=== PATIENT | male | born 1970 | race Caucasian/White ===

== ENCOUNTER 2020-04-12 06:58 | Outpatient (REF) | payer MEDICARE, MEDICAID, SELFPAY | END 2020-04-12 06:59 | disposition home or self-care (01) | LOC: HO.LAB 06:58 | PROVIDERS: Visit Provider Internal Medicine | DX: Z20.828 Contact with and (suspected) exposure to other viral communicable diseases (principal) | CPT/HCPCS: C9803; U0003 ==

== ENCOUNTER → 2020-04-21 11:10 | Outpatient (BNVA) | payer MEDICARE, MEDICAID, SELFPAY | PROVIDERS: PCP Internal Medicine; Referring Provider Internal Medicine; Visit Provider Internal Medicine Gastroenterology | DX: K58.1 Irritable bowel syndrome with constipation (principal); K59.04 Chronic idiopathic constipation; K21.00 Gastro-esophageal reflux disease with esophagitis, without bleeding; Z79.899 Other long term (current) drug therapy | CPT/HCPCS: 99212 ==

== ENCOUNTER 2020-05-08 07:12 | Outpatient (REF) | payer MEDICARE, MEDICAID, SELFPAY ==
[2020-05-08 07:55] LABS: MANUAL DIFF FLAG NO
[2020-05-08 07:57] LABS: Basophils Percent Auto 0.5 % (0-2); Eosinophils Absolute Auto 0.2 X10*3/uL (0.0-0.4); Eosinophils Percent Auto 4.2 % (0-4); Hematocrit 44.4 % (42-52); Hemoglobin 14.7 g/dl (14.0-18.0); Imm Gran Abs Auto 0.02 X10*3/uL (0.00-0.03); Imm Gran Pct Auto 0.3 % (0.0-0.4); Lymphocytes Absolute Auto 2.2 X10*3/uL (1.2-4.9); Lymphocytes Percent Auto 37.7 % (20-40); Mean Corpuscular HGB Conc 33.1 g/dl (31.0-36.0); Mean Corpuscular Hemoglobin 29.8 pg (27.0-33.0); Mean Corpuscular Volume 89.9 fL (80-98); Monocytes Absolute Auto 0.7 X10*3/uL (0.1-1.2); Monocytes Percent Auto 11.9 % (2-11); Neutrophils Absolute Auto 2.6 X10*3/uL (2.0-8.3); Neutrophils Percent Auto 45.4 % (45-73); Platelet Count 313 X10*3/uL (160-400); Red Blood Count 4.94 X10*6/uL (4.60-5.80); White Blood Count 5.7 X10*3/uL (4.8-10.8)
[2020-05-08 08:21] LABS: Alanine Aminotransferase 23 U/L (0-40); Albumin Level 4.4 g/dL (3.5-5.0); Alkaline Phosphatase 56 U/L (39-117); Anion Gap 14 (12-20); Aspartate Amino Transferase 19 U/L (5-37); Bilirubin Total 0.9 mg/dL (0.0-1.0); Blood Urea Nitrogen 15 mg/dL (9-16); Calcium 9.2 mg/dL (8.4-10.2); Carbon Dioxide 27 mmol/L (22-29); Chloride 105 mmol/L (96-108); Cholesterol 214 mg/dL; Estimated Glomerular Filt Rate > 60; Glucose Fasting 102 mg/dL (60-99); HDL Cholesterol 41 mg/dL; LDL Cholesterol Calculated 161 mg/dl; Potassium 4.8 mmol/l (3.3-5.1); Sodium 141 mmol/L (135-145); Total Protein 7.1 g/dL (6.5-8.0); Triglycerides 64 mg/dL
== END 2020-05-08 07:13 | disposition home or self-care (01) ==
LOC: HO.LAB 07:12
PROVIDERS: PCP Internal Medicine; Visit Provider Internal Medicine
DX: Z00.00 Encounter for general adult medical examination without abnormal findings (principal); E66.9 Obesity, unspecified; G43.909 Migraine, unspecified, not intractable, without status migrainosus; N40.0 Benign prostatic hyperplasia without lower urinary tract symptoms; K21.9 Gastro-esophageal reflux disease without esophagitis; I10 Essential (primary) hypertension; E78.00 Pure hypercholesterolemia, unspecified; M25.572 Pain in left ankle and joints of left foot; Z12.11 Encounter for screening for malignant neoplasm of colon
CPT/HCPCS: 36415; 80053; 80061; 85025

== ENCOUNTER 2020-05-21 10:13 | Outpatient (REF) | payer MEDICARE, SELFPAY ==
--- NOTE | 2020-05-21 10:24 | XR_ITS ---
EXAMINATION: XR NASAL BONES CLINICAL INFORMATION: Nasal congestion. COMPARISON: None TECHNIQUE: 3 views of the nasal bones were obtained. FINDINGS: There is no visible fracture or bony abnormality. The soft tissues are normal. XR/XR nasal bones min 3V IMPRESSION: Unremarkable nasal bone exam.
== END 2020-05-21 10:14 | disposition home or self-care (01) ==
LOC: HO.XRAY 10:13
PROVIDERS: PCP Internal Medicine; Visit Provider Internal Medicine
DX: R09.81 Nasal congestion (principal)
CPT/HCPCS: 70160

== ENCOUNTER 2020-06-05 07:19 | Outpatient (REF) | payer MEDICARE, SELFPAY ==
[2020-06-05 08:59] LABS: PSA,Total (Free>4and<10) 1.25 ng/mL (0.00-4.00)
== END 2020-06-05 07:20 | disposition home or self-care (01) ==
LOC: HO.LAB 07:19
PROVIDERS: PCP Internal Medicine; Visit Provider Urology
DX: N40.1 Benign prostatic hyperplasia with lower urinary tract symptoms (principal); Z12.5 Encounter for screening for malignant neoplasm of prostate
CPT/HCPCS: 84153

== ENCOUNTER 2020-06-09 12:08 | Outpatient (REF) | payer MEDICARE, OTHER, SELFPAY ==
--- NOTE | 2020-06-09 12:14 | XR_ITS ---
EXAMINATION: CHEST X-RAY AND THORACIC SPINE X-RAY CLINICAL INFORMATION: Cough. Back pain. COMPARISON: Previous chest x-ray most recent September 2016 TECHNIQUE: 2 views of the chest and 2 views of the thoracic spine FINDINGS: Chest: The cardiac and mediastinal contours are normal. The lungs are clear. There is no pleural effusion or pneumothorax. There is mild curvature of the thoracic spine to the right and degenerative changes. Thoracic spine: There is mild curvature of the mid thoracic spine to the right with apex at T6. Bone alignment is otherwise normal. No fracture or dislocation is seen. There is mild degenerative spondylosis of the lower thoracic spine. Paraspinal soft tissues are normal. XR/XR thoracic spine 2V IMPRESSION: Chest: No evidence for acute disease in the chest. Thoracic spine: Mild curvature of the midthoracic spine to the right and degenerative changes.
--- NOTE | 2020-06-09 12:14 | XR_ITS ---
EXAMINATION: CHEST X-RAY AND THORACIC SPINE X-RAY CLINICAL INFORMATION: Cough. Back pain. COMPARISON: Previous chest x-ray most recent September 2016 TECHNIQUE: 2 views of the chest and 2 views of the thoracic spine FINDINGS: Chest: The cardiac and mediastinal contours are normal. The lungs are clear. There is no pleural effusion or pneumothorax. There is mild curvature of the thoracic spine to the right and degenerative changes. Thoracic spine: There is mild curvature of the mid thoracic spine to the right with apex at T6. Bone alignment is otherwise normal. No fracture or dislocation is seen. There is mild degenerative spondylosis of the lower thoracic spine. Paraspinal soft tissues are normal. XR/XR chest 2V IMPRESSION: Chest: No evidence for acute disease in the chest. Thoracic spine: Mild curvature of the midthoracic spine to the right and degenerative changes.
== END 2020-06-09 12:09 | disposition home or self-care (01) ==
LOC: HO.XRAY 12:08
PROVIDERS: PCP Internal Medicine; Visit Provider Physician Assistant
DX: R05 Cough (principal); M54.6 Pain in thoracic spine
CPT/HCPCS: 71046; 72070

== ENCOUNTER → 2020-06-11 08:52 | Outpatient (BNVA) | payer MEDICARE, OTHER, SELFPAY | PROVIDERS: PCP Internal Medicine; Visit Provider Urology | DX: N40.0 Benign prostatic hyperplasia without lower urinary tract symptoms (principal) | CPT/HCPCS: 99212 ==

== ENCOUNTER 2020-08-17 06:08 | Day surgery (SDC) | payer MEDICARE, MEDICAID, SELFPAY ==
[2020-08-11 17:03] VITALS: BMI 35.5
--- NOTE | 2020-08-16 09:49 | HO.ANESPROP2 ---
Documented by User: Macy Muhammad 08/16/20 09:50 HPI - Anesthesia Eval Consult details Narrative: 50yo M for Upper Endoscopy and Colonoscopy Deaf requiring foreign language interpreter [facility] Active Problems Active Problems: All Active Problems (Updated 08/11/20 @ 17:00 by Nadege Yates) Impaired glucose tolerance (Acute) GERD (gastroesophageal reflux disease) (Acute) Nasal congestion (Acute) Back pain (Acute) Cough (Acute) Thoracic spine pain (Acute) BPH (benign prostatic hyperplasia) (Acute) Vitamin D deficiency (Acute) Hypertension (Acute) Obesity (BMI 30-39.9) (Acute) Hypercholesterolemia (Acute) Chronic idiopathic constipation (Acute) Past Medical History Medical History BPH (benign prostatic hyperplasia) Chronic idiopathic constipation COVID-19 vaccine series completed Deaf Hypercholesterolemia Hypertension Left epididymitis Migraine Obesity (BMI 30-39.9) Screening for colon cancer Vitamin D deficiency Family History Family History Father History of prostate cancer Mother HX: breast cancer Surgical History Surgical History History of esophagogastroduodenoscopy (EGD) Hx of colonoscopy Hx of hernia repair Varicocele Social History Social History Smoking Status: Never smoker Use of substances other than those prescribed or required for medical reasons: No Advance Directives: No Advance Directives Information Provided: No Advance Directives on File: No Current occupational status: employed Meds Allergies Allergy/AdvReac Type Severity Reaction Status Date / Time Sulfa (Sulfonamide Allergy Mild HIVES, Verified 07/21/20 15:07 Antibiotics) rash and [SULFA(SULFONAMIDE red bump, ANTIBIOTICS)] hives and itching Home Medications Medication Instructions Recorded Confirmed Last Taken Type baclofen 20 mg PO BEDTIME PRN 08/11/20 08/11/20 Unknown History lisinopril 5 mg PO DAILY 08/11/20 08/17/20 08/17/20 05:20 History Exam Exam Date and Time: August 16, 2020 0949 Height,Weight and Vital Signs: Height 5 ft 11 in Weight 115.666 kg Assessment and Plan Assessment Anesthesia Assessment: Chart Reviewed Documented by User: Denia Goldberg 08/17/20 07:24 PMFSH Past Medical History Medical History BPH (benign prostatic hyperplasia) Chronic idiopathic constipation COVID-19 vaccine series completed Deaf Hypercholesterolemia Hypertension Left epididymitis Migraine Obesity (BMI 30-39.9) Screening for colon cancer Vitamin D deficiency Family History Family History Father History of prostate cancer Mother HX: breast cancer Surgical History Surgical History History of esophagogastroduodenoscopy (EGD) Hx of colonoscopy Hx of hernia repair Varicocele Social History Social History Smoking Status: Never smoker Use of substances other than those prescribed or required for medical reasons: No Advance Directives: No Advance Directives Information Provided: No Advance Directives on File: No Current occupational status: employed Meds Allergies Allergy/AdvReac Type Severity Reaction Status Date / Time Sulfa (Sulfonamide Allergy Mild HIVES, Verified 07/21/20 15:07 Antibiotics) rash and [SULFA(SULFONAMIDE red bump, ANTIBIOTICS)] hives and itching Home Medications Medication Instructions Recorded Confirmed Last Taken Type baclofen 20 mg PO BEDTIME PRN 08/11/20 08/11/20 Unknown History lisinopril 5 mg PO DAILY 08/11/20 08/17/20 08/17/20 05:20 History Exam Airway Mallampati Class: II TM Dist: >3cm Neck ROM: Full Heart: RRR Lungs: CTA
[2020-08-17 06:58] VITALS: BP 128/83; PULSE 68; RESP 16; TEMP 36.3; O2SAT 99
[2020-08-17] MEDS: Lactated Ringers 1,000 ML 100 ML IVCONT (07:04)
--- NOTE | 2020-08-17 07:26 | MHC.SHP ---
Pre-Procedural Eval Section B Chief Complaint: CIC, GERD Details of Present Illness: Colon cancer screening Occasional increased heartburn with prolonged pain No new problems since preprocedure in April Relevant Family History (Specify if Yes): No Relevant Social History: None Present Medications: see Short Stay Collaborative assessment Medical History: Significant History (Hearing impaired,Hypertension, obesity,Migraine) History of Previous Operations: Relevant previous surgery/procedure and date(s) (Previous egd) Allergies: Allergies Allergy/AdvReac Type Severity Reaction Status Date / Time Sulfa (Sulfonamide Allergy Mild HIVES, Verified 07/21/20 15:07 Antibiotics) rash and [SULFA(SULFONAMIDE red bump, ANTIBIOTICS)] hives and itching Review of Systems Sugical H&P ROS: Negative: Constitution, Cardiovascular and Respiratory and Yes, Specify: Gastrointestinal (gerd) Exam Surgical H&P Exam: Normal: Heart (deaf), Normal: Lungs, Normal: Extremities and Normal: Abdomen Plan Diagnosis/Plan: Unchanged I have reviewed the history and physical and performed a pertinent physical examination on my patient. No changes have occurred unless specified.yes
[2020-08-17 08:30] VITALS: BP 104/62; PULSE 64; RESP 16; TEMP 36.2; O2SAT 95
--- NOTE | 2020-08-17 08:30 | PM.OP ---
Brief Operative Note Date of Service: 08/17/20 Pre-op diagnosis: Chronic GERD, Colon Cancer Screening Post-op diagnosis: other (Normal EGD--?NEL; colon polyp ) Procedure: EGD; COLONOSCOPY WITH EXCISIONAL BX WITH COLD BX FORCEPS Implants: NONE Surgeon: Yuni Gatica MD Anesthesia: MAC (MD SOHA) Estimated blood loss (mL): 5 Pathology: other (POLYP TRANSVERSE COLON) Condition: stable Disposition: PACU
[2020-08-17 08:45] VITALS: BP 111/64; PULSE 60; RESP 18; O2SAT 97
--- NOTE | 2020-08-17 09:11 | HO.POSTANES ---
Post Anesthesia Evaluation Post Anesthesia Evaluation Vital Signs: Vital Signs Temp Pulse Resp BP Pulse Ox 08/17/20 08:45 60 18 111/64 97 08/17/20 08:30 97.1 F 64 16 104/62 95 08/17/20 06:58 97.4 F 68 16 128/83 99 Anesthesia: Monitored Mental Status: Awake Pain Control: Satisfactory Nausea/Vomiting: None Hydration: Adequate Anesthesia-Related Issues: No Anes. Related Issues
--- NOTE | 2020-08-22 10:59 | W.PM.OPN ---
Operative Note Operative Note Date of Service: 08/17/20 Narrative: Pre-op diagnosis: Chronic GERD, Colon Cancer Screening Post-op diagnosis: other (Normal EGD--?NEL; colon polyp ) Procedure: EGD; COLONOSCOPY WITH EXCISIONAL BX WITH COLD BX FORCEPS Implants: NONE Surgeon: Yuni Gatica MD Anesthesia: MAC (MD SOHA) FINDINGS: EGD: Video gastroscope was introduced with out difficulty. Navigated through the posterior pharynx. View of Arytenoid cartilages showed them to be lipomatous and flattened-no erythema was seen. Scope easily passed into the esophagus. Mucosa was normal. There was a ? of esophageal spasm noted. No hiatal hernia was seen. Gastric mucosa was normal. Duodenal bulb and duodenum showed endoscopically normal villi. No bx was done. COLO: LEELA: Prostate was normal, Sphincter tone was adequate. Adult slim colonoscope was introduced with no difficulty. Scope easily advanced through sigmoid, descending, transverse and ascending colon into the cecum..Appendiceal orifice was seen. Ileocecal valve was seen. PREP: Good. Slow withdrawal of scope, good rotational views: A diminutive polyp was identified and removed in the distal transverse colon. (Cold bx forceps technique used,) ARV was clear. . Estimated blood loss (mL): 5 Pathology: other (POLYP TRANSVERSE COLON)--path was hyperplastic. Condition: stable Disposition: PACU PLAN: Repeat asymptomatic screening will be 10 years. FIT testing @ 5 years. UGI symptoms can be reviewed in followup visit.
== END 2020-08-17 09:31 | disposition home or self-care (01) ==
PROVIDERS: PCP Internal Medicine; Visit Provider Internal Medicine Gastroenterology
PROC: (CPT 45380; principal; 2020-08-17 07:30)
DX: Z12.11 Encounter for screening for malignant neoplasm of colon (principal); K63.5 Polyp of colon; K59.04 Chronic idiopathic constipation; K21.9 Gastro-esophageal reflux disease without esophagitis; I10 Essential (primary) hypertension; H90.5 Unspecified sensorineural hearing loss; Z79.899 Other long term (current) drug therapy; Z88.2 Allergy status to sulfonamides
CPT/HCPCS: 45380; 43235; 88305

== ENCOUNTER 2020-08-24 08:00 | Outpatient (RCR) | payer MEDICARE, MEDICAID, SELFPAY ==
--- NOTE | 2020-07-12 12:30 | MHC.PT.OD ---
[facility] [place] [facility] [place] [facility] [place] [facility] [address] Sheree Rivera [address] [phone] F: [phone] F: [phone] F: [phone] F: [phone] Physical Therapy Daily Note Diagnosis: Dorsalgia M54.9 referred to PT by Dr. Davidson. with date of referra 06/08/2020 Jul 15 Pt underwent xrays within [facility] (see below). Date of Surgery: Date of Evaluation: 07/12/20 Date of Treatment: 07/06/20 Treatments to Date: 1 Cancellations to Date: No Shows to Date: Authorized Visits: 7 Insurance End Date: Precautions/ Contraindications:Use of park interpreter this date Deaf, history of HTN Subjective: Pt verbalizing he is scheduled to see Dr. Davidson for follow up regarding refill of baclofen medication and to discuss recommendation of what to take for pain (? ibuprofen- pt has a history of HTN). Pt verbalizes overall improvement since start of care; however he expresses would like to have his pain go away altogether. Pain Score and Location: Radiating down R UE Objective Flowsheet: Tests & Measures park interpreter present Exercises Seated Krank cycle x 5 minutes backwards with moderate resistance for active warm-up SL for thoracic rotation with open books and cervical rotation x 5R each side Standing resisted shoulder extension, shoulder flexion, and resisted ER/IR with GTB compeleted bilaterally x 2 set 10R Review of horizontal abd, ER pullouts, open books, pec minor stretch over foam roller with HEP program. Prone for IASTM to bilateral thoracic paraspinals, using HG #8 strumming technique followed by YOKASTA mobs grade 2-3 T3-T6 region Self care: postural education with lumbar towel roll., impact of sternal elevation on posture, sitting posture. Education re: trial of alternating MHP/ice for mm spasms to upper back region. Modalities Manual c-tx set in 30 degrees flexion x 20 minutes @ 25# pull force in effort to centralize sx of R UE completed post traction session today, followed by three minutes of rest post traction. Assessment: Pt has attended 7 sessions of PT to date, demonstrating some improvement/reduction in severity of R upper back pain/cervical radiculopathy sx. Pt has been issued a written postural HEP program with (+) carryover and compliance; he has obtained a foam roller for home use. Pt continues to express intermittent R lateral shoulder sx which appears consistent with cervical radiculopathy C5/C6 pattern. He has been receiving mechanical cervical traction with (+) improvements, now rating sx as a 5-6/10 where at start of care it was a 8-9/10. He has been completing some construction activities at home which appear to have been a contributing factor to his symptoms. Pt inquired about medication relief as he has run out of baclofen, therapist reached out to PCP office to inquire what recommendation Dr. Davidson has for patient due to pt's history of HTN. Pt has been receiving STM/instrument assisted soft tissue mobilization, postural taping, mechanical traction, postural education, and therapeutic exercise. At this time therapist is recommending patient continue therapy at a frequency of 2x/week. Due to now improving, intermittent appearance of radiating R shoulder sx, therapist is no longer inquiring about trial of a steroid taper, as the exercises and the traction treatment appears to be improving pt's symptoms. Use of ASL in-person japanese interpreter has been required during each session. Pt did mention new medical issue today during this session which I encouraged him to bring up at time of his next PCP appointment (difficulty breathing when sleeping on his back at night- which is relieved with side-lying). He reports hx deviated septum due to baseball injury many years ago. Pt may benefit from screening for sleep apnea..? Pt is scheduled to see Dr. Davidson on 07/15/20. Thank you for your referral. PT Plan: Continue cervical traction and strengthening per plan Continue manual therapy, taping, and progression of postural therex Short Term Goals: 1. Centralize R UE sx to height of C/S. 2. Decreased frequency of headaches from daily to <2x/week. 3. Pt will demonstrate improved pec minor length. 4. Pt will demonstrate strength middle and lower trap strength 4+/5. 5. Pt will improve postural awareness to good during ADLS/IADLS. Nursing Home Goals: 1. Pt will demonstrate R shoulder abd to 5/5. 2. Pt will demonstrate R shoulder flexion to 5/5. 3. Pt will demonstrate upper and lower trap strength 10/06. 4. I HEP postural stabilization program. 5. Pt will verbalize resolution of upper back sx by >75% during ADLS/IADLS. Electronically signed by: Bety Ardon, PT, DPT
== END 2020-09-13 08:21 | disposition other institution (70) ==
LOC: HO.PTWFD 08:00
PROVIDERS: Visit Provider Internal Medicine
DX: M54.9 Dorsalgia, unspecified (principal)
CPT/HCPCS: 97012; 97035; 97110; 97140; 97161; 97530

== ENCOUNTER → 2020-09-08 12:57 | Outpatient (BNVA) | payer MEDICARE, OTHER, MEDICAID, SELFPAY | PROVIDERS: PCP Internal Medicine; Visit Provider Internal Medicine Gastroenterology | DX: K21.9 Gastro-esophageal reflux disease without esophagitis (principal); K59.04 Chronic idiopathic constipation | CPT/HCPCS: Q3014 ==

== ENCOUNTER → 2020-10-14 13:51 | Outpatient (BNVA) | payer MEDICARE, OTHER, SELFPAY | PROVIDERS: PCP Internal Medicine; Visit Provider Nurse Practitioner | DX: Z13.89 Encounter for screening for other disorder (principal) | CPT/HCPCS: Q3014 ==

== ENCOUNTER → 2020-11-22 12:41 | Outpatient (REF) | payer MEDICARE, MEDICAID, SELFPAY | LOC: HO.SL 12:41 | PROVIDERS: PCP Internal Medicine; Visit Provider Internal Medicine | DX: G47.10 Hypersomnia, unspecified (principal); E66.9 Obesity, unspecified; G47.33 Obstructive sleep apnea (adult) (pediatric); K21.9 Gastro-esophageal reflux disease without esophagitis; K59.04 Chronic idiopathic constipation | CPT/HCPCS: 95806; Q3014 ==

== ENCOUNTER → 2021-01-04 15:16 | Outpatient (BNVA) | payer MEDICARE, MEDICAID, SELFPAY | PROVIDERS: PCP Internal Medicine; Visit Provider Nurse Practitioner | DX: Z13.89 Encounter for screening for other disorder (principal) | CPT/HCPCS: Q3014 ==

== ENCOUNTER 2021-02-05 07:14 | Outpatient (REF) | payer MEDICARE, MEDICAID, SELFPAY ==
[2021-02-05 07:55] LABS: MANUAL DIFF FLAG NO
[2021-02-05 08:01] LABS: Basophils Percent Auto 0.3 % (0-2); Eosinophils Absolute Auto 0.1 X10*3/uL (0.0-0.4); Eosinophils Percent Auto 2.2 % (0-4); Hematocrit 41.2 % (42-52); Hemoglobin 13.2 g/dl (14.0-18.0); Imm Gran Abs Auto 0.01 X10*3/uL (0.00-0.03); Imm Gran Pct Auto 0.2 % (0.0-0.4); Lymphocytes Absolute Auto 2.1 X10*3/uL (1.2-4.9); Lymphocytes Percent Auto 34.6 % (20-40); Mean Corpuscular Hemoglobin 28.3 pg (27.0-33.0); Mean Corpuscular Volume 88.4 fL (80-98); Mean Platelet Volume 9.3 fL (9.4-12.4); Monocytes Absolute Auto 0.7 X10*3/uL (0.1-1.2); Monocytes Percent Auto 12.1 % (2-11); Neutrophils Percent Auto 50.6 % (45-73); Platelet Count 318 X10*3/uL (160-400); Red Blood Count 4.66 X10*6/uL (4.60-5.80); Red Cell Distribution Width 12.1 % (11.0-16.0); White Blood Count 5.9 X10*3/uL (4.8-10.8)
[2021-02-05 08:30] LABS: Alanine Aminotransferase 26 U/L (0-40); Albumin Level 4.3 g/dL (3.5-5.0); Alkaline Phosphatase 65 U/L (39-117); Anion Gap 10 (12-20); Aspartate Amino Transferase 20 U/L (5-37); Bilirubin Total 0.7 mg/dL (0.0-1.0); Blood Urea Nitrogen 12 mg/dL (9-16); Calcium 9.6 mg/dL (8.4-10.2); Carbon Dioxide 29 mmol/L (22-29); Chloride 108 mmol/L (96-108); Cholesterol 141 mg/dL; Estimated Glomerular Filt Rate > 60; Glucose Random 104 mg/dL (60-115); HDL Cholesterol 35 mg/dL; LDL Cholesterol Calculated 96 mg/dl; Potassium 4.9 mmol/L (3.3-5.1); Sodium 142 mmol/L (135-145); Total Protein 7.1 g/dL (6.5-8.0); Triglycerides 54 mg/dL
[2021-02-05 08:37] LABS: Prostate Specific Antigen Scr 1.49 ng/mL (<0.05-4.0); Thyroid Stimulating Hormone 0.83 uIU/mL (0.32-4.0)
[2021-02-07 08:14] LABS: Folate 12.3 ng/mL (> or = 4.0); Vitamin B12 475 pg/mL (200-900)
[2021-02-08 12:54] LABS: Estimated Average Glucose 108 mg/dL; Hemoglobin A1c % 5.4 %
== END 2021-02-05 07:15 | disposition home or self-care (01) ==
LOC: HO.LAB 07:14
PROVIDERS: PCP Internal Medicine; Visit Provider Internal Medicine
DX: Z12.5 Encounter for screening for malignant neoplasm of prostate (principal); E78.00 Pure hypercholesterolemia, unspecified; R73.02 Impaired glucose tolerance (oral)
CPT/HCPCS: 36415; 80053; 80061; 82607; 82746; 83036; 84153; 84439; 84443; 85025

== ENCOUNTER 2021-04-04 16:51 | Emergency (ER) | payer MEDICARE, MEDICAID, SELFPAY ==
[2021-04-04 17:02] VITALS: BP 118/73; PULSE 88; RESP 18; TEMP 36; O2SAT 98; BMI 33.5
[2021-04-04 17:36] LABS: MANUAL DIFF FLAG NO
[2021-04-04 17:37] LABS: Basophils Percent Auto 0.4 % (0-2); Eosinophils Absolute Auto 0.2 X10*3/uL (0.0-0.4); Eosinophils Percent Auto 2.6 % (0-4); Hematocrit 42.8 % (42.0-52.0); Hemoglobin 13.9 g/dl (14.0-18.0); Imm Gran Abs Auto 0.01 X10*3/uL (0.00-0.03); Imm Gran Pct Auto 0.1 % (0.0-0.4); Lymphocytes Absolute Auto 2.5 X10*3/uL (1.2-4.9); Lymphocytes Percent Auto 34.8 % (20-40); Mean Corpuscular HGB Conc 32.5 g/dl (31.0-36.0); Mean Corpuscular Hemoglobin 28.1 pg (27.0-33.0); Mean Corpuscular Volume 86.5 fL (80.0-98.0); Mean Platelet Volume 8.8 fL (9.4-12.4); Monocytes Absolute Auto 0.8 X10*3/uL (0.1-1.2); Monocytes Percent Auto 10.7 % (2-11); Neutrophils Absolute Auto 3.62 x10*3/uL (2.0-8.3); Neutrophils Percent Auto 51.4 % (45-73); Platelet Count 325 X10*3/uL (160-400); Red Blood Count 4.95 X10*6/uL (4.60-5.80); Red Cell Distribution Width 12.1 % (11.0-16.0)
--- NOTE | 2021-04-04 17:43 | ED.GENADULT ---
HPI - General Adult General Chief complaint: General Medical Stated complaint: Abd Pain Time Seen by Provider: 04/04/21 17:17 Source: patient Mode of arrival: ambulatory Limitations: no limitations History of Present Illness HPI narrative: Patient nonverbal sign language was used. Patient's history of high cholesterol and hypertension been having pain nonspecific on the right side of the body since 10/22 was not able to see his primary care doctor till date pain is localized the shoulder in the groin area in the leg area mostly patient feels stiff in the morning. No joint swelling no fever no diarrhea no vomiting also patient was saying after bicycling he has some pain in his pain is. With multiple complaints no acute change in the pain corrective no rash Related Data Previous Rx's Medication Instructions Recorded simvastatin 5 mg tablet 5 mg PO BEDTIME #90 tab 07/15/20 AUTO CPAP 6-16 cm H2O humidified #1 ea 12/01/20 air omeprazole 20 mg capsule,delayed 20 mg PO QAM #30 cap 01/04/21 release lisinopril 10 mg tablet 5 mg PO DAILY #90 tab 02/14/21 tramadol 50 mg tablet 50 mg PO Q6H PRN #20 tab 04/04/21 Allergies Allergy/AdvReac Type Severity Reaction Status Date / Time Sulfa (Sulfonamide Allergy Mild HIVES, Verified 02/17/21 09:47 Antibiotics) rash and [SULFA(SULFONAMIDE red bump, ANTIBIOTICS)] hives and itching Review of Systems Review of Systems: Yes all other systems are reviewed and are negative PMFSH Past Medical History Medical History Back pain BPH (benign prostatic hyperplasia) Chronic idiopathic constipation Cough COVID-19 vaccine series completed Deaf Hypercholesterolemia Hypertension Left epididymitis Migraine Nasal congestion Obesity (BMI 30-39.9) Rash Screening for colon cancer Thoracic spine pain Vitamin D deficiency Surgical History History of esophagogastroduodenoscopy (EGD) Hx of colonoscopy Hx of hernia repair Varicocele Family History Family History Father History of prostate cancer Mother HX: breast cancer Social History Social History Household Members: Spouse, Family and Children Housing: House Alcohol intake: never Patient Tobacco Use Status: Never used Tobacco Use of substances other than those prescribed or required for medical reasons: No Advance Directives: No Advance Directives Information Provided: No service: No Current occupational status: employed Physical Exam Vital Signs: Vital Signs: Last Vital Signs Temp 96.8 F 04/04/21 17:02 Pulse 88 04/04/21 17:02 Resp 18 04/04/21 17:02 BP 118/73 04/04/21 17:02 Pulse Ox 98 04/04/21 17:02 Body Mass Index 33.5 Appearance: Alert. Oriented X3. No acute distress. Nonverbal Eyes: No pallor or icterus ENT: Pharynx normal. Oral Mucosa moist Neck: Normal inspection. Neck supple. CVS: Normal heart rate and rhythm. Pulses normal. Respiratory: No respiratory distress. Equal air entry bilateral, no wheezing/rales/rhonchi Abdomen: Soft and nontender. Bowel sounds are present, no mass palpable, no CVA tenderness Genitalia: Normal penis normal scrotum no testicle pain or swelling Skin: Skin warm and dry. Normal skin color. Normal skin turgor. Extremities: No lower extremity edema. No calf tenderness No joint swelling noticed good range of shoulder movements no swelling in the groin area knee joint is normal Neuro: Oriented X 3. No motor deficit. No sensory deficit. Medical Decision Making MDM Narrative Medical decision making narrative: Patient nonspecific body pain likely musculoskeletal workup essentially negative patient advised to drink plenty of fluids tramadol for pain as needed Lab Data Lab results reviewed: Yes I reviewed the patient's lab results. Result diagrams: 04/04/21 17:31 04/04/21 17:31 Labs: Lab Results 04/04/21 04/04/21 04/04/21 Range/Units 17:31 17:31 17:31 WBC 7.0 (4.8-10.8) X10*3/uL RBC 4.95 (4.60-5.80) X10*6/uL Hgb 13.9 L (14.0-18.0) g/dl Hct 42.8 (42.0-52.0) % MCV 86.5 (80.0-98.0) fL MCH 28.1 (27.0-33.0) pg MCHC 32.5 (31.0-36.0) g/dl RDW 12.1 (11.0-16.0) % Plt Count 325 (160-400) X10*3/uL MPV 8.8 L (9.4-12.4) fL Immature Gran % (Auto) 0.1 (0.0-0.4) % Neut % (Auto) 51.4 (45-73) % Lymph % (Auto) 34.8 (20-40) % [place] % (Auto) 10.7 (2-11) % Eos % (Auto) 2.6 (0-4) % Baso % (Auto) 0.4 (0-2) % Lymph # (Auto) 2.5 (1.2-4.9) X10*3/uL [place] # (Auto) 0.8 (0.1-1.2) X10*3/uL Eos # (Auto) 0.2 (0.0-0.4) X10*3/uL Baso # (Auto) 0.0 (0.0-0.2) X10*3/uL Abs Immat Gran (auto) 0.01 (0.00-0.03) X10*3/uL Absolute Neuts (auto) 3.62 (2.0-8.3) x10*3/uL Absolute Nucleated RBC 0.000 (0.0-0.012) X10*3/uL Nucleated RBC % (auto) 0.0 (0.0-0.2) /100WBC ESR 5 (0-15) MM/HR Sodium 141 (135-145) mmol/L Potassium 4.9 (3.3-5.1) mmol/L Chloride 105 (96-108) mmol/L Carbon Dioxide 25 (22-29) mmol/L Anion Gap 16 (12-20) BUN 15 (9-16) mg/dL Creatinine 1.29 (0.5-1.4) mg/dL Estim Creat Clear Calc 85.0 Estimated GFR 59 Random Glucose 116 H (60-115) mg/dL Calcium 9.7 (8.4-10.2) mg/dL Urine Color Urine Appearance Urine pH (5.0-8.0) Ur Specific [place] (1.005-1.025) Urine Protein (NEG-TRACE) MG/DL Urine Glucose (UA) (NEG) MG/DL Urine Ketones (NEG) MG/DL Urine Blood (NEG) Urine Nitrite (NEG) Ur Leukocyte Esterase (NEG) 04/04/21 Range/Units 17:42 WBC (4.8-10.8) X10*3/uL RBC (4.60-5.80) X10*6/uL Hgb (14.0-18.0) g/dl Hct (42.0-52.0) % MCV (80.0-98.0) fL MCH (27.0-33.0) pg MCHC (31.0-36.0) g/dl RDW (11.0-16.0) % Plt Count (160-400) X10*3/uL MPV (9.4-12.4) fL Immature Gran % (Auto) (0.0-0.4) % Neut % (Auto) (45-73) % Lymph % (Auto) (20-40) % [place] % (Auto) (2-11) % Eos % (Auto) (0-4) % Baso % (Auto) (0-2) % Lymph # (Auto) (1.2-4.9) X10*3/uL [place] # (Auto) (0.1-1.2) X10*3/uL Eos # (Auto) (0.0-0.4) X10*3/uL Baso # (Auto) (0.0-0.2) X10*3/uL Abs Immat Gran (auto) (0.00-0.03) X10*3/uL Absolute Neuts (auto) (2.0-8.3) x10*3/uL Absolute Nucleated RBC (0.0-0.012) X10*3/uL Nucleated RBC % (auto) (0.0-0.2) /100WBC ESR (0-15) MM/HR Sodium (135-145) mmol/L Potassium (3.3-5.1) mmol/L Chloride (96-108) mmol/L Carbon Dioxide (22-29) mmol/L Anion Gap (12-20) BUN (9-16) mg/dL Creatinine (0.5-1.4) mg/dL Estim Creat Clear Calc Estimated GFR Random Glucose (60-115) mg/dL Calcium (8.4-10.2) mg/dL Urine Color YELLOW Urine Appearance CLEAR Urine pH 6.0 (5.0-8.0) Ur Specific [place] 1.020 (1.005-1.025) Urine Protein NEG (NEG-TRACE) MG/DL Urine Glucose (UA) NEG (NEG) MG/DL Urine Ketones NEG (NEG) MG/DL Urine Blood NEG (NEG) Urine Nitrite NEG (NEG) Ur Leukocyte Esterase NEG (NEG) Discharge Plan Discharge Clinical Impression: Musculoskeletal pain Patient Disposition: Home, Self-Care Instructions: Musculoskeletal Pain (ED) Additional Instructions: Take pain medication as prescribed Follow with PCP Prescriptions: New tramadol 50 mg tablet 50 mg PO Q6H PRN (Reason: pain) Qty: 20 RF: 0 No Action (DME) AUTO CPAP 6-16 cm H2O humidified air See Rx Instructions .Route .MEDSUPPLY Qty: 1 RF: 0 lisinopril 10 mg tablet 5 mg PO DAILY Qty: 90 RF: 1 simvastatin 5 mg tablet 5 mg PO BEDTIME Qty: 90 RF: 2 omeprazole 20 mg capsule,delayed release(DR/EC) 20 mg PO QAM Qty: 30 RF: 6
[2021-04-04 17:51] LABS: Appearance Urine CLEAR; Color Urine YELLOW; Glucose Urine UA NEG (NEG); Leukocyte Esterase Urine NEG (NEG); Nitrite Urine NEG (NEG); Urine Blood NEG (NEG); Urine Ketones NEG (NEG); Urine Protein NEG (NEG-TRACE)
[2021-04-04 17:59] LABS: Anion Gap 16 (12-20); Blood Urea Nitrogen 15 mg/dL (9-16); Calcium 9.7 mg/dL (8.4-10.2); Carbon Dioxide 25 mmol/L (22-29); Chloride 105 mmol/L (96-108); Estimated Glomerular Filt Rate 59; Glucose Random 116 mg/dL (60-115); Potassium 4.9 mmol/L (3.3-5.1); Sodium 141 mmol/L (135-145)
[2021-04-04 18:16] LABS: Erythrocyte Sedimentation Rate 5 MM/HR (0-15)
== END 2021-04-04 18:50 | disposition home or self-care (01) ==
PROVIDERS: Emergency Provider Internal Medicine; PCP Internal Medicine
DX: R10.9 Unspecified abdominal pain (principal); I10 Essential (primary) hypertension
CPT/HCPCS: 36415; 80048; 81003; 85025; 85652; 99283; 99284

== ENCOUNTER 2021-05-05 11:44 | Outpatient (REF) | payer MEDICARE, MEDICAID, SELFPAY ==
--- NOTE | ~2021-05-05 | XR_ITS ---
EXAMINATION: XR LUMBOSACRAL SPINE CLINICAL INFORMATION: Radiculopathy COMPARISON: None TECHNIQUE: Three views of the lumbosacral spine. FINDINGS: Bone alignment is normal. No fracture or dislocation is seen. Disc spaces are normal. There is lower lumbar spine facet arthritis. XR/XR lumbar spine 2-3V IMPRESSION: Lower lumbar spine facet arthritis.
--- NOTE | ~2021-05-05 | XR_ITS ---
EXAMINATION: XR THORACIC SPINE CLINICAL INFORMATION: Radiculopathy COMPARISON: Previous x-ray June 2020 TECHNIQUE: 3 views of the thoracic spine were obtained. FINDINGS: Bone alignment is normal. No fracture or dislocation is seen. Disc spaces are normal. There is mild degenerative spondylosis of the lower thoracic spine. Paraspinal soft tissues are normal. XR/XR thoracic spine 3V IMPRESSION: Mild degenerative changes.
== END 2021-05-05 11:45 | disposition home or self-care (01) ==
LOC: HO.XRAY 11:44
PROVIDERS: PCP Internal Medicine; Visit Provider Nurse Practitioner Acute Care
DX: M54.10 Radiculopathy, site unspecified (principal)
CPT/HCPCS: 72072; 72100

== ENCOUNTER 2021-05-27 07:04 | Outpatient (REF) | payer MEDICARE, MEDICAID, SELFPAY ==
[2021-05-27 08:29] LABS: Estimated Average Glucose 120 mg/dL; Hemoglobin A1c % 5.8 %
[2021-05-27 08:32] LABS: Alanine Aminotransferase 29 U/L (0-40); Alkaline Phosphatase 56 U/L (39-117); Anion Gap 12 (12-20); Aspartate Amino Transferase 24 U/L (5-37); Bilirubin Total 0.9 mg/dL (0.0-1.0); Blood Urea Nitrogen 14 mg/dL (9-16); Calcium 9.5 mg/dL (8.4-10.2); Carbon Dioxide 26 mmol/L (22-29); Chloride 108 mmol/L (96-108); Estimated Glomerular Filt Rate > 60; Glucose Random 97 mg/dL (60-115); Potassium 4.7 mmol/L (3.3-5.1); Sodium 141 mmol/L (135-145); Total Protein 6.8 g/dL (6.5-8.0)
== END 2021-05-27 07:05 | disposition home or self-care (01) ==
LOC: HO.LAB 07:04
PROVIDERS: Visit Provider Internal Medicine
DX: R73.02 Impaired glucose tolerance (oral) (principal)
CPT/HCPCS: 36415; 80053; 83036

== ENCOUNTER 2021-06-06 11:05 | Outpatient (REF) | payer OTHER, MEDICAID, SELFPAY ==
[2021-06-06 12:41] LABS: PSA,Total (Free>4and<10) 1.57 ng/mL (0.00-4.00)
== END 2021-06-06 11:06 | disposition home or self-care (01) ==
LOC: HO.LAB 11:05
PROVIDERS: PCP Internal Medicine; Visit Provider Urology
DX: N40.1 Benign prostatic hyperplasia with lower urinary tract symptoms (principal); N13.8 Other obstructive and reflux uropathy; Z12.5 Encounter for screening for malignant neoplasm of prostate
CPT/HCPCS: 36415; 84153

== ENCOUNTER → 2021-06-15 08:47 | Outpatient (BNVA) | payer OTHER, SELFPAY | PROVIDERS: PCP Internal Medicine; Visit Provider Nurse Practitioner Family | DX: M47.27 Other spondylosis with radiculopathy, lumbosacral region (principal); M79.18 Myalgia, other site | CPT/HCPCS: 99202 ==

== ENCOUNTER → 2021-06-16 09:21 | Outpatient (BNVA) | payer OTHER, SELFPAY | PROVIDERS: PCP Internal Medicine; Visit Provider Urology | DX: N40.1 Benign prostatic hyperplasia with lower urinary tract symptoms (principal); R35.0 Frequency of micturition; R39.12 Poor urinary stream | CPT/HCPCS: 99212 ==

== ENCOUNTER → 2021-07-08 14:19 | Outpatient (BNVA) | payer OTHER, SELFPAY | PROVIDERS: PCP Internal Medicine; Referring Provider Internal Medicine; Visit Provider Nurse Practitioner | DX: K59.04 Chronic idiopathic constipation (principal); K21.9 Gastro-esophageal reflux disease without esophagitis; Z83.71 Family history of colonic polyps | CPT/HCPCS: 99212 ==

== ENCOUNTER → 2021-07-13 08:40 | Outpatient (BNVA) | payer OTHER, SELFPAY | PROVIDERS: PCP Internal Medicine; Visit Provider Urology | DX: N32.0 Bladder-neck obstruction (principal) | CPT/HCPCS: 52000; 99212 ==

== ENCOUNTER 2021-07-15 09:59 | Outpatient (REF) | payer OTHER, SELFPAY ==
--- NOTE | ~2021-07-15 | MR_ITS ---
EXAMINATION: MR LUMBAR SPINE WITHOUT CONTRAST CLINICAL INFORMATION: Spondylosis. Radiculopathy. COMPARISON: Lumbar spine radiographs 05/05/2021. CT scan of the abdomen and pelvis 10/04/2012. TECHNIQUE: MRI of the lumbar spine was obtained using routine sequences without contrast. FINDINGS: Alignment is normal. Vertebral body heights are preserved. No acute bone marrow signal changes. There is slight loss of intervertebral disc height and T2 signal intensity at multiple levels related to disc degeneration. There is subtle nodularity located along one of the cauda equina and nerve roots at the level of L4 best depicted on sagittal T2 image 8 of 15 series 4. The tip of the conus medullaris is located at L1. No mass effect on the conus. Visualized distal cord signal intensity is normal. At L1-L2 the annular contour is normal. No canal or neuroforaminal compromise. At L2-L3 the annular contour is normal. No canal or neuroforaminal compromise. At L3-L4 the annular contour is normal. No canal or neuroforaminal compromise. At L4-L5 there is a broad shallow central extrusion. No canal stenosis. No mass effect on the traversing or foraminal nerve roots. At L5-S1 there is a broad shallow central extrusion. No canal stenosis. No mass effect on the traversing or foraminal nerve roots. Limited visualization of the retroperitoneal anatomy reveals no abnormal finding. Psoas and paraspinal muscle groups are symmetric. There is a well marginated benign-appearing intraosseous cyst within the right ilium adjacent to the sacroiliac joint. This finding has remained grossly unchanged when compared to CT imaging from 10/04/2012. MR/MR lumbar spine wo con IMPRESSION: There is subtle nodularity located along one of the cauda equina nerve roots at the level of L4 suggesting the possibility of a small schwannoma. Additional postcontrast images can be obtained for better anatomic characterization of this finding. There are broad shallow central extrusion at L4-L5 and L5-S1. Otherwise unremarkable examination in that there is no canal stenosis. No mass effect on the traversing or foraminal nerve roots.
== END 2021-07-15 10:00 | disposition home or self-care (01) ==
LOC: HO.MRI 09:59
PROVIDERS: PCP Internal Medicine; Visit Provider Nurse Practitioner Family
DX: M47.27 Other spondylosis with radiculopathy, lumbosacral region (principal)
CPT/HCPCS: 72148

== ENCOUNTER → 2021-08-19 14:50 | Outpatient (BNVA) | payer OTHER, SELFPAY | PROVIDERS: PCP Internal Medicine; Referring Provider Internal Medicine; Visit Provider Nurse Practitioner | DX: K59.04 Chronic idiopathic constipation (principal); K21.9 Gastro-esophageal reflux disease without esophagitis; I83.90 Asymptomatic varicose veins of unspecified lower extremity; Z83.71 Family history of colonic polyps; Z88.2 Allergy status to sulfonamides | CPT/HCPCS: 99212 ==

== ENCOUNTER 2021-08-29 07:05 | Day surgery (SDC) | payer OTHER, SELFPAY ==
--- NOTE | 2021-08-26 11:49 | HO.ANESPROP2 ---
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[facility] [place] Active Problems Active Problems: All Active Problems (Updated 08/23/21 @ 12:44 by Farheen Michael, JAJA) Impaired glucose tolerance (Acute) GERD (gastroesophageal reflux disease) (Acute) Obstructive sleep apnea (adult) (pediatric) (Acute) Adult general medical exam (Acute) Muscle pain (Acute) Radicular pain (Acute) Osteoporosis screening (Acute) Musculoskeletal pain (Acute) Lumbosacral neuritis (Acute) BPH (benign prostatic hyperplasia) (Acute) Thoracic arthritis (Acute) Nasal congestion (Acute) Exposure to COVID-19 virus (Acute) Weak urinary stream (Acute) Spondylosis of lumbosacral spine with radiculopathy (Acute) Family history of polyps in the colon (Acute) Bladder neck contracture (Acute) Varicose vein of leg (Acute) BPH (benign prostatic hyperplasia) (Acute) Vitamin D deficiency (Acute) Hypertension (Acute) Obesity (BMI 30-39.9) (Acute) Hypercholesterolemia (Acute) Chronic idiopathic constipation (Acute) Past Medical History Medical History Back pain BPH (benign prostatic hyperplasia) Chronic idiopathic constipation Cough COVID-19 vaccine series completed Deaf GERD (gastroesophageal reflux disease) Hypercholesterolemia Hypertension Left epididymitis Migraine Nasal congestion Obesity (BMI 30-39.9) FRITZ on CPAP Rash Screening for colon cancer Thoracic spine pain Vitamin D deficiency Family History Family History Father History of prostate cancer Mother HX: breast cancer Surgical History Surgical History History of esophagogastroduodenoscopy (EGD) Hx of colonoscopy Hx of hernia repair Varicocele Social History Social History Household Members: Spouse, Family and Children Housing: House Alcohol intake: never Patient Tobacco Use Status: Never used Tobacco e-Cigarette/Vaping Use: Never Used Second Hand Smoke Exposure: No Use of substances other than those prescribed or required for medical reasons: No Are you DNR?: No Advance Directives: No Advance Directives Information Provided: Yes service: No Current occupational status: employed Meds Allergies Allergy/AdvReac Type Severity Reaction Status Date / Time Sulfa (Sulfonamide Allergy Mild HIVES, Verified 08/19/21 15:17 Antibiotics) rash and [SULFA(SULFONAMIDE red bump, ANTIBIOTICS)] hives and itching Exam Exam Date and Time: August 26, 2021 1149 Pertinent Lab Results Pertinent Lab Results: Laboratory Tests 04/04/21 05/27/21 17:31 07:18 WBC 7.0 Hgb 13.9 L Hct 42.8 Plt Count 325 Sodium 141 Potassium 4.7 Chloride 108 Carbon Dioxide 26 BUN 14 Creatinine 1.01 Assessment and Plan Assessment Anesthesia Assessment: Chart Reviewed Documented by User: Alissa Yee MD 08/29/21 08:28 [facility] [place] Past Medical History Medical History Back pain BPH (benign prostatic hyperplasia) Chronic idiopathic constipation Cough COVID-19 vaccine series completed Deaf GERD (gastroesophageal reflux disease) Hypercholesterolemia Hypertension Left epididymitis Migraine Nasal congestion Obesity (BMI 30-39.9) FRITZ on CPAP Rash Screening for colon cancer Thoracic spine pain Vitamin D deficiency Family History Family History Father History of prostate cancer Mother HX: breast cancer Family history of problems with anesthesia: No Surgical History Surgical History History of esophagogastroduodenoscopy (EGD) Hx of colonoscopy Hx of hernia repair Varicocele History of Problems with Anesthesia: No Social History Social History Household Members: Spouse, Family and Children Housing: House Alcohol intake: never Patient Tobacco Use Status: Never used Tobacco e-Cigarette/Vaping Use: Never Used Second Hand Smoke Exposure: No Use of substances other than those prescribed or required for medical reasons: No Are you DNR?: No Advance Directives: No Advance Directives Information Provided: Yes service: No Current occupational status: employed Meds Allergies Allergy/AdvReac Type Severity Reaction Status Date / Time Sulfa (Sulfonamide Allergy Mild HIVES, Verified 08/19/21 15:17 Antibiotics) rash and [SULFA(SULFONAMIDE red bump, ANTIBIOTICS)] hives and itching Exam Airway Mallampati Class: II TM Dist: >3cm Neck ROM: Full Assessment and Plan Assessment Anesthesia Assessment: Anesthesia Plan Discussed Final Anesthetic Review Family History of Problems with Anesthesia: No History of Problems with Anesthesia: No NPO: Yes ASA Class: II Final Preanesthetic Review: No Changes in Pt Med Stat, Meds/Allgs Chart Reviewed, Consent Obtained/Reviewed and Anes Risks/Benef Reviewed Patient Risk: Intermediate Procedure Risk: Low Anesthetic Plan Anesthetic Plan: GA Disposition: Standard PACU
[2021-08-29] VITALS (7 sets, daily range): BP systolic 108–147; BP diastolic 59–88; PULSE 58–73; RESP 16; TEMP 36.3–36.7; O2SAT 93–98; BMI 35.4
[2021-08-29] MEDS: Lactated Ringers 1,000 ML 100 ML IVCONT (07:50)
[2021-08-29] MEDS: Acetaminophen 325 MG TABLET 650 MG PO (07:58)
--- NOTE | 2021-08-29 08:43 | P.HPSUR_ITS ---
Pre-Procedural Eval Section A Date of Service: 08/29/21 The patient is an INPATIENT: No Changes since office visit: No Cold of Flu in the past 2 weeks, No New Medical Problems, No Changes in Medication and No Patient answered all questions The History & Physical has been completed within 30 days and I have reviewed it.: Yes Section B Chief Complaint: benign prostatic hyperplasia Allergies: Allergies Allergy/AdvReac Type Severity Reaction Status Date / Time Sulfa (Sulfonamide Allergy Mild HIVES, Verified 08/19/21 15:17 Antibiotics) rash and [SULFA(SULFONAMIDE red bump, ANTIBIOTICS)] hives and itching Plan I have reviewed the history and physical and performed a pertinent physical examination on my patient. No changes have occurred unless specified.
--- NOTE | 2021-08-29 08:44 | P.HPSUR_ITS ---
Pre-Procedural Eval Section A Date of Service: 08/29/21 The patient is an INPATIENT: No Changes since office visit: No Cold of Flu in the past 2 weeks, No New Medical Problems, No Changes in Medication and No Patient answered all questions The History & Physical has been completed within 30 days and I have reviewed it.: No Section B Chief Complaint: benign prostatic hyperplasia Details of Present Illness: recurrent following prior procedure Relevant Family History (Specify if Yes): No Relevant Social History: None Present Medications: see Short Stay Collaborative assessment Medical History: No relevant PMH History of Previous Operations: Relevant previous surgery/procedure and date(s) ( prior prostate procedure with bladder neck narrowing) Allergies: Allergies Allergy/AdvReac Type Severity Reaction Status Date / Time Sulfa (Sulfonamide Allergy Mild HIVES, Verified 08/19/21 15:17 Antibiotics) rash and [SULFA(SULFONAMIDE red bump, ANTIBIOTICS)] hives and itching Review of Systems Sugical H&P ROS: Negative: Constitution, Cardiovascular, Respiratory, Neurological, Psychiatric, Hem-Onc, Allergic/Immunologic, Gastrointestinal, [place] tourinary, Musculoskeletal, Integumentary, Endocrine and Eyes/Ears/Nose/Throat Exam Surgical H&P Exam: Normal: HEENT, Normal: Heart, Normal: Lungs, Normal: Extremities, Normal: Abdomen, Normal: Skin and Normal: Neurological Plan Diagnosis/Plan: Unchanged ( laser enucleation of prostate) I have reviewed the history and physical and performed a pertinent physical examination on my patient. No changes have occurred unless specified.
--- NOTE | 2021-08-29 09:39 | P.OP_ITS ---
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 underwent prior procedure number of years ago. Had noticed weakness of stream. On cystoscopy found to have band of regrowth tissue creating bladder neck contracture and obstructing flow Procedure: After informed consent was verified the patient was brought to the operating room and placed in a supine position. Anesthesia was administered per protocol. Patient was placed in modified dorsal lithotomy position and prepped and draped in a sterile fashion. Safety pause time-out was confirmed. Antibiotics have been given. Twenty-four Dominican laser cystoscope was inserted per urethra. No abnormalities found the anterior posterior urethra. The bladder was filled on both ureteric orifices were seen in normal position away from our area of interest. clearly visible was a thick band of prostate regrowth running around the bladder neck creating restriction to flow. Using laser settings of 80 this band was taken down in a circumferential fashion. The 1st incision was made at the 5 o'clock position in taken over to the 7 o'clock position. Then each side was removed laterally up to the 11:00 o'clock and if are round as the 1 o'clock position. The apex of the prostate was also touched up with some removal of tissue at the 05:00 o'clock through 7 o'clock position. The veru was left defined When this was completed debris and pieces of prostate removed from the bladder. Both ureteric orifices were reviewed again in shown to be patent in away from any areas of energy damage. The apical area was reviewed in any stray ooze was controlled. A 22 Dominican 30 cc balloon Baker catheter was placed over stylet into the bladder. Clear efflux was obtained. 30 cc was placed in the balloon and gentle traction was placed. A snap was used to hold tension once the patient will be moved and transported. Once transportation its finish this novel be removed. A belladonna and opiate suppository was placed for postprocedure pain management. He tolerated procedure well was extubated in the operating and transferred in a stable condition to the recovery area. Total Power 25 kJ, lase time 4 minutes 30 Pathology: Prostate tissue Drains: Baker catheter
[2021-08-29] MEDS: oxyCODONE HCl Immed Release 5 MG TABLET PO (09:53)
== END 2021-08-29 10:54 | disposition home or self-care (01) ==
PROVIDERS: PCP Internal Medicine; Visit Provider Urology
PROC: (CPT 52648; principal; 2021-08-29 09:10)
DX: N40.0 Benign prostatic hyperplasia without lower urinary tract symptoms (principal); N32.0 Bladder-neck obstruction; N42.89 Other specified disorders of prostate; R39.12 Poor urinary stream; N45.1 Epididymitis; I10 Essential (primary) hypertension; E55.9 Vitamin D deficiency, unspecified; E78.00 Pure hypercholesterolemia, unspecified; R73.02 Impaired glucose tolerance (oral); E66.9 Obesity, unspecified; G47.33 Obstructive sleep apnea (adult) (pediatric); M81.0 Age-related osteoporosis without current pathological fracture; Z79.899 Other long term (current) drug therapy; Z99.89 Dependence on other enabling machines and devices; Z88.2 Allergy status to sulfonamides
CPT/HCPCS: 52648; J1100; J1956; J2250; J2405; J3010

== ENCOUNTER → 2021-08-31 08:54 | Outpatient (BNVA) | payer OTHER, MEDICAID, SELFPAY | PROVIDERS: PCP Internal Medicine; Visit Provider Nurse Practitioner Family | DX: G47.33 Obstructive sleep apnea (adult) (pediatric) (principal); R40.0 Somnolence | CPT/HCPCS: 99202 ==

== ENCOUNTER → 2021-09-01 09:54 | Outpatient (BNVA) | payer OTHER, MEDICAID, SELFPAY | PROVIDERS: PCP Internal Medicine; Visit Provider Urology | DX: N40.0 Benign prostatic hyperplasia without lower urinary tract symptoms (principal) | CPT/HCPCS: 51700; 51798 ==

== ENCOUNTER → 2021-09-29 13:26 | Outpatient (BNVA) | payer OTHER, MEDICAID, SELFPAY | PROVIDERS: PCP Internal Medicine; Visit Provider Surgery Vascular Surgery | DX: I83.11 Varicose veins of right lower extremity with inflammation (principal) | CPT/HCPCS: 99202 ==

== ENCOUNTER → 2021-10-12 09:36 | Outpatient (BNVA) | payer OTHER, MEDICAID, SELFPAY | PROVIDERS: PCP Internal Medicine; Visit Provider Urology | DX: N40.1 Benign prostatic hyperplasia with lower urinary tract symptoms (principal); R35.0 Frequency of micturition | CPT/HCPCS: 51798; 99212 ==

== ENCOUNTER 2021-11-10 12:36 | Outpatient (REF) | payer OTHER, MEDICAID, SELFPAY ==
--- NOTE | ~2021-11-10 | US_ITS ---
EXAMINATION: US LOWER EXTREMITY VENOUS (REFLUX EXAM), BILATERAL CLINICAL INDICATION: Chronic venous insufficiency with lower extremity varicose veins COMPARISON: None. TECHNIQUE: Color flow triplex imaging and compression Doppler was performed to evaluate both the deep and the superficial systems bilaterally. To evaluate the superficial system, the examination was performed in the upright position. Color-flow Doppler ultrasound and compression ultrasound were utilized. In addition, maneuvers were utilized to demonstrate reflux. FINDINGS: 1. DEEP VENOUS ULTRASOUND OF THE RIGHT LOWER EXTREMITY: Common Femoral Vein: Compressible, normal respiratory variation and augmented flow. Femoral Vein: Compressible, normal color flow and augmentation. Popliteal Vein: Compressible, normal augmentation. Deep Reflux: There is no evidence of reflux in the deep system in either the common femoral vein or the popliteal vein. There is no evidence of a Fox's cyst. 2. SUPERFICIAL ULTRASOUND WITH DOPPLER OF RIGHT LOWER EXTREMITY: GREAT SAPHENOUS VEIN: Saphenofemoral Junction: 8 mm; No evidence of reflux. Proximal Thigh: 7 mm; No evidence of reflux. Mid Thigh: 5 mm; No evidence of reflux. Above Knee: 5 mm; No evidence of reflux. At Knee: 5 mm; reflux measuring greater than 3 seconds Below Knee: 4 mm; No evidence of reflux. Mid Calf: 2 mm; No evidence of reflux. Ankle: 2 mm; No evidence of reflux. DUPLICATED GREAT SAPHENOUS VEIN: There is a lateral duplicated great saphenous vein measuring 4 mm without significant reflux SMALL SAPHENOUS VEIN: Proximal: 2 mm; No evidence of reflux. Distal: 1 mm; No evidence of reflux. VEIN OF GIACOMINI: None Imaged. PERFORATORS: There is a small home specialist vein is seen in the right thigh extending to the right great saphenous vein with reflux measuring 2.5 seconds VARICOSITIES: Multiple small varicosities seen throughout the thigh measuring 3 to 4 mm in diameter without significant reflux. There is a large varicosities seen at the knee arising from the great saphenous vein measuring 8 mm in diameter with reflux of greater than 3 seconds 3. DEEP VENOUS ULTRASOUND OF THE LEFT LOWER EXTREMITY: Common Femoral Vein: Compressible, normal respiratory variation and augmented flow. Femoral Vein: Compressible, normal color flow and augmentation. Popliteal Vein: Compressible, normal augmentation. Deep Reflux: There is no evidence of reflux in the deep system in either the common femoral vein or the popliteal vein. There is no evidence of a Fox's cyst. 4. SUPERFICIAL ULTRASOUND WITH DOPPLER OF LEFT LOWER EXTREMITY: GREAT SAPHENOUS VEIN: Saphenofemoral Junction: 8 mm; reflux measuring 2.9 seconds Proximal Thigh: 14.6 mm; reflux measuring greater than 3 seconds Mid Thigh: 5 mm; reflux measuring 2.8 seconds Above Knee: 5 mm; reflux measuring greater than 3 seconds At Knee: 6 mm; reflux measuring greater than 3 seconds Below Knee: 8 mm; reflux measuring a 1.9 seconds Mid Calf: 2 mm; reflux measuring greater than 3 seconds Ankle: 3 mm; No evidence of reflux. DUPLICATED GREAT SAPHENOUS VEIN: Lateral duplicated great saphenous vein measuring 4.3 mm without reflux SMALL SAPHENOUS VEIN: Proximal: 2 mm; No evidence of reflux. Distal: 3 mm; No evidence of reflux. VEIN OF GIACOMINI: None Imaged. PERFORATORS: None Imaged VARICOSITIES: Varicose vein branches seen in the posterior mid calf off the great saphenous vein measuring 5.5 mm with reflux of greater than 3 seconds. Multiple varicosities seen within the thigh measuring up to 8 mm in diameter with reflux of greater than 2 seconds. Multiple additional varicosities is seen in the medial knee and calf measuring up to 5 mm in diameter with reflux of greater than 3 seconds US/US venous duplex LE BI IMPRESSION: 1. Focal segmental reflux in the right great saphenous vein at the level the knee. There is a large varicosity arising from the segment of the great saphenous vein measuring 8 mm with severe reflux 2. Diffusely dilated left great saphenous vein with diffuse severe reflux as described above. There are multiple large varicosities are seen throughout to the left lower extremity arising from the great saphenous vein
== END 2021-11-10 12:37 | disposition home or self-care (01) ==
LOC: HO.US 12:36
PROVIDERS: PCP Internal Medicine; Visit Provider Surgery Vascular Surgery
DX: I83.11 Varicose veins of right lower extremity with inflammation (principal)
CPT/HCPCS: 93970

== ENCOUNTER → 2021-11-15 08:51 | Outpatient (BNVA) | payer OTHER, MEDICAID, SELFPAY | PROVIDERS: PCP Internal Medicine; Visit Provider Surgery Vascular Surgery | DX: I83.11 Varicose veins of right lower extremity with inflammation (principal) | CPT/HCPCS: 99212 ==

== ENCOUNTER 2021-11-21 11:00 | Outpatient (RCR) | payer OTHER, MEDICAID, SELFPAY | END 2021-12-22 15:17 | disposition home or self-care (01) | LOC: HO.PTWFD 11:00 | PROVIDERS: PCP Internal Medicine; Visit Provider Neurological Surgery | DX: M54.2 Cervicalgia (principal) | CPT/HCPCS: 97012; 97014; 97110; 97140; 97161; 97535 ==

== ENCOUNTER → 2021-12-02 09:32 | Outpatient (BNVA) | payer OTHER, MEDICAID, SELFPAY | PROVIDERS: PCP Internal Medicine; Visit Provider Surgery Vascular Surgery | DX: I83.11 Varicose veins of right lower extremity with inflammation (principal) | CPT/HCPCS: 36475 ==

== ENCOUNTER 2021-12-06 08:03 | Outpatient (REF) | payer OTHER, MEDICAID, SELFPAY ==
--- NOTE | ~2021-12-06 | US_ITS ---
EXAMINATION: TRIPLEX SCANNING OF RIGHT LOWER EXTREMITY; SUPERFICIAL ULTRASOUND WITH DOPPLER OF RIGHT LOWER EXTREMITY CLINICAL INFORMATION: Status post RF ablation of the right great saphenous vein. COMPARISON: 11/10/2021. TECHNIQUE: Color flow triplex imaging and compression Doppler were performed as well as superficial ultrasound with Doppler. FINDINGS: TRIPLEX SCANNING OF RIGHT LOWER EXTREMITY: Respiratory variation, normal compression and augmented flow are noted throughout the lower extremity. The visualized common femoral vein, femoral vein, profunda femoral vein, popliteal vein and the calf veins show no evidence of deep venous thrombosis. There is no evidence of Fox's cyst. SUPERFICIAL ULTRASOUND WITH DOPPLER OF RIGHT LOWER EXTREMITY: The right great saphenous vein is occluded from the access site to 2.2 cm below the sapheno-femoral junction. There is no extension of thrombus into the deep system. US/US venous duplex LE RT IMPRESSION: 1. Normal triplex scan of the right without evidence of deep venous thrombosis. 2. Excellent appearance status post ablation of the right great saphenous vein.
== END 2021-12-06 08:04 | disposition home or self-care (01) ==
LOC: HO.US 08:03
PROVIDERS: Visit Provider Surgery Vascular Surgery
DX: M79.604 Pain in right leg (principal)
CPT/HCPCS: 93971

== ENCOUNTER → 2021-12-08 20:17 | Outpatient (REF) | payer OTHER, SELFPAY | LOC: HO.SL 20:17 | PROVIDERS: Visit Provider Nurse Practitioner Family | DX: G47.33 Obstructive sleep apnea (adult) (pediatric) (principal) | CPT/HCPCS: 95810 ==

== ENCOUNTER → 2021-12-15 13:36 | Outpatient (BNVA) | payer OTHER, MEDICAID, SELFPAY | PROVIDERS: PCP Internal Medicine; Visit Provider Surgery Vascular Surgery | DX: I83.12 Varicose veins of left lower extremity with inflammation (principal); Z98.890 Other specified postprocedural states | CPT/HCPCS: 99212 ==

== ENCOUNTER → 2021-12-23 10:48 | Outpatient (BNVA) | payer OTHER, MEDICAID, SELFPAY | PROVIDERS: PCP Internal Medicine; Visit Provider Nurse Practitioner Family | DX: G47.33 Obstructive sleep apnea (adult) (pediatric) (principal) | CPT/HCPCS: 99212 ==

== ENCOUNTER → 2022-01-06 08:22 | Outpatient (BNVA) | payer OTHER, MEDICAID, SELFPAY | PROVIDERS: PCP Internal Medicine; Visit Provider Surgery Vascular Surgery | DX: I83.12 Varicose veins of left lower extremity with inflammation (principal) | CPT/HCPCS: 36475 ==

== ENCOUNTER 2022-01-09 15:50 | Outpatient (REF) | payer OTHER, SELFPAY ==
--- NOTE | ~2022-01-09 | US_ITS ---
EXAMINATION: US VENOUS ULTRASOUND WITH DOPPLER LOWER EXTREMITY, LEFT CLINICAL INFORMATION: Left leg pain COMPARISON: 11/10/2021 TECHNIQUE: Ultrasound of the deep veins is performed from the hip to the calf with compression sonography and color and pulse Doppler assessment. Spectral analysis with color-flow imaging is performed. FINDINGS: There is normal venous compression and respiratory variation and augmented flow. The visualized common femoral vein, superficial femoral vein, profunda femoral vein, popliteal vein, and the trifurcation region shows no evidence of deep venous thrombosis. There is no significant popliteal fossa cyst. Echogenic thrombus is seen within the great saphenous vein without extension into the deep veins consistent with recent ablation. If the patient's symptoms persist, followup ultrasound in 5 days 7 days might be of value to exclude proximal propagation from a non-visualized calf vein. US/US venous duplex LE IMPRESSION: No DVT demonstrated in the left lower extremity. Thrombosis of the great saphenous vein consistent with successful ablation
== END 2022-01-09 15:51 | disposition home or self-care (01) ==
LOC: HO.US 15:50
PROVIDERS: Visit Provider Surgery Vascular Surgery
DX: M79.605 Pain in left leg (principal)
CPT/HCPCS: 93971

== ENCOUNTER 2022-01-16 15:11 | Outpatient (REF) | payer OTHER, SELFPAY ==
[2022-01-16 16:05] LABS: Appearance Urine CLEAR; Color Urine YELLOW; Glucose Urine UA Negative (NEG); Leukocyte Esterase Urine NEG (Negative); Nitrite Urine NEG (NEG); Specific Gravity - Urine 1.015 (1.005-1.025); Urine Blood Trace (NEG); Urine Ketones Negative (NEG); Urine Protein Negative (NEG-TRACE)
[2022-01-16 16:36] LABS: RBC Urine 0-2 /HPF (0); WBC Urine 0 /HPF (0-4)
== END 2022-01-16 15:12 | disposition home or self-care (01) ==
LOC: HO.LAB 15:11
PROVIDERS: PCP Internal Medicine; Visit Provider Urology
DX: N40.0 Benign prostatic hyperplasia without lower urinary tract symptoms (principal)
CPT/HCPCS: 81001; 87086

== ENCOUNTER → 2022-01-19 11:02 | Outpatient (BNVA) | payer OTHER, MEDICAID, SELFPAY | PROVIDERS: PCP Internal Medicine; Visit Provider Surgery Vascular Surgery | DX: I83.12 Varicose veins of left lower extremity with inflammation (principal) | CPT/HCPCS: 99212 ==

== ENCOUNTER 2022-01-26 11:04 | Outpatient (REF) | payer OTHER, SELFPAY ==
[2022-01-26 16:53] LABS: Appearance Urine Clear; Color Urine Yellow; Glucose Urine UA Negative (Negative); Leukocyte Esterase Urine Negative (Negative); Nitrite Urine Negative (Negative); PH 7.5 (5.0-8.0); Specific Gravity - Urine 1.015 (1.005-1.025); Urine Blood Negative (Negative); Urine Ketones Negative (Negative); Urine Protein Negative (Neg-Trace)
[2022-01-26 16:57] LABS: Bacteria Urine None Seen (None Seen); Hyaline Casts Urine 0-2 /LPF (0-2); RBC Urine 0-2 /HPF (0-2); Squamous Epithelial Cell Urine 0-2 /HPF (0-2); WBC Urine 0-5 /HPF (0-5)
== END 2022-01-26 11:05 | disposition home or self-care (01) ==
LOC: HO.LAB 11:04
PROVIDERS: PCP Internal Medicine; Visit Provider Urology
DX: R39.12 Poor urinary stream (principal)
CPT/HCPCS: 81001; 87086

== ENCOUNTER 2022-01-27 09:08 | Outpatient (REF) | payer OTHER, SELFPAY ==
[2022-01-27 10:40] LABS: Appearance Urine Clear; Color Urine Yellow; Glucose Urine UA Negative (Negative); Leukocyte Esterase Urine Negative (Negative); Nitrite Urine Negative (Negative); PH 7.5 (5.0-8.0); Specific Gravity - Urine 1.015 (1.005-1.025); Urine Blood Negative (Negative); Urine Ketones Negative (Negative); Urine Protein Negative (Neg-Trace)
== END 2022-01-27 09:09 | disposition home or self-care (01) ==
LOC: HO.LAB 09:08
PROVIDERS: PCP Internal Medicine; Visit Provider Internal Medicine
DX: R30.0 Dysuria (principal)
CPT/HCPCS: 81003

== ENCOUNTER → 2022-03-10 08:26 | Outpatient (BNVA) | payer MEDICARE, MEDICAID, SELFPAY | PROVIDERS: PCP Internal Medicine; Visit Provider Nurse Practitioner | DX: K59.04 Chronic idiopathic constipation (principal); K21.9 Gastro-esophageal reflux disease without esophagitis | CPT/HCPCS: 99212 ==

== ENCOUNTER 2022-03-15 11:44 | Outpatient (REF) | payer MEDICARE, MEDICAID, SELFPAY ==
[2022-03-15 11:53] LABS: MANUAL DIFF FLAG NO
[2022-03-15 12:33] LABS: Basophils Absolute Auto 0.1 X10*3/uL (0.0-0.2); Basophils Percent Auto 0.5 % (0-2); Eosinophils Absolute Auto 0.2 X10*3/uL (0.0-0.4); Eosinophils Percent Auto 1.8 % (0-4); Hematocrit 42.1 % (42.0-52.0); Hemoglobin 14.1 g/dl (14.0-18.0); Imm Gran Abs Auto 0.03 X10*3/uL (0.00-0.03); Imm Gran Pct Auto 0.3 % (0.0-0.4); Lymphocytes Absolute Auto 2.7 X10*3/uL (1.2-4.9); Lymphocytes Percent Auto 26.5 % (20-40); Mean Corpuscular HGB Conc 33.5 g/dl (31.0-36.0); Mean Corpuscular Hemoglobin 29.3 pg (27.0-33.0); Mean Corpuscular Volume 87.5 fL (80.0-98.0); Mean Platelet Volume 8.9 fL (9.4-12.4); Monocytes Absolute Auto 1.1 X10*3/uL (0.1-1.2); Monocytes Percent Auto 10.3 % (2-11); Neutrophils Absolute Auto 6.2 x10*3/uL (2.0-8.3); Neutrophils Percent Auto 60.6 % (45-73); Platelet Count 351 X10*3/uL (160-400); Red Blood Count 4.81 X10*6/uL (4.60-5.80); Red Cell Distribution Width 11.7 % (11.0-16.0); White Blood Count 10.2 X10*3/uL (4.8-10.8)
[2022-03-15 13:02] LABS: Alanine Aminotransferase 32 U/L (0-40); Albumin Level 4.3 g/dL (3.5-5.0); Alkaline Phosphatase 62 U/L (39-117); Anion Gap 17 (12-20); Aspartate Amino Transferase 22 U/L (5-37); Bilirubin Total 0.7 mg/dL (0.0-1.0); Blood Urea Nitrogen 15 mg/dL (9-16); Calcium 9.6 mg/dL (8.4-10.2); Carbon Dioxide 23 mmol/L (22-29); Chloride 106 mmol/L (96-108); Cholesterol 212 mg/dL; Estimated Glomerular Filt Rate > 60; Glucose Random 97 mg/dL (60-115); HDL Cholesterol 41 mg/dL; LDL Cholesterol Calculated 144 mg/dl; Potassium 4.3 mmol/L (3.3-5.1); Sodium 142 mmol/L (135-145); Total Protein 7.1 g/dL (6.5-8.0); Triglycerides 136 mg/dL
[2022-03-15 13:26] LABS: Free T4 (Free Thyroxine) 1.22 ng/dL (0.71-1.85); Thyroid Stimulating Hormone 0.62 uIU/mL (0.32-4.0)
[2022-03-15 13:32] LABS: Vitamin B12 550 pg/mL (200-900)
[2022-03-15 14:05] LABS: Prostate Specific Antigen Scr 1.04 ng/mL (<0.05-4.0)
== END 2022-03-15 11:45 | disposition home or self-care (01) ==
LOC: HO.LAB 11:44
PROVIDERS: PCP Internal Medicine; Visit Provider Internal Medicine
DX: E78.00 Pure hypercholesterolemia, unspecified (principal); R73.02 Impaired glucose tolerance (oral); Z12.5 Encounter for screening for malignant neoplasm of prostate
CPT/HCPCS: 36415; 80053; 80061; 82607; 82746; 84153; 84439; 84443; 85025

== ENCOUNTER → 2022-03-21 12:14 | Outpatient (REF) | payer MEDICARE, MEDICAID, SELFPAY ==
--- NOTE | 2022-03-21 12:17 | ECG_ITS ---
Test Reason : R00.0 TACHYCARDIA Blood Pressure : / mmHG Vent. Rate : 086 BPM Atrial Rate : 086 BPM P-R Int : 154 ms QRS Dur : 094 ms QT Int : 358 ms P-R-T Axes : 060 002 036 degrees QTc Int : 428 ms Normal sinus rhythm Normal ECG When compared with ECG of 28-SEP-2016 10:37, Vent. rate has increased BY 28 BPM Referred By: Lucia Davidson Electronically Signed By:ELI GUTIERREZ MD
== END ==
LOC: HO.CARD 12:14
PROVIDERS: PCP Internal Medicine; Visit Provider Internal Medicine
DX: R00.0 Tachycardia, unspecified (principal)
CPT/HCPCS: 93005

== ENCOUNTER 2022-04-13 10:06 | Outpatient (REF) | payer MEDICARE, MEDICAID, SELFPAY ==
[2022-04-13 11:28] LABS: Prostate Specific Antigen 1.15 ng/mL (<0.05-4.0)
== END 2022-04-13 10:07 | disposition home or self-care (01) ==
LOC: HO.LAB 10:06
PROVIDERS: PCP Internal Medicine; Visit Provider Urology
DX: Z12.5 Encounter for screening for malignant neoplasm of prostate (principal); N13.8 Other obstructive and reflux uropathy; N40.1 Benign prostatic hyperplasia with lower urinary tract symptoms
CPT/HCPCS: 36415; 84153

== ENCOUNTER → 2022-04-21 09:23 | Outpatient (BNVA) | payer MEDICARE, MEDICAID, SELFPAY | PROVIDERS: PCP Internal Medicine; Visit Provider Urology | DX: N40.1 Benign prostatic hyperplasia with lower urinary tract symptoms (principal); R35.0 Frequency of micturition; R39.12 Poor urinary stream | CPT/HCPCS: 51798; 99212 ==

== ENCOUNTER 2022-05-09 12:12 | Outpatient (REF) | payer MEDICARE, MEDICAID, SELFPAY | END 2022-05-09 12:13 | disposition home or self-care (01) | LOC: HO.LNP 12:12 | PROVIDERS: Visit Provider Internal Medicine | DX: Z20.822 Contact with and (suspected) exposure to COVID-19 (principal); R09.81 Nasal congestion | CPT/HCPCS: U0003; U0005 ==

== ENCOUNTER 2022-05-24 14:22 | Outpatient (REF) | payer MEDICARE, MEDICAID, SELFPAY ==
--- NOTE | ~2022-05-24 | XR_ITS ---
EXAMINATION: CHEST X-RAY AND LEFT SHOULDER X-RAY CLINICAL INFORMATION: Chest pain COMPARISON: Previous chest x-ray most recent June 2020 TECHNIQUE: 2 views of the chest and 4 views of the left shoulder FINDINGS: Chest: The cardiac and mediastinal contours are stable. The lungs are clear. There is no pleural effusion or pneumothorax. There is mild thoracic scoliosis and degenerative changes of the spine.. Left shoulder: Bone alignment is normal. No fracture or dislocation. The glenohumeral joint is normal. There is mild arthritis at the acromioclavicular joint. The soft tissues are unremarkable. XR/XR shoulder LT min 2V IMPRESSION: No evidence for acute disease in the chest. Mild arthritis at the acromioclavicular joint.
--- NOTE | ~2022-05-24 | XR_ITS ---
EXAMINATION: CHEST X-RAY AND LEFT SHOULDER X-RAY CLINICAL INFORMATION: Chest pain COMPARISON: Previous chest x-ray most recent June 2020 TECHNIQUE: 2 views of the chest and 4 views of the left shoulder FINDINGS: Chest: The cardiac and mediastinal contours are stable. The lungs are clear. There is no pleural effusion or pneumothorax. There is mild thoracic scoliosis and degenerative changes of the spine.. Left shoulder: Bone alignment is normal. No fracture or dislocation. The glenohumeral joint is normal. There is mild arthritis at the acromioclavicular joint. The soft tissues are unremarkable. XR/XR chest 2V IMPRESSION: No evidence for acute disease in the chest. Mild arthritis at the acromioclavicular joint.
== END 2022-05-24 14:23 | disposition home or self-care (01) ==
LOC: HO.XRAY 14:22
PROVIDERS: PCP Internal Medicine; Visit Provider Internal Medicine
DX: R07.9 Chest pain, unspecified (principal); M25.512 Pain in left shoulder
CPT/HCPCS: 71046; 73030

== ENCOUNTER → 2022-06-26 09:49 | Outpatient (BNVA) | payer MEDICARE, MEDICAID, SELFPAY | PROVIDERS: PCP Internal Medicine; Visit Provider Nurse Practitioner Family | DX: G47.33 Obstructive sleep apnea (adult) (pediatric) (principal) | CPT/HCPCS: 99212 ==

== ENCOUNTER 2022-06-28 09:53 | Outpatient (REF) | payer MEDICARE, MEDICAID, SELFPAY ==
[2022-06-28 10:49] LABS: Estimated Average Glucose 117 mg/dL; Hemoglobin A1c % 5.7 %
[2022-06-28 11:15] LABS: Alanine Aminotransferase 30 U/L (0-40); Albumin Level 4.2 g/dL (3.5-5.0); Alkaline Phosphatase 64 U/L (39-117); Anion Gap 12 (12-20); Aspartate Amino Transferase 21 U/L (5-37); Bilirubin Total 0.8 mg/dL (0.0-1.0); Blood Urea Nitrogen 13 mg/dL (9-16); Calcium 9.4 mg/dL (8.4-10.2); Carbon Dioxide 28 mmol/L (22-29); Chloride 107 mmol/L (96-108); Cholesterol 183 mg/dL; Estimated Glomerular Filt Rate > 60; Glucose Random 98 mg/dL (60-115); HDL Cholesterol 35 mg/dL; LDL Cholesterol Calculated 126 mg/dl; Potassium 4.5 mmol/L (3.3-5.1); Sodium 142 mmol/L (135-145); Total Protein 6.8 g/dL (6.5-8.0); Triglycerides 111 mg/dL
== END 2022-06-28 09:54 | disposition home or self-care (01) ==
LOC: HO.LAB 09:53
PROVIDERS: PCP Internal Medicine; Visit Provider Internal Medicine
DX: E78.00 Pure hypercholesterolemia, unspecified (principal)
CPT/HCPCS: 36415; 80053; 80061; 83036

== ENCOUNTER → 2022-07-26 13:50 | Outpatient (BNVA) | payer MEDICARE, MEDICAID, SELFPAY | PROVIDERS: PCP Internal Medicine; Visit Provider Urology | DX: N40.1 Benign prostatic hyperplasia with lower urinary tract symptoms (principal); N13.8 Other obstructive and reflux uropathy | CPT/HCPCS: 51798; 99212 ==

== ENCOUNTER → 2022-09-01 09:46 | Outpatient (BNVA) | payer MEDICARE, MEDICAID, SELFPAY | PROVIDERS: PCP Internal Medicine; Visit Provider Urology | DX: N40.0 Benign prostatic hyperplasia without lower urinary tract symptoms (principal) | CPT/HCPCS: 52000; 99212 ==

== ENCOUNTER → 2022-09-12 08:18 | Outpatient (BNVA) | payer MEDICARE, MEDICAID, SELFPAY | PROVIDERS: PCP Internal Medicine; Visit Provider Nurse Practitioner | DX: K21.9 Gastro-esophageal reflux disease without esophagitis (principal); K59.04 Chronic idiopathic constipation | CPT/HCPCS: 99212 ==

== ENCOUNTER → 2022-10-06 11:57 | Outpatient (BNVA) | payer MEDICARE, MEDICAID, SELFPAY | PROVIDERS: PCP Internal Medicine; Visit Provider Urology | DX: N40.0 Benign prostatic hyperplasia without lower urinary tract symptoms (principal) | CPT/HCPCS: Q3014 ==

== ENCOUNTER → 2022-10-16 12:26 | Outpatient (BNVA) | payer MEDICARE, MEDICAID, SELFPAY | PROVIDERS: PCP Internal Medicine; Visit Provider Dietitian, Registered | DX: R73.02 Impaired glucose tolerance (oral) (principal) | CPT/HCPCS: 97802 ==

== ENCOUNTER 2022-11-03 08:20 | Outpatient (REF) | payer MEDICARE, MEDICAID, SELFPAY ==
--- NOTE | 2022-11-03 08:25 | ECG_ITS ---
Test Reason : PRE OP Blood Pressure : / mmHG Vent. Rate : 054 BPM Atrial Rate : 054 BPM P-R Int : 170 ms QRS Dur : 102 ms QT Int : 434 ms P-R-T Axes : 051 003 017 degrees QTc Int : 411 ms Sinus bradycardia Otherwise normal ECG When compared to the previous EKG of No significant changes seen Referred By: Mikaela Velez Electronically Signed By:DARRON BELTRAN MD
[2022-11-03 08:32] LABS: MANUAL DIFF FLAG NO
[2022-11-03 08:50] LABS: Basophils Percent Auto 0.7 % (0-2); Eosinophils Absolute Auto 0.1 X10*3/uL (0.0-0.4); Eosinophils Percent Auto 1.9 % (0-4); Hemoglobin 14.5 g/dl (14.0-18.0); Imm Gran Abs Auto 0.05 X10*3/uL (0.00-0.03); Imm Gran Pct Auto 0.9 % (0.0-0.4); Lymphocytes Percent Auto 34.5 % (20-40); Mean Corpuscular Hemoglobin 29.5 pg (27.0-33.0); Mean Corpuscular Volume 89.6 fL (80.0-98.0); Mean Platelet Volume 9.3 fL (9.4-12.4); Monocytes Absolute Auto 0.6 X10*3/uL (0.1-1.2); Monocytes Percent Auto 10.9 % (2-11); Neutrophils Percent Auto 51.1 % (45-73); Platelet Count 289 X10*3/uL (160-400); Red Blood Count 4.91 X10*6/uL (4.60-5.80); White Blood Count 5.8 X10*3/uL (4.8-10.8)
[2022-11-03 09:00] LABS: Prothrombin Time 11.5 SEC (10.0-13.1)
[2022-11-03 09:55] LABS: Alanine Aminotransferase 20 U/L (0-40); Albumin Level 4.2 g/dL (3.5-5.0); Alkaline Phosphatase 64 U/L (39-117); Anion Gap 14 (12-20); Aspartate Amino Transferase 18 U/L (5-37); Bilirubin Total 0.8 mg/dL (0.0-1.0); Blood Urea Nitrogen 14 mg/dL (9-16); Calcium 9.5 mg/dL (8.4-10.2); Carbon Dioxide 23 mmol/L (22-29); Chloride 107 mmol/L (96-108); Estimated Glomerular Filt Rate > 60; Glucose Random 96 mg/dL (60-115); Potassium 4.4 mmol/L (3.3-5.1); Sodium 140 mmol/L (135-145); TSH reflex Free T4 0.69 uIU/mL (0.32-4.0)
== END 2022-11-03 08:21 | disposition home or self-care (01) ==
LOC: HO.LAB 08:20
PROVIDERS: Nurse Practitioner Family; PCP Internal Medicine; Visit Provider Internal Medicine
DX: Z01.812 Encounter for preprocedural laboratory examination (principal); I10 Essential (primary) hypertension
CPT/HCPCS: 36415; 80053; 84443; 85025; 85610; 93005

== ENCOUNTER 2022-11-06 08:39 | Day surgery (SDC) | payer MEDICARE, MEDICAID, SELFPAY ==
[2022-11-01 14:24] VITALS: BMI 37.2
[2022-11-01 15:23] VITALS: BMI 34.4
[2022-11-06] VITALS (9 sets, daily range): BP systolic 107–114; BP diastolic 65–82; PULSE 53–73; RESP 16; TEMP 36.2–36.4; O2SAT 92–98
--- NOTE | 2022-11-06 09:09 | PC.NURSE ---
OLGA EXTERMINATOR TERMITE BY THE BEDSIDE FOR INTERPRETATION.
--- NOTE | 2022-11-06 10:00 | HO.ANESPROP2 ---
HPI - Anesthesia Eval Consult details Narrative: for laser abl prostate PMFSH Active Problems Active Problems: All Active Problems (Updated 11/03/22 @ 12:49 by YAHIR Baker) Acromioclavicular arthrosis (Acute) Left-sided chest pain (Acute) Annual physical exam (Acute) Obesity (BMI 30-39.9) (Acute) Impaired glucose tolerance (Acute) GERD (gastroesophageal reflux disease) (Acute) Obstructive sleep apnea (adult) (pediatric) (Acute) Adult general medical exam (Acute) Muscle pain (Acute) Radicular pain (Acute) Lumbosacral neuritis (Acute) BPH (benign prostatic hyperplasia) (Acute) Spondylosis of lumbosacral spine with radiculopathy (Acute) Family history of polyps in the colon (Acute) Bladder neck contracture (Acute) Varicose vein of leg (Acute) BPH (benign prostatic hyperplasia) (Acute) Vitamin D deficiency (Acute) Hypertension (Acute) Hypercholesterolemia (Acute) Chronic idiopathic constipation (Acute) Past Medical History Medical History Allergic reaction Back pain BPH (benign prostatic hyperplasia) Chronic idiopathic constipation Cough COVID-19 vaccine series completed Daytime sleepiness Deaf Dysuria Exposure to COVID-19 virus GERD (gastroesophageal reflux disease) Hypercholesterolemia Hypertension Left epididymitis Migraine Musculoskeletal pain Nasal congestion Nasal congestion Neck pain FRITZ on CPAP Osteoporosis screening Rash Screening for colon cancer Tachycardia Thoracic arthritis Thoracic spine pain Upper respiratory tract infection Varicose veins of left lower extremity with inflammation Varicose veins of right lower extremity with inflammation Vitamin D deficiency Weak urinary stream Weak urinary stream Family History Family History Father History of prostate cancer Skin cancer CVA (cerebral vascular accident) Mother HX: breast cancer Paternal Uncle Skin cancer Family history of problems with anesthesia: No Surgical History Surgical History History of esophagogastroduodenoscopy (EGD) Hx of colonoscopy Hx of hernia repair Status post ablation of incompetent vein using laser Varicocele History of Problems with Anesthesia: No Social History Social History Household Members: Spouse, Family and Children Housing: House Are you a primary administrator health care facility to a significant other at home: No Do you presently have visiting nurse or other home services: No Alcohol intake: never Patient Tobacco Use Status: Never used Tobacco e-Cigarette/Vaping Use: Never Used Second Hand Smoke Exposure: No Use of substances other than those prescribed or required for medical reasons: No Have you been hit, kicked, punched, or otherwise hurt by someone within the past year? If so, by whom?: No Are you DNR?: No Advance Directives: No Advance Directives Information Provided: Yes Advance Directives on File: No Recently lost weight without trying: No Nutrition Risks: No Nutritional Risk Poor oral hygiene: No service: No Current occupational status: employed Cognitive needs: No Hearing needs: Yes Vision needs: Yes Meds Allergies Allergy/AdvReac Type Severity Reaction Status Date / Time Sulfa (Sulfonamide Allergy Mild HIVES, Verified 11/03/22 07:53 Antibiotics) rash and [SULFA(SULFONAMIDE red bumps, ANTIBIOTICS)] itching Home Medications Medication Instructions Recorded Confirmed Last Taken Type betamethasone, augmented 0.05 % appl topical 10/12/21 07/26/22 Unknown History topical cream fluoride (sodium) 1.1 % dental appl PO BID 01/19/22 07/26/22 Unknown History cream (Denta 5000 Plus) cetirizine 10 mg tablet 10 mg PO DAILY 04/13/22 07/26/22 Unknown History epinephrine 0.3 mg/0.3 mL IM ONCE PRN anaphylaxis 04/13/22 07/26/22 Unknown History injection, auto-injector alfuzosin 10 mg tablet,extended 10 mg PO DAILY 09/12/22 Unknown History release 24 hr doxazosin 4 mg tablet 4 mg PO BEDTIME 09/12/22 Unknown History Exam Exam Date and Time: November 06, 2022 1000 Height,Weight and Vital Signs: Height 5 ft 11 in Weight 112.037 kg Last Vital Signs Temp 97.2 F 11/06/22 09:28 Pulse 60 11/06/22 09:28 Resp 16 11/06/22 09:28 BP 113/82 11/06/22 09:28 Pulse Ox 98 11/06/22 09:28 O2 Del Method Room Air 11/06/22 09:28 Airway Mallampati Class: I TM Dist: >3cm Neck ROM: Full Heart: ok Lungs: ok Other: Deaf Assessment and Plan Assessment Anesthesia Assessment: Anesthesia Plan Discussed and Chart Reviewed Final Anesthetic Review Family History of Problems with Anesthesia: No History of Problems with Anesthesia: No NPO: Yes ASA Class: III Final Preanesthetic Review: No Changes in Pt Med Stat, Meds/Allgs Chart Reviewed, Consent Obtained/Reviewed and Anes Risks/Benef Reviewed Patient Risk: Intermediate Procedure Risk: Low Anesthetic Plan Anesthetic Plan: GA and Agree w/ Assess. and Plan Disposition: Standard PACU
--- NOTE | 2022-11-06 10:25 | P.HPSUR_ITS ---
Pre-Procedural Eval Section A Date of Service: 11/06/22 The patient is an INPATIENT: No Changes since office visit: No Cold of Flu in the past 2 weeks, No New Medical Problems, No Changes in Medication and No Patient answered all questions The History & Physical has been completed within 30 days and I have reviewed it.: Yes Section B Chief Complaint: Bladder-neck obstruction Details of Present Illness: recurrent anterior prostate tissue Relevant Family History (Specify if Yes): No Relevant Social History: None Present Medications: see Short Stay Collaborative assessment Medical History: No relevant PMH History of Previous Operations: Relevant previous surgery/procedure and date(s) Allergies: Allergies Allergy/AdvReac Type Severity Reaction Status Date / Time Sulfa (Sulfonamide Allergy Mild HIVES, Verified 11/03/22 07:53 Antibiotics) rash and [SULFA(SULFONAMIDE red bumps, ANTIBIOTICS)] itching Review of Systems Sugical H&P ROS: Negative: Constitution, Cardiovascular, Respiratory, Neurological, Psychiatric, Hem-Onc, Allergic/Immunologic, Gastrointestinal, Genitourinary, Musculoskeletal, Integumentary, Endocrine and Eyes/Ears/Nose/Th roat Exam Surgical H&P Exam: Normal: HEENT, Normal: Heart, Normal: Lungs, Normal: Extremities, Normal: Abdomen, Normal: Skin and Normal: Neurological Plan Diagnosis/Plan: Unchanged ( GreenLight laser prostatectomy of anterior prostate tissue) I have reviewed the history and physical and performed a pertinent physical examination on my patient. No changes have occurred unless specified. Time Spent With Patient Time: Total time managing care of this patient today ____ minutes.
[2022-11-06] MEDS: oxyCODONE HCl Immed Release 5 MG TABLET PO (11:09)
[2022-11-06] MEDS: Acetaminophen 325 MG TABLET 975 MG PO (11:10)
[2022-11-06] MEDS: fentaNYL citrate/PF 100 MCG/2 ML VIAL 50 MCG IVPUSH (11:12)
--- NOTE | 2022-12-26 10:01 | W.PM.OPN ---
Operative Note Operative Note Date of Service: 12/26/22 Narrative: PreOperative Diagnosis: Bladder outlet obstruction Post Operative Diagnosis: Bladder outlet obstruction Procedure: GreenLight Laser Enucleation of the prostate Surgeon: Dr Donta Valles Anesthesia: General Indications for procedure: Recurrent anterior tissue History of bladder outlet obstruction. Treated with alpha-clementine and other medications. Still with symptoms. On cystoscopy in office has recurrent anterior tissue. Recommendation for prostate procedure with laser enucleation of prostate. Risks and benefits have been discussed. Focus was placed on development of retrograde ejaculation which is a normal part of this procedure. Procedure: After informed consent was verified the patient was brought to the operating room and placed in a supine position. Anesthesia was administered per protocol. Patient was placed in modified dorsal lithotomy position and prepped and draped in a sterile fashion. Safety pause time-out was confirmed. Antibiotics have been given. A Twenty-four Colombian laser cystoscope was inserted per urethra. No abnormalities were found of the anterior and bulbar urethra. The bladder was examined and both ureteric orifices were seen in their normal positions away from the area of interest. Recurrent anterior tissue Laser of anterior tissue performed with setting of 100 W The median lobe was then ablated and enucleated tissue released into the bladder with the laser power increased to 120 W. After the majority of tissue had been debulked remnant tissue was ablated with the side fire laser and the curve of the prostate followed up each side wall clearly defining the anterior remnant strip that remained between the 11 and 1 o'clock positions. A 22 Colombian 30 cc balloon Baker catheter was placed over a stylet into the bladder. Clear efflux was obtained upopn irrigation with a Jose piston syringe. 30 cc was placed in the balloon and gentle traction was placed. A snap was used to hold tension on the catheter to control bleeding during patient moved and transported. A drainage bag was placed. Once transportation is complete to the PACU the snap will be removed. The patient tolerated the procedure well, he was extubated in the operating and transferred in a stable condition to the recovery area. Total Power 35 kW Lasing time 8 min Pathology: Prostate tissue Drains: Baker catheter
== END 2022-11-06 13:46 | disposition home or self-care (01) ==
PROVIDERS: PCP Internal Medicine; Visit Provider Urology
PROC: (CPT 52648; principal; 2022-11-06 10:50)
DX: N32.0 Bladder-neck obstruction (principal); N40.1 Benign prostatic hyperplasia with lower urinary tract symptoms; R39.12 Poor urinary stream; R30.0 Dysuria; I10 Essential (primary) hypertension; G47.33 Obstructive sleep apnea (adult) (pediatric); H91.90 Unspecified hearing loss, unspecified ear; R00.0 Tachycardia, unspecified; Z88.8 Allergy status to other drugs, medicaments and biological substances; Z88.2 Allergy status to sulfonamides; Z99.89 Dependence on other enabling machines and devices
CPT/HCPCS: 52649; 88305; J1956; J3010

== ENCOUNTER → 2022-11-06 08:39 | Outpatient (BNV) | payer MEDICARE, MEDICAID, SELFPAY | PROVIDERS: PCP Internal Medicine; Visit Provider Urology | DX: N32.0 Bladder-neck obstruction (principal) | CPT/HCPCS: 52649 ==

== ENCOUNTER → 2022-11-09 10:17 | Outpatient (BNVA) | payer MEDICARE, MEDICAID, SELFPAY | PROVIDERS: PCP Internal Medicine; Visit Provider Urology | DX: N40.0 Benign prostatic hyperplasia without lower urinary tract symptoms (principal); N32.0 Bladder-neck obstruction | CPT/HCPCS: 51700; 51798 ==

== ENCOUNTER 2022-12-13 13:19 | Outpatient (AMB) | payer MEDICARE, MEDICAID, SELFPAY ==
--- NOTE | 2022-12-13 13:21 | A.OFFVIS_ITS ---
Intake VS Expanded 12/13/22 13:23 Height 5 ft 11 in Weight 243 lb 6.25 oz BMI 33.9 Intake Visit Reasons: hypercholesterolemia/IFG/Obesity Allergies Sulfa (Sulfonamide Antibiotics) [SULFA(SULFONAMIDE ANTIBIOTICS)] Allergy (Mild, Verified 11/03/22 07:53) HIVES, rash and red bumps, itching HPI Nutrition Presentation Details Pt presents for MNT f/u for IFG, Hypercholesterolemia, obesity. This visit was conducted with assistance of account manager forest service Pt reports working on reducing foods high in fat, and reading food labels. Pt shows pictures of foods he is getting . B: crackers with p.b or butter or cheese or avocado, coffee with monk fruit L: daily salad with fish or chicken, may add beans or corn or olive oil or avocado D: rice/ortiz, chicken or root vegetable fish/poultry/vegetable ice cream once in a while (keto) water, Physical activity: walking 1 hour daily ETOH/SMoking: denies Most Recent Diabetes Results: Creatinine 0.96 mg/dL (0.5-1.4) 11/03/22 Blood Urea Nitrogen 14 mg/dL (9-16) 11/03/22 Sodium 140 mmol/L (135-145) 11/03/22 Potassium 4.4 mmol/L (3.3-5.1) 11/03/22 Chloride 107 mmol/L (96-108) 11/03/22 Carbon Dioxide 23 mmol/L (22-29) 11/03/22 Calcium 9.5 mg/dL (8.4-10.2) 11/03/22 AST 18 U/L (5-37) 11/03/22 ALT 20 U/L (0-40) 11/03/22 Total Protein 7.0 g/dL (6.5-8.0) 11/03/22 Albumin 4.2 g/dL (3.5-5.0) 11/03/22 [facility] Medical History (Updated 11/09/22 @ 17:47 by Lucia Davidson MD) Allergic reaction Back pain BPH (benign prostatic hyperplasia) Chronic idiopathic constipation Cough COVID-19 vaccine series completed Daytime sleepiness Deaf Dysuria Exposure to COVID-19 virus GERD (gastroesophageal reflux disease) Hypercholesterolemia Hypertension Left epididymitis Migraine Musculoskeletal pain Nasal congestion Nasal congestion Neck pain FRITZ on CPAP Osteoporosis screening Rash Screening for colon cancer Tachycardia Thoracic arthritis Thoracic spine pain Upper respiratory tract infection Varicose veins of left lower extremity with inflammation Varicose veins of right lower extremity with inflammation Vitamin D deficiency Weak urinary stream Weak urinary stream Surgical History History of esophagogastroduodenoscopy (EGD) Hx of colonoscopy Hx of hernia repair Status post ablation of incompetent vein using laser Varicocele Family History Father History of prostate cancer Skin cancer CVA (cerebral vascular accident) Mother HX: breast cancer Paternal Uncle Skin cancer Social History Household Members: Spouse, Family and Children Housing: House Are you a primary daycare director to a significant other at home: No Do you presently have visiting nurse or other home services: No Alcohol intake: never Patient Tobacco Use Status: Never used Tobacco e-Cigarette/Vaping Use: Never Used Second Hand Smoke Exposure: No service: No Current occupational status: employed Cognitive needs: No Hearing needs: Yes Vision needs: Yes Assessment & Plan Assessment & Plan (1) Impaired glucose tolerance: Code(s): R73.02 - Impaired glucose tolerance (oral) Plan: Diet modification related to IFG, hypercholesterolemia, obesity, HTN Educate Pt on reduction sat'd fat, choosing fiber rich foods ? Used wt : 116 kg Est kcal as per MSJ: 0181-7364 (40% carb, 30% fat/prot) Est fluid needs: 2900 ml/d (25 ml/kg bw) Rec fiber: increase to 8-10 g per day and gradually increase to 35 g as tolerated Rec Na: < 2000 mg /d Educate patient on: (R= Reviewed, V = verbalizes understanding N/R= Needs review N/A= not applicable) * Food sources of carbohydrates and serving adequate serving sizes : R , V * Difference between complex carbohydrates and simple carbohydrates, role of fiber: R, V * Differences between fats (MUFA/PUFA/saturated fats, trans fats) and food sources of various fats: R , V * Food sources of sodium and salt and healthy modifications for heart health and kidney health: N/R * Vitamins and minerals: N/R * How to interpret food labels: R , V * Healthy Plate method concept: R , V * Physical activity: benefits and precaution: R Patient Instructions: Continue working on choosing high fiber foods following healthy plate method Reduce on saturated fats, choose food with low % daily value for saturated fats Keep hydrated Keep physically active as established Coding Level of Care Code Nutr Indiv Subseq (82243) Diagnoses Impaired glucose tolerance R73.02 Time Spent (min) 40
[2022-12-13 13:23] VITALS: BMI 33.9
== END 2022-12-13 14:17 | disposition home or self-care (01) ==
PROVIDERS: PCP Internal Medicine; Referring Provider Internal Medicine; Visit Provider Dietitian, Registered
DX: R73.02 Impaired glucose tolerance (oral) (principal)

== ENCOUNTER → 2022-12-13 13:19 | Outpatient (BNVA) | payer MEDICARE, MEDICAID, SELFPAY | PROVIDERS: Visit Provider Dietitian, Registered | DX: R73.02 Impaired glucose tolerance (oral) (principal) | CPT/HCPCS: 97803 ==

== ENCOUNTER 2022-12-25 08:49 | Outpatient (AMB) | payer MEDICARE, MEDICAID, SELFPAY ==
[2022-12-25 08:55] VITALS: BP 110/84; PULSE 65; O2SAT 96
--- NOTE | 2022-12-25 08:55 | MHC.OFFVIS ---
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 Conf Intake Note: F/U FRITZ Senior Caregiver Required: Yes Senior Caregiver Name: Sign language [id number] Louise Allergies Sulfa (Sulfonamide Antibiotics) [SULFA(SULFONAMIDE ANTIBIOTICS)] Allergy (Mild, Verified 12/25/22 09:03) HIVES, rash and red bumps, itching HPI HPI Comments History of Present Illness Details 52 y/o male patient presents for follow up of FRITZ on CPAP. The CPAP compliance report (09/26/22-12/24/22) reviewed with the patient. Pt is on APAP [id number]. Usage days 99 %, Average usage hours 7 hours 30 min. AHI? 0.9 median pressure was 6.6. He used Flonase in the past, and it helped to relieve nasal congestion, but he does not use it now.? ? Flonase caused occipital headache. Pt reports he sleeps well, and feels more comfortable after EPR pressure changed to 3. His daytime tiredness has improved and has more energy. [facility] Medical History (Updated 11/09/22 @ 17:47 by Lucia Davidson MD) Allergic reaction Back pain BPH (benign prostatic hyperplasia) Chronic idiopathic constipation Cough COVID-19 vaccine series completed Daytime sleepiness Deaf Dysuria Exposure to COVID-19 virus GERD (gastroesophageal reflux disease) Hypercholesterolemia Hypertension Left epididymitis Migraine Musculoskeletal pain Nasal congestion Nasal congestion Neck pain FRITZ on CPAP Osteoporosis screening Rash Screening for colon cancer Tachycardia Thoracic arthritis Thoracic spine pain Upper respiratory tract infection Varicose veins of left lower extremity with inflammation Varicose veins of right lower extremity with inflammation Vitamin D deficiency Weak urinary stream Weak urinary stream Surgical History History of esophagogastroduodenoscopy (EGD) Hx of colonoscopy Hx of hernia repair Status post ablation of incompetent vein using laser Varicocele Family History Father History of prostate cancer Skin cancer CVA (cerebral vascular accident) Mother HX: breast cancer Paternal Uncle Skin cancer Social History Household Members: Spouse, Family and Children Housing: House Are you a primary child care attendant school to a significant other at home: No Do you presently have visiting nurse or other home services: No Alcohol intake: never Patient Tobacco Use Status: Never used Tobacco e-Cigarette/Vaping Use: Never Used Second Hand Smoke Exposure: No service: No Current occupational status: employed Cognitive needs: No Hearing needs: Yes Vision needs: Yes Review of Systems Const All systems reviewed & are unremarkable except as noted in HPI and below Physical Exam Vital Signs: Last Vital Signs Pulse 65 12/25/22 08:55 BP 110/84 12/25/22 08:55 Pulse Ox 96 12/25/22 08:55 Oxygen Delivery Method Room Air 12/25/22 08:55 Const General: cooperative and no acute distress Nutritional Appearance: obese Orientation/consciousness: patient oriented x3 Limitations: language barrier (deaf) Resp Effort & Inspection: normal respiratory effort Neuro General: patient oriented x3, gait normal, moves all extremities and no focal motor deficits Cognition (Neuro): normal cognition Assessment & Plan Assessment & Plan (1) Obstructive sleep apnea (adult) (pediatric): Comment: Patient has sleep management Code(s): G47.33 - Obstructive sleep apnea (adult) (pediatric) Plan Continue to use APAP [id number] as patient experiences good clinical effects. Stressed compliance, nightly, more than 4 hours. Clean mask and tube regularly. Coding Level of Care Code Est Pt Level 3 (56766) Diagnoses Obstructive sleep apnea (adult) (pediatric) G47.33
== END 2022-12-25 09:19 | disposition home or self-care (01) ==
PROVIDERS: Visit Provider Nurse Practitioner Family
DX: G47.33 Obstructive sleep apnea (adult) (pediatric) (principal)
CPT/HCPCS: 99213

== ENCOUNTER → 2022-12-25 08:49 | Outpatient (BNVA) | payer MEDICARE, MEDICAID, SELFPAY | PROVIDERS: Visit Provider Nurse Practitioner Family | DX: G47.33 Obstructive sleep apnea (adult) (pediatric) (principal) | CPT/HCPCS: 99212 ==

== ENCOUNTER 2022-12-26 09:05 | Outpatient (AMB) | payer MEDICARE, MEDICAID, SELFPAY ==
--- NOTE | 2022-12-26 09:13 | A.OFFVIS_ITS ---
Intake Intake Visit Reasons: 6w post op greenlight Intake Note: Patient is present for Follow Up [facility] Med: Alfuzosin, Antibiotic Allergy: Sulfa Blood Thinner: None PVR: 0ml Allergies Sulfa (Sulfonamide Antibiotics) [SULFA(SULFONAMIDE ANTIBIOTICS)] Allergy (Mild, Verified 12/25/22 09:03) HIVES, rash and red bumps, itching HPI HPI Comments History of Present Illness Details Abraham is a pleasant male. Uses Taiwanese sign language. He is a patient of Dr. Davidson. He seen for the following urologic issues - lower urinary tract symptoms Six week follow-up repeat GreenLight laser procedure Taiwanese city designer used Questions regarding upcoming laser procedure Clarified procedure Discussed post procedure expectations Lower urinary tract symptoms Progressive return of urinary weakness 2018 underwent laser prostate procedure Had been happy with results until late 2020 PSA 02/22 1.5, 04/25 1.2 Cystoscopy 07/26 with bladder neck narrowing, 08/24 anterior lobe tissue Underwent procedure 08/23 for recurrent tissue, 11/24 repeat PFS Medical History Allergic reaction Back pain BPH (benign prostatic hyperplasia) Chronic idiopathic constipation Cough COVID-19 vaccine series completed Daytime sleepiness Deaf Dysuria Exposure to COVID-19 virus GERD (gastroesophageal reflux disease) Hypercholesterolemia Hypertension Left epididymitis Migraine Musculoskeletal pain Nasal congestion Nasal congestion Neck pain FRITZ on CPAP Osteoporosis screening Rash Screening for colon cancer Tachycardia Thoracic arthritis Thoracic spine pain Upper respiratory tract infection Varicose veins of left lower extremity with inflammation Varicose veins of right lower extremity with inflammation Vitamin D deficiency Weak urinary stream Weak urinary stream Surgical History History of esophagogastroduodenoscopy (EGD) Hx of colonoscopy Hx of hernia repair Status post ablation of incompetent vein using laser Varicocele Family History Father History of prostate cancer Skin cancer CVA (cerebral vascular accident) Mother HX: breast cancer Paternal Uncle Skin cancer Social History Household Members: Spouse, Family and Children Housing: House Are you a primary managed care analyst to a significant other at home: No Do you presently have visiting nurse or other home services: No Alcohol intake: never Patient Tobacco Use Status: Never used Tobacco e-Cigarette/Vaping Use: Never Used Second Hand Smoke Exposure: No service: No Current occupational status: employed Cognitive needs: No Hearing needs: Yes Vision needs: Yes Office Procedures Post Void Residual Post Residual Void Post Void Residual (PVR): 0 [id number] Void Residual by ultrasound Results AMB Urinalysis, Automated UA Leukoctes 70 Lazaro/uL Last Edit by Kathrine Ny Regan on 12/26/22 09:26 UA Nitrite Negative Last Edit by Kathrine Ny, RMA on 12/26/22 09:26 UA Urobilinogen 0.2 mg/dL Last Edit by Kathrine Ny A on 12/26/22 09:2 6 UA Protein 0 mg/dL Last Edit by Kathrine Ny A on 12/26/22 09:26 UA pH 7.0 Last Edit by Kathrine Ny A on 12/26/22 09:26 UA Blood 25 Berny/uL Last Edit by Kathrine Ny A on 12/26/22 09:26 UA Specific [place] 1.010 Last Edit by Kathrine Ny A on 12/26/22 09: 26 UA Ketone Negative Last Edit by Kathrine Ny A on 12/26/22 09:26 UA Bilirubin 0 mg/dL Last Edit by Kathrine Ny A on 12/26/22 09:26 UA Glucose 0 mg/dL Last Edit by Kathrine Ny A on 12/26/22 09:26 Results Reviewed Results Reviewed: Laboratory Last Values Urine pH (Auto) 7.0 12/26/22 09:19 Specific [place] (Auto) 1.010 12/26/22 09:19 Urine Protein (Auto) 0 mg/dL 12/26/22 09:19 Glucose (UA)(Auto) 0 mg/dL 12/26/22 09:19 Urine Ketones (Auto) Negative 12/26/22 09:19 Urine Blood (Auto) 25 Berny/uL 12/26/22 09:19 Urine Nitrite (Auto) Negative 12/26/22 09:19 Urine Bilirubin (Auto) 0 mg/dL 12/26/22 09:19 Urine Urobilinogen (Auto) 0.2 mg/dL 12/26/22 09:19 Leukocyte Esterase (Auto) 70 Lazaro/uL 12/26/22 09:19 Assessment & Plan Assessment & Plan (1) Bladder neck contracture: Comment: Laser procedure Dr. Valles August 2021 Code(s): N32.0 - Bladder-neck obstruction (2) BPH (benign prostatic hyperplasia): Code(s): N40.0 - Benign prostatic hyperplasia without lower urinary tract symptoms Plan 6 month follow-up Orders: Orders AMB Urinalysis Automated Today Z13.9 - Encounter for screening, unspecified AMB Post Void Residual by ultrasound Today N40.0 - Benign prostatic hyperplasia without lower urinary tract symptoms Patient Instructions: Imaging studies, laboratory and physical exam results were discussed and reviewed in detail. No major barriers to patient understanding were identified. An opportunity to ask questions regarding the treatment plan was provided. All questions were answered. The patient expressed understanding and agreement with the above treatment plan. The patient is aware they should contact our office by phone for worsening of their current condition or the appearance of new urologic symptoms. Compliance is encouraged with any medications and followup testing that is ordered. It is a privilege to participate in the urologic care of your patient. If you have any questions or concerns regarding treatment for the above conditions, or other urologic issues, please do not hesitate to contact me. The office telephone contact is [phone]. This note is constructed using voice recognition software. While every effort has been made to ensure accuracy data communications software consultant errors may have been included. Yours sincerely, Dr Donta Valles MD, [facility] Urology Providers of Expert, Compassionate Care for the Genitourinary System Coding Level of Care Code Est Pt Level 3 (16437) Diagnoses Bladder neck contracture N32.0 BPH (benign prostatic hyperplasia) N40.0 CPT Codes Post Residual Void - PVR CPT Code: 59127-Ccfw Void Residual by ultrasound ([id number])
== END 2022-12-26 09:50 | disposition home or self-care (01) ==
PROVIDERS: PCP Internal Medicine; Visit Provider Urology
DX: N32.0 Bladder-neck obstruction (principal); N40.0 Benign prostatic hyperplasia without lower urinary tract symptoms
CPT/HCPCS: 99024; 99213

== ENCOUNTER → 2022-12-26 09:05 | Outpatient (BNVA) | payer MEDICARE, MEDICAID, SELFPAY | PROVIDERS: PCP Internal Medicine; Visit Provider Urology | DX: N40.1 Benign prostatic hyperplasia with lower urinary tract symptoms (principal); N32.0 Bladder-neck obstruction; N13.8 Other obstructive and reflux uropathy; Z79.899 Other long term (current) drug therapy | CPT/HCPCS: 51798; 99212 ==

== ENCOUNTER 2022-12-29 07:15 | Outpatient (REF) | payer MEDICARE, MEDICAID, SELFPAY ==
[2022-12-29 07:27] LABS: MANUAL DIFF FLAG NO
[2022-12-29 07:33] LABS: Basophils Percent Auto 0.5 % (0-2); Eosinophils Absolute Auto 0.2 X10*3/uL (0.0-0.4); Eosinophils Percent Auto 4.1 % (0-4); Hematocrit 44.3 % (42.0-52.0); Hemoglobin 14.6 g/dl (14.0-18.0); Imm Gran Abs Auto 0.02 X10*3/uL (0.00-0.03); Imm Gran Pct Auto 0.4 % (0.0-0.4); Lymphocytes Absolute Auto 1.9 X10*3/uL (1.2-4.9); Lymphocytes Percent Auto 34.2 % (20-40); Mean Corpuscular Hemoglobin 29.7 pg (27.0-33.0); Mean Platelet Volume 8.8 fL (9.4-12.4); Monocytes Absolute Auto 0.7 X10*3/uL (0.1-1.2); Monocytes Percent Auto 12.3 % (2-11); Neutrophils Absolute Auto 2.8 x10*3/uL (2.0-8.3); Neutrophils Percent Auto 48.5 % (45-73); Platelet Count 291 X10*3/uL (160-400); Red Blood Count 4.92 X10*6/uL (4.60-5.80); Red Cell Distribution Width 12.2 % (11.0-16.0); White Blood Count 5.7 X10*3/uL (4.8-10.8)
[2022-12-29 07:44] LABS: Estimated Average Glucose 105 mg/dL; Hemoglobin A1c % 5.3 %
[2022-12-29 08:39] LABS: Alanine Aminotransferase 24 U/L (0-40); Albumin Level 4.2 g/dL (3.5-5.0); Alkaline Phosphatase 65 U/L (39-117); Anion Gap 16 (12-20); Aspartate Amino Transferase 20 U/L (5-37); Bilirubin Total 0.7 mg/dL (0.0-1.0); Blood Urea Nitrogen 13 mg/dL (9-16); Calcium 9.6 mg/dL (8.4-10.2); Carbon Dioxide 24 mmol/L (22-29); Chloride 107 mmol/L (96-108); Cholesterol 177 mg/dL; Estimated Glomerular Filt Rate > 60; Free T4 (Free Thyroxine) 1.07 ng/dL (0.71-1.85); Glucose Random 101 mg/dL (60-115); HDL Cholesterol 41 mg/dL; LDL Cholesterol Calculated 124 mg/dl; Potassium 4.8 mmol/L (3.3-5.1); Sodium 142 mmol/L (135-145); Thyroid Stimulating Hormone 0.84 uIU/mL (0.32-4.0); Total Protein 7.2 g/dL (6.5-8.0); Triglycerides 62 mg/dL
[2022-12-29 08:47] LABS: Prostate Specific Antigen Scr 0.99 ng/mL (<0.05-4.0)
== END 2022-12-29 07:16 | disposition home or self-care (01) ==
LOC: HO.LAB 07:15
PROVIDERS: PCP Internal Medicine; Visit Provider Internal Medicine
DX: Z12.5 Encounter for screening for malignant neoplasm of prostate (principal); R73.02 Impaired glucose tolerance (oral); E78.00 Pure hypercholesterolemia, unspecified
CPT/HCPCS: 36415; 80053; 80061; 83036; 84153; 84439; 84443; 85025

== ENCOUNTER 2023-01-02 08:35 | Outpatient (AMB) | payer MEDICARE, MEDICAID, SELFPAY ==
[2023-01-02 08:43] VITALS: BP 128/72; PULSE 58; O2SAT 98; BMI 33.3
--- NOTE | 2023-01-02 08:43 | MHC.PC.OV ---
Vital Signs 01/02/23 08:43 Height 5 ft 11 in Weight 239 lb BMI 33.3 BP 128/72 Blood Pressure Location Lt brachial Position Sitting Pulse 58 Pulse Source Pulse Oximeter Pulse Oximetry (%) 98 Oxygen Delivery Method Room Air Intake Visit Reasons: IGT, Cholesterol , HTN Allergies Sulfa (Sulfonamide Antibiotics) [SULFA(SULFONAMIDE ANTIBIOTICS)] Allergy (Mild, Verified 01/02/23 08:43) HIVES, rash and red bumps, itching Medication List - Last Reconciled 01/02/23 by Lucia Davidson MD alfuzosin ER 10 mg PO DAILY [AUTO CPAP 6-16 cm H2O humidified air As directed] betamethasone, augmented 0.05 % appl topical cetirizine 10 mg PO DAILY cyclobenzaprine 5 mg PO TID PRN epinephrine IM ONCE PRN lisinopril 5 mg PO DAILY 90 days lubiprostone (Amitiza) 24 mcg PO BID 90 days omeprazole 20 mg PO QAM 90 days Tobacco use date assessed: 06/30/22 Dental Screening Dental Screen Date: 01/02/23 Did you have a dental visit in the last 12 months?: Yes Did you have a dental problem in the last 6 months where you did not have access to dental care?: No Was dental information given to patient?: Patient has dentist HPI IGT, Cholesterol , HTN HPI Details 52-year-old obese male with obstructive sleep apnea hypertension impaired glucose tolerance hypercholesterolemia last seen in June 2022 patient was advised blood work and is here for follow-up. As far as colonoscopies concern patient is up-to-date. Patient follows up with urology had bladder neck contracture laser procedure August [address] Valles. Patient also follows up with neurology for the obstructive sleep apnea on the CPAP use has been religiously using it more than 4 hours and benefits from this. Patient also has gastroenterology follow-up for the GERD and constipation on Amitiza. Susan seth. for the prostate procedure better now. PAtient stopped cholesterol med 4 months now. [facility] Medical History (Updated 01/02/23 @ 08:59 by Lucia Davidson MD) Allergic reaction Back pain BPH (benign prostatic hyperplasia) BPH (benign prostatic hyperplasia) Chronic idiopathic constipation Cough COVID-19 vaccine series completed Daytime sleepiness Deaf Dysuria Exposure to COVID-19 virus GERD (gastroesophageal reflux disease) Hypercholesterolemia Hypertension Left epididymitis Migraine Musculoskeletal pain Nasal congestion Nasal congestion Neck pain FRITZ on CPAP Osteoporosis screening Rash Screening for colon cancer Tachycardia Thoracic arthritis Thoracic spine pain Upper respiratory tract infection Varicose veins of left lower extremity with inflammation Varicose veins of right lower extremity with inflammation Vitamin D deficiency Weak urinary stream Weak urinary stream Surgical History History of esophagogastroduodenoscopy (EGD) Hx of colonoscopy Hx of hernia repair Status post ablation of incompetent vein using laser Varicocele Family History Father History of prostate cancer Skin cancer CVA (cerebral vascular accident) Mother HX: breast cancer Paternal Uncle Skin cancer Social History Household Members: Spouse, Family and Children Housing: House Are you a primary respite care provider to a significant other at home: No Do you presently have visiting nurse or other home services: No Alcohol intake: never Patient Tobacco Use Status: Never used Tobacco e-Cigarette/Vaping Use: Never Used Second Hand Smoke Exposure: No service: No Current occupational status: employed Cognitive needs: No Hearing needs: Yes Vision needs: Yes Questionnaire PHQ-9 Over the last 2 weeks, how often have you been bothered by any of the following problems? 1. Little interest or pleasure in doing things: not at all 2. Feeling down, depressed, or hopeless: not at all 3. Trouble falling or staying asleep, or sleeping too much: not at all 4. Feeling tired or having little energy: not at all 5. Poor appetite or overeating: not at all 6. Feeling bad about yourself - or that you are a failure or have let yourself or your family down: not at all 7. Trouble concentrating on things, such as reading the newspaper or watching television: not at all 8. Moving or speaking so slowly that other people could have noticed. Or the opposite - being so fidgety or restless that you have been moving around a lot more than usual: not at all 9. Thoughts that you would be better off or of hurting yourself in some way: not at all Total score: 0 Depression Screening Interpretation: Negative Source: Developed by Drs. Tee L. TessieLisandra love Kurt Kroenke and colleagues, with an educational jan from [employer]. Thrive Questionnaire Date Thrive assessed: 06/30/22 AUDIT C Alcohol Use Questionnaire (AUDIT-C) 1. How often do you have a drink containing alcohol?: Never 3. How often do you have six or more drinks on one occasion?: Never Total Score: 0 CLARITA-7 AMB Questionnaire CLARITA-7 Date CLARITA - 7 assessed: 06/30/22 Source: Developed by Drs. Tee Kurtz, Juan Carlos Maloney and colleagues, with an educational jan from [employer]. Physical exam (Primary Care) Vital Signs: Last Vital Signs Pulse 58 01/02/23 08:43 BP 128/72 01/02/23 08:43 Pulse Ox 98 01/02/23 08:43 Oxygen Delivery Method Room Air 01/02/23 08:43 BMI result Body Mass Index 33.3 Tobacco/Smoking Status: Tobacco use Status Tobacco use date assessed 06/30/22 01/02/23 08:52 Patient Tobacco Use Status Never used Tobacco 01/02/23 08:52 e-Cigarette/Vaping Use Never Used 01/02/23 08:52 PHQ-9: PHQ-9 Score PHQ-9: Total score 0 01/02/23 08:52 Depression Screening Interpretation: Negative Thrive Assessment: Date of Thrive Assessment Date Thrive assessed 06/30/22 01/02/23 08:52 Const General: alert; No acute distress Eyes Conjunctivae: conjunctivae normal Resp Auscultation: clear to auscultation bilaterally Cardio Rate: regular rate Rhythm: regular rhythm GI Inspection: Yes normal to inspection Extrem General: Yes normal to inspection and No edema Assessment and Plan Assessment & Plan (1) Chronic idiopathic constipation: Code(s): K59.04 - Chronic idiopathic constipation Plan: Three rules for constipation 1. Diet need to have a high fiber diet less of meat 2. Increase oral fluids 3. Exercise continue with Amitiza patient follows up with Gastroenterology (2) Hypercholesterolemia: Code(s): E78.00 - Pure hypercholesterolemia, unspecified Plan: Avoid fried foods, chicken skin, eggs, butter margarine, pastries and meat. Be it pork or beef they have a lot of cholesterol LDL goal of less than 130 (3) Hypertension: Code(s): I10 - Essential (primary) hypertension Qualifiers: Hypertension type: essential hypertension Qualified Code(s): I10 - Essential (primary) hypertension Plan: Continue with blood pressure medication. Decrease salt intake and exercise continue with lisinopril 5 mg once a day (4) BPH (benign prostatic hyperplasia): Comment: One year PSA, TURP Dr. Valles November 2022 Code(s): N40.0 - Benign prostatic hyperplasia without lower urinary tract symptoms Qualifiers: Lower urinary tract symptom presence: symptoms present Lower urinary tract symptom detail: urinary frequency Qualified Code(s): N40.1 - Benign prostatic hyperplasia with lower urinary tract symptoms; R35.0 - Frequency of micturition Plan: Patient follows up with urology placed on alfuzosin (5) Obstructive sleep apnea (adult) (pediatric): Comment: Patient has sleep management Code(s): G47.33 - Obstructive sleep apnea (adult) (pediatric) Plan: Continue with CPAP more than 4 hours a night and benefits from this. Patient follows up with Neurology (6) GERD (gastroesophageal reflux disease): Code(s): K21.9 - Gastro-esophageal reflux disease without esophagitis Qualifiers: Esophagitis presence: without esophagitis Qualified Code(s): K21.9 - Gastro-esophageal reflux disease without esophagitis Plan: Avoid the foods that causes that usually spicy foods, tomato products, juices, coffee, soda and foods that your sensitive to. After eating do not lie down, allow 3-4 hours before in lie down. And keep the head of bed above 30 degrees to avoid the acid from going up. On omeprazole (7) Obesity (BMI 30-39.9): Code(s): E66.9 - Obesity, unspecified Plan: Diet and exercise (8) Impaired glucose tolerance: Code(s): R73.02 - Impaired glucose tolerance (oral) Plan: Decrease the amount of carbohydrate intake, pasta, bread, rice and potatoes are all sugar and that is aside from all the sweet stuff, remember that fruits are good but they are Sweet also. Medications: Refilled cyclobenzaprine 5 mg PO TID PRN 60 tabs 0RF muscle spasm M79.10 - Myalgia, unspecified site lisinopril 5 mg PO DAILY 90 days 90 tabs 2RF omeprazole 20 mg PO QAM 90 days 90 caps 1RF K21.9 - Gastro-esophageal reflux disease without esophagitis Coding Level of Care Code Est Pt Level 4 (41547) Diagnoses Chronic idiopathic constipation K59.04 Hypercholesterolemia E78.00 Hypertension I10 Hypertension type: essential hypertension BPH (benign prostatic hyperplasia) N40.1; R35.0 Lower urinary tract symptom presence: symptoms present Lower urinary tract symptom detail: urinary frequency Obstructive sleep apnea (adult) (pediatric) G47.33 GERD (gastroesophageal reflux disease) K21.9 Esophagitis presence: without esophagitis Obesity (BMI 30-39.9) E66.9 Impaired glucose tolerance R73.02 Additional Codes PHQ-9 - 96454 - PHQ-9 Billing: Y ([id number])
== END 2023-01-02 09:34 | disposition home or self-care (01) ==
PROVIDERS: PCP Internal Medicine; Visit Provider Internal Medicine
DX: I10 Essential (primary) hypertension (principal); K21.9 Gastro-esophageal reflux disease without esophagitis; K59.04 Chronic idiopathic constipation; E78.00 Pure hypercholesterolemia, unspecified; N40.1 Benign prostatic hyperplasia with lower urinary tract symptoms; R35.0 Frequency of micturition; G47.33 Obstructive sleep apnea (adult) (pediatric); E66.9 Obesity, unspecified; R73.02 Impaired glucose tolerance (oral)
CPT/HCPCS: 99214

== ENCOUNTER 2023-02-13 12:43 | Outpatient (AMB) | payer MEDICARE, MEDICAID, SELFPAY ==
[2023-02-13 13:21] VITALS: BMI 33.4
--- NOTE | 2023-02-13 13:21 | A.OFFVIS_ITS ---
Intake VS Expanded 02/13/23 13:21 Height 5 ft 11 in Weight 239 lb 3.225 oz BMI 33.4 Intake Visit Reasons: IFG/High cholestorl Allergies Sulfa (Sulfonamide Antibiotics) [SULFA(SULFONAMIDE ANTIBIOTICS)] Allergy (Mild, Verified 01/02/23 08:43) HIVES, rash and red bumps, itching HPI Nutrition 2 Presentation Details Pt presents for MNT f/u for IFG/Obesity/Hypercholesterolemia ALS intepreter was present during this appt. Pt reports doing well, motivated in making dietary improvements and keeping physically active/ Pt reports choosing high fiber foods, reducing on foods high in saturated fats and reading food labels Most Recent Diabetes Results: Cholesterol 177 mg/dL 12/29/22 HDL Cholesterol 41 mg/dL 12/29/22 Triglycerides 62 mg/dL 12/29/22 Creatinine 0.96 mg/dL (0.5-1.4) 12/29/22 Blood Urea Nitrogen 13 mg/dL (9-16) 12/29/22 Sodium 142 mmol/L (135-145) 12/29/22 Potassium 4.8 mmol/L (3.3-5.1) 12/29/22 Chloride 107 mmol/L (96-108) 12/29/22 Carbon Dioxide 24 mmol/L (22-29) 12/29/22 Calcium 9.6 mg/dL (8.4-10.2) 12/29/22 AST 20 U/L (5-37) 12/29/22 ALT 24 U/L (0-40) 12/29/22 Total Protein 7.2 g/dL (6.5-8.0) 12/29/22 Albumin 4.2 g/dL (3.5-5.0) 12/29/22 [facility] Medical History (Updated 01/02/23 @ 08:59 by Lucia Davidson MD) Upper respiratory tract infection Weak urinary stream Allergic reaction Tachycardia Dysuria Varicose veins of left lower extremity with inflammation Varicose veins of right lower extremity with inflammation Neck pain Daytime sleepiness FRITZ on CPAP GERD (gastroesophageal reflux disease) Weak urinary stream Exposure to COVID-19 virus Nasal congestion Thoracic arthritis BPH (benign prostatic hyperplasia) Musculoskeletal pain Osteoporosis screening Rash COVID-19 vaccine series completed BPH (benign prostatic hyperplasia) Thoracic spine pain Cough Back pain Nasal congestion Left epididymitis Deaf Migraine Vitamin D deficiency Hypertension Hypercholesterolemia Screening for colon cancer Chronic idiopathic constipation Surgical History Status post ablation of incompetent vein using laser Hx of colonoscopy Varicocele History of esophagogastroduodenoscopy (EGD) Hx of hernia repair Family History Father History of prostate cancer Skin cancer CVA (cerebral vascular accident) Mother HX: breast cancer Paternal Uncle Skin cancer Social History Household Members: Spouse, Family and Children Housing: House Are you a primary care support representative to a significant other at home: No Do you presently have visiting nurse or other home services: No Alcohol intake: never Patient Tobacco Use Status: Never used Tobacco e-Cigarette/Vaping Use: Never Used Second Hand Smoke Exposure: No service: No Current occupational status: employed Cognitive needs: No Hearing needs: Yes Vision needs: Yes Assessment & Plan Assessment & Plan (1) Impaired glucose tolerance: Code(s): R73.02 - Impaired glucose tolerance (oral) Plan: Diet modification related to IFG, hypercholesterolemia, obesity, HTN Educate Pt on reduction sat'd fat, choosing fiber rich foods ? Used wt : 116 kg(10/2022), 108 kg (02/2023) Est kcal as per MSJ: 1562-1138 (40% carb, 30% fat/prot) Est fluid needs: 2900 ml/d (25 ml/kg bw) Rec fiber: increase to 8-10 g per day and gradually increase to 35 g as tolerated Rec Na: < 2000 mg /d Educate patient on: (R= Reviewed, V = verbalizes understanding N/R= Needs review N/A= not applicable) * Food sources of carbohydrates and serving adequate serving sizes : R , V * Difference between complex carbohydrates and simple carbohydrates, role of fiber: R, V * Differences between fats (MUFA/PUFA/saturated fats, trans fats) and food sources of various fats: R , V * Food sources of sodium and salt and healthy modifications for heart health and kidney health: R * How to interpret food labels: R , V * Healthy Plate method concept: R , V * Physical activity: benefits and precaution: R Patient Instructions: Continue physically activity goal 150 min/week or as tolerated Work on following healthy plate method , choosing whole grain foods and lean protein foods Continue working on reducing portion sizes promoting weight loss , goal 10 lbs less by next follow up Choose lower sodium food choices Coding Level of Care Code Nutr Indiv Subseq (90440) Diagnoses Impaired glucose tolerance R73.02 Time Spent (min) 30
== END 2023-02-13 13:44 | disposition home or self-care (01) ==
PROVIDERS: PCP Internal Medicine; Visit Provider Dietitian, Registered
DX: R73.02 Impaired glucose tolerance (oral) (principal)

== ENCOUNTER → 2023-02-13 12:43 | Outpatient (BNVA) | payer MEDICARE, MEDICAID, SELFPAY | PROVIDERS: PCP Internal Medicine; Visit Provider Dietitian, Registered | DX: R73.02 Impaired glucose tolerance (oral) (principal); E78.00 Pure hypercholesterolemia, unspecified; E66.9 Obesity, unspecified; Z68.33 Body mass index [BMI] 33.0-33.9, adult; Z71.3 Dietary counseling and surveillance | CPT/HCPCS: 97803 ==

== ENCOUNTER 2023-03-19 07:38 | Outpatient (REF) | payer MEDICARE, SELFPAY ==
[2023-03-19 08:47] LABS: Estimated Average Glucose 108 mg/dL; Hemoglobin A1C 118.4815 umol/L; Hemoglobin A1c % 5.4 % (<6.0)
[2023-03-19 09:22] LABS: Alanine Aminotransferase 24 U/L (0-40); Albumin Level 4.3 g/dL (3.5-5.0); Alkaline Phosphatase 52 U/L (39-117); Anion Gap 13 (12-20); Aspartate Amino Transferase 21 U/L (5-37); Bilirubin Total 0.7 mg/dL (0.0-1.0); Blood Urea Nitrogen 14 mg/dL (9-16); Calcium 9.4 mg/dL (8.4-10.2); Carbon Dioxide 26 mmol/L (22-29); Chloride 107 mmol/L (96-108); Cholesterol 183 mg/dL (<200); Estimated Glomerular Filt Rate > 60; Glucose Random 97 mg/dL (60-115); HDL Cholesterol 45 mg/dL (>40); LDL Cholesterol Calculated 126 mg/dL (<100); Potassium 4.7 mmol/L (3.3-5.1); Sodium 141 mmol/L (135-145); Total Protein 7.1 g/dL (6.5-8.0); Triglycerides 61 mg/dL (<150)
[2023-03-19 09:24] LABS: Thyroid Stimulating Hormone 1.13 uIU/mL (0.32-4.0)
== END 2023-03-19 07:39 | disposition home or self-care (01) ==
LOC: HO.LAB 07:38
PROVIDERS: PCP Internal Medicine; Visit Provider Internal Medicine
DX: R73.02 Impaired glucose tolerance (oral) (principal); E78.00 Pure hypercholesterolemia, unspecified
CPT/HCPCS: 36415; 80053; 80061; 83036; 84443

== ENCOUNTER 2023-03-20 08:19 | Outpatient (AMB) | payer MEDICARE, MEDICAID, SELFPAY ==
[2023-03-20 08:50] VITALS: BP 125/66; PULSE 60; BMI 33.3
--- NOTE | 2023-03-20 08:50 | A.OFFVIS_ITS ---
Intake Vital Signs 03/20/23 08:50 Height 5 ft 11 in Weight 238 lb 8.642 oz BMI 33.3 BP 125/66 Blood Pressure Location Lt brachial Position Sitting Pulse 60 Intake Visit Reasons: 6 month follow up Intake Note: Patient presents to in office visit today in 6 months follow up. 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 He has a question about if the Amitiza interacts with his prostate medication, and it does not. He is aware of the possible role of the prostate putting pressure on the colon and effecting BM's. The omeprazole is still working well for his HB. He will be in tomorrow with his brother who is disabled. With this he is quite satisfied with his GI regimen. 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 The Amitiza 24mcg bid is moving his bowels well and the omeprazole is controlling his GERD. He remains satisfied with his GI regimen. ROV 6 mos. [facility] Medical History (Updated 01/02/23 @ 08:59 by Lucia Davidson MD) Upper respiratory tract infection Weak urinary stream Allergic reaction Tachycardia Dysuria Varicose veins of left lower extremity with inflammation Varicose veins of right lower extremity with inflammation Neck pain Daytime sleepiness FRITZ on CPAP GERD (gastroesophageal reflux disease) Weak urinary stream Exposure to COVID-19 virus Nasal congestion Thoracic arthritis BPH (benign prostatic hyperplasia) Musculoskeletal pain Osteoporosis screening Rash COVID-19 vaccine series completed BPH (benign prostatic hyperplasia) Thoracic spine pain Cough Back pain Nasal congestion Left epididymitis Deaf Migraine Vitamin D deficiency Hypertension Hypercholesterolemia Screening for colon cancer Chronic idiopathic constipation Surgical History Status post ablation of incompetent vein using laser Hx of colonoscopy Varicocele History of esophagogastroduodenoscopy (EGD) Hx of hernia repair Family History Father History of prostate cancer Skin cancer CVA (cerebral vascular accident) Mother HX: breast cancer Paternal Uncle Skin cancer Social History Household Members: Spouse, Family and Children Housing: House Are you a primary healthcare liaison to a significant other at home: No Do you presently have visiting nurse or other home services: No Alcohol intake: never Patient Tobacco Use Status: Never used Tobacco e-Cigarette/Vaping Use: Never Used Second Hand Smoke Exposure: No service: No Current occupational status: employed Cognitive needs: No Hearing needs: Yes Vision needs: Yes Review of Systems Const Denies fatigue, Denies fever(s), Denies night sweats, Denies poor appetite and Denies weight loss ENT Reports Normal hearing present, Denies dental pain, Denies dysphagia, Reports hearing loss, Denies mouth pain, Denies odynophagia, Denies throat swelling, Denies tongue swelling and Reports other (Dentition adequate) Card Reports no additional complaints Resp Reports no additional complaints GI Denies abdominal pain, Denies melena, Denies bloating, Denies hematochezia, Reports constipation, Denies GI cramping, Denies dysphagia, Denies excessive flatus, Denies early satiety, Reports heartburn, Denies diarrhea, Denies nausea, Denies odynophagia, Denies vomiting and Denies hematemesis Skin/Breast Denies pruritus, Denies lesions, Denies rash and Denies jaundice Neuro Reports Normal hearing present and Denies Abnormal speech present Endo Denies fatigue Aller/Immun Denies throat swelling and Denies tongue swelling Physical Exam Vital Signs: Last Vital Signs Pulse 60 03/20/23 08:50 BP 125/66 03/20/23 08:50 BMI result Body Mass Index 33.3 Const General: cooperative, no acute distress, well developed and well groomed Nutritional Appearance: well nourished and obese centrally obese Orientation/consciousness: oriented to person, oriented to place and oriented to time Limitations: No language barrier and other limitations (deaf) HEENT Head: Yes normocephalic and Yes atraumatic Ears: hearing grossly abnormal bilaterally Eyes General: appearance normal, both eyes and all related structures Pupils: Equal, round and reactive pupils present Neck Neck: Yes normal visual inspection and Yes no lymphadenopathy Thyroid: Thyroid normal Resp Effort & Inspection: normal respiratory effort and able to speak in complete sentences Auscultation: clear to auscultation bilaterally Cardio Rate: regular rate Rhythm: regular rhythm Heart sounds: Normal, physiologic split S2 sound present Peripheral pulses: radial pulses present and posterior tibial pulses present GI Inspection: No distended, No Abdominal panniculus present and Yes obesity Palpation (GI): Soft to palpation, nontender, no guarding, not rigid and No hepatosplenomegaly present Percussion: Yes normal to percussion Auscultation: normal bowel sounds Rectal Exam - Male: Yes deferred Skin General skin exam: no rashes or lesions noted, turgor normal, skin not dry, no jaundice, No spider nevi and no striae Rashes: no rashes Nails: normal Neuro General: oriented to person, oriented to place and oriented to time Cranial nerves: Yes Equal, round and reactive pupils present and Yes Normal hearing present Speech: No Abnormal speech present Extrem General: Yes normal to inspection, No clubbing, No cyanosis and No edema Psych Appearance: grossly normal and well kempt Mental Status: mental status grossly normal Speech and movement: Mute speech present Affect: normal affect Attitude: cooperative Thought process: Normal thought process present and not confabulating Thought content: Normal thought content present Insight: Good insight present (Psych) Judgement: Good judgement present (Psych) Assessment & Plan Assessment & Plan (1) Chronic idiopathic constipation: Code(s): K59.04 - Chronic idiopathic constipation 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 The Amitiza 24mcg bid is moving his bowels well and the omeprazole is controlling his GERD. He remains satisfied with his GI regimen. ROV 6 mos. (2) GERD (gastroesophageal reflux disease): Code(s): K21.9 - Gastro-esophageal reflux disease without esophagitis Qualifiers: Esophagitis presence: without esophagitis Qualified Code(s): K21.9 - Gastro-esophageal reflux disease without esophagitis Medications: Refilled omeprazole 20 mg PO QAM 90 days 90 caps 1RF K21.9 - Gastro-esophageal reflux disease without esophagitis lubiprostone (Amitiza) 24 mcg PO BID 90 days 180 caps 1RF K59.04 - Chronic idiopathic constipation Coding Level of Care Code Est Pt Level 3 (69417) Diagnoses Chronic idiopathic constipation K59.04 Gastroesophageal reflux disease without esophagitis K21.9 Esophagitis presence: without esophagitis
== END 2023-03-20 09:04 | disposition home or self-care (01) ==
PROVIDERS: PCP Internal Medicine; Visit Provider Nurse Practitioner
DX: K59.04 Chronic idiopathic constipation (principal); K21.9 Gastro-esophageal reflux disease without esophagitis
CPT/HCPCS: 99213

== ENCOUNTER → 2023-03-20 08:19 | Outpatient (BNVA) | payer MEDICARE, MEDICAID, SELFPAY | PROVIDERS: PCP Internal Medicine; Visit Provider Nurse Practitioner | DX: K21.9 Gastro-esophageal reflux disease without esophagitis (principal); K59.04 Chronic idiopathic constipation | CPT/HCPCS: 99212 ==

== ENCOUNTER 2023-03-26 08:52 | Outpatient (AMB) | payer MEDICARE, MEDICAID, SELFPAY ==
[2023-03-26 08:57] VITALS: BP 130/86; PULSE 67; O2SAT 95; BMI 32.9
--- NOTE | 2023-03-26 08:57 | A.OFFPC_ITS ---
Vital Signs 03/26/23 08:57 Height 5 ft 11 in Weight 236 lb 0.8 oz BMI 32.9 BP 130/86 Blood Pressure Location Lt brachial Position Sitting Pulse 67 Pulse Source Pulse Oximeter Temp Source Skin Pulse Oximetry (%) 95 Oxygen Delivery Method Room Air Intake Visit Reasons: PE Allergies Sulfa (Sulfonamide Antibiotics) [SULFA(SULFONAMIDE ANTIBIOTICS)] Allergy (Mild, Verified 03/26/23 08:59) HIVES, rash and red bumps, itching Medication List - Last Reconciled 03/26/23 by Lucia Davidson MD [AUTO CPAP 6-16 cm H2O humidified air As directed] cyclobenzaprine 5 mg PO TID PRN epinephrine IM ONCE PRN lisinopril 5 mg PO DAILY 90 days lubiprostone (Amitiza) 24 mcg PO BID 90 days omeprazole 20 mg PO QAM 90 days Tobacco use date assessed: 06/30/22 Dental Screening Dental Screen Date: 03/26/23 Did you have a dental visit in the last 12 months?: Yes Did you have a dental problem in the last 6 months where you did not have access to dental care?: No Was dental information given to patient?: Patient has dentist HPI PE HPI Details 53-year-old obese male with hypertension , hypercholesterolemia BPH obstructive sleep apnea GERD impaired glucose tolerance and chronic idiopathic constipation last seen in January 2023. Patient is here for physical exam. Colonoscopy up-to-date. Patient follows up with Gastroenterology March 2023 on Amitiza and for the GERD omeprazole. 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 [facility] Medical History (Updated 03/26/23 @ 09:23 by Lucia Davidson MD) Adult general medical exam Upper respiratory tract infection Weak urinary stream Allergic reaction Tachycardia Dysuria Varicose veins of left lower extremity with inflammation Varicose veins of right lower extremity with inflammation Neck pain Daytime sleepiness FRITZ on CPAP GERD (gastroesophageal reflux disease) Weak urinary stream Exposure to COVID-19 virus Nasal congestion Thoracic arthritis BPH (benign prostatic hyperplasia) Musculoskeletal pain Osteoporosis screening Rash COVID-19 vaccine series completed BPH (benign prostatic hyperplasia) Thoracic spine pain Cough Back pain Nasal congestion Left epididymitis Deaf Migraine Vitamin D deficiency Hypertension Hypercholesterolemia Screening for colon cancer Chronic idiopathic constipation Surgical History Status post ablation of incompetent vein using laser Hx of colonoscopy Varicocele History of esophagogastroduodenoscopy (EGD) Hx of hernia repair Family History (Updated 03/26/23 @ 09:34 by Lucia Davidson MD) Father History of prostate cancer Skin cancer CVA (cerebral vascular accident) Mother HX: breast cancer Paternal Uncle Skin cancer CVA (cerebral vascular accident) Maternal Aunt HX: breast cancer Social History Household Members: Spouse, Family and Children Housing: House Are you a primary childcare worker to a significant other at home: No Do you presently have visiting nurse or other home services: No Alcohol intake: never Patient Tobacco Use Status: Never used Tobacco e-Cigarette/Vaping Use: Never Used Second Hand Smoke Exposure: No service: No Current occupational status: employed Cognitive needs: No Hearing needs: Yes Vision needs: Yes Questionnaire PHQ-9 Over the last 2 weeks, how often have you been bothered by any of the following problems? 1. Little interest or pleasure in doing things: not at all 2. Feeling down, depressed, or hopeless: not at all 3. Trouble falling or staying asleep, or sleeping too much: not at all 4. Feeling tired or having little energy: not at all 5. Poor appetite or overeating: not at all 6. Feeling bad about yourself - or that you are a failure or have let yourself or your family down: not at all 7. Trouble concentrating on things, such as reading the newspaper or watching television: not at all 8. Moving or speaking so slowly that other people could have noticed. Or the opposite - being so fidgety or restless that you have been moving around a lot more than usual: not at all 9. Thoughts that you would be better off or of hurting yourself in some way: not at all Total score: 0 Depression Screening Interpretation: Negative Depression Screening Done: Yes Source: Developed by Drs. Tee Kurtz, Lisandra Saleh, Juan Carlos Peter and colleagues, with an educational jan from [employer]. Thrive Questionnaire Date Thrive assessed: 06/30/22 I am a: Patient What is your living situation today?: I have a steady place to live Within the past 12 months, did the food you bought not last and you didn't have the money to get more?: Never true Within the past 12 months, did you worry whether your food would run out before you got money to buy more?: Never true Do you have trouble paying for medicines?: No Do you have trouble getting transportation to medical appointments?: No Do you have trouble paying your heating and electricity bill?: No Do you have trouble taking care of your child, family member or friend?: No Do you have trouble with day-to-day activities such as bathing, preparing meals, shopping, managing finances, etc.?: No Are you currently unemployed and looking for a job?: No Are you interested in more education?: No AUDIT C Alcohol Use Questionnaire (AUDIT-C) 1. How often do you have a drink containing alcohol?: Never 3. How often do you have six or more drinks on one occasion?: Never Total Score: 0 CLARITA-7 AMB Questionnaire CLARITA-7 Date CLARITA - 7 assessed: 03/26/23 Feeling nervous, anxious, or on edge: 0 = Not at all Not being able to stop or control worryin = Not at all Worrying too much about different things: 0 = Not at all Trouble relaxin = Not at all Being so restless that it is hard to sit still: 0 = Not at all Becoming easily annoyed or irritable: 0 = Not at all Feeling afraid as if something awful might happen: 0 = Not at all Total CLARITA-7 score (0-4 normal; 5-9 mild; 10-14 moderate; 15-21 severe): 0 Source: Developed by Drs. Tee Kurtz, Lisandra Saleh, Juan Carlos Peter and colleagues, with an educational jan from [employer]. Review of Systems Const Denies poor appetite and Denies weakness Eyes Denies no additional complaints ENT Reports Normal hearing present, Denies dizziness, Denies nasal congestion, Denies tinnitus and Denies sore throat Card Denies chest pain, Denies syncope, Denies rapid heart rate and Denies dyspnea Resp Denies cough and Denies dyspnea GI Denies change in stool character, Reports constipation, Denies diarrhea, Denies nausea and Denies vomiting Denies dysuria and Denies urinary frequency Neuro Reports Normal hearing present, Denies confusion, Denies dizziness, Denies syncope and Denies weakness Psych Denies confusion Physical exam (Primary Care) Vital Signs: Last Vital Signs Pulse 67 03/26/23 08:57 BP 130/86 03/26/23 08:57 Pulse Ox 95 03/26/23 08:57 Oxygen Delivery Method Room Air 03/26/23 08:57 BMI result Body Mass Index 32.9 Tobacco/Smoking Status: Tobacco use Status Tobacco use date assessed 06/30/22 03/26/23 09:01 Patient Tobacco Use Status Never used Tobacco 03/26/23 09:01 e-Cigarette/Vaping Use Never Used 03/26/23 09:01 PHQ-9: PHQ-9 Score PHQ-9: Total score 0 03/26/23 09:17 Depression Screening Interpretation: Negative Thrive Assessment: Date of Thrive Assessment Date Thrive assessed 06/30/22 03/26/23 09:01 Const General: No confusion Orientation/consciousness: No confusion HENMT Head: Yes normocephalic Ears: external ears normal and TM's normal bilaterally Face and sinus: Yes normal facial exam Mouth: moist mucous membranes Throat: Yes tonsils normal Eyes Conjunctivae: conjunctivae normal Pupils: Equal, round and reactive pupils present and Pupil accommodation reflex normal Direct Ophthalmoscopy: normal light reflex Neck Neck: No lymphadenopathy Thyroid: Thyroid normal Chest Chest palpation & inspection: normal inspection of the chest Resp Effort & Inspection: normal respiratory effort and no audible wheezes Auscultation: clear to auscultation bilaterally, no crackles, no wheezes and lung sounds not diminished Cardio Rate: regular rate Rhythm: regular rhythm Peripheral pulses: radial pulses present and dorsalis pedis present GI Other: guaiac negative prostate not \big Palpation (GI): no masses Auscultation: normal bowel sounds and normoactive bowel sounds Rectal Exam - Male: Yes deferred Male General Exam: Yes normal external exam Skin General skin exam: no rashes or lesions noted Rashes: no rashes Neuro General: No confusion Cranial nerves: Yes Equal, round and reactive pupils present and Yes Normal hearing present Cognition (Neuro): normal cognition Gait exam (Neuro): Normal gait present Motor exam (neuro): 5/5 motor strength present throughout Deep tendon reflexes (DTR's): Right brachioradialis reflex intensity grade: 2+, Left brachioradialis reflex intensity grade: 2+, Right patellar reflex intensity grade: 2+ and Left patellar reflex intensity grade: 2+ Extrem General: No edema Office Procedures Flu Questionnaire Does the patient have a severe egg allergy?: No Does the patient have severe life threatening allergies?: No Does the patient have a fever or illness today?: No Has the patient ever had Guillain-Sterrett Syndrome?: No Has the patient ever had any past reaction to a flu shot?: No Immunizations flu vacc [id number] 6mos up(PF) 60 mcg(15 mcgx4)/0.5 mL IM syringe Performing Provider: Lucia Davidson MD Performing Location: [facility] Administered by: GARY Lainez on 03/26/23 09:17 Dose Route Admin Location Dispensed Lot Number Expiration Date 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 0.5 mL IM Right Deltoid 0.5 mL [id number] 12/02/23 [id number] [employer] VIS Given Date VIS Provided VIS Publication Date 03/26/23 Single Vaccine 21 Eligibility Eligibility Date Funding Source Not [facility] Eligible 03/26/23 Private Assessment and Plan Assessment & Plan (1) Annual physical exam: Code(s): Z00.00 - Encounter for general adult medical examination without abnormal findings (2) Obesity (BMI 30-39.9): Code(s): E66.9 - Obesity, unspecified Plan: Continue with diet and exercise (3) Impaired glucose tolerance: Code(s): R73.02 - Impaired glucose tolerance (oral) Plan: Decrease the amount of carbohydrate intake, pasta, bread, rice and potatoes are all sugar and that is aside from all the sweet stuff, remember that fruits are good but they are Sweet also. March blood work is normal (4) GERD (gastroesophageal reflux disease): Code(s): K21.9 - Gastro-esophageal reflux disease without esophagitis Qualifiers: Esophagitis presence: without esophagitis Qualified Code(s): K21.9 - Gastro-esophageal reflux disease without esophagitis Plan: Avoid the foods that causes that usually spicy foods, tomato products, juices, coffee, soda and foods that your sensitive to. After eating do not lie down, allow 3-4 hours before in lie down. And keep the head of bed above 30 degrees to avoid the acid from going up. On omeprazole (5) Obstructive sleep apnea (adult) (pediatric): Comment: Patient has sleep management Code(s): G47.33 - Obstructive sleep apnea (adult) (pediatric) Plan: Continue with CPAP more than 4 hours a night and benefits from the (6) BPH (benign prostatic hyperplasia): Comment: One year PSA, TURP Dr. Valles November 2022 Code(s): N40.0 - Benign prostatic hyperplasia without lower urinary tract symptoms Qualifiers: Lower urinary tract symptom presence: symptoms present Lower urinary tract symptom detail: urinary frequency Qualified Code(s): N40.1 - Benign prostatic hyperplasia with lower urinary tract symptoms; R35.0 - Frequency of micturition Plan: Continue to follow-up with Urology (7) Hypertension: Code(s): I10 - Essential (primary) hypertension Qualifiers: Hypertension type: essential hypertension Qualified Code(s): I10 - Essential (primary) hypertension Plan: Continue with blood pressure medication. Decrease salt intake and exercise on lisinopril 5 mg once a day (8) Hypercholesterolemia: Code(s): E78.00 - Pure hypercholesterolemia, unspecified Plan: Avoid fried foods, chicken skin, eggs, butter margarine, pastries and meat. Be it pork or beef they have a lot of cholesterol patient's blood work in March is normal (9) Chronic idiopathic constipation: Code(s): K59.04 - Chronic idiopathic constipation Plan: Three rules for constipation 1. Diet need to have a high fiber diet less of meat 2. Increase oral fluids 3. Exercise patient follows up with Gastroenterology and has been placed on Amitiza Orders: Orders Influenza [id number] Immunization Today Z23 - Encounter for immunization Medications: Refilled cyclobenzaprine 5 mg PO TID PRN 60 tabs 0RF muscle spasm M79.10 - Myalgia, unspecified site Coding Level of Care Code Est Pt Prev Care 40-64y(56954) Diagnoses Annual physical exam Z00.00 Obesity (BMI 30-39.9) E66.9 Impaired glucose tolerance R73.02 Gastroesophageal reflux disease without esophagitis K21.9 Esophagitis presence: without esophagitis Obstructive sleep apnea (adult) (pediatric) G47.33 Benign prostatic hyperplasia with urinary frequency N40.1; R35.0 Lower urinary tract symptom presence: symptoms present Lower urinary tract symptom detail: urinary frequency Essential hypertension I10 Hypertension type: essential hypertension Hypercholesterolemia E78.00 Chronic idiopathic constipation K59.04
== END 2023-03-26 09:55 | disposition home or self-care (01) ==
PROVIDERS: Visit Provider Internal Medicine
DX: Z00.00 Encounter for general adult medical examination without abnormal findings (principal); E66.9 Obesity, unspecified; Z68.32 Body mass index [BMI] 32.0-32.9, adult; R73.02 Impaired glucose tolerance (oral); K21.9 Gastro-esophageal reflux disease without esophagitis; G47.33 Obstructive sleep apnea (adult) (pediatric); Z23 Encounter for immunization; N40.1 Benign prostatic hyperplasia with lower urinary tract symptoms; R35.0 Frequency of micturition; I10 Essential (primary) hypertension; E78.00 Pure hypercholesterolemia, unspecified; K59.04 Chronic idiopathic constipation
CPT/HCPCS: 90471; 90686; 99396

== ENCOUNTER 2023-06-29 09:32 | Outpatient (AMB) | payer MEDICARE, MEDICAID, SELFPAY ==
--- NOTE | 2023-06-29 10:06 | MHC.OFFVIS ---
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 Allergies Sulfa (Sulfonamide Antibiotics) [SULFA(SULFONAMIDE ANTIBIOTICS)] Allergy (Mild, Verified 06/29/23 10:10) HIVES, rash and red bumps, itching HPI HPI Comments History of Present Illness Details Abraham is a pleasant male. Uses Lithuanian sign language. He is a patient of Dr. Davidson. 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 Lower urinary tract symptoms Progressive return of urinary weakness 2018 underwent laser prostate procedure Had been happy with results until late 2020 PSA 02/22 1.5, 04/25 1.2, 12/24 0.9 Cystoscopy 07/26 with bladder neck narrowing, 08/24 anterior lobe tissue Underwent procedure 08/23 for recurrent tissue, 11/24 repeat [facility] Medical History Adult general medical exam Upper respiratory tract infection Weak urinary stream Allergic reaction Tachycardia Dysuria Varicose veins of left lower extremity with inflammation Varicose veins of right lower extremity with inflammation Neck pain Daytime sleepiness FRITZ on CPAP GERD (gastroesophageal reflux disease) Weak urinary stream Exposure to COVID-19 virus Nasal congestion Thoracic arthritis BPH (benign prostatic hyperplasia) Musculoskeletal pain Osteoporosis screening Rash COVID-19 vaccine series completed BPH (benign prostatic hyperplasia) Thoracic spine pain Cough Back pain Nasal congestion Left epididymitis Deaf Migraine Vitamin D deficiency Hypertension Hypercholesterolemia Screening for colon cancer Chronic idiopathic constipation Surgical History Status post ablation of incompetent vein using laser Hx of colonoscopy Varicocele History of esophagogastroduodenoscopy (EGD) Hx of hernia repair Family History Father History of prostate cancer Skin cancer CVA (cerebral vascular accident) Mother HX: breast cancer Paternal Uncle Skin cancer CVA (cerebral vascular accident) Maternal Aunt HX: breast cancer Social History Household Members: Spouse, Family and Children Housing: House Are you a primary plant care worker to a significant other at home: No Do you presently have visiting nurse or other home services: No Alcohol intake: never Comment: medicated with oxycodone Patient Tobacco Use Status: Never used Tobacco e-Cigarette/Vaping Use: Never Used Second Hand Smoke Exposure: No service: No Current occupational status: employed Cognitive needs: No Hearing needs: Yes Vision needs: Yes Review of Systems Const Denies chills and Denies fever(s) Card Reports no additional complaints and Denies syncope Resp Denies cough GI Denies abdominal pain and Denies heartburn Reports as per HPI and Denies change in libido Neuro Denies syncope Psych Denies change in libido Endo Denies change in libido Physical Exam Const General: cooperative, healthy appearing, comfortable and no acute distress Orientation/consciousness: patient oriented x3 HEENT Face and sinus: Yes normal facial exam Mouth: moist mucous membranes Neck Neck: Yes normal visual inspection, Yes full ROM and Yes trachea midline Chest Chest palpation & inspection: normal inspection of the chest Resp Effort & Inspection: normal respiratory effort, able to speak in complete sentences and no respiratory distress GI Inspection: Yes normal to inspection Back/Spine/Pelvis Cervical Spine: normal cervical lordosis Thoracic/Lumbar Spine: thoracic and lumbar spine normal to inspection Skin General skin exam: no rashes or lesions noted Neuro General: patient oriented x3, gait normal, tone normal and moves all extremities Extrem General: Yes normal to inspection and Yes capillary refill normal Office Procedures Post Void Residual Post Residual Void Post Void Residual (PVR): 0 [id number] Void Residual by ultrasound Assessment & Plan Assessment & Plan (1) Bladder neck contracture: Comment: Laser procedure Dr. Valles August 2021 Code(s): N32.0 - Bladder-neck obstruction Plan Twelve month follow-up Orders: Orders AMB Post Void Residual by ultrasound Today N40.1 - Benign prostatic hyperplasia with lower urinary tract symptoms, R35.0 - Frequency of micturition Patient Instructions: Imaging studies, laboratory and physical exam results were discussed and reviewed in detail. No major barriers to patient understanding were identified. An opportunity to ask questions regarding the treatment plan was provided. All questions were answered. The patient expressed understanding and agreement with the above treatment plan. The patient is aware they should contact our office by phone for worsening of their current condition or the appearance of new urologic symptoms. Compliance is encouraged with any medications and followup testing that is ordered. It is a privilege to participate in the urologic care of your patient. If you have any questions or concerns regarding treatment for the above conditions, or other urologic issues, please do not hesitate to contact me. The office telephone contact is [phone]. This note is constructed using voice recognition software. While every effort has been made to ensure accuracy glue mill operator errors may have been included. Yours sincerely, Dr Donta Valles MD, [facility] - Urology Providers of Expert, Compassionate Care for the Genitourinary System Coding Level of Care Code Est Pt Level 3 (55204) Diagnoses Bladder neck contracture N32.0 CPT Codes Post Residual Void - PVR CPT Code: 80089-Dphq Void Residual by ultrasound ([id number])
== END 2023-06-29 10:28 | disposition home or self-care (01) ==
PROVIDERS: PCP Internal Medicine; Visit Provider Urology
DX: N32.0 Bladder-neck obstruction (principal)
CPT/HCPCS: 99213

== ENCOUNTER → 2023-06-29 09:32 | Outpatient (BNVA) | payer MEDICARE, MEDICAID, SELFPAY | PROVIDERS: PCP Internal Medicine; Visit Provider Urology | DX: N40.1 Benign prostatic hyperplasia with lower urinary tract symptoms (principal); R35.0 Frequency of micturition; N32.0 Bladder-neck obstruction | CPT/HCPCS: 51798; 99212 ==

== ENCOUNTER 2023-08-06 12:27 | Outpatient (AMB) | payer MEDICARE, MEDICAID, SELFPAY ==
[2023-08-06 12:33] VITALS: BMI 33.5
--- NOTE | 2023-08-06 12:33 | MHC.AMNUTRGE ---
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 Pt reports working on diet modifications , choosing whole grain foods ,reducing on fried foods Typical meals Oatmeals - overnight oats with almond milk Salads for lunch varies on protein added and add sees/nuts, drinks awter or lemonade dinner: rice beans chicken or root vegetables and fish food frequency red meats 1-2 x/m fruits: 1-2 /d vegetables : 5-6 serving/d eating out : 1x/wk - divides meal in 1/2 beverages: water, lemonade, almond milk physical activity: daily life activities , (less this past month r/t to [place] for fam member) Most Recent Diabetes Results: Cholesterol 183 mg/dL (<200) 03/19/23 HDL Cholesterol 45 mg/dL (>40) 03/19/23 Triglycerides 61 mg/dL (<150) 03/19/23 Creatinine 0.96 mg/dL (0.5-1.4) 03/19/23 Blood Urea Nitrogen 14 mg/dL (9-16) 03/19/23 Sodium 141 mmol/L (135-145) 03/19/23 Potassium 4.7 mmol/L (3.3-5.1) 03/19/23 Chloride 107 mmol/L (96-108) 03/19/23 Carbon Dioxide 26 mmol/L (22-29) 03/19/23 Calcium 9.4 mg/dL (8.4-10.2) 03/19/23 AST 21 U/L (5-37) 03/19/23 ALT 24 U/L (0-40) 03/19/23 Total Protein 7.1 g/dL (6.5-8.0) 03/19/23 Albumin 4.3 g/dL (3.5-5.0) 03/19/23 [facility] Medical History Adult general medical exam Upper respiratory tract infection Weak urinary stream Allergic reaction Tachycardia Dysuria Varicose veins of left lower extremity with inflammation Varicose veins of right lower extremity with inflammation Neck pain Daytime sleepiness FRITZ on CPAP GERD (gastroesophageal reflux disease) Weak urinary stream Exposure to COVID-19 virus Nasal congestion Thoracic arthritis BPH (benign prostatic hyperplasia) Musculoskeletal pain Osteoporosis screening Rash COVID-19 vaccine series completed BPH (benign prostatic hyperplasia) Thoracic spine pain Cough Back pain Nasal congestion Left epididymitis Deaf Migraine Vitamin D deficiency Hypertension Hypercholesterolemia Screening for colon cancer Chronic idiopathic constipation Surgical History Status post ablation of incompetent vein using laser Hx of colonoscopy Varicocele History of esophagogastroduodenoscopy (EGD) Hx of hernia repair Family History Father History of prostate cancer Skin cancer CVA (cerebral vascular accident) Mother HX: breast cancer Paternal Uncle Skin cancer CVA (cerebral vascular accident) Maternal Aunt HX: breast cancer Social History Household Members: Spouse, Family and Children Housing: House Are you a primary acute care surgeon to a significant other at home: No Do you presently have visiting nurse or other home services: No Alcohol intake: never Comment: medicated with oxycodone Patient Tobacco Use Status: Never used Tobacco e-Cigarette/Vaping Use: Never Used Second Hand Smoke Exposure: No service: No Current occupational status: employed Cognitive needs: No Hearing needs: Yes Vision needs: Yes Assessment & Plan Assessment & Plan (1) Impaired glucose tolerance: Code(s): R73.02 - Impaired glucose tolerance (oral) Plan: Diet modification related to IFG, hypercholesterolemia, obesity, HTN Review reduction sat'd fat, choosing fiber rich foods and increasing physical activity ? Used wt : 116 kg(10/2022), 108 kg (02/2023) Est kcal as per MSJ: 8827-1587 (40% carb, 30% fat/prot) Est fluid needs: 2900 ml/d (25 ml/kg bw) Rec fiber: increase to 8-10 g per day and gradually increase to 35 g as tolerated Rec Na: < 2000 mg /d Educate patient on: (R= Reviewed, V = verbalizes understanding N/R= Needs review N/A= not applicable) Food sources of carbohydrates and serving adequate serving sizes : R , V Difference between complex carbohydrates and simple carbohydrates, role of fiber: R, V Differences between fats (MUFA/PUFA/saturated fats, trans fats) and food sources of various fats: R , V Food sources of sodium and salt and healthy modifications for heart health and kidney health: R How to interpret food labels: R , V Healthy Plate method concept: R , V Physical activity: benefits and precaution: R Patient Instructions: Continue working on reducing on highly processed foods (fritters, high fat meats, chips and the like) Resume physical acclivity, goal 30 minutes walk daily or as tolerated Continue to include a variety of vegetables in your diet (diff colors) Coding Level of Care Code Nutr Indiv Subseq (44432) Diagnoses Impaired glucose tolerance R73.02 Time Spent (min) 30
== END 2023-08-06 13:22 | disposition home or self-care (01) ==
PROVIDERS: PCP Internal Medicine; Visit Provider Dietitian, Registered
DX: R73.02 Impaired glucose tolerance (oral) (principal)

== ENCOUNTER → 2023-08-06 12:27 | Outpatient (BNVA) | payer MEDICARE, MEDICAID, SELFPAY | PROVIDERS: PCP Internal Medicine; Visit Provider Dietitian, Registered | DX: R73.02 Impaired glucose tolerance (oral) (principal) | CPT/HCPCS: 97803 ==

== ENCOUNTER 2023-09-14 08:09 | Outpatient (REF) | payer MEDICARE, MEDICAID, SELFPAY ==
[2023-09-14 08:35] LABS: MANUAL DIFF FLAG NO
[2023-09-14 09:25] LABS: Basophils Percent Auto 0.5 % (0-2); Eosinophils Absolute Auto 0.1 X10*3/uL (0.0-0.4); Eosinophils Percent Auto 2.3 % (0-4); Hematocrit 41.9 % (42.0-52.0); Hemoglobin 13.8 g/dl (14.0-18.0); Imm Gran Abs Auto 0.01 X10*3/uL (0.00-0.03); Imm Gran Pct Auto 0.2 % (0.0-0.4); Lymphocytes Absolute Auto 2.2 X10*3/uL (1.2-4.9); Mean Corpuscular HGB Conc 32.9 g/dl (31.0-36.0); Mean Corpuscular Hemoglobin 29.5 pg (27.0-33.0); Mean Corpuscular Volume 89.5 fL (80.0-98.0); Mean Platelet Volume 9.5 fL (9.4-12.4); Monocytes Absolute Auto 0.7 X10*3/uL (0.1-1.2); Monocytes Percent Auto 12.8 % (2-11); Neutrophils Absolute Auto 2.5 x10*3/uL (2.0-8.3); Neutrophils Percent Auto 44.2 % (45-73); Platelet Count 269 X10*3/uL (160-400); Red Blood Count 4.68 X10*6/uL (4.60-5.80); Red Cell Distribution Width 11.9 % (11.0-16.0); White Blood Count 5.6 X10*3/uL (4.8-10.8)
[2023-09-14 09:36] LABS: Estimated Average Glucose 114 mg/dL; Hemoglobin A1c % 5.6 % (<6.0)
[2023-09-14 10:04] LABS: Alanine Aminotransferase 28 U/L (0-40); Albumin Level 3.9 g/dL (3.5-5.0); Alkaline Phosphatase 51 U/L (39-117); Anion Gap 11 (12-20); Aspartate Amino Transferase 25 U/L (5-37); Bilirubin Total 0.7 mg/dL (0.0-1.0); Blood Urea Nitrogen 13 mg/dL (9-16); Calcium 9.2 mg/dL (8.4-10.2); Carbon Dioxide 27 mmol/L (22-29); Chloride 109 mmol/L (96-108); Cholesterol 166 mg/dL (<200); Estimated Glomerular Filt Rate > 60; Glucose Random 92 mg/dL (60-115); HDL Cholesterol 43 mg/dL (>40); LDL Cholesterol Calculated 112 mg/dL (<100); Potassium 4.6 mmol/L (3.3-5.1); Sodium 142 mmol/L (135-145); Triglycerides 58 mg/dL (<150)
[2023-09-14 10:27] LABS: Folate 12.9 ng/mL (> or = 4.0); Prostate Specific Antigen Scr 0.87 ng/mL (<0.05-4.0)
[2023-09-14 10:30] LABS: Free T4 (Free Thyroxine) 1.05 ng/dL (0.71-1.85); Thyroid Stimulating Hormone 0.53 uIU/mL (0.32-4.0)
[2023-09-14 14:29] LABS: Vitamin B12 684 pg/mL (200-900)
== END 2023-09-14 08:10 | disposition home or self-care (01) ==
LOC: HO.LAB 08:09
PROVIDERS: PCP Internal Medicine; Visit Provider Internal Medicine
DX: Z12.5 Encounter for screening for malignant neoplasm of prostate (principal); R73.02 Impaired glucose tolerance (oral); E78.00 Pure hypercholesterolemia, unspecified; K21.9 Gastro-esophageal reflux disease without esophagitis; N40.1 Benign prostatic hyperplasia with lower urinary tract symptoms; R35.0 Frequency of micturition
CPT/HCPCS: 36415; 80053; 80061; 82607; 82746; 83036; 84153; 84439; 84443; 85025

== ENCOUNTER 2023-09-19 08:18 | Outpatient (AMB) | payer MEDICARE, MEDICAID, SELFPAY ==
--- NOTE | 2023-09-19 08:21 | A.OFFVIS_ITS ---
Intake Vital Signs 09/19/23 08:23 Height 5 ft 11 in Weight 244 lb 11.41 oz BMI 34.1 BP 122/88 Blood Pressure Location Lt brachial Position Sitting Pulse 70 Intake Visit Reasons: 6 mnth follow up Intake Note: Abraham presents in the office as a 6 month follow up. CC: Stopped Omeprazole - originally said Lubiprostone. He states he is not having any concerns at this time. 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 The Amitiza 24mcg bid is moving his bowels well and the omeprazole is controlling his GERD. He remains satisfied with his GI regimen. ROV 6 mos. 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 He remains satisfied with his GI regimen. His only problem is some rectal itching which likely is mediated by hemorrhoids and I prescribed a hemorrhoid cream for him. Return office visit in 6 months [facility] Medical History Adult general medical exam Upper respiratory tract infection Weak urinary stream Allergic reaction Tachycardia Dysuria Varicose veins of left lower extremity with inflammation Varicose veins of right lower extremity with inflammation Neck pain Daytime sleepiness FRITZ on CPAP GERD (gastroesophageal reflux disease) Weak urinary stream Exposure to COVID-19 virus Nasal congestion Thoracic arthritis BPH (benign prostatic hyperplasia) Musculoskeletal pain Osteoporosis screening Rash COVID-19 vaccine series completed BPH (benign prostatic hyperplasia) Thoracic spine pain Cough Back pain Nasal congestion Left epididymitis Deaf Migraine Vitamin D deficiency Hypertension Hypercholesterolemia Screening for colon cancer Chronic idiopathic constipation Surgical History Status post ablation of incompetent vein using laser Hx of colonoscopy Varicocele History of esophagogastroduodenoscopy (EGD) Hx of hernia repair Family History Father History of prostate cancer Skin cancer CVA (cerebral vascular accident) Mother HX: breast cancer Paternal Uncle Skin cancer CVA (cerebral vascular accident) Maternal Aunt HX: breast cancer Social History Household Members: Spouse, Family and Children Housing: House Are you a primary care management specialist to a significant other at home: No Do you presently have visiting nurse or other home services: No Alcohol intake: never Comment: medicated with oxycodone Patient Tobacco Use Status: Never used Tobacco e-Cigarette/Vaping Use: Never Used Second Hand Smoke Exposure: No service: No Current occupational status: employed Cognitive needs: No Hearing needs: Yes Vision needs: Yes Review of Systems Const Denies fatigue, Denies fever(s), Denies night sweats, Denies poor appetite and Denies weight loss ENT Denies Normal hearing present, Denies dental pain, Denies dysphagia, Reports hearing loss, Denies mouth pain, Denies odynophagia, Denies throat swelling, Denies tongue swelling and Reports other (Dentition adequate) Card Reports no additional complaints Resp Reports no additional complaints GI Details: Denies abdominal pain, Denies melena, Denies bloating, Denies hematochezia, Reports constipation, Denies GI cramping, Denies dysphagia, Denies excessive flatus, Denies early satiety, Reports heartburn, Denies diarrhea, Denies nausea, Denies odynophagia, Denies vomiting and Denies hematemesis Skin/Breast Denies pruritus, Denies lesions, Denies rash and Denies jaundice Neuro Denies Normal hearing present and Denies Abnormal speech present Endo Denies fatigue Aller/Immun Denies throat swelling and Denies tongue swelling Physical Exam Vital Signs: Last Vital Signs Pulse 70 09/19/23 08:23 BP 122/88 09/19/23 08:23 BMI result Body Mass Index 34.1 Const General: cooperative, no acute distress, well developed and well groomed Nutritional Appearance: well nourished and obese centrally obese Orientation/consciousness: oriented to person, oriented to place and oriented to time Limitations: No language barrier HEENT Head: Yes normocephalic and Yes atraumatic Eyes General: appearance normal, both eyes and all related structures Pupils: Equal, round and reactive pupils present Neck Neck: Yes normal visual inspection and Yes no lymphadenopathy Thyroid: Thyroid normal Resp Effort & Inspection: normal respiratory effort and able to speak in complete sentences Auscultation: clear to auscultation bilaterally Cardio Rate: regular rate Rhythm: regular rhythm Heart sounds: Normal, physiologic split S2 sound present Peripheral pulses: radial pulses present and posterior tibial pulses present GI Inspection: No distended, No Abdominal panniculus present and Yes obesity Palpation (GI): Soft to palpation, nontender, no guarding, not rigid and No hepatosplenomegaly present Percussion: Yes normal to percussion Auscultation: normal bowel sounds Rectal Exam - Male: Yes deferred Skin General skin exam: no rashes or lesions noted, turgor normal, skin not dry, no jaundice, No spider nevi and no striae Rashes: no rashes Nails: normal Neuro General: oriented to person, oriented to place and oriented to time Cranial nerves: Yes Equal, round and reactive pupils present and No Normal hearing present Speech: No Abnormal speech present Extrem General: Yes normal to inspection, No clubbing, No cyanosis and No edema Psych Appearance: grossly normal and well kempt Mental Status: mental status grossly normal Speech and movement: Normal speech and movement present Affect: normal affect Thought process: Normal thought process present and not confabulating Thought content: Normal thought content present Insight: Fair insight present (Psych) Judgement: Fair judgement present (Psych) Assessment & Plan Assessment & Plan (1) GERD (gastroesophageal reflux disease): Code(s): K21.9 - Gastro-esophageal reflux disease without esophagitis Qualifiers: Esophagitis presence: without esophagitis Qualified Code(s): K21.9 - Gastro-esophageal reflux disease without esophagitis (2) Chronic idiopathic constipation: Code(s): K59.04 - Chronic idiopathic constipation (3) Rectal itching: Code(s): L29.0 - Pruritus ani Plan [facility] #[id number] 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 He remains satisfied with his GI regimen. His only problem is some rectal itching which likely is mediated by hemorrhoids and I prescribed a hemorrhoid cream for him. Return office visit in 6 months Medications: New hydrocortisone 2.5% (Proctosol HC) BE SURE TO INCLUDE RECTAL APPICATOR!! 1 appl ME BID 30 grams 6RF hemorrhoids K64.9 - Unspecified hemorrhoids lubiprostone 24 mcg PO BID 60 caps 6RF Refilled omeprazole 20 mg PO QAM 90 caps 1RF 90 days K21.9 - Gastro-esophageal reflux disease without esophagitis Discontinued lubiprostone Discontinued Reason: Patient no longer taking 24 mcg PO BID 120 caps 5RF K59.04 - Chronic idiopathic constipation Coding Level of Care Code Est Pt Level 3 (46892) Diagnoses Gastroesophageal reflux disease without esophagitis K21.9 Esophagitis presence: without esophagitis Chronic idiopathic constipation K59.04 Rectal itching L29.0
[2023-09-19 08:23] VITALS: BP 122/88; PULSE 70; BMI 34.1
== END 2023-09-19 08:37 | disposition home or self-care (01) ==
PROVIDERS: PCP Internal Medicine; Referring Provider Internal Medicine; Visit Provider Nurse Practitioner
DX: K21.9 Gastro-esophageal reflux disease without esophagitis (principal); K59.04 Chronic idiopathic constipation; L29.0 Pruritus ani
CPT/HCPCS: 99213

== ENCOUNTER → 2023-09-19 08:18 | Outpatient (BNVA) | payer MEDICARE, MEDICAID, SELFPAY | PROVIDERS: PCP Internal Medicine; Visit Provider Nurse Practitioner | DX: K21.9 Gastro-esophageal reflux disease without esophagitis (principal); K59.04 Chronic idiopathic constipation; L29.0 Pruritus ani | CPT/HCPCS: 99212 ==

== ENCOUNTER 2023-09-20 08:22 | Outpatient (AMB) | payer MEDICARE, MEDICAID, SELFPAY ==
[2023-09-20 08:26] VITALS: BP 114/72; PULSE 63; O2SAT 97; BMI 34.0
--- NOTE | 2023-09-20 08:26 | A.OFFPC_ITS ---
Vital Signs 09/20/23 08:26 Height 5 ft 11 in Weight 244 lb BMI 34.0 BP 114/72 Blood Pressure Location Lt brachial Position Sitting Pulse 63 Pulse Source Pulse Oximeter Pulse Oximetry (%) 97 Oxygen Delivery Method Room Air Intake Visit Reasons: Obstructive sleep apnea Allergies Sulfa (Sulfonamide Antibiotics) [SULFA(SULFONAMIDE ANTIBIOTICS)] Allergy (Mild, Verified 09/20/23 08:27) HIVES, rash and red bumps, itching Medication List - Last Reconciled 09/20/23 by Lucia Davidson MD [AUTO CPAP 6-16 cm H2O humidified air As directed] cyclobenzaprine 5 mg PO TID PRN epinephrine IM ONCE PRN hydrocortisone 2.5% (Proctosol HC) 1 appl IA BID lisinopril 5 mg PO DAILY 90 days lubiprostone 24 mcg PO BID omeprazole 20 mg PO QAM 90 days Tobacco use date assessed: 09/20/23 Dental Screening Dental Screen Date: 09/20/23 Did you have a dental visit in the last 12 months?: Yes Did you have a dental problem in the last 6 months where you did not have access to dental care?: No Was dental information given to patient?: Patient has dentist HPI Obstructive sleep apnea HPI Details 53-year-old obese male with multiple med ical problems from impaired glucose tolerance GERD obstructive sleep apnea BPH hypertension hyperch olesterolemia and constipation last seen in March 2023. Patient's last colonoscopy was August 2020. Review of the notes has seen gastroenterology September 2023 for chronic idiopathic constipation Amitiza 24 mcg twice a day is helping and on omeprazole states has rectal itching noted hemorrhoids and was given hemorrhoid cream patient also sees Urology had [employer] laser of the prostate 2018 and had procedure August 2021 and recurrent issue in November 2022 had a repeat. Ultrasound done had 0 post void residual. Noted hepatitis vaccine for a and B and shingles vaccine in June 2023, no incontinence on urination. for the FRITZ uses th CPAP > 4 hours and benefits. patient com [place] of irregular rhythm plapitations, Q 2-3 days2-3 sec no sob, no dizziness, no chest pain- this has been going on for 3 months. PAtient saw hearing test, ? nasal surgery to be done in [facility] Sign language interpretes [facility] Medical History Adult general medical exam Upper respiratory tract infection Weak urinary stream Allergic reaction Tachycardia Dysuria Varicose veins of left lower extremity with inflammation Varicose veins of right lower extremity with inflammation Neck pain Daytime sleepiness FRITZ on CPAP GERD (gastroesophageal reflux disease) Weak urinary stream Exposure to COVID-19 virus Nasal congestion Thoracic arthritis BPH (benign prostatic hyperplasia) Musculoskeletal pain Osteoporosis screening Rash COVID-19 vaccine series completed BPH (benign prostatic hyperplasia) Thoracic spine pain Cough Back pain Nasal congestion Left epididymitis Deaf Migraine Vitamin D deficiency Hypertension Hypercholesterolemia Screening for colon cancer Chronic idiopathic constipation Surgical History Status post ablation of incompetent vein using laser Hx of colonoscopy Varicocele History of esophagogastroduodenoscopy (EGD) Hx of hernia repair Family History Father History of prostate cancer Skin cancer CVA (cerebral vascular accident) Mother HX: breast cancer Paternal Uncle Skin cancer CVA (cerebral vascular accident) Maternal Aunt HX: breast cancer Social History Household Members: Spouse, Family and Children Housing: House Are you a primary healthcare administration internship to a significant other at home: No Do you presently have visiting nurse or other home services: No Alcohol intake: never Comment: medicated with oxycodone Patient Tobacco Use Status: Never used Tobacco e-Cigarette/Vaping Use: Never Used Second Hand Smoke Exposure: No service: No Current occupational status: employed Cognitive needs: No Hearing needs: Yes Vision needs: Yes Questionnaire PHQ-9 Over the last 2 weeks, how often have you been bothered by any of the following problems? 1. Little interest or pleasure in doing things: not at all 2. Feeling down, depressed, or hopeless: not at all 3. Trouble falling or staying asleep, or sleeping too much: not at all 4. Feeling tired or having little energy: not at all 5. Poor appetite or overeating: not at all 6. Feeling bad about yourself - or that you are a failure or have let yourself or your family down: not at all 7. Trouble concentrating on things, such as reading the newspaper or watching television: not at all 8. Moving or speaking so slowly that other people could have noticed. Or the opposite - being so fidgety or restless that you have been moving around a lot more than usual: not at all 9. Thoughts that you would be better off or of hurting yourself in some way: not at all Total score: 0 Depression Screening Interpretation: Negative Depression Screening Done: Yes Source: Developed by Drs. Tee Kurtz, Lisandra Saleh, Juan Carlos Peter and colleagues, with an educational jan from [employer]. Thrive Questionnaire Date Thrive assessed: 09/20/23 I am a: Patient What is your living situation today?: I have a steady place to live Within the past 12 months, did the food you bought not last and you didn't have the money to get more?: Never true Within the past 12 months, did you worry whether your food would run out before you got money to buy more?: Never true Do you have trouble paying for medicines?: No Do you have trouble getting transportation to medical appointments?: No Do you have trouble paying your heating and electricity bill?: No Do you have trouble taking care of your child, family member or friend?: No Do you have trouble with day-to-day activities such as bathing, preparing meals, shopping, managing finances, etc.?: No Are you currently unemployed and looking for a job?: No Are you interested in more education?: No Currently or been in a relationship where the following occur: no concerns reported THRIVE Score: 0 AUDIT C Alcohol Use Questionnaire (AUDIT-C) 1. How often do you have a drink containing alcohol?: Never 3. How often do you have six or more drinks on one occasion?: Never Total Score: 0 CLARITA-7 AMB Questionnaire CLARITA-7 Date CLARITA - 7 assessed: 09/20/23 Feeling nervous, anxious, or on edge: 0 = Not at all Not being able to stop or control worryin = Not at all Worrying too much about different things: 0 = Not at all Trouble relaxin = Not at all Being so restless that it is hard to sit still: 0 = Not at all Becoming easily annoyed or irritable: 0 = Not at all Feeling afraid as if something awful might happen: 0 = Not at all Total CLARITA-7 score (0-4 normal; 5-9 mild; 10-14 moderate; 15-21 severe): 0 Source: Developed by Drs. Tee Kurtz, Lisandra Saleh, Juan Carlos Peter and colleagues, with an educational jan from [employer]. Physical exam (Primary Care) Vital Signs: Last Vital Signs Pulse 63 09/20/23 08:26 BP 114/72 09/20/23 08:26 Pulse Ox 97 09/20/23 08:26 Oxygen Delivery Method Room Air 09/20/23 08:26 BMI result Body Mass Index 34.0 Tobacco/Smoking Status: Tobacco use Status Tobacco use date assessed 09/20/23 09/20/23 08:34 Patient Tobacco Use Status Never used Tobacco 09/20/23 08:34 e-Cigarette/Vaping Use Never Used 09/20/23 08:34 PHQ-9: PHQ-9 Score PHQ-9: Total score 0 09/20/23 08:34 Depression Screening Interpretation: Negative Thrive Assessment: Date of Thrive Assessment Date Thrive assessed 09/20/23 09/20/23 08:34 Currently or been in a relationship where the following occur: no concerns reported Const General: alert; No acute distress Eyes Conjunctivae: conjunctivae normal Resp Auscultation: clear to auscultation bilaterally Cardio Rate: regular rate Rhythm: regular rhythm GI Inspection: Yes normal to inspection Extrem General: Yes normal to inspection and No edema Assessment and Plan Assessment & Plan (1) Chronic idiopathic constipation: Code(s): K59.04 - Chronic idiopathic constipation Plan: Three rules for constipation 1. Diet need to have a high fiber diet less of meat 2. Increase oral fluids 3. Exercise patient follows up with Gastroenterology and is on Amitiza 24 mcg twice a day (2) Hypercholesterolemia: Code(s): E78.00 - Pure hypercholesterolemia, unspecified Plan: Avoid fried foods, chicken skin, eggs, butter margarine, pastries and meat. Be it pork or beef they have a lot of cholesterol blood work done September 2023 at goal LDL goal of less than 130 and triglyceride of less than 150 (3) Hypertension: Code(s): I10 - Essential (primary) hypertension Qualifiers: Hypertension type: essential hypertension Qualified Code(s): I10 - Essential (primary) hypertension Plan: continue with the BP med and decrease salt intake (4) BPH (benign prostatic hyperplasia): Comment: One year PSA, TURP Dr. Valles November 2022 Code(s): N40.0 - Benign prostatic hyperplasia without lower urinary tract symptoms Qualifiers: Lower urinary tract symptom presence: symptoms present Lower urinary tract symptom detail: urinary frequency Qualified Code(s): N40.1 - Benign prostatic hyperplasia with lower urinary tract symptoms; R35.0 - Frequency of micturition Plan: Patient follows up with urology stable (5) Obstructive sleep apnea (adult) (pediatric): Comment: Patient has sleep management Code(s): G47.33 - Obstructive sleep apnea (adult) (pediatric) (6) GERD (gastroesophageal reflux disease): Code(s): K21.9 - Gastro-esophageal reflux disease without esophagitis Qualifiers: Esophagitis presence: without esophagitis Qualified Code(s): K21.9 - Gastro-esophageal reflux disease without esophagitis Plan: Avoid the foods that causes that usually spicy foods, tomato products, juices, coffee, soda and foods that your sensitive to. After eating do not lie down, allow 3-4 hours before in lie down. And keep the head of bed above 30 degrees to avoid the acid from going up. (7) Impaired glucose tolerance: Code(s): R73.02 - Impaired glucose tolerance (oral) Plan: Decrease the amount of carbohydrate intake, pasta, bread, rice and potatoes are all sugar and that is aside from all the sweet stuff, remember that fruits are good but they are Sweet also. (8) Palpitations: Code(s): R00.2 - Palpitations Orders: Orders ECG 3 day holter monitor Today R00.2 - Palpitations Medications: Refilled lisinopril 5 mg PO DAILY 90 days 90 tabs 2RF Coding Level of Care Code Est Pt Level 4 (71911) Diagnoses Chronic idiopathic constipation K59.04 Hypercholesterolemia E78.00 Essential hypertension I10 Hypertension type: essential hypertension Benign prostatic hyperplasia with urinary frequency N40.1; R35.0 Lower urinary tract symptom presence: symptoms present Lower urinary tract symptom detail: urinary frequency Obstructive sleep apnea (adult) (pediatric) G47.33 Gastroesophageal reflux disease without esophagitis K21.9 Esophagitis presence: without esophagitis Impaired glucose tolerance R73.02 Palpitations R00.2
== END 2023-09-20 09:06 | disposition home or self-care (01) ==
PROVIDERS: PCP Internal Medicine; Visit Provider Internal Medicine
DX: K59.04 Chronic idiopathic constipation (principal); E78.00 Pure hypercholesterolemia, unspecified; I10 Essential (primary) hypertension; N40.1 Benign prostatic hyperplasia with lower urinary tract symptoms; R35.0 Frequency of micturition; G47.33 Obstructive sleep apnea (adult) (pediatric); K21.9 Gastro-esophageal reflux disease without esophagitis; R73.02 Impaired glucose tolerance (oral); R00.2 Palpitations
CPT/HCPCS: 99214

== ENCOUNTER → 2023-10-01 08:01 | Outpatient (REF) | payer MEDICARE, MEDICAID, SELFPAY ==
--- NOTE | 2023-10-01 08:05 | HM_ITS ---
Conclusion: 1. Patient was monitored for total period of 3 days 2. Baseline was normal sinus rhythm with average heart rate of 69 beats per minute 3. No significant pauses or arrhythmias noted 4. No patient reported events MTDD
== END ==
LOC: HO.CARD 08:01
PROVIDERS: PCP Internal Medicine; Visit Provider Internal Medicine
DX: R00.2 Palpitations (principal)
CPT/HCPCS: 93242

== ENCOUNTER → 2023-10-01 08:05 | Outpatient (BNV) | payer MEDICARE, MEDICAID, SELFPAY | PROVIDERS: PCP Internal Medicine; Visit Provider Internal Medicine Cardiovascular Disease | DX: R00.1 Bradycardia, unspecified (principal) | CPT/HCPCS: 93244 ==

== ENCOUNTER 2024-02-05 09:13 | Outpatient (AMB) | payer MEDICARE, MEDICAID, SELFPAY ==
--- NOTE | 2024-02-05 09:16 | A.OFFPC_ITS ---
Vital Signs 02/05/24 09:17 Height 5 ft 11 in Weight 251 lb BMI 35.0 BP 122/72 Blood Pressure Location Lt brachial Position Sitting Pulse 58 Pulse Source Pulse Oximeter Pulse Oximetry (%) 97 Oxygen Delivery Method Room Air Intake Visit Reasons: palpitations, obesity - see comments Manufacturer Representative Required: Yes Manufacturer Representative Language: Bulgarian Sign Language Allergies Sulfa (Sulfonamide Antibiotics) [SULFA(SULFONAMIDE ANTIBIOTICS)] Allergy (Mild, Verified 02/05/24 09:17) HIVES, rash and red bumps, itching Medication List - Last Reconciled 02/05/24 by Lucia Davidson MD [AUTO CPAP 6-16 cm H2O humidified air As directed] cyclobenzaprine 5 mg PO TID PRN epinephrine IM ONCE PRN hydrocortisone 2.5% (Proctosol HC) 1 appl [place] BID lisinopril 5 mg PO DAILY 90 days lubiprostone 24 mcg PO BID omeprazole 20 mg PO QAM Tobacco use date assessed: 02/05/24 Dental Screening Dental Screen Date: 09/20/23 HPI palpitations, obesity - see comments 2 HPI Details 54-year-old obese male with hypertension hypercholesterolemia BPH obstructive sleep apnea GERD impaired glucose tolerance last seen in 09/22/2023. Patient is up-to-date with colonoscopy 08/21/2020. Review of the notes has seen vascular. Reflux noted in the venous system lower extremity but does not meet the requirement for different treatment/ablation advised conservative management. Patient also had a Holter monitorPatient was monitored for total period of 3 days 2. Baseline was normal sinus rhythm with average heart rate of 69 beats per minute 3. No significant pauses or arrhythmias noted 4. No patient reported events October 2023. 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 and breathing is better. Still on CPAP > 4 hours and benefits . . 2 days ago lower back pain , deny fall or trauma[facility] Medical History Adult general medical exam Upper respiratory tract infection Weak urinary stream Allergic reaction Tachycardia Dysuria Varicose veins of left lower extremity with inflammation Varicose veins of right lower extremity with inflammation Neck pain Daytime sleepiness FRITZ on CPAP GERD (gastroesophageal reflux disease) Weak urinary stream Exposure to COVID-19 virus Nasal congestion Thoracic arthritis BPH (benign prostatic hyperplasia) Musculoskeletal pain Osteoporosis screening Rash COVID-19 vaccine series completed BPH (benign prostatic hyperplasia) Thoracic spine pain Cough Back pain Nasal congestion Left epididymitis Deaf Migraine Vitamin D deficiency Hypertension Hypercholesterolemia Screening for colon cancer Chronic idiopathic constipation Surgical History Status post ablation of incompetent vein using laser Hx of colonoscopy Varicocele History of esophagogastroduodenoscopy (EGD) Hx of hernia repair Family History Father History of prostate cancer Skin cancer CVA (cerebral vascular accident) Mother HX: breast cancer Paternal Uncle Skin cancer CVA (cerebral vascular accident) Maternal Aunt HX: breast cancer Social History Household Members: Spouse, Family and Children Housing: House Are you a primary health and social care teacher to a significant other at home: No Do you presently have visiting nurse or other home services: No Alcohol intake: never Comment: medicated with oxycodone Patient Tobacco Use Status: Never used Tobacco Tobacco use type: Cigarette e-Cigarette/Vaping Use: Never Used Second Hand Smoke Exposure: No service: No Current occupational status: employed Cognitive needs: No Hearing needs: Yes Vision needs: Yes Questionnaire Thrive Questionnaire Date Thrive assessed: 09/20/23 AUDIT C Alcohol Use Questionnaire (AUDIT-C) 1. How often do you have a drink containing alcohol?: Never 3. How often do you have six or more drinks on one occasion?: Never Total Score: 0 CLARITA-7 AMB Questionnaire CLARITA-7 Date CLARITA - 7 assessed: 09/20/23 Source: Developed by Drs. Tee Kurtz, Lisandra Saleh, Juan Carlos Peter and colleagues, with an educational jan from [employer]. Physical exam (Primary Care) Vital Signs: Last Vital Signs Pulse 58 02/05/24 09:17 BP 122/72 02/05/24 09:17 Pulse Ox 97 02/05/24 09:17 Oxygen Delivery Method Room Air 02/05/24 09:17 BMI result Body Mass Index 35.0 Tobacco/Smoking Status: Tobacco use Status Tobacco use date assessed 02/05/24 02/05/24 09:20 Patient Tobacco Use Status Never used Tobacco 02/05/24 09:20 Tobacco use type Cigarette 02/05/24 09:20 e-Cigarette/Vaping Use Never Used 02/05/24 09:20 Thrive Assessment: Date of Thrive Assessment Date Thrive assessed 09/20/23 02/05/24 09:20 Const General: alert; No acute distress Eyes Conjunctivae: conjunctivae normal Resp Auscultation: clear to auscultation bilaterally Cardio Rate: regular rate Rhythm: regular rhythm GI Inspection: Yes normal to inspection Extrem General: Yes normal to inspection and No edema Immunizations tetanus-diphtheria toxoids-Td 2 Lf unit-2 Lf unit/0.5 mL IM suspension Performing Provider: Lucia Davidson MD Performing Location: [facility] Administered by: GARY Lainez on 02/05/24 09:49 Dose Route Admin Location Dispensed Lot Number Expiration Date 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 Assessment and Plan Assessment & Plan (1) Palpitations: Code(s): R00.2 - Palpitations Plan: Holter test done in October revealing negative results (2) Obesity (BMI 30-39.9): Code(s): E66.9 - Obesity, unspecified Plan: Diet and exercise (3) GERD (gastroesophageal reflux disease): Code(s): K21.9 - Gastro-esophageal reflux disease without esophagitis Qualifiers: Esophagitis presence: without esophagitis Qualified Code(s): K21.9 - Gastro-esophageal reflux disease without esophagitis Plan: Avoid the foods that causes that usually spicy foods, tomato products, juices, coffee, soda and foods that your sensitive to. After eating do not lie down, allow 3-4 hours before in lie down. And keep the head of bed above 30 degrees to avoid the acid from going up. (4) Impaired glucose tolerance: Code(s): R73.02 - Impaired glucose tolerance (oral) Plan: Decrease the amount of carbohydrate intake, pasta, bread, rice and potatoes are all sugar and that is aside from all the sweet stuff, remember that fruits are good but they are Sweet also. (5) Obstructive sleep apnea (adult) (pediatric): Comment: Patient has sleep management Code(s): G47.33 - Obstructive sleep apnea (adult) (pediatric) Plan: Continue to use the CPAP more than 4 hours a night and benefits from this (6) Varicose vein of leg: Code(s): I83.90 - Asymptomatic varicose veins of unspecified lower extremity Plan: When sitting down elevate the legs, exercise, and support stockings patient has met with vascular surgeon and conservative management. (7) Hypertension: Code(s): I10 - Essential (primary) hypertension Qualifiers: Hypertension type: essential hypertension Qualified Code(s): I10 - Essential (primary) hypertension Plan: Continue with blood pressure medication. Decrease salt intake and exercise on lisinopril 5 mg once a day (8) Hypercholesterolemia: Code(s): E78.00 - Pure hypercholesterolemia, unspecified Plan: Avoid fried foods, chicken skin, eggs, butter margarine, pastries and meat. Be it pork or beef they have a lot of cholesterol LDL goal of less than 130 and triglyceride of less than 150 last test for cholesterol in September was good. Orders: Orders Comprehensive Met. Panel Today E78.00 - Pure hypercholesterolemia, unspecified Complete Blood Count Auto Diff Today E78.00 - Pure hypercholesterolemia, unspecified Vitamin B12 and Folate Today E78.00 - Pure hypercholesterolemia, unspecified Free T4 (Free Thyroxine) Today E78.00 - Pure hypercholesterolemia, unspecified Thyroid Stimulating Hormone Today E78.00 - Pure hypercholesterolemia, unspecified Lipid Panel Today E78.00 - Pure hypercholesterolemia, unspecified Prostate Specific Antigen Scr Today E78.00 - Pure hypercholesterolemia, unspecified Hemoglobin A1c Today R73.02 - Impaired glucose tolerance (oral) Medications: Refilled lisinopril 5 mg PO DAILY 90 days 90 tabs 2RF omeprazole 20 mg PO QAM 100 caps 2RF K21.9 - Gastro-esophageal reflux disease without esophagitis lubiprostone 24 mcg PO BID 60 caps 6RF Coding Level of Care Code Est Pt Level 4 (68062) Diagnoses Palpitations R00.2 Obesity (BMI 30-39.9) E66.9 Gastroesophageal reflux disease without esophagitis K21.9 Esophagitis presence: without esophagitis Impaired glucose tolerance R73.02 Obstructive sleep apnea (adult) (pediatric) G47.33 Varicose vein of leg I83.90 Essential hypertension I10 Hypertension type: essential hypertension Hypercholesterolemia E78.00
[2024-02-05 09:17] VITALS: BP 122/72; PULSE 58; O2SAT 97; BMI 35.0
== END 2024-02-05 10:01 | disposition home or self-care (01) ==
PROVIDERS: PCP Internal Medicine; Visit Provider Internal Medicine
DX: R00.2 Palpitations (principal); E66.9 Obesity, unspecified; K21.9 Gastro-esophageal reflux disease without esophagitis; Z23 Encounter for immunization; Z68.35 Body mass index [BMI] 35.0-35.9, adult; R73.02 Impaired glucose tolerance (oral); G47.33 Obstructive sleep apnea (adult) (pediatric); I83.90 Asymptomatic varicose veins of unspecified lower extremity; I10 Essential (primary) hypertension; E78.00 Pure hypercholesterolemia, unspecified
CPT/HCPCS: 90471; 90714; 99214

== ENCOUNTER 2024-02-06 08:51 | Outpatient (AMB) | payer MEDICARE, MEDICAID, SELFPAY ==
--- NOTE | 2024-02-06 09:15 | A.OFFVIS_ITS ---
VS Expanded 02/06/24 09:16 02/06/24 09:43 Height 5 ft 11 in 5 ft 11 in Weight 251 lb 8.759 oz 251 lb BMI 35.1 35.0 Intake Visit Reasons: Pre DM/CONFIRMED Allergies Sulfa (Sulfonamide Antibiotics) [SULFA(SULFONAMIDE ANTIBIOTICS)] Allergy (Mild, Verified 02/05/24 09:17) HIVES, rash and red bumps, itching Nutrition Presentation Details: Pt presents for MNT f/u for obesity Pt presents with spanish interpreter/translator during this appt. Pt has multiple questions regarding sugars and fat BS Monitoring Most Recent Diabetes Results: Cholesterol 166 mg/dL (<200) 09/14/23 HDL Cholesterol 43 mg/dL (>40) 09/14/23 Triglycerides 58 mg/dL (<150) 09/14/23 Creatinine 0.85 mg/dL (0.5-1.4) 09/14/23 Blood Urea Nitrogen 13 mg/dL (9-16) 09/14/23 Sodium 142 mmol/L (135-145) 09/14/23 Potassium 4.6 mmol/L (3.3-5.1) 09/14/23 Chloride 109 mmol/L (96-108) H 09/14/23 Carbon Dioxide 27 mmol/L (22-29) 09/14/23 Calcium 9.2 mg/dL (8.4-10.2) 09/14/23 AST 25 U/L (5-37) 09/14/23 ALT 28 U/L (0-40) 09/14/23 Total Protein 7.0 g/dL (6.5-8.0) 09/14/23 Albumin 3.9 g/dL (3.5-5.0) 09/14/23 [id number]-Iq.Jeor Equation Height: 5 ft 11 in Weight: 251 lb Resting Metabolic Rate: 2003.82 Calculated Activity Level: Mild Activity Calories Needed to Maintain Weight: 2755.25 [facility] Medical History Adult general medical exam Upper respiratory tract infection Weak urinary stream Allergic reaction Tachycardia Dysuria Varicose veins of left lower extremity with inflammation Varicose veins of right lower extremity with inflammation Neck pain Daytime sleepiness FRITZ on CPAP GERD (gastroesophageal reflux disease) Weak urinary stream Exposure to COVID-19 virus Nasal congestion Thoracic arthritis BPH (benign prostatic hyperplasia) Musculoskeletal pain Osteoporosis screening Rash COVID-19 vaccine series completed BPH (benign prostatic hyperplasia) Thoracic spine pain Cough Back pain Nasal congestion Left epididymitis Deaf Migraine Vitamin D deficiency Hypertension Hypercholesterolemia Screening for colon cancer Chronic idiopathic constipation Surgical History Status post ablation of incompetent vein using laser Hx of colonoscopy Varicocele History of esophagogastroduodenoscopy (EGD) Hx of hernia repair Family History Father History of prostate cancer Skin cancer CVA (cerebral vascular accident) Mother HX: breast cancer Paternal Uncle Skin cancer CVA (cerebral vascular accident) Maternal Aunt HX: breast cancer Social History Household Members: Spouse, Family and Children Housing: House Are you a primary nursing care attendant to a significant other at home: No Do you presently have visiting nurse or other home services: No Alcohol intake: never Comment: medicated with oxycodone Patient Tobacco Use Status: Never used Tobacco Tobacco use type: Cigarette e-Cigarette/Vaping Use: Never Used Second Hand Smoke Exposure: No service: No Current occupational status: employed Cognitive needs: No Hearing needs: Yes Vision needs: Yes Assessment & Plan Assessment & Plan (1) Impaired glucose tolerance: Code(s): R73.02 - Impaired glucose tolerance (oral) Category: Medical Plan: Diet modification related to IFG, hypercholesterolemia, obesity, HTN Review reduction sat'd fat, choosing fiber rich foods and increasing physical activity ? Used wt : 116 kg(10/2022), 108 kg (02/2023) Est kcal as per MSJ: 5211-8093 (40% carb, 30% fat/prot) Est fluid needs: 2900 ml/d (25 ml/kg bw) Rec fiber: increase to 8-10 g per day and gradually increase to 35 g as tolerated Rec Na: < 2000 mg /d Educate patient on: (R= Reviewed, V = verbalizes understanding N/R= Needs review N/A= not applicable) * Food sources of carbohydrates and serving adequate serving sizes : R , V * Difference between complex carbohydrates and simple carbohydrates, role of fiber: R, V * Differences between fats (MUFA/PUFA/saturated fats, trans fats) and food sources of various fats: R , V * Food sources of sodium and salt and healthy modifications for heart health and kidney health: R * How to interpret food labels: R , V * Healthy Plate method concept: R , V * Physical activity: benefits and precaution: R (2) Obesity (BMI 30-39.9): Code(s): E66.9 - Obesity, unspecified Category: Medical Plan: Diet modification related to OBesity, IFG, hypercholesterolemia, HTN Review reduction of total fats and portion sizes to promote weight loss ? Used wt : 116 kg(10/2022), 108 kg (02/2023) Est kcal as per MSJ: 2953-0927 (40% carb, 30% fat/prot) Est fluid needs: 2900 ml/d (25 ml/kg bw) Rec fiber: increase to 8-10 g per day and gradually increase to 35 g as tolerated Rec Na: < 2000 mg /d Educate patient on: (R= Reviewed, V = verbalizes understanding N/R= Needs review N/A= not applicable) * Food sources of carbohydrates and serving adequate serving sizes : R , V * Difference between complex carbohydrates and simple carbohydrates, role of fiber: R, V * Differences between fats (MUFA/PUFA/saturated fats, trans fats) and food sources of various fats: R , V * Food sources of sodium and salt and healthy modifications for heart health and kidney health: R * How to interpret food labels, total calories /calories from fat R , V * Healthy Plate method concept: R , V * Physical activity: benefits and precaution: R Patient Instructions: Reduce on portion sizes of foods , reduce portion of total carbohydrates to 2 cups max (include fruits/starchy vegetables) following healthy plate method Caution with portion sizes of total fats (mufa/pufa/saturated fats) Continue engaging in physical activity , 150 min /day or as recommended by your doctor Coding Level of Care Code Nutr Indiv Subseq (44551) Diagnoses Impaired glucose tolerance R73.02 Obesity (BMI 30-39.9) E66.9 Time Spent (min) 30
[2024-02-06 09:16] VITALS: BMI 35.1
[2024-02-06 09:43] VITALS: BMI 35.0
== END 2024-02-06 09:58 | disposition home or self-care (01) ==
PROVIDERS: PCP Internal Medicine; Visit Provider Dietitian, Registered
DX: R73.02 Impaired glucose tolerance (oral) (principal); E66.9 Obesity, unspecified

== ENCOUNTER → 2024-02-06 08:51 | Outpatient (BNVA) | payer MEDICARE, MEDICAID, SELFPAY | PROVIDERS: PCP Internal Medicine; Visit Provider Dietitian, Registered | DX: R73.02 Impaired glucose tolerance (oral) (principal); E66.9 Obesity, unspecified; Z68.35 Body mass index [BMI] 35.0-35.9, adult | CPT/HCPCS: 97803 ==

== ENCOUNTER 2024-03-14 09:40 | Outpatient (AMB) | payer MEDICARE, MEDICAID, SELFPAY ==
--- NOTE | 2024-03-14 10:02 | MHC.OFFVIS ---
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 Intake Note: Patient presents for 1 year follow up. Precision Lens Technician Services: Precision Lens Technician Present Precision Lens Technician Name: Arabella [id number] ASL Allergies Sulfa (Sulfonamide Antibiotics) [SULFA(SULFONAMIDE ANTIBIOTICS)] Allergy (Mild, Verified 02/05/24 09:17) HIVES, rash and red bumps, itching Medication List - Last Reconciled 03/14/24 by YAHIR Hsu [AUTO CPAP 6-16 cm H2O humidified air As directed] cyclobenzaprine 5 mg PO TID PRN epinephrine IM ONCE PRN hydrocortisone 2.5% (Proctosol HC) 1 appl [place] BID lisinopril 5 mg PO DAILY 90 days lubiprostone 24 mcg PO BID omeprazole 20 mg PO QAM HPI Comments Details: 54-yr-old male presents for follow-up visit of sleep apnea. 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 Pt denies any significant interval medical history changes. Pt reports that in the past he struggled with sleep, however now he is sleeping well. He does use the [employer] Eh. He cleans his machine routinely and uses distilled water. Using a new mask w/ full foam which is well tolerated. He has a few questions about CPASP tx, such as the humidification level as the weather becomes colder- though states this has never been an issue for him. [facility] - [address], [facility] Email: [email or web address] Compliance Report Usage 02/13/2024 - 03/13/2024 Usage days 30/30 days (100%) >= 4 hours 30 days (100%) < 4 hours 0 days (0%) Average usage (days used) 7 hours 15 minutes AirSense 10 AutoSet Serial number [id number] AutoSet Min Pressure 5 cmH2O Max Pressure 20 cmH2O EPR Fulltime EPR level 3 Response Standard Therapy Pressure - cmH2O Median: 6.3 95th percentile: 8.6 Maximum: 10.1 Leaks - L/min Median: 1.4 95th percentile: 4.6 Maximum: 9.8 Events per hour AI: 0.6 HI: 0.2 AHI: 0.8 Apnea Index Central: 0.2 Obstructive: 0.4 Unknown: 0.0 RERA Index 0.1 PFSH Medical History Adult general medical exam Upper respiratory tract infection Weak urinary stream Allergic reaction Tachycardia Dysuria Varicose veins of left lower extremity with inflammation Varicose veins of right lower extremity with inflammation Neck pain Daytime sleepiness FRITZ on CPAP GERD (gastroesophageal reflux disease) Weak urinary stream Exposure to COVID-19 virus Nasal congestion Thoracic arthritis BPH (benign prostatic hyperplasia) Musculoskeletal pain Osteoporosis screening Rash COVID-19 vaccine series completed BPH (benign prostatic hyperplasia) Thoracic spine pain Cough Back pain Nasal congestion Left epididymitis Deaf Migraine Vitamin D deficiency Hypertension Hypercholesterolemia Screening for colon cancer Chronic idiopathic constipation Surgical History Status post ablation of incompetent vein using laser Hx of colonoscopy Varicocele History of esophagogastroduodenoscopy (EGD) Hx of hernia repair Family History Father History of prostate cancer Skin cancer CVA (cerebral vascular accident) Mother HX: breast cancer Paternal Uncle Skin cancer CVA (cerebral vascular accident) Maternal Aunt HX: breast cancer Social History Household Members: Spouse, Family and Children Housing: House Are you a primary health care attorney to a significant other at home: No Do you presently have visiting nurse or other home services: No Alcohol intake: never Comment: medicated with oxycodone Patient Tobacco Use Status: Never used Tobacco Tobacco use type: Cigarette e-Cigarette/Vaping Use: Never Used Second Hand Smoke Exposure: No service: No Current occupational status: employed Cognitive needs: No Hearing needs: Yes Vision needs: Yes Physical Exam Vital Signs: Last Vital Signs BP 128/88 03/14/24 10:04 BMI result Body Mass Index 35.4 Const General: no acute distress Orientation/consciousness: patient oriented x3 HEENT Other: Mallampati stage Resp Effort & Inspection: normal respiratory effort and able to speak in complete sentences Neuro Other: Deafness General: patient oriented x3 and moves all extremities Cognition (Neuro): normal cognition Gait exam (Neuro): Normal gait present Motor exam (neuro): 5/5 motor strength present throughout Psych Mental Status: mental status grossly normal Speech and movement: Clear speech present Attitude: cooperative Assessment & Plan Assessment & Plan (1) Obstructive sleep apnea (adult) (pediatric): Comment: 12/08/21, In-lab PSG: mild degree of obstructive sleep apnea, with total AHI 9 and oxygen mica was 85% Code(s): G47.33 - Obstructive sleep apnea (adult) (pediatric) Category: Medical Plan Continue APAP 5-20 cmH2O w/ EPR 3 nightly > 4 hours, as pt continues to have good clinical effect from use. Explained that his machine's humidification setting is on auto, however he can change this to manual and self-adjust. Clean CPAP machine and supplies routinely. Change CPAP supplies routinely. Pt to contact us or respiratory company with any questions or concerns. Pt to follow-up in 12 months or sooner prn. Medications: Refilled [AUTO CPAP 5-20 cm H2O humidified air] As directed 1 ea 0RF FRITZ G47.33 - Obstructive sleep apnea (adult) (pediatric) Coding Level of Care Code Est Pt Level 3 (39163) Diagnoses Obstructive sleep apnea (adult) (pediatric) G47.33
[2024-03-14 10:04] VITALS: BP 128/88; BMI 35.4
== END 2024-03-14 10:40 | disposition home or self-care (01) ==
PROVIDERS: PCP Internal Medicine; Visit Provider Nurse Practitioner Family
DX: G47.33 Obstructive sleep apnea (adult) (pediatric) (principal)
CPT/HCPCS: 99213

== ENCOUNTER → 2024-03-14 09:40 | Outpatient (BNVA) | payer MEDICARE, MEDICAID, SELFPAY | PROVIDERS: PCP Internal Medicine; Visit Provider Nurse Practitioner Family | DX: G47.33 Obstructive sleep apnea (adult) (pediatric) (principal); Z99.89 Dependence on other enabling machines and devices | CPT/HCPCS: 99212 ==

== ENCOUNTER 2024-03-19 09:25 | Outpatient (AMB) | payer MEDICARE, MEDICAID, SELFPAY ==
--- NOTE | 2024-03-19 09:28 | MHC.OFFVIS ---
Vital Signs 03/19/24 09:36 Height 5 ft 11 in Weight 254 lb 6.615 oz BMI 35.5 BP 131/69 Blood Pressure Location Rt brachial Position Sitting Pulse 70 Intake Visit Reasons: 6 months follow up Intake Note: Abraham returns to in office 6 months follow up of GERD. CC: Patient reports doing well and denies having any new GI concerns. 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: Unemployment Inspector Name: Farheen [id number] Accompanied by: Self / Same As Patient Allergies Sulfa (Sulfonamide Antibiotics) [SULFA(SULFONAMIDE ANTIBIOTICS)] Allergy (Mild, Verified 03/19/24 09:42) HIVES, rash and red bumps, itching HPI HPI 6 months follow up: Details: Assessment & Plan (1) GERD (gastroesophageal reflux disease): Code(s): K21.9 - Gastro-esophageal reflux disease without esophagitis Qualifiers: Esophagitis presence: without esophagitis Qualified Code(s): K21.9 - Gastro-esophageal reflux disease without esophagitis (2) Chronic idiopathic constipation: Code(s): K59.04 - Chronic idiopathic constipation (3) Rectal itching: Code(s): L29.0 - Pruritus ani Plan [facility] #[id number] 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 He remains satisfied with his GI regimen. His only problem is some rectal itching which likely is mediated by hemorrhoids and I prescribed a hemorrhoid cream for him. Return office visit in 6 months Medications: New hydrocortisone 2.5% (Proctosol HC) BE SURE TO INCLUDE RECTAL APPICATOR!! 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 His hemorrhoids healed with the proctsol and he no longer needs it. He continues on his Amitiza twice a day in his omeprazole with good control of his GI regimen. ROV 6 mos. [facility] Medical History Annual physical exam Adult general medical exam Upper respiratory tract infection Weak urinary stream Allergic reaction Tachycardia Dysuria Varicose veins of left lower extremity with inflammation Varicose veins of right lower extremity with inflammation Neck pain Daytime sleepiness FRITZ on CPAP GERD (gastroesophageal reflux disease) Weak urinary stream Exposure to COVID-19 virus Nasal congestion Thoracic arthritis BPH (benign prostatic hyperplasia) Musculoskeletal pain Osteoporosis screening Rash COVID-19 vaccine series completed BPH (benign prostatic hyperplasia) Thoracic spine pain Cough Back pain Nasal congestion Left epididymitis Deaf Migraine Vitamin D deficiency Hypertension Hypercholesterolemia Screening for colon cancer Chronic idiopathic constipation Surgical History Status post ablation of incompetent vein using laser Hx of colonoscopy Varicocele History of esophagogastroduodenoscopy (EGD) Hx of hernia repair Family History Father History of prostate cancer Skin cancer CVA (cerebral vascular accident) Mother HX: breast cancer Paternal Uncle Skin cancer CVA (cerebral vascular accident) Maternal Aunt HX: breast cancer Social History Household Members: Spouse, Family and Children Housing: House Are you a primary property caretaker to a significant other at home: No Do you presently have visiting nurse or other home services: No Alcohol intake: never Comment: medicated with oxycodone Patient Tobacco Use Status: Never used Tobacco Tobacco use type: Cigarette e-Cigarette/Vaping Use: Never Used Second Hand Smoke Exposure: No service: No Current occupational status: employed Cognitive needs: No Hearing needs: Yes Vision needs: Yes Review of Systems Const Denies fatigue, Denies fever(s), Denies night sweats, Denies poor appetite and Denies weight loss ENT Denies Normal hearing present, Denies dental pain, Denies dysphagia, Reports hearing loss, Denies mouth pain, Denies odynophagia, Denies throat swelling, Denies tongue swelling and Reports other (Dentition adequate) Card Reports no additional complaints Resp Reports no additional complaints GI Details: Denies abdominal pain, Denies melena, Denies bloating, Denies hematochezia, Reports constipation, Denies GI cramping, Denies dysphagia, Denies excessive flatus, Denies early satiety, Reports heartburn, Denies diarrhea, Denies nausea, Denies odynophagia, Denies vomiting and Denies hematemesis Skin/Breast Denies pruritus, Denies lesions, Denies rash and Denies jaundice Neuro Denies Normal hearing present and Denies Abnormal speech present Endo Denies fatigue Aller/Immun Denies throat swelling and Denies tongue swelling Physical Exam Vital Signs: Last Vital Signs Pulse 70 03/19/24 09:36 BP 131/69 03/19/24 09:36 BMI result Body Mass Index 35.5 Const General: cooperative, no acute distress, well developed and well groomed Nutritional Appearance: well nourished and obese Orientation/consciousness: oriented to person, oriented to place and oriented to time Limitations: language barrier and other limitations HEENT Head: Yes normocephalic and Yes atraumatic Eyes General: appearance normal, both eyes and all related structures Pupils: Equal, round and reactive pupils present Neck Neck: Yes normal visual inspection and Yes no lymphadenopathy Thyroid: Thyroid normal Resp Effort & Inspection: normal respiratory effort and able to speak in complete sentences Auscultation: clear to auscultation bilaterally Cardio Rate: regular rate Rhythm: regular rhythm Heart sounds: Normal, physiologic split S2 sound present Peripheral pulses: radial pulses present and posterior tibial pulses present GI Inspection: No distended, No Abdominal panniculus present and Yes obesity Palpation (GI): Soft to palpation, nontender, no guarding, not rigid and No hepatosplenomegaly present Percussion: Yes normal to percussion Auscultation: normal bowel sounds Rectal Exam - Male: Yes deferred Skin General skin exam: no rashes or lesions noted, turgor normal, skin not dry, no jaundice, No spider nevi and no striae Rashes: no rashes Nails: normal Neuro General: oriented to person, oriented to place and oriented to time Cranial nerves: Yes Equal, round and reactive pupils present and No Normal hearing present Speech: No Abnormal speech present Extrem General: Yes normal to inspection, No clubbing, No cyanosis and No edema Psych Appearance: grossly normal and well kempt Mental Status: mental status grossly normal Speech and movement: Normal speech and movement present Affect: normal affect Attitude: cooperative Thought process: Normal thought process present and not confabulating Thought content: Normal thought content present Insight: Good insight present (Psych) Judgement: Good judgement present (Psych) Assessment & Plan Assessment & Plan (1) GERD (gastroesophageal reflux disease): Code(s): K21.9 - Gastro-esophageal reflux disease without esophagitis Category: Medical Qualifiers: Esophagitis presence: without esophagitis Qualified Code(s): K21.9 - Gastro-esophageal reflux disease without esophagitis (2) Chronic idiopathic constipation: Code(s): K59.04 - Chronic idiopathic constipation Category: Medical Plan 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 His hemorrhoids healed with the proctsol and he no longer needs it. He continues on his Amitiza twice a day in his omeprazole with good control of his GI regimen. ROV 6 mos. Medications: Refilled omeprazole 20 mg PO QAM 100 caps 2RF K21.9 - Gastro-esophageal reflux disease without esophagitis lubiprostone 24 mcg PO BID 60 caps 6RF Coding Level of Care Code Est Pt Level 3 (82037) Diagnoses Gastroesophageal reflux disease without esophagitis K21.9 Esophagitis presence: without esophagitis Chronic idiopathic constipation K59.04
[2024-03-19 09:36] VITALS: BP 131/69; PULSE 70; BMI 35.5
== END 2024-03-19 10:09 | disposition home or self-care (01) ==
PROVIDERS: PCP Internal Medicine; Visit Provider Nurse Practitioner
DX: K21.9 Gastro-esophageal reflux disease without esophagitis (principal); K59.04 Chronic idiopathic constipation
CPT/HCPCS: 99213

== ENCOUNTER → 2024-03-19 09:25 | Outpatient (BNVA) | payer MEDICARE, MEDICAID, SELFPAY | PROVIDERS: PCP Internal Medicine; Visit Provider Nurse Practitioner | DX: K21.9 Gastro-esophageal reflux disease without esophagitis (principal); K59.04 Chronic idiopathic constipation | CPT/HCPCS: 99212 ==

== ENCOUNTER 2024-04-04 10:17 | Outpatient (AMB) | payer MEDICARE, MEDICAID, SELFPAY ==
--- NOTE | 2024-04-04 10:23 | AM.OFFVISNUR ---
Intake Visit Reasons: Flu Shot Allergies Sulfa (Sulfonamide Antibiotics) [SULFA(SULFONAMIDE ANTIBIOTICS)] Allergy (Mild, Verified 03/19/24 09:42) HIVES, rash and red bumps, itching Office Procedures Flu Questionnaire Does the patient have a severe egg allergy?: No Does the patient have severe life threatening allergies?: No Does the patient have a fever or illness today?: No Has the patient ever had Guillain-Chloride Syndrome?: No Has the patient ever had any past reaction to a flu shot?: No Assessment & Plan Assessment & Plan Orders: Orders Influenza [id number] Immunization Today Z23 - Encounter for immunization Medications: New Fluarix Triv [id number] (PF) (flu vacc [id number] 6mos up(PF)) 0.5 mL IM ONCE 0.5 mL 0RF NS Z23 - Encounter for immunization
== END 2024-04-04 10:33 | disposition home or self-care (01) ==
LOC: HO.HMCH 10:18
PROVIDERS: PCP Internal Medicine; Visit Provider Internal Medicine
DX: Z23 Encounter for immunization (principal)

== ENCOUNTER → 2024-04-04 10:17 | Outpatient (BNVA) | payer MEDICARE, MEDICAID, SELFPAY | PROVIDERS: PCP Internal Medicine; Visit Provider Internal Medicine | DX: Z23 Encounter for immunization (principal) | CPT/HCPCS: 90471; 90656 ==

== ENCOUNTER 2024-05-16 08:23 | Outpatient (REF) | payer MEDICARE, MEDICAID, SELFPAY ==
--- OUTSIDE RECORDS SUMMARY | 2024-05-16 08:27 | XMS_ITS | Continuity of Care Document ---
Author Organization [facility] Address [address] [place] [address] Phone Care Team Providers Care Warehouse Incentive Selector Name Role Phone Quintin VYAS, RVT, SHADI, Tee Unavailable U navailable Allergies, Adverse Reactions, Alerts Substance Reaction Status Criticality Sulfa (Sulfonamide Antibiotics) Active No Information Procedures Procedure Date Office/Outpt E&M Established 15 Mins- CT & [place] Duplex Scan-extrem Veins; Comp- CT & [place] Duplex Scan-extrem Veins; Uni/ CT & [place] O Inj Scleros Solut; Mx Veins 1- CT & [place] O Ultrason Guidan Needle Bx-rad- CT & [place] O Duplex Scan-extrem Veins; Uni/ CT & [place] O PT Did Not Receive Services Varithena, Single Truncal Vein - CT & [place] Office/Outpt E&M Established 15 Mins- CT & [place] Surgical Stockings Rejuva Knee High 20-3 0 Duplex Scan-extrem Veins; Comp- CT & [place] Duplex Scan-extrem Veins; Uni/ CT & [place] A Inj Scleros Solut; Mx Veins 1- CT & [place] A Ultrason Guidan Needle Bx-rad- CT & [place] A Duplex Scan-extrem Veins; Uni/ CT & [place] A Endovenous Laser, 1st Vein- CT & [place] Endovenous Rf, 1st Vein- CT & [place] 2023 Duplex Scan-extrem Veins; Uni/ CT & [place] A Duplex Scan-extrem Veins; Uni/ CT & [place] J Inj Scleros Solut; Mx Veins 1- CT & [place] J Ultrason Guidan Needle Bx-rad- CT & [place] J Endovenous Laser, 1st Vein- CT & [place] Offic/outpt E&m Estab 5 Min Trial- Telem edicine CT & [place] Office/Oupt E&M New Pt 60 Mins- CT & [place] Surgical Stockings CVR Reveal Thigh High Duplex Scan-extrem Veins; Comp- CT & [place] Advance Directives Directive Yes / No Effective Date File Name No Information Encounters Encounter Description Practice Location Reason(s) For Visit Diagnoses Date Provider Providers Copied on Encounter Office/Outpt E&M Established 15 Mins- [place] & [place] [facility], [address] [place] [address] Dr Alexander [address]Ingrid [place], [id number], [place] tel:[phone] CVR [facility] Venous insufficienc y (chronic) (peripheral) 4 Quintin VYAS RVT, SHADI Tee. [address] [place] [address], [id number], [place]. tel:[phone] Referring Provider: Lucia Davidson MD, [address] [place] [address] [address] [facility], [place], [address]. tel:[phone] [facility], [address] [place] [address] Dr Alexander [address]Ingrid [place], [id number], [place] tel:[phone] CVR [facility] Encounter for follow-up examination after completed treatment for conditions other than malignant neoplasmVari cose veins of bilateral lower extremities with pain 4 Quintin VYAS RVT, SHADI Oliveira. [address] [place] [address], [place], [id number], [place]. tel:[phone] Referring Provider: Lucia Davidson MD, [address] [place] [address], [address]. tel:[phone] [place] [facility], [address] [place] [address] Dr Catherine [address]Suite Ingrid Hoang [place], [id number], [place] tel:[phone] CVR - [place] Encounter for follow-up examination after completed treatment for conditions other than malignant neoplasmPain in right leg Oct- 4 Quintin VYAS RVT, SHADI Oliveira. [address], Suite [facility], [place], [place], [id number], [place]. tel:[phone] Referring Provider: Lucia Davidson MD, [address] [place] [address], [address]. tel:[phone] [place] [facility], [address] [place] [address] Dr [address]Suite Ingrid Hoang [place], [id number], [place] tel:[phone] CVR - [place] Varicose veins of right lower extremity with other complication s Mar- 4 Quintin VYAS RVT, SHADI Oliveira. [address] [facility], Suite [facility], [place], [place], [id number], [place]. tel:[phone] Referring Provider: Lucia Davidson MD, [address] [place] [address], [address]. tel:[phone] [facility], [address] [place] [address] [address]Suite Ingrid Hoang [place], [id number], [place] tel:[phone] CVR [place] Varicose veins of left lower extremity with pain Mar- 4 Quintin VYAS RVT, SHADI Oliveira. [address], Suite [facility], [place], [place], [id number], [place]. tel:[phone] Referring Provider: Lucia Davidson MD, [address] [place] [address], [address]. tel:[phone] [facility], [address] [place] [address] [address]Suite Ingrid Hoang [place], [id number], [place] tel:[phone] CVR - [place] No Information Mar- 4 Quintin VYAS RVT, SHADI Oliveira. [address] [place] [address], [address], [place], [place], [id number], [place]. tel:[phone] Referring Provider: Lucia Davidson MD, [address] [facility] [place], [address]. tel:[phone] [facility], [address] [place] [address] [address]Suite Ingrid Hoang [place], [id number], [place] tel:[phone] CVR - [facility] Varicose veins of left lower extremity with other complication s Mar- 4 Quintin VYAS RVT, SHADI Oliveira. [address] [place] [address], [address], [place], [place], [id number], [place]. tel:[phone] Referring Provider: Lucia Davidson MD, [address] [place] [address] [place] [address] [place], [address]. tel:[phone] Office/Outpt E&M Established 15 Mins- CT & [place] [facility] [facility], [address] [place] [address] Dr Alexander [address]Suite Ingrid Hoang [place], [id number], [place] tel:[phone] CVR - [facility] Chronic venous hypertension (idiopathic) without complication s of bilateral lower extremityEss ential (primary) hypertension Feb- 4 Quintin VYAS RVT, SHADI Oliveira. [address] [place] [address], [address], [place], [place], [id number], [place]. tel:[phone] Referring Provider: Lucia Davidson MD, [address] [facility] [place], [address]. tel:[phone] [facility], [address] [place] [address] [address]Suite Ingrid Hoang [place], [id number], [place] tel:[phone] CVR - [place] Varicose veins of bilateral lower extremities with pain 4 Quintin VYAS RVT, SHADI Oliveira. [address] [place] [address], Suite [facility], [place], [place], [id number], [place]. tel:[phone] Referring Provider: Lucia Davidson MD, [address] [place] [address] [place], [address]. tel:[phone] [facility], [address] [place] [address] Dr Alexander 1000Suite Ingrid Hoang [place], [id number], [place] tel:[phone] CVR - [place] Encounter for follow-up examination after completed treatment for conditions other than malignant neVaricose veins of right lower extremity with pain 4 Quintin VYAS RVT, SHADI Oliveira. [address] [place] [address], [place] [address], [place], [place], [id number], [place]. tel:[phone] Referring Provider: Lucia Davidson MD, [address] [facility] [place], [address]. tel:[phone] [facility], [address] [place] [address] [address] Ingrid Hoang [place], [id number], [place] tel:[phone] CVR - [place] Encounter for follow-up examination after completed treatment for conditions other than malignant nePain in right leg Jan- 4 Quintin VYAS RVT, SHADI Oliveira. [address] [place] [address], Suite [facility], [place], [place], [id number], [place]. tel:[phone] Referring Provider: Lucia Davidson MD, [address] [place] [address] [address] [place] [address] [place], [address]. tel:[phone] [facility], [address] [place] [address] Dr Alexander [address]Suite Ingrid Hoang [place], [id number], [place] tel:[phone] CVR - [place] Varicose veins of right lower extremity with other complication s 4 Larry NIRMALA Virgen. [address] [facility] [address], [address], [place], [place], [id number], [place]. tel:[phone] Referring Provider: Lucia Davidson MD, [address] [facility] [place], [address]. tel:[phone] [facility], [address] [place] [address] [address]Ingrid [place], [id number], [place] tel:[phone] CVR - [place] Varicose veins of right lower extremity with other complication s 4 Quintin VYAS RVT, SHADI Oliveira. [address] [place] [address], Suite [facility], [place], [place], [id number], [place]. tel:[phone] Referring Provider: Lucia Davidson MD, [address] [facility] [address] [place] [address] [place], [address]. tel:[phone] [facility], [address] [place] [address] [address] 1000Ingrid [place], [id number], [place] tel:[phone] CVR - [place] Varicose veins of right lower extremity with other complication s 4 Quintin VYAS RVT, SHADI Oliveira. [address] [place] [address], Suite [facility], [facility] [place], [id number], [place]. tel:[phone] Referring Provider: Lucia Davidson MD, [address] [facility] [address] [facility] In [facility], [place], [address]. tel:[phone] [facility], [address] [place] [address] [address]Ingrid [place], [id number], [place] tel:[phone] CVR - [place] Encounter for follow-up examination after completed treatment for conditions other than malignant nePain in left lower leg 4 Quintin VYAS RVT, SHADI Oliveira. [address] [facility], [address], [facility] [place], [id number], [place]. tel:[phone] Referring Provider: Lucia Davidson MD, [address] [facility] [place], [address]. tel:[phone] [facility], [address] [place] [address] [address] Ingrid Hoang [place], [id number], [place] tel:[phone] CVR - [place] No Information 4 Quintin VYAS RVT, SHADI Oliveira. [address] [place] [address], [id number], [place]. tel:[phone] [facility], [address] [place] [address] [address] Ingrid Hoang [place], [id number], [place] tel:[phone] CVR - [place] Encounter for follow-up examination after completed treatment for conditions other than malignant neChronic venous hypertension (idiopathic) with other complication s of left lower extremity 4 Quintin VYAS RVT, SHADI Oliveira. [address] [place] [address], [place], [place], [id number], [place]. tel:[phone] Referring Provider: Lucia Davidson MD, [address] [place] [address] [place], [address]. tel:[phone] [facility], [address] [place] [address] [address]SuIngrid sinha [place], [id number], [place] tel:[phone] CV[place] - [place] Varicose veins of left lower extremity with other complication s 4 Quintin VYAS RVT, RPVI Robert. [address] [place] [address], [id number], [place]. tel:[phone] Referring Provider: Lucia Davidson MD, [address] [place] [address] [place], [address]. tel:[phone] [facility], [address] [place] [address] Dr Alexander 1000SuIngrid sinha [place], [id number], [place] tel:[phone] CVR - [place] Varicose veins of left lower extremity with other complication s 4 Quintin VYAS RVT, SHADI Oliveira. [address] [facility] [address], [place], [place], [id number], [place]. tel:[phone] Referring Provider: Lucia Davidson MD, [address] [place] [address] Dr [address] [facility] [place], [address]. tel:[phone] Offic/outpt E&m Estab 5 Min Trial- Telemedicine CT & [place] [facility], [address] [place] [address] Dr Alexander 1000SuIngrid sinha [place], [id number], [place] tel:[phone] CVR - [place] Venous insufficienc y (chronic) (peripheral) Pruritus, unspecifiedE ssential (primary) hypertension 4 Zhane Witt. [address] [place] [address], [place] [address], [place], [place], [id number], [place]. tel:[phone] Referring Provider: Lucia Davidson MD, [address] [place] [address] [place] [address] [place], [address]. tel:[phone] Office/Oupt E&M New Pt 60 Mins- CT & [place] [facility], [address] [place] [address] Dr Alexander 1000SuIngrid sinha [place], [id number], [place] tel:[phone] CVR - [place] Varicose veins of bilateral lower extremities with other complication Mary Carmen in right lower legPain in left lower legPain in right legEssential (primary) hypertension Pruritus, unspecifiedP ain in left leg 4 Quintin VYAS RVT, SHADI Oliveira. [address] [facility], [address], [place], [place], [id number], [place]. tel:[phone] Referring Provider: Lucia Davidson MD, [address] [place] [address] [address] [facility] [place], [address]. tel:[phone] [facility], [address] [place] [address] Dr Alexander 1000SuIngrid sinha [place], [id number], [place] tel:[phone] CV[place] Varicose veins of bilateral lower extremities with pain 4 Quintin VYAS, RVT, RPVI Tee. [address] [facility], [address], [facility] [place], [id number], [place]. tel:[phone] Referring Provider: Lucia aDvidson MD, [address] [place] [address] [address] [facility], [place], [address]. tel:[phone] Family History Family Member Type Diagnosis Age At Onset No Information Payers Payer name Insurance type Covered constitution party ID Authoriza tion(s) [facility] AARP Medic are Complete CI [id number] Medical Assistance [facility] [id number] Social History Type Description Quantity Date Captured Comments Alcohol Use Details Unknown Caffeine Use Details Unknown Tobacco Use Status Current non-smoker Smoking Status Never Smoker Non-Smoking Tobacco Use Details : No Details Available : No Details Available Sex Male Vital Signs Date / Time: Height Weight BMI Pulse Rate Blood Pressure Temperature Respiratory Rate Body Surface Area Head Circumference Head Circ. Percentile Wt./Kam. Percentile BMI percentile Pulse Ox Inhaled Ox 108.860 kg (240.00 lbs) 33.6 4 kg/m eter (2) 110/60 mm[Hg] Chief Complaint And Reason For Visit No Information Reason For Referral Reason For Referral No Information Plan Of Treatment Date Type Action Status Goal Diet education completed Goal Diet education completed Goal Diet education completed Referral Ordered: Weight management: Referral to physician timeframe: 3 Months (related to Body mass index (BMI) 33.0-33.9, adult) ordered Referral Ordered: Weight management: Referral to physician timeframe: 3 Months (related to Body mass index (BMI) 33.0-33.9, adult) ordered Referral Ordered: Weight management: Referral to physician timeframe: 3 Months (related to Body mass index (BMI) 33.0-33.9, adult) ordered History Of Present Illness Encounter Date Complaint History Of Prese nt Illness No Information Functional Status Date Functional Assessmen t No Information Instructions Date Instruction Additional Infor mation Compression stocking usage as conservative measure Related to Venous insufficiency (chronic) (peripheral) Lifestyle education Related to B georgina mass index (BMI) 33.0-33.9, adult Pre and post instruc tions reviewed and provided Related to Venous insufficiency (chronic) (peripheral) Giving Encouragement to exercise Related to Body mass index (BMI) 33.0-33.9, adult Diet education Related to Body mass index (BMI) 33.0-33.9, adult Giving Encouragement to exercise Related to Body mass index (BMI) 33.0-33.9, adult Diet education Related to Body mass index (BMI) 33.0-33.9, adult Compression stocking usage as conservative measure Related to Chronic venous hypertension (idiopathic) without complications of bilateral lower extremity Pre and post instruc tions reviewed and provided Related to Chronic venous hypertension (idiopathic) without complications of bilateral lower extremity Lifestyle education Related to B georgina mass index (BMI) 33.0-33.9, adult Compression stocking usage as conservative measure Related to Venous insufficiency (chronic) (peripheral) Pre and post instruc tions reviewed and provided Related to Venous insufficiency (chronic) (peripheral) Pre and post instruc tions reviewed and provided Related to Varicose veins of bilateral lower extremities with other complications Patient education booklet given Related to Varicose veins of bilateral lower extremities with other complications Lifestyle education Related to B georgina mass index (BMI) 33.0-33.9, adult Giving Encouragement to exercise Related to Body mass index (BMI) 33.0-33.9, adult Diet education Related to Body mass index (BMI) 33.0-33.9, adult Assessments Type Assessment Date No Information Patient Care Teams Name Effective Dates (start - stop) Status Members No Information
--- OUTSIDE RECORDS SUMMARY | 2024-05-16 08:27 | XMS_ITS ---
Author Name [facility] Organization Unknown Results Test Name/Text Value Interpretation Date Range Source Calcium SerPl-mCnc 9mg/dL Normal [id number] 8.7 - 10 .5 [facility] BUN SerPl-mCnc 14mg/dL Normal [id number] 8 - 21 [facility] Creat SerPl-mCnc 0.9mg/dL Normal [id number] 0.5 - 1.3 [facility] GFR/BSA.pred SerPlBld EJU-FIO-AbEKhs 90 Normal [id number] 59 - [facility] Chloride SerPl-sCnc 103mmol/L Normal [id number] 98 - 10 7 [facility] BUN/Creat SerPl 16Ratio Normal [id number] 10 - 25 H [facility] CO2 SerPl-sCnc 22mmol/L Normal [id number] 22 - 33 HH CCT Anion Gap Bld-sCnc 14 Normal [id number] 7 - 17 [facility] Potassium SerPl-sCnc 4.3mmol/L Normal [id number] 3.4 - 5.3 [facility] Glucose SerPl-mCnc 66mg/dL Normal [id number] 65 - 99 [facility] Sodium SerPl-sCnc 139mmol/L Normal [id number] 136 - 145 [facility] Neutrophils num Bld Auto 3.66Thou/uL Normal [id number] 2 - 7.5 [facility] Monocytes num Bld Auto 0.68Thou/uL Normal [id number] 0. 2 - 1.5 [facility] Eosinophil num Bld Auto 0.1Thou/uL Normal [id number] 0 - 0.7 [facility] WBC num Bld Auto 6.9Thou/uL Normal [id number] 4 - 11 [facility] MCHC RBC Auto-mCnc 33g/dL Normal [id number] 30 - 36 [facility] Monocytes/leuk NFr Bld Auto 9.8% Normal [id number] [facility] Hct VFr Bld Auto 42.7% Normal [id number] 39 - 54 [facility] RBC num Bld Auto 4.68Mil/uL Normal [id number] 4.5 - 6.2 [facility] RDW RBC Auto-Rto 12% Normal [id number] 11.5 - 14. 5 [facility] PMV Bld Auto 10.1fL Normal [id number] 7.5 - 12.[address] Eosinophil/leuk NFr Bld Auto 1.4% Normal [id number] [facility] MCH RBC Qn Auto 30.1pg Normal [id number] 27 - 31 H [facility] Basophils/leuk NFr Bld Auto 0.6% Normal [id number] [facility] Basophils num Bld Auto 0.04Thou/uL Normal [id number] 0 - 0.2 [facility] Platelet num Bld Auto 308Thou/uL Normal [id number] 150 - 450 [facility] Neutrophils/leuk NFr Bld Auto 52.8% Normal [id number] [facility] MCV RBC Auto 91fL Normal [id number] 80 - 100 [facility] T Lymphocytes/leuk NFr Bld Auto 35.1% Normal [id number] [facility] Lymphocytes num Bld Auto 2.43Thou/uL Normal [id number] 1.5 - 4.5 [facility] Imm Granulocytes/leuk NFr Bld Auto 0.3% Normal [id number] [facility] Hgb Bld-mCnc 14.1g/dL Normal [id number] 13 - 17.7 [facility] T Imm Granulocytes num Bld Auto 0.02Thou/uL Normal [id number] 0 - 0.1 [facility] History of Medication Use Medication Directions Dispensed Refills Start Date End Date Stat OMEprazole (PriLOSEC) 20 MG capsule Take 1 capsule (20 mg total) by mouth every morning. 12/15/2023 active lisinopril (PRINIVIL,ZeSTRIL) 5 MG tablet Take 1 tablet (5 mg total) by mouth every morning. 12/15/2023 active lubiprostone (AMITIZA) 24 MCG capsule Take 1 capsule (24 mcg total) by mouth 2 (two) times a day with meals. 12/15/2023 active Multiple Vitamin (MULTIVITAMIN PO) Take by mouth daily. 12/15/2023 active Problems Problem Status Onset Date Problem Type Date of Resoluti on Source FRITZ (obstructive sleep apnea) active 2023-12-12 ProblemAct [facility] Hypertension active 2023-12-12 ProblemAct [facility] Obesity (BMI 30-39.9) active 2023-12-12 ProblemAct [facility] GERD (gastroesophageal reflux disease) active 2023-12-12 ProblemAct [facility]
[2024-05-16 08:35] LABS: MANUAL DIFF FLAG NO
[2024-05-16 09:04] LABS: Basophils Percent Auto 0.5 % (0-2); Eosinophils Absolute Auto 0.4 X10*3/uL (0.0-0.4); Eosinophils Percent Auto 6.1 % (0-4); Hemoglobin 14.5 g/dl (14.0-18.0); Imm Gran Abs Auto 0.02 X10*3/uL (0.00-0.03); Imm Gran Pct Auto 0.3 % (0.0-0.4); Lymphocytes Percent Auto 32.8 % (20-40); Mean Corpuscular HGB Conc 33.7 g/dl (31.0-36.0); Mean Corpuscular Hemoglobin 29.8 pg (27.0-33.0); Mean Corpuscular Volume 88.5 fL (80.0-98.0); Mean Platelet Volume 9.1 fL (9.4-12.4); Monocytes Absolute Auto 0.8 X10*3/uL (0.1-1.2); Monocytes Percent Auto 12.9 % (2-11); Neutrophils Absolute Auto 2.9 x10*3/uL (2.0-8.3); Neutrophils Percent Auto 47.4 % (45-73); Platelet Count 274 X10*3/uL (160-400); Red Blood Count 4.86 X10*6/uL (4.60-5.80); White Blood Count 6.2 X10*3/uL (4.8-10.8)
[2024-05-16 09:12] LABS: Estimated Average Glucose 111 mg/dL; Hemoglobin A1C 139.0319 umol/L; Hemoglobin A1c % 5.5 % (<6.0); Total Hemoglobin (HGBA1C) 3777.8527 umol/L
[2024-05-16 09:31] LABS: Alanine Aminotransferase 42 U/L (0-40); Alkaline Phosphatase 60 U/L (39-117); Anion Gap 10 (12-20); Aspartate Amino Transferase 25 U/L (5-37); Bilirubin Total 0.6 mg/dL (0.0-1.0); Blood Urea Nitrogen 10 mg/dL (9-16); Calcium 9.1 mg/dL (8.4-10.2); Carbon Dioxide 28 mmol/L (22-29); Chloride 109 mmol/L (96-108); Cholesterol 184 mg/dL (<200); Estimated Glomerular Filt Rate > 60; Glucose Random 96 mg/dL (60-115); HDL Cholesterol 43 mg/dL (>40); LDL Cholesterol Calculated 128 mg/dL (<100); Potassium 4.6 mmol/L (3.3-5.1); Sodium 142 mmol/L (135-145); Triglycerides 66 mg/dL (<150)
[2024-05-16 09:53] LABS: Free T4 (Free Thyroxine) 1.12 ng/dL (0.71-1.85); Thyroid Stimulating Hormone 0.83 uIU/mL (0.32-4.0)
[2024-05-16 10:00] LABS: Folate 15.3 ng/mL (> or = 4.0); Prostate Specific Antigen Scr 0.99 ng/mL (<0.05-4.0); Vitamin B12 598 pg/mL (200-900)
== END 2024-05-16 08:24 | disposition home or self-care (01) ==
LOC: HO.LAB 08:23
PROVIDERS: PCP Internal Medicine; Visit Provider Internal Medicine
DX: E78.00 Pure hypercholesterolemia, unspecified (principal); R73.02 Impaired glucose tolerance (oral); Z12.5 Encounter for screening for malignant neoplasm of prostate
CPT/HCPCS: 36415; 80053; 80061; 82607; 82746; 83036; 84153; 84439; 84443; 85025

== ENCOUNTER 2024-05-23 12:26 | Outpatient (AMB) | payer MEDICARE, MEDICAID, SELFPAY ==
[2024-05-23 12:36] VITALS: BP 138/80; PULSE 95; O2SAT 95; BMI 35.8
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
== END 2024-05-23 13:21 | disposition home or self-care (01) ==
PROVIDERS: PCP Internal Medicine; Visit Provider Internal Medicine
DX: Z00.00 Encounter for general adult medical examination without abnormal findings (principal); R73.02 Impaired glucose tolerance (oral); E66.9 Obesity, unspecified; Z68.35 Body mass index [BMI] 35.0-35.9, adult; G47.33 Obstructive sleep apnea (adult) (pediatric); I10 Essential (primary) hypertension; E78.00 Pure hypercholesterolemia, unspecified; N40.1 Benign prostatic hyperplasia with lower urinary tract symptoms; R35.0 Frequency of micturition; K21.9 Gastro-esophageal reflux disease without esophagitis; K59.04 Chronic idiopathic constipation; B35.1 Tinea unguium

== ENCOUNTER → 2024-05-23 12:26 | Outpatient (BNVA) | payer MEDICARE, MEDICAID, SELFPAY | PROVIDERS: PCP Internal Medicine; Visit Provider Internal Medicine | DX: Z00.00 Encounter for general adult medical examination without abnormal findings (principal); I10 Essential (primary) hypertension; K21.9 Gastro-esophageal reflux disease without esophagitis; E66.9 Obesity, unspecified; R73.02 Impaired glucose tolerance (oral); G47.33 Obstructive sleep apnea (adult) (pediatric); E78.00 Pure hypercholesterolemia, unspecified; N40.1 Benign prostatic hyperplasia with lower urinary tract symptoms; R35.0 Frequency of micturition; K59.04 Chronic idiopathic constipation; R79.89 Other specified abnormal findings of blood chemistry; B35.1 Tinea unguium; Z68.35 Body mass index [BMI] 35.0-35.9, adult; Z79.899 Other long term (current) drug therapy | CPT/HCPCS: 96127; 99396 ==

== ENCOUNTER 2024-06-17 08:37 | Outpatient (REF) | payer MEDICARE, MEDICAID, SELFPAY ==
--- NOTE | ~2024-06-17 | US_ITS ---
EXAMINATION: US ABDOMEN HISTORY: R79.89 - Other specified abnormal findings of blood chemistry TECHNIQUE: Real-time grayscale ultrasound imaging of the abdomen was performed and images were reviewed. COMPARISON: There are no prior studies for comparison. FINDINGS: Liver: The liver is enlarged and demonstrates mildly increased echotexture, consistent with steatosis. No focal mass or intrahepatic biliary ductal dilatation is identified. Gallbladder and biliary tree: The gallbladder is unremarkable, without evidence of calculi, wall thickening, or pericholecystic fluid. There is no sonographic Lord sign. The common bile duct is normal in caliber measuring 3 mm. Kidneys: The right kidney measures 12.0 cm in length. The left kidney measures 12.9 cm in length. The kidneys are unremarkable, without evidence of masses, hydronephrosis, or calculi. Pancreas: The pancreatic head, neck, and body are unremarkable. The pancreatic tail is obscured by bowel gas. Spleen: The spleen is normal in size and contour, measuring 9.7 cm in length. Abdominal aorta and inferior vena cava: The visualized portions of the abdominal aorta and inferior vena cava are normal in caliber. There is no free fluid in the abdomen. US/US abdomen complete IMPRESSION: Mild hepatomegaly and hepatic steatosis. Otherwise unremarkable abdominal ultrasound. Electronically signed by: Tee Granda MD 06/18/2024 08:42 AM [facility]
--- OUTSIDE RECORDS SUMMARY | 2024-06-17 08:56 | XMS_ITS | Continuity of Care Document ---
Author Organization [facility] Address [address] [place] [address] Phone Care Team Providers Care Chairman President And Chief Executive Officer Name Role Phone Quintin VYAS, RVT, SHADI, [...] Guidan Needle Bx-rad- [place] & [place] A Endovenous Laser, 1st [...] Mins- [place] & [place] [facility], [address] [place] [address] Dr Alexander [address]Ingrid [place], [id number], [place] tel:[phone] CVR [facility] Venous insufficienc y (chronic) (peripheral) 4 Quintin VYAS RVT, SHADI Tee. [address] [place] [address], [id number], [place]. tel:[phone] Referring Provider: Lucia Davidson MD, [address] [place] [address] [address] [facility], [place], [address]. tel:[phone] [facility], [address] [place] [address] Dr Alexander [address]Ingrid [place], [id number], [place] tel:[phone] CVR [facility] Encounter for follow-up examination after completed treatment for conditions other than malignant neoplasmVari cose veins of bilateral lower extremities with pain 4 Quintin VYAS RVT, SHADI Oliveira. [address] [place] [address], [place], [id number], [place]. tel:[phone] Referring Provider: Lucia Davidson MD, [address] [address] [place] [address], [address]. tel:[phone] [facility], [address] [place] [address] Dr Catherine [address]Suite Ingrid Hoang [place], [id number], [place] tel:[phone] CVR [place] Encounter for follow-up examination after completed treatment for conditions other than malignant neoplasmPain in right leg Oct- 4 Quintin VYAS RVT, SHADI Oliveira. [address] [facility], Suite [facility], [place], [place], [id number], [place]. tel:[phone] Referring Provider: Lucia Davidson MD, [address] [place] [address], [address]. tel:[phone] [facility], [address] [place] [address] Dr [address]Suite Ingrid Hoang [place], [id number], [place] tel:[phone] CV[place] Varicose veins of right lower extremity with other complication s Mar- 4 Quintin VYAS RVT, SHADI Oliveira. [address] [facility], Suite [facility], [place], [place], [id number], [place]. tel:[phone] Referring Provider: Lucia Davidson MD, [address] [place] [address], [address]. tel:[phone] [facility], [address] [place] [address] [address]Suite nIgrid Hoang [place], [id number], [place] tel:[phone] [place] Varicose veins of left lower extremity with pain Mar- 4 Quintin VYAS RVT, SHADI Oliveira. [address] [facility], Suite [facility], [place], [place], [id number], [place]. tel:[phone] Referring Provider: Lucia Davidson MD, [address] [facility] [address] [place] [address], [address]. tel:[phone] [facility], [address] [place] [address] [address]Suite Ingrid Hoang [place], [id number], [place] tel:[phone] CVR - [place] No Information Mar- 4 Quintin VYAS RVT, SHADI Oliveira. [address] [place] [address], [address], [place], [place], [id number], [place]. tel:[phone] Referring Provider: Lucia Davidson MD, [address] [facility] [address] [facility] [place], [address]. tel:[phone] [facility], [address] [place] [address] [address]Suite Ingrid Hoang [place], [id number], [place] tel:[phone] CVR - [facility] Varicose veins of left lower extremity with other complication s Mar- 4 Quintin VYAS RVT, SHADI Oliveira. [address] [place] [address], [address], [place], [place], [id number], [place]. tel:[phone] Referring Provider: Lucia Davidson MD, [address] [place] [address] [place] [address] [place], [address]. tel:[phone] Office/Outpt E&M Established 15 Mins- [place] & [place] [facility], [address] [place] [address] Dr Alexander [address]Suite Ingrid Hoang [place], [id number], [place] tel:[phone] CVR - [facility] Chronic venous hypertension (idiopathic) without complication s of bilateral lower extremityEss ential (primary) hypertension Feb- 4 Quintin VYAS RVT, SHADI Oliveira. [address] [place] [address], [address], [place], [place], [id number], [place]. tel:[phone] Referring Provider: Lucia Davidson MD, [address] [facility] [address] [facility] [place], [address]. tel:[phone] [facility], [address] [place] [address] [address]Suite [place]grid Hoang [place], [id number], [place] tel:[phone] CVR [place] Varicose veins of bilateral lower extremities with pain 4 Quintin VYAS RVT, SHADI Oliveira. [address] [place] [address], Suite [facility], [place], [place], [id number], [place]. tel:[phone] Referring Provider: Lucia Davidson MD, [address] [facility] [address] [place] [address] [place], [address]. tel:[phone] [facility], [address] [place] [address] Dr Alexander [address]Ingrid [place], [id number], [place] tel:[phone] CVR [place] Encounter for follow-up examination after completed treatment for conditions other than malignant neVaricose veins of right lower extremity with pain 4 Quintin VYAS RVT, SHADI Oliveira. [address] [place] [address], Suite [facility], [place], [place], [id number], [place]. tel:[phone] Referring Provider: Lucia Davidson MD, [address] [place] [address] [address] [facility] [place], [address]. tel:[phone] [facility], [address] [place] [address] [address] Ingrid Hoang [place], [id number], [place] tel:[phone] CVR - [place] Varicose veins of right lower extremity with other complication s 4 Larry New. [address] [place] [address], [address], [place], [place], [id number], [place]. tel:[phone] Referring Provider: Lucia Davidson MD, [address] [facility] [address] [place] [address] [place], [address]. tel:[phone] [facility], [address] [place] [address] Dr Alexander [address]Suite Ingrid Hoang [place], [id number], [place] tel:[phone] CVR - [place] Encounter for follow-up examination after completed treatment for conditions other than malignant nePain in right leg 4 Quintin VYAS RVT, SHADI Oliveira. [address] [facility], [address], [place], [place], [id number], [place]. tel:[phone] Referring Provider: Lucia Davidson MD, [address] [facility] [address] [place] [address] [place], [address]. tel:[phone] [facility], [address] [place] [address] Dr [address]Ingrid [place], [id number], [place] tel:[phone] CVR - [place] Varicose veins of right lower extremity with other complication s 4 Quintin VYAS RVT, SHADI Oliveira. [address] [place] [address], Suite [facility], [place], [place], [id number], [place]. tel:[phone] Referring Provider: Lucia Davidson MD, [address] [facility] [address] [place] [address] [place], [address]. tel:[phone] [facility], [address] [place] [address] [address]Ingrid [place], [id number], [place] tel:[phone] CVR - [place] Varicose veins of right lower extremity with other complication s 4 Quintin VYAS RVT, SHADI Oliveira. [address] [place] [address], Suite [facility], [place], [place], [id number], [place]. tel:[phone] Referring Provider: Lucia Davidson MD, [address] [facility] [address] [place] [address] [place], [address]. tel:[phone] [facility], [address] [place] [address] [address]Ingrid [place], [id number], [place] tel:[phone] CVR - [place] Encounter for follow-up examination after completed treatment for conditions other than malignant nePain in left lower leg 4 Quintin VYAS RVT, HSADI Oliveira. [address] [facility], [address], [facility] [place], [id number], [place]. tel:[phone] Referring Provider: Lucia Davidson MD, [address] [facility] [address] [facility] [place], [address]. tel:[phone] [facility], [address] [place] [address] [address] Ingrid Hoang [place], [id number], [place] tel:[phone] CVR - [place] No Information 4 Quintin VYAS RVT, SHADI Oliveira. [address] [place] [address], [id number], [place]. tel:[phone] [facility], [address] [place] [address] [address] Ingrid Hoang [place], [id number], [place] tel:[phone] CVR - [place] Encounter for follow-up examination after completed treatment for conditions other than malignant neChronic venous hypertension (idiopathic) with other complication s of left lower extremity 4 Quintin VYAS RVT, SHADI Oliveira. [address] [place] [address], [place], [place], [id number], [place]. tel:[phone] Referring Provider: Lucia Davidson MD, [address] [facility] [address] [place] [address] [place], [address]. tel:[phone] [facility], [address] [place] [address] [address]SuIngrid sinha [place], [id number], [place] tel:[phone] CVR - [place] Varicose veins of left lower extremity with other complication s 4 Quintin VYAS RVT, RPVI Robert. [address] [place] [address], [id number], [place]. tel:[phone] Referring Provider: Lucia Davidson MD, [address] [facility] [address] [place] [address] [place], [address]. tel:[phone] [facility], [address] [place] [address] Dr Alexander 1000SuIngrid sinha [place], [id number], [place] tel:[phone] CVR - [place] Varicose veins of left lower extremity with other complication s 4 Quintin VYAS RVT, SHADI Oliveira. [address] [facility] [address], [place], [place], [id number], [place]. tel:[phone] Referring Provider: Lucia Davidson MD, [address] [place] [address] Dr [address] [facility] [place], [address]. tel:[phone] Offic/outpt E&m Estab 5 Min Trial- Telemedicine [place] & [place] [facility], [address] [place] [address] Dr Alexander 1000SuIngrid sinha [place], [id number], [place] tel:[phone] CVR - [place] Venous insufficienc y (chronic) (peripheral) Pruritus, unspecifiedE ssential (primary) hypertension 4 Zhane Witt. [address] [place] [address], [place] [address], [place], [place], [id number], [place]. tel:[phone] Referring Provider: Lucia Davidson MD, [address] [place] [address] [place] [address] [place], [address]. tel:[phone] Office/Oupt E&M New Pt 60 Mins- CT & [place] [facility], [address] [place] [address] Dr Alexander 1000SuIngrid sinha [place], [id number], [place] tel:[phone] CVR - [place] Varicose veins of bilateral lower extremities with other complication Mary Carmen in right lower legPain in left lower legPain in right legEssential (primary) hypertension Pruritus, unspecifiedP ain in left leg 4 Quintin VYAS RVT, SHADI Oliveira. [address] [facility], [address], [place], [place], [id number], [place]. tel:[phone] Referring Provider: Lucia Davidson MD, [address] [place] [address] [address] [facility] [place], [address]. tel:[phone] [facility], [address] [place] [address] Dr Alexander 1000SuIngird sinha [place], [id number], [place] tel:[phone] CVR - [place] Varicose veins of bilateral lower extremities with pain 4 Quintin VYAS, RVT, RPVI Tee. [address] [facility], [address], [facility] [place], [id number], [place]. tel:[phone] Referring Provider: Lucia Davidson MD, [address] [place] [address] [address] [facility], [place], [address]. tel:[phone] Family History Family Member Type Diagnosis Age At Onset No Information Payers Payer name Insurance type Covered democrat ID Authoriza tion(s) [facility] AARP Medic are Complete CI [id number] Medical [facility] [id number] Social History Type Description Quantity Date Captured [...]
== END 2024-06-17 08:38 | disposition home or self-care (01) ==
LOC: HO.US 08:37
PROVIDERS: PCP Internal Medicine; Visit Provider Internal Medicine
DX: R79.89 Other specified abnormal findings of blood chemistry (principal)
CPT/HCPCS: 76700

== ENCOUNTER → 2024-06-17 08:41 | Outpatient (BNV) | payer MEDICARE, MEDICAID, SELFPAY | PROVIDERS: PCP Internal Medicine; Visit Provider Radiology Diagnostic Radiology | DX: R79.89 Other specified abnormal findings of blood chemistry (principal) | CPT/HCPCS: 76700 ==

== ENCOUNTER 2024-07-01 09:37 | Outpatient (AMB) | payer MEDICARE, MEDICAID, SELFPAY ==
--- NOTE | 2024-07-01 09:44 | A.OFFVIS_ITS ---
Intake Visit Reasons: 1Y PVR/PSA(set)psa done 05/2024 Intake Note: Patient is Present for 1Y Follow Up PVR/PSA Urology Medication: None Antibiotic Allergies: Sulfa Blood Thinners: None PVR: 0ml'S TODAY'S PVR:30ML'S Rack Puller Required: No Allergies Sulfa (Sulfonamide Antibiotics) [SULFA(SULFONAMIDE ANTIBIOTICS)] Allergy (Mild, Verified 07/01/24 09:45) HIVES, rash and red bumps, itching HPI Comments Details: Abraham is a pleasant male. Uses Bahamian sign language. He is a patient of Dr. Davidson. 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 Lower urinary tract symptoms Progressive return of urinary weakness 2018 underwent laser prostate procedure Had been happy with results until late 2020 PSA 02/22 1.5, 04/25 1.2, 12/24 0.9 Cystoscopy 07/26 with bladder neck narrowing, 08/24 anterior lobe tissue Underwent procedure 08/23 for recurrent tissue, 11/24 repeat [facility] Medical History Annual physical exam Adult general medical exam Upper respiratory tract infection Weak urinary stream Allergic reaction Tachycardia Dysuria Varicose veins of left lower extremity with inflammation Varicose veins of right lower extremity with inflammation Neck pain Daytime sleepiness FRITZ on CPAP GERD (gastroesophageal reflux disease) Weak urinary stream Exposure to COVID-19 virus Nasal congestion Thoracic arthritis BPH (benign prostatic hyperplasia) Musculoskeletal pain Osteoporosis screening Rash COVID-19 vaccine series completed BPH (benign prostatic hyperplasia) Thoracic spine pain Cough Back pain Nasal congestion Left epididymitis Deaf Migraine Vitamin D deficiency Hypertension Hypercholesterolemia Screening for colon cancer Chronic idiopathic constipation Surgical History Status post ablation of incompetent vein using laser Hx of colonoscopy Varicocele History of esophagogastroduodenoscopy (EGD) Hx of hernia repair Family History (Updated 05/23/24 @ 12:56 by Lucia Davidson MD) Father History of prostate cancer Skin cancer CVA (cerebral vascular accident) Mother HX: breast cancer Paternal Uncle Skin cancer CVA (cerebral vascular accident) Maternal Aunt HX: breast cancer Paternal Aunt CVA (cerebral vascular accident) Social History (Updated 05/23/24 @ 12:56 by Lucia Davidson MD) Household Members: Spouse, Family and Children Housing: House Are you a primary healthcare facility administrator to a significant other at home: No Do you presently have visiting nurse or other home services: No Alcohol intake: never Patient Tobacco Use Status: Never used Tobacco Tobacco use type: Cigarette e-Cigarette/Vaping Use: Never Used Second Hand Smoke Exposure: No service: No Current occupational status: employed Cognitive needs: No Hearing needs: Yes Vision needs: Yes Review of Systems Const Denies chills and Denies fever(s) Card Reports no additional complaints and Denies syncope Resp Denies cough GI Denies abdominal pain and Denies heartburn Reports as per HPI and Denies change in libido Neuro Denies syncope Psych Denies change in libido Endo Denies change in libido Physical Exam Const General: cooperative, healthy appearing, comfortable and no acute distress Orientation/consciousness: patient oriented x3 HEENT Face and sinus: Yes normal facial exam Mouth: moist mucous membranes Neck Neck: Yes normal visual inspection, Yes full ROM and Yes trachea midline Chest Chest palpation & inspection: normal inspection of the chest Resp Effort & Inspection: normal respiratory effort, able to speak in complete sentences and no respiratory distress GI Inspection: Yes normal to inspection Back/Spine/Pelvis Cervical Spine: normal cervical lordosis Thoracic/Lumbar Spine: thoracic and lumbar spine normal to inspection Skin General skin exam: no rashes or lesions noted Neuro General: patient oriented x3, gait normal, tone normal and moves all extremities Extrem General: Yes normal to inspection and Yes capillary refill normal Office Procedures Post Void Residual Post Residual Void Post Void Residual (PVR): 30 [id number]-[id number] Void Residual by ultrasound Results AMB Urinalysis, Automated UA Leukoctes 0 Lazaro/uL Last Edit by VINCENZO Lilly on 07/01/24 09:56 UA Nitrite Negative Last Edit by VINCENZO Lilly on 07/01/24 09:56 UA Urobilinogen 0.2 mg/dL Last Edit by VINCENZO Lilly on 07/01/24 09:5 6 UA Protein 0 mg/dL Last Edit by VINCENZO Lilly on 07/01/24 09:56 UA pH 7.0 Last Edit by VINCENZO Lilly on 07/01/24 09:56 UA Blood 25 Berny/uL Last Edit by VINCENZO Lilly on 07/01/24 09:56 UA Specific [place] 1.010 Last Edit by VINCENZO Lilly on 07/01/24 09: 56 UA Ketone Negative Last Edit by VINCENZO Lilly on 07/01/24 09:56 UA Bilirubin 0 mg/dL Last Edit by VINCENZO Lilly on 07/01/24 09:56 UA Glucose 0 mg/dL Last Edit by VINCENZO Lilly on 07/01/24 09:56 Results Reviewed Results Reviewed: Laboratory Last Values Urine pH (Auto) 7.0 07/01/24 09:55 Specific [place] (Auto) 1.010 07/01/24 09:55 Urine Protein (Auto) 0 mg/dL 07/01/24 09:55 Glucose (UA)(Auto) 0 mg/dL 07/01/24 09:55 Urine Ketones (Auto) Negative 07/01/24 09:55 Urine Blood (Auto) 25 Berny/uL 07/01/24 09:55 Urine Nitrite (Auto) Negative 07/01/24 09:55 Urine Bilirubin (Auto) 0 mg/dL 07/01/24 09:55 Urine Urobilinogen (Auto) 0.2 mg/dL 07/01/24 09:55 Leukocyte Esterase (Auto) 0 Lazaro/uL 07/01/24 09:55 Assessment & Plan Assessment & Plan (1) BPH (benign prostatic hyperplasia): Comment: One year PSA, TURP Dr. Valles November 2022 Code(s): N40.0 - Benign prostatic hyperplasia without lower urinary tract symptoms Category: Medical Qualifiers: Lower urinary tract symptom presence: symptoms present Lower urinary tract symptom detail: urinary frequency Qualified Code(s): N40.1 - Benign prostatic hyperplasia with lower urinary tract symptoms; R35.0 - Frequency of micturition (2) Bladder neck contracture: Comment: Laser procedure Dr. Valles August 2021 Code(s): N32.0 - Bladder-neck obstruction Category: Medical Plan P.r.n. follow-up Orders: Orders AMB Urinalysis Automated Today Z13.9 - Encounter for screening, unspecified Patient Instructions: Imaging studies, laboratory and physical exam results were discussed and reviewed in detail. No major barriers to patient understanding were identified. An opportunity to ask questions regarding the treatment plan was provided. All questions were answered. The patient expressed understanding and agreement with the above treatment plan. The patient is aware they should contact our office by phone for worsening of their current condition or the appearance of new urologic symptoms. Compliance is encouraged with any medications and followup testing that is ordered. It is a privilege to participate in the urologic care of your patient. If you have any questions or concerns regarding treatment for the above conditions, or other urologic issues, please do not hesitate to contact me. The office telephone contact is [phone]. This note is constructed using voice recognition software. While every effort has been made to ensure accuracy school office manager errors may have been included. Yours sincerely, Dr Donta Valles MD, [facility] - Urology Providers of Expert, Compassionate Care for the Genitourinary System Coding Level of Care Code Est Pt Level 4 (56582) Diagnoses Benign prostatic hyperplasia with urinary frequency N40.1; R35.0 Lower urinary tract symptom presence: symptoms present Lower urinary tract symptom detail: urinary frequency Bladder neck contracture N32.0 CPT Codes Post Residual Void - PVR CPT Code: 84619-[id number] Void Residual by ultrasound ([id number])
--- OUTSIDE RECORDS SUMMARY | 2024-07-01 10:09 | XMS_ITS | Clinical Summary ---
Author Organization [facility] Address [address] [place] [address] Care Team Providers Care Web Publisher Name Role Phone Pcp, No Primary Care Provider Unavailabl e Allergies Active Allergy Reactions Criticality Noted Date Comments Sulfur Itching Low 12/03/2023 All sulfa medications Medications Medication Sig Dispensed Refills Start Date End Date Status lisinopril (PRINIVIL,ZeSTRIL) 5 MG tablet Take 1 tablet (5 mg total) by mouth every morning. Active Multiple Vitamin (MULTIVITAMIN PO) Take by mouth daily. Active lubiprostone (AMITIZA) 24 MCG capsule Take 1 capsule (24 mcg total) by mouth 2 (two) times a day with meals. Active OMEprazole (PriLOSEC) 20 MG capsule Take 1 capsule (20 mg total) by mouth every morning. Active Active Problems Problem Noted Date Diagnosed Date Hypertension 12/12/2023 Assessment & Plan (12/12/2023 11:36 AM EDT): Well-controlled by lifestyle and medication. Continue current medication regimen as prescribed. Continue plan as previously directed by your provider. GERD (gastroesophageal reflux disease) Assessment & Plan (12/12/2023 11:36 AM EDT): Well-controlled and managed with medication. Continue current medication regimen as prescribed. Continue plan as previously directed by your provider. FRITZ (obstructive sleep apnea) 12/12/2023 Assessment & Plan (12/12/2023 12:01 PM EDT): Compliant with CPAP as prescribed. Continue plan as previously directed by your provider. Obesity (BMI 30-39.9) 12/12/2023 Assessment & Plan (12/12/2023 12:02 PM EDT): Diet, exercise and lifestyle modifications. Social History Tobacco Use Types Packs/Day Years Used Date Smoking Tobacco: Never Smokeless Tobacco: Never Tobacco Cessation:Counseling Given: Not Answered Alcohol Use Standard Drinks/Week Comments Not Currently 0 (1 standard drink = 0.6 oz pur e alcohol) AUDIT-C Answer Date Recorded Q1: How often do you have a drink containing alcohol? Never 12/03/2023 Q2: How many drinks containi ng alcohol do you have on a typical day when you are drinking? Patient does not drink Q3: How often do you have si x or more drinks on one occasion? Never 12/03/2023 Sex and Gender Information Value Date Recorded Sex Assigned at Male 12/03/2023 3:15 PM EDT Gender Identity Male 12/03/2023 3:15 PM EDT Sexual Orientation Heterosexual (straight) 12/02 3:15 PM EDT Last Filed Vital Signs Vital Sign Reading Time Taken Comments Blood Pressure 120/84 12/12/2023 11:00 AM EDT Pulse 62 12/12/2023 11:00 AM EDT Temperature 36.6 ??C (97.9 ??F) 12/12/2023 11:00 AM E DT Respiratory Rate 16 12/12/2023 11:00 AM EDT Oxygen Saturation 98% 12/12/2023 11:00 AM EDT Inhaled Oxygen Concentration - - Weight 112 kg (246 lb 12.8 oz) 12/12/2023 11:00 AM EDT Height 175 cm (5' 8.9 ) 12/12/2023 11:00 AM EDT Body Mass Index 36.55 12/12/2023 11:00 AM EDT Plan of Treatment Health Maintenance Due Date Last Done Comments Hepatitis C Virus Screening 1970 HIV Screening 1983 DTaP/Tdap/Td Vaccines (1 - Tdap) 1989 Hepatitis B Vaccines (1 of 3 - 19+ 3-dose series) 1989 Colonoscopy 2015 Pneumococcal Vaccines 50+ (1 of 1 - PCV) 01/14/2020 Zoster (Shingles) Vaccine (1 of 2) 01/14/2020 Influenza Vaccine 01/03/2024 03/20/2012 COVID-19 Vaccine (3 - 2023-2 5 season) 2024 08/06/2020, 07/16/2020 Pneumococcal Vaccine: Pediatric (0-5 Years) and At-Risk Patients (6 to 49 Years) Aged Out No longer eligible b ased on patient's age to complete this topic Care Teams Web Publisher Relationship Specialty Start Date End Date Pcp, No PCP - General General Medicine 12/03/23
--- OUTSIDE RECORDS SUMMARY | 2024-07-01 10:09 | XMS_ITS | Continuity of Care Document ---
Author Organization [facility] Address [address] [place] [address] Phone Care Team Providers Care Rip Tailer Name Role Phone Quintin VYAS, RVT, SHADI, [...] Mins- [place] & [place] [facility], [address] [place] [address] Dr Alexander [address], [id number], [place] tel:[phone] CVR [facility] Venous insufficienc y (chronic) (peripheral) 4 Quintin VYAS RVT, SHADI Tee. [address] [place] [address], [id number], [place]. tel:[phone] Referring Provider: Lucia Davidson MD, [address] [place] [address] [address] [facility], [place], [address]. tel:[phone] [facility], [address] [place] [address] Dr Alexanedr [address], [id number], [place] tel:[phone] CVR [facility] Encounter for follow-up examination after completed treatment for conditions other than malignant neoplasmVari cose veins of bilateral lower extremities with pain 4 Quintin VYAS RVT, SHADI Oliveira. [address] [place] [address], [place], [id number], [place]. tel:[phone] Referring Provider: Lucia Davidson MD, [address] [place] [address], [address]. tel:[phone] [facility], [address] [place] [address] Dr Catherine [address] [place] Hoang [place], [id number], [place] tel:[phone] CV[place] - [place] [facility] [place] [facility] Encounter for follow-up examination after completed treatment for conditions other than malignant neoplasmPain in right leg Oct- 4 Quintin VYAS RVT, SHADI Oliveira. [address] [facility], [address], [place], [place], [id number], [place]. tel:[phone] Referring Provider: Lucia Davidson MD, [address] [place] [address], [address]. tel:[phone] [facility], [address] [place] [address] Dr [address] [place]grid Hoang [place], [id number], [place] tel:[phone] [place] [facility] [place] Varicose veins of right lower extremity with other complication s Mar- 4 Quintin VYAS RVT, SHADI Oliveira. [address] [facility], [address], [place], [place], [id number], [place]. tel:[phone] Referring Provider: Lucia Davidson MD, [address] [place] [address], [address]. tel:[phone] [facility], [address] [place] [address] [address] [place]grid Hoang [place], [id number], [place] tel:[phone] [place] [facility] [place] Varicose veins of left lower extremity with pain Mar- 4 Quintin VYAS RVT, SHADI Oliveira. [address] [facility], [address], [place], [place], [id number], [place]. tel:[phone] Referring Provider: Lucia Davidson MD, [address] [place] [address], [address]. tel:[phone] [facility], [address] [place] [address] [address] [place]grid Hoang [place], [id number], [place] tel:[phone] CVR - [place] [facility] [place] No Information Mar- 4 Quintin VYAS RVT, SHADI Oliveira. [address] [place] [address], [address], [place], [place], [id number], [place]. tel:[phone] Referring Provider: Lucia Davidson MD, [address] [place], [address]. tel:[phone] [facility], [address] [place] [address] [address] Ingrid Hoang [place], [id number], [place] tel:[phone] CVR - [facility] Varicose veins of left lower extremity with other complication s Mar- 4 Quintin VYAS RVT, SHADI Oliveira. [address] [place] [address], [address], [place], [place], [id number], [place]. tel:[phone] Referring Provider: Lucia Davidson MD, [address] [place] [address] [place] [address] [place], [address]. tel:[phone] Office/Outpt E&M Established 15 Mins- [place] & [place] [facility], [address] [place] [address] Dr Alexander [address] [place]grid [place]ang [place], [id number], [place] tel:[phone] CVR - [facility] Chronic venous hypertension (idiopathic) without complication s of bilateral lower extremityEss ential (primary) hypertension Feb- 4 Quintin VYAS RVT, SHADI Oliveira. [address] [place] [address], [address], [place], [place], [id number], [place]. tel:[phone] Referring Provider: Lucia Davidson MD, [address] [place], [address]. tel:[phone] [facility], [address] [place] [address] [address] [place]grid Hoang [place], [id number], [place] tel:[phone] [place] [facility] [place] Varicose veins of bilateral lower extremities with pain 4 Qunitin VYAS RVT, SHADI Oliveira. [address] [place] [address], [address], [place], [place], [id number], [place]. tel:[phone] Referring Provider: Lucia Davidson MD, [address] [place] [address] [place], [address]. tel:[phone] [facility], [address] [place] [address] Dr Alexander [address] [place]grid [place], [id number], [place] tel:[phone] [place] Encounter for follow-up examination after completed treatment for conditions other than malignant neVaricose veins of right lower extremity with pain 4 Quintin VYAS RVT, SHADI Oliveira. [address] [place] [address], [place] [address], [place], [place], [id number], [place]. tel:[phone] Referring Provider: Lucia Davidson MD, [address] [place], [address]. tel:[phone] [facility], [address] [place] [address] [address] [place]ang [place], [id number], [place] tel:[phone] CV[place] [facility] [place] Encounter for follow-up examination after completed treatment for conditions other than malignant nePain in right leg Jan- 4 Quintin VYAS RVT, SHADI Oliveira. [address] [place] [address], [address], [place], [place], [id number], [place]. tel:[phone] Referring Provider: Lucia Davidson MD, [address] [place] [address] [address] [place] [address] [place], [address]. tel:[phone] [facility], [address] [place] [address] Dr Alexander [address] [place], [id number], [place] tel:[phone] [place] [facility] [place] Varicose veins of right lower extremity with other complication s 4 Larry NIRMALA Virgen. [address] [facility], [address], [place], [place], [id number], [place]. tel:[phone] Referring Provider: Lucia Davidson MD, [address] [place], [address]. tel:[phone] [facility], [address] [place] [address] [address]Ingrid [place], [id number], [place] tel:[phone] [place] [facility] [place] Varicose veins of right lower extremity with other complication s 4 Quintin VYAS RVT, SHADI Oliveira. [address] [place] [address], [address], [place], [place], [id number], [place]. tel:[phone] Referring Provider: Lucia Davidson MD, [address] [facility] [address] [place] [address] [place], [address]. tel:[phone] [facility], [address] [place] [address] [address]Ingrid [place], [id number], [place] tel:[phone] [place] Varicose veins of right lower extremity with other complication s 4 Quintin VYAS RVT, SHADI Oliveira. [address] [place] [address], [address], [facility] [place], [id number], [place]. tel:[phone] Referring Provider: Lucia Davidson MD, [address] [facility] [address] [facility], [place], [address]. tel:[phone] [facility], [address] [place] [address] [address]Ingrid [place], [id number], [place] tel:[phone] CV[place] Encounter for follow-up examination after completed treatment for conditions other than malignant nePain in left lower leg 4 Quintin VYAS RVT, SHADI Oliveira. [address] [facility], [address], [facility] [place], [id number], [place]. tel:[phone] Referring Provider: Lucia Davidson MD, [address] [place], [address]. tel:[phone] [facility], [address] [place] [address] [address] [place]ang [place], [id number], [place] tel:[phone] [place] [facility] [place] No Information 4 Quintin VYAS RVT, SHADI Oliveira. [address] [place] [address], [id number], [place]. tel:[phone] [facility], [address] [place] [address] [address] [place]grid Hoang [place], [id number], [place] tel:[phone] [place] Encounter for follow-up examination after completed treatment for conditions other than malignant neChronic venous hypertension (idiopathic) with other complication s of left lower extremity 4 Quintin VYAS RVT, SHADI Oliveira. [address] [place] [address], [place], [place], [id number], [place]. tel:[phone] Referring Provider: Lucia Davidson MD, [address] [place] [address] [place], [address]. tel:[phone] [facility], [address] [place] [address] [address]SuIngrid sinha [place], [id number], [place] tel:[phone] [place] Varicose veins of left lower extremity with other complication s 4 Quintin VYAS RVT, RPVI Robert. [address] [place] [address], [id number], [place]. tel:[phone] Referring Provider: Lucia Davidson MD, [address] [place] [address] [place], [address]. tel:[phone] [facility], [address] [place] [address] Dr Alexander 1000SuIngrid sinha [place], [id number], [place] tel:[phone] [place] Varicose veins of left lower extremity with other complication s 4 Quintin VYAS RVT, SHADI Oliveira. [address] [facility] [address], [place], [place], [id number], [place]. tel:[phone] Referring Provider: Lucia Davidson MD, [address] [place] [address] Dr [address] [place], [address]. tel:[phone] Offic/outpt E&m Estab 5 Min Trial- Telemedicine CT & [place] [facility], [address] [place] [address] Dr Alexander 1000SuIngrid sinha [place], [id number], [place] tel:[phone] CVR - [place] Venous insufficienc y (chronic) (peripheral) Pruritus, unspecifiedE ssential (primary) hypertension 4 Zhane Witt. [address] [place] [address], [place] [address], [place], [place], [id number], [place]. tel:[phone] Referring Provider: Lucia Davidson MD, [address] [place] [address] [place] [address] [place], [address]. tel:[phone] Office/Oupt E&M New Pt 60 Mins- CT & [place] [facility], [address] [place] [address] Dr Alexander 1000SuIngrid sinha [place], [id number], [place] tel:[phone] [place] Varicose veins of bilateral lower extremities with other complication Mary Carmen in right lower legPain in left lower legPain in right legEssential (primary) hypertension Pruritus, unspecifiedP ain in left leg 4 Quintin VYAS RVT, SHADI Oliveira. [address] [facility], [address], [place], [place], [id number], [place]. tel:[phone] Referring Provider: Lucia Davidson MD, [address] [place] [address] [address] [place], [address]. tel:[phone] [facility], [address] [place] [address] Dr Alexander 1000SuIngrid sinha [place], [id number], [place] tel:[phone] [place] Varicose veins of bilateral lower extremities with pain 4 Quintin VYAS, RVT, RPVI Tee. [address] [facility], [address], [facility] [place], [id number], [place]. tel:[phone] Referring Provider: Lucia Davidson MD, [address] [place] [address] [address] [facility], [place], [address]. tel:[phone] Family History Family Member Type Diagnosis Age At Onset No Information Payers Payer name Insurance type Covered libertarian ID Authoriza tion(s) [facility] AARP Medic are Complete CI [id number] Medical Assistance [facility] [id number] Social History Type Description Quantity Date Captured [...] Information Instructions Date Instruction Additional Infor mation Diet education Related to Body mass index (BMI) 33.0-33.9, adult Giving Encouragement to exercise Related to Body mass index (BMI) 33.0-33.9, adult Pre and post instruc tions reviewed and provided Related to Venous insufficiency (chronic) (peripheral) Lifestyle education Related to B georgina mass index (BMI) 33.0-33.9, adult Compression stocking usage as conservative measure Related to Venous insufficiency (chronic) (peripheral) Diet education Related to Body mass index (BMI) 33.0-33.9, adult Giving Encouragement to exercise Related to Body mass index (BMI) 33.0-33.9, adult Lifestyle education Related to B georgina mass index (BMI) 33.0-33.9, adult Pre and post instruc tions reviewed and provided Related to Chronic venous hypertension (idiopathic) without complications of bilateral lower extremity Compression stocking usage as conservative measure Related to Chronic venous hypertension (idiopathic) without complications of bilateral lower extremity Pre and post instruc tions reviewed and provided Related to Venous insufficiency (chronic) (peripheral) Compression stocking usage as conservative measure Related to Venous insufficiency (chronic) (peripheral) Diet education Related to Body mass index (BMI) 33.0-33.9, adult Giving Encouragement to exercise Related to Body mass index (BMI) 33.0-33.9, adult Lifestyle education Related to B georgina mass index (BMI) 33.0-33.9, adult Patient education booklet given Related to Varicose veins of bilateral lower extremities with other complications Pre and post instruc tions reviewed and provided Related to Varicose veins of bilateral lower extremities with other complications Assessments Type Assessment Date No Information Patient Care Teams Name Effective Dates (start - stop) Status Members No Information
--- OUTSIDE RECORDS SUMMARY | 2024-07-01 10:09 | XMS_ITS | Clinical Summary ---
Author Organization [facility] Address [address] [place] [address] Care Team Providers Care Provider Contracting Consultant Name Role Phone Lucia Davidson MD Primary Care Provider [phone] Medical History Medical History Date Comments Back pain DX:Back pain BPH (benign prostatic hyperplasia) DX:BPH (benign prostatic hyperplasia) Chronic idiopathic constipation DX:Chronic idiopathic constipation Deaf DX:Deaf Mixed hyperlipidemia DX:Mixed hy perlipidemia Essential (primary) hypertension DX:Essential (primary) hypertension Epididymitis, left DX:Epididymit is, left Migraine DX:Migraine Obesity DX:Obesity Thoracic spine pain DX:Thoracic spine pain Vitamin D deficiency DX:Vitamin D deficiency Family History Medical History Relation Name Comments Prostate cancer Father Breast cancer Mother Relation Name Status Comments Father Mother Alive Social History Tobacco Use Types Packs/Day Years Used Date Smoking Tobacco: Never Smokeless Tobacco: Never Alcohol Use Standard Drinks/Week Comments Never 0 (1 standard drink = 0.6 oz pur e alcohol) Sex and Gender Information Value Date Recorded Sex Assigned at Not on file Gender Identity Not on file Sexual Orientation Not on file Obstetrics History Last Filed Vital Signs Vital Sign Reading Time Taken Comments Blood Pressure - - Pulse - - Temperature - - Respiratory Rate - - Oxygen Saturation - - Inhaled Oxygen Concentration - - Weight 116 kg (255 lb) 08/22/2021 11:48 AM EDT Height 177.8 cm (5' 10 ) 08/22/2021 11:48 AM EDT Body Mass Index 36.59 08/22/2021 11:48 AM EDT Plan of Treatment Health Maintenance Due Date Last Done Comments DTaP,Tdap,and Td Vaccines (1 - Tdap) 1989 Hepatitis B Vaccines (1 of 3 - 19+ 3-dose series) 1989 Zoster Vaccines (1 of 2) 01/14/2020 Cholesterol Screening (Lipid Panel) 05/07/2022 Colorectal Cancer Screening: Colonoscopy 05/07/2022 Depression Screening 05/07/2022 HIV Screening 05/07/2022 Hepatitis C Screening 05/07/2022 Social Influencers of Health Screening 05/07/2022 COVID-19 Vaccine ( season) 2024 05/08/2021, 08/06/2020, 07/16/2020 Influenza Vaccine (#1) 2024 , 03/26/2019, 02/27/2018, Additional history exists HIB Vaccines Aged Out No longer eligi ble based on patient's age to complete this topic HPV Vaccines Aged Out No longer eligi ble based on patient's age to complete this topic Hepatitis A Vaccines Aged Out No long er eligible based on patient's age to complete this topic IPV Vaccines Aged Out No longer eligi ble based on patient's age to complete this topic MMR Vaccines Aged Out No longer eligi ble based on patient's age to complete this topic Meningococcal ACWY Vaccine Aged Out N o longer eligible based on patient's age to complete this topic Pneumococcal Vaccine: Pediatrics (0 to 5 Years) and At-Risk Patients (6 to 64 Years) Aged Out No longer eligible based on patient's age to complete this topic RSV Immunization Patients Under 20 months Aged Out No longer eligible based on patient's age to complete this topic Varicella Vaccines Aged Out No longer eligible based on patient's age to complete this topic Care Teams Provider Contracting Consultant Relationship Specialty Start Date End Date Lucia Davidson MD [address] [place] [address] [address] [facility] [place] [address] PCP - General Internal Medicine 08/08/21
== END 2024-07-01 10:05 | disposition home or self-care (01) ==
PROVIDERS: PCP Internal Medicine; Visit Provider Urology
DX: N40.1 Benign prostatic hyperplasia with lower urinary tract symptoms (principal); R35.0 Frequency of micturition; N32.0 Bladder-neck obstruction; Z13.9 Encounter for screening, unspecified
CPT/HCPCS: 99214

== ENCOUNTER → 2024-07-01 09:37 | Outpatient (BNVA) | payer MEDICARE, MEDICAID, SELFPAY | PROVIDERS: PCP Internal Medicine; Visit Provider Urology | DX: N40.1 Benign prostatic hyperplasia with lower urinary tract symptoms (principal); R35.0 Frequency of micturition; N32.0 Bladder-neck obstruction | CPT/HCPCS: 51798; 81003; 99212 ==

== ENCOUNTER 2024-08-05 08:25 | Outpatient (AMB) | payer MEDICARE, MEDICAID, SELFPAY ==
[2024-08-05 08:33] VITALS: BMI 36.2
--- NOTE | 2024-08-05 08:33 | A.OFFVIS_ITS ---
VS Expanded 08/05/24 08:33 Height 5 ft 11 in Weight 259 lb 11.272 oz BMI 36.2 Intake Visit Reasons: obesity Allergies Sulfa (Sulfonamide Antibiotics) [SULFA(SULFONAMIDE ANTIBIOTICS)] Allergy (Mild, Verified 07/01/24 09:45) HIVES, rash and red bumps, itching Nutrition Presentation Details: Pt presents for MNT f/u for IGT Pt presented with educational sign language interpreter during this appt Pt reports doing well, choosing higher fiber food options Challenges with increased appetite and is keeping sedentary. BS Monitoring Most Recent Diabetes Results: Cholesterol 184 mg/dL (<200) 05/16/24 HDL Cholesterol 43 mg/dL (>40) 05/16/24 Triglycerides 66 mg/dL (<150) 05/16/24 Creatinine 0.88 mg/dL (0.5-1.4) 05/16/24 Blood Urea Nitrogen 10 mg/dL (9-16) 05/16/24 Sodium 142 mmol/L (135-145) 05/16/24 Potassium 4.6 mmol/L (3.3-5.1) 05/16/24 Chloride 109 mmol/L (96-108) H 05/16/24 Carbon Dioxide 28 mmol/L (22-29) 05/16/24 Calcium 9.1 mg/dL (8.4-10.2) 05/16/24 AST 25 U/L (5-37) 05/16/24 ALT 42 U/L (0-40) H 05/16/24 Total Protein 7.0 g/dL (6.5-8.0) 05/16/24 Albumin 4.0 g/dL (3.5-5.0) 05/16/24 [facility]MERLY [facility] Medical History Annual physical exam Adult general medical exam Upper respiratory tract infection Weak urinary stream Allergic reaction Tachycardia Dysuria Varicose veins of left lower extremity with inflammation Varicose veins of right lower extremity with inflammation Neck pain Daytime sleepiness FRITZ on CPAP GERD (gastroesophageal reflux disease) Weak urinary stream Exposure to COVID-19 virus Nasal congestion Thoracic arthritis BPH (benign prostatic hyperplasia) Musculoskeletal pain Osteoporosis screening Rash COVID-19 vaccine series completed BPH (benign prostatic hyperplasia) Thoracic spine pain Cough Back pain Nasal congestion Left epididymitis Deaf Migraine Vitamin D deficiency Hypertension Hypercholesterolemia Screening for colon cancer Chronic idiopathic constipation Surgical History Status post ablation of incompetent vein using laser Hx of colonoscopy Varicocele History of esophagogastroduodenoscopy (EGD) Hx of hernia repair Family History (Updated 05/23/24 @ 12:56 by Lucia Davidson MD) Father History of prostate cancer Skin cancer CVA (cerebral vascular accident) Mother HX: breast cancer Paternal Uncle Skin cancer CVA (cerebral vascular accident) Maternal Aunt HX: breast cancer Paternal Aunt CVA (cerebral vascular accident) Social History (Updated 05/23/24 @ 12:56 by Lucia Davidson MD) Household Members: Spouse, Family and Children Housing: House Are you a primary manager managed care to a significant other at home: No Do you presently have visiting nurse or other home services: No Alcohol intake: never Patient Tobacco Use Status: Never used Tobacco Tobacco use type: Cigarette e-Cigarette/Vaping Use: Never Used Second Hand Smoke Exposure: No service: No Current occupational status: employed Cognitive needs: No Hearing needs: Yes Vision needs: Yes Assessment & Plan Assessment & Plan (1) Impaired glucose tolerance: Code(s): R73.02 - Impaired glucose tolerance (oral) Category: Medical Plan: Diet modification related to IFG, hypercholesterolemia, obesity, HTN Review reduction sat'd fat, choosing fiber rich foods and increasing physical activity ? Used wt : 116 kg(10/2022), 108 kg (02/2023) Est kcal as per MSJ: 9070-5438 (40% carb, 30% fat/prot) Est fluid needs: 2900 ml/d (25 ml/kg bw) Rec fiber: increase to 8-10 g per day and gradually increase to 35 g as tolerated Rec Na: < 2000 mg /d Educate patient on: (R= Reviewed, V = verbalizes understanding N/R= Needs review N/A= not applicable) * Food sources of carbohydrates and serving adequate serving sizes : R , V * Difference between complex carbohydrates and simple carbohydrates, role of fiber: R, V * Differences between fats (MUFA/PUFA/saturated fats, trans fats) and food sources of various fats: R , V * Food sources of sodium and salt and healthy modifications for heart health and kidney health: R * How to interpret food labels: R , V * Healthy Plate method concept: R , V * Physical activity: benefits and precaution: R (2) Obesity (BMI 30-39.9): Code(s): E66.9 - Obesity, unspecified Category: Medical Plan: Diet modification related to OBesity, IFG, hypercholesterolemia, HTN Review reduction of total fats and portion sizes to promote weight loss ? Used wt : 116 kg(10/2022), 108 kg (02/2023), 118 kg (08/26) Est kcal as per MSJ: 8026-0235 (40% carb, 30% fat/prot) Est fluid needs: 2900 ml/d (25 ml/kg bw) Rec fiber: increase to 8-10 g per day and gradually increase to 35 g as tolerated Rec Na: < 2000 mg /d Educate patient on: (R= Reviewed, V = verbalizes understanding N/R= Needs review N/A= not applicable) * Food sources of carbohydrates and serving adequate serving sizes : R , V * Difference between complex carbohydrates and simple carbohydrates, role of fiber: R, V * Differences between fats (MUFA/PUFA/saturated fats, trans fats) and food sources of various fats: R , V * Food sources of sodium and salt and healthy modifications for heart health and kidney health: R * How to interpret food labels, total calories /calories from fat R , V * Healthy Plate method concept: R , V * Physical activity: benefits and precaution: R Patient Instructions: Reduce on total fat intake (remove skins, have a fruit instead of pastries, reduce portion at dinner) Engage in physical activity, 30 minutes walks 4 times a week, unless otherwise specified by your doctor Goal weight by next f/u 5-6 lbs less Coding Level of Care Code Nutr Indiv Subseq (59076) Diagnoses Impaired glucose tolerance R73.02 Obesity (BMI 30-39.9) E66.9 Time Spent (min) 25
--- OUTSIDE RECORDS SUMMARY | 2024-08-05 08:47 | XMS_ITS | Clinical Summary ---
Author Organization [facility] Address [address] [place] [address] Care Team Providers Care Pressure Steamer Tender Name Role Phone Lucia Davidson MD Primary Care Provider [phone] Medical History Medical History Date Comments Back [...] Recorded Sex Assigned at Not on file Legal Sex Male 4:52 AM EST Gender Identity Not on file Sexual Orientation [...] of 3 - 19+ 3-dose series) 1989 Pneumococcal Vaccine: 50+ Years (1 of 1 - PCV) 01/14/2020 Zoster Vaccines (1 of 2) 01/14/2020 Cholesterol [...] patient's age to complete this topic Meningococcal B Vacine Aged Out No lo nger eligible based on patient's age to complete [...] age to complete this topic Care Teams Pressure Steamer Tender Relationship Specialty Start Date End Date Lucia Davidson MD [address] [place] [address] [address] [facility] [place] [address] PCP - General Internal Medicine 08/08/21
--- OUTSIDE RECORDS SUMMARY | 2024-08-05 08:47 | XMS_ITS | Clinical Summary ---
Author Organization [facility] Address [address] [place] [address] Care Team Providers Care Management Developer Name Role Phone Pcp, No Primary Care [...] age to complete this topic Care Teams Management Developer Relationship Specialty Start Date End Date Pcp, No PCP - General General Medicine 12/03/23
--- OUTSIDE RECORDS SUMMARY | 2024-08-05 08:47 | XMS_ITS | Encounter Summary ---
Author Organization [employer] Address [address] [place] [address] [address] [place] [address] Care Team Providers Care Ornamenter Name Role Phone Unavailable Primary Care Provider Unavailabl e Encounter Details Date Type Department Care Team (Latest Contact Info) Description 07/02/2020 Abstract [facility] CONVERSIONS Dental, Provider, DDS Social History Tobacco Use Types Packs/Day Years Used Date Smoking Tobacco: Never Assessed Sex and Gender Information Value Date Recorded Sex Assigned at Male 04/03/2022 10:37 AM EDT Legal Sex Male 10:37 AM EDT Gender Identity Male 04/03/2022 10:37 AM EDT Sexual Orientation Straight 04/03/2022 10 :37 AM EDT documented as of this encounter Plan of Treatment Not on file documented as of this encounter Visit Diagnoses Not on filedocumented in this encounter
--- OUTSIDE RECORDS SUMMARY | 2024-08-05 08:47 | XMS_ITS | Clinical Summary ---
Author Organization [employer] Address [address] [place] [address] [address] [place] [address] Care Team Providers Care Journeyman Pressman Name Role Phone Unavailable Primary Care Provider Unavailabl e Social History Tobacco Use Types Packs/Day Years Used Date Smoking Tobacco: Never Assessed Sex and Gender Information Value Date Recorded Sex Assigned at Male 04/03/2022 10:37 AM EDT Legal Sex Male 10:37 AM EDT Gender Identity Male 04/03/2022 10:37 AM EDT Sexual Orientation Straight 04/03/2022 10 :37 AM EDT Plan of Treatment Health Maintenance Due Date Last Done Comments CT Colonography 1970 Colonoscopy 1970 Colorectal Cancer Screening 1970 Depression Screening 1970 FIT DNA/Cologuard 1970 FIT 1970 FOBT 1970 Lipid Panel 1970 Sigmoidoscopy 1970 Alcohol/Substance Use Screening 1982 Tobacco Screening 1982 DTaP/Tdap/Td Vaccines (1 - Tdap) 1989 Hepatitis B Vaccines (1 of 3 - 19+ 3-dose series) 1989 Pneumococcal Vaccine: 50+ Ye ars (1 of 1 - PCV) 01/14/2020 Zoster Vaccines (1 of 2) 01/14/2020 COVID-19 Vaccine ( - 2023-2 5 season) 2024 Influenza Vaccine (#1) 2024 RSV Patients and Pa tients Aged 60 years or older (1 - 1-dose 75+ series) 2045 HIB Vaccines Aged Out No longer eligi [...] patient's age to complete this topic Meningococcal Vaccine Aged Out No cait mike eligible based on patient's age to complete this topic RSV under 20 months Aged Out No longe r eligible based on patient's age to complete this topic Rotavirus Vaccines Aged Out No longer eligible based on patient's age to complete this topic
--- OUTSIDE RECORDS SUMMARY | 2024-08-05 08:47 | XMS_ITS | Patient Health Record ---
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 Name Role Phone Lucia Davidson Primary Care Provider Andrey Lucas Unavailable [phone] Allergies Allergen (clinical drug ingredient) Drug/Non Drug Allergy documented on EMR Reaction Allergy Type Onset Date Status sulfa itching and bubbles Drug Allergy Active Reason For Referral No Information Medications Medication SIG (Take, Route, Frequency, Duration) Notes Start Date End Date Status Lisinopril 10 MG Oral for 30 A ctive Ciclopirox Olamine 0.77 % 1 application to affected area Externally Twice a day for 30 days Not-Taki ng Ciclopirox 0.77 % 1 application Commercial Attache ally Twice a day for 30 days 02/06/2020 Active Omeprazole 20 MG Orally Once a day Active Immunizations Vaccine Route Administration Date Status Comme nts COVID-19 Pfizer BioNTech Vaccine Unknown 07/16/2020 Adm inistered COVID-19 Pfizer BioNTech Vaccine Unknown 08/06/2020 Adm inistered Social History Tobacco Use: Social History Observation Description Date Details (start date - stop date) Never Smoker NA - NA Tobacco Use/Smoking Question Answer Notes Are you a: nonsmoker Additional Findings: Tobacco Non-User Current no n-smoker Alcohol Screen Question Answer Notes Did you have a drink containing alcohol in the p ast year? No Points 0 Interpretation Negative Tobacco use other than smoking: Question Answer Notes Are you an other tobacco user? No Problems Problem Type SNOMED Code ICD Code Onset Dates Problem Status W/U Status Risk Notes Problem Tinea unguium ([id number]) Tinea unguium (B35.1) Active confirmed Plan Of Treatment Pending Test Test Name Order Date [id number] NAIL, 6 OR MORE 02/05/2020 [id number] Plate 03/31/2021 Insurance Providers Payer Name Payer Address Payer Phone Subscriber Number Group Number Insured Name Patient Relationship to Insured Coverage Start Date Coverage End Date Medicare National [employer] [address] [facility] [place] [address] [id number] Abraham Amos Self - patient is the insured Medical (General) History Medical History History ICD Code Hypertension Reflux ( GERD) Surgical History Surgery Date(Month/Year)
== END 2024-08-05 09:20 | disposition home or self-care (01) ==
PROVIDERS: PCP Internal Medicine; Visit Provider Dietitian, Registered
DX: R73.02 Impaired glucose tolerance (oral) (principal); E66.9 Obesity, unspecified

== ENCOUNTER → 2024-08-05 08:25 | Outpatient (BNVA) | payer MEDICARE, MEDICAID, SELFPAY | PROVIDERS: PCP Internal Medicine; Visit Provider Dietitian, Registered | DX: R73.02 Impaired glucose tolerance (oral) (principal); E66.9 Obesity, unspecified; Z68.36 Body mass index [BMI] 36.0-36.9, adult | CPT/HCPCS: 97803 ==

== ENCOUNTER 2024-08-25 09:14 | Outpatient (AMB) | payer MEDICARE, MEDICAID, SELFPAY ==
--- NOTE | 2024-08-25 09:53 | MHC.OFFWIV ---
Intake Vital Signs 08/25/24 09:54 Height 5 ft 11 in Weight 258 lb BMI 36.0 BP 110/64 Blood Pressure Location Rt brachial Position Sitting Pulse 76 Pulse Source Pulse Oximeter Pulse Oximetry (%) 98 Oxygen Delivery Method Room Air Intake Visit Reasons: EP-lt side headaches- patient is deaf Intake Note: Patient here for left sided headaches, he states he was recently lifting something and heard a pop and since then has been having this issue and has been present for 3 1/2 weeks now. pt has a family hx of strokes. Patient Tobacco Use Status: Never used Tobacco Allergies Sulfa (Sulfonamide Antibiotics) [SULFA(SULFONAMIDE ANTIBIOTICS)] Allergy (Mild, Verified 08/25/24 09:57) HIVES, rash and red bumps, itching Do you need a note to return to daycare/school/sports/work: No HPI HPI Comments History of Present Illness Details Video certified court interpreter with ASL used for this visit. Patient is a 54-year-old hearing impaired male complaining of 2 1/2 weeks of headaches. He tells me he was lifting something heavy approximately 2 and half weeks ago when he felt a pop in his head and then started getting headaches which he describes as a pressure sensation on the left side of his head, he is also complaining of left-sided neck pain. He denies any fevers, changes in his hearing, light sensitivity, sound sensitivity, nausea or vomiting. He does endorse some dizziness when he is changing positions going from kneeling to standing, he describes the dizziness as a off balance and he just steadies himself and it goes away in a few minutes. He also endorses some blurry vision that comes and goes, nothing seems to make that worse or make it better, it self resolves. He says he is concerned because he has tried taking 1300 mg of Tylenol with no relief 20 mg of baclofen and 5 mg of cyclobenzaprine, none of these medications bring him any relief. He is concerned because he has got a family history of strokes including his father and his aunt. FORMERLY [facility] Medical History Annual physical exam Adult general medical exam Upper respiratory tract infection Weak urinary stream Allergic reaction Tachycardia Dysuria Varicose veins of left lower extremity with inflammation Varicose veins of right lower extremity with inflammation Neck pain Daytime sleepiness FRITZ on CPAP GERD (gastroesophageal reflux disease) Weak urinary stream Exposure to COVID-19 virus Nasal congestion Thoracic arthritis BPH (benign prostatic hyperplasia) Musculoskeletal pain Osteoporosis screening Rash COVID-19 vaccine series completed BPH (benign prostatic hyperplasia) Thoracic spine pain Cough Back pain Nasal congestion Left epididymitis Deaf Migraine Vitamin D deficiency Hypertension Hypercholesterolemia Screening for colon cancer Chronic idiopathic constipation Surgical History Status post ablation of incompetent vein using laser Hx of colonoscopy Varicocele History of esophagogastroduodenoscopy (EGD) Hx of hernia repair Family History (Updated 05/23/24 @ 12:56 by Lucia Davidson MD) Father History of prostate cancer Skin cancer CVA (cerebral vascular accident) Mother HX: breast cancer Paternal Uncle Skin cancer CVA (cerebral vascular accident) Maternal Aunt HX: breast cancer Paternal Aunt CVA (cerebral vascular accident) Social History (Updated 05/23/24 @ 12:56 by Lucia Davidson MD) Household Members: Spouse, Family and Children Housing: House Are you a primary early breastfeeding care specialist to a significant other at home: No Do you presently have visiting nurse or other home services: No Alcohol intake: never Patient Tobacco Use Status: Never used Tobacco Tobacco use type: Cigarette e-Cigarette/Vaping Use: Never Used Second Hand Smoke Exposure: No service: No Current occupational status: employed Cognitive needs: No Hearing needs: Yes Vision needs: Yes Review of Systems Const All systems reviewed & are unremarkable except as noted in HPI and below Physical Exam Vital Signs: Last Vital Signs Pulse 76 08/25/24 09:54 BP 110/64 08/25/24 09:54 Pulse Ox 98 08/25/24 09:54 Oxygen Delivery Method Room Air 08/25/24 09:54 BMI result Body Mass Index 36.0 Assessment & Plan Assessment & Plan (1) Persistent headaches: Code(s): R51.9 - Headache, unspecified Plan: Vital signs are stable, patient well-appearing, no acute neurological deficits on exam. There is a concern for vertebral artery dissection vs small ischemic stroke vs other so I will send the patient to the emergency room for workup. Patient understands and agrees with plan. Called [facility] ED with expect. Coding Level of Care Code Est Pt Level 5 (13738) Diagnoses Persistent headaches R51.9
[2024-08-25 09:54] VITALS: BP 110/64; PULSE 76; O2SAT 98; BMI 36.0
== END 2024-08-25 11:10 | disposition home or self-care (01) ==
PROVIDERS: PCP Internal Medicine; Visit Provider Physician Assistant
DX: R51.9 Headache, unspecified (principal)

== ENCOUNTER → 2024-08-25 09:14 | Outpatient (BNVA) | payer MEDICARE, MEDICAID, SELFPAY | LOC: CF 11:05 | PROVIDERS: PCP Internal Medicine; Visit Provider Physician Assistant | DX: R51.9 Headache, unspecified (principal) | CPT/HCPCS: 99212 ==

== ENCOUNTER 2024-09-17 09:28 | Outpatient (AMB) | payer MEDICARE, MEDICAID, SELFPAY ==
--- NOTE | 2024-09-17 09:43 | A.OFFVIS_ITS ---
Vital Signs 09/17/24 09:47 Height 5 ft 11 in Weight 253 lb 15.56 oz BMI 35.4 BP 118/75 Blood Pressure Location Rt brachial Position Sitting Pulse 65 Intake Visit Reasons: 6 month follow up Intake Note: Abraham presents in office today in 6 months follow up of GERD. CC: Patient reports doing well and denies having any GI concerns today. Electrical Design Technologist Required: Yes Electrical Design Technologist Language: Pad Machine Operator Name: [id number] Arabella Accompanied by: Self / Same As Patient Allergies Sulfa (Sulfonamide Antibiotics) [SULFA(SULFONAMIDE ANTIBIOTICS)] Allergy (Mild, Verified 09/17/24 09:53) HIVES, rash and red bumps, itching HPI HPI 6 month follow up: Details: Assessment & Plan (1) GERD (gastroesophageal reflux disease): Code(s): K21.9 - Gastro-esophageal reflux disease without esophagitis Category: Medical Qualifiers: Esophagitis presence: without esophagitis Qualified Code(s): K21.9 - Gastro-esophageal reflux disease without esophagitis (2) Chronic idiopathic constipation: Code(s): K59.04 - Chronic idiopathic constipation Category: Medical Plan 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 His hemorrhoids healed with the proctsol and he no longer needs it. He continues on his Amitiza twice a day in his omeprazole with good control of his GI regimen. ROV 6 mos. 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 He does not have any other new health conditions to report. Return office visit in 1 year since he has been quite stable. [facility] Medical History (Updated 09/17/24 @ 10:06 by GUSTAVO Montoya) Annual physical exam Adult general medical exam Upper respiratory tract infection Weak urinary stream Allergic reaction Tachycardia Dysuria Varicose veins of left lower extremity with inflammation Varicose veins of right lower extremity with inflammation Neck pain Daytime sleepiness FRITZ on CPAP GERD (gastroesophageal reflux disease) Weak urinary stream Exposure to COVID-19 virus Nasal congestion Thoracic arthritis BPH (benign prostatic hyperplasia) Musculoskeletal pain Osteoporosis screening Rash COVID-19 vaccine series completed BPH (benign prostatic hyperplasia) Thoracic spine pain Cough Back pain Nasal congestion Left epididymitis Deaf Migraine Vitamin D deficiency Hypertension Hypercholesterolemia Screening for colon cancer Chronic idiopathic constipation Surgical History Status post ablation of incompetent vein using laser Hx of colonoscopy Varicocele History of esophagogastroduodenoscopy (EGD) Hx of hernia repair Family History Father History of prostate cancer Skin cancer CVA (cerebral vascular accident) Mother HX: breast cancer Paternal Uncle Skin cancer CVA (cerebral vascular accident) Maternal Aunt HX: breast cancer Paternal Aunt CVA (cerebral vascular accident) Social History Household Members: Spouse, Family and Children Housing: House Are you a primary care services manager to a significant other at home: No Do you presently have visiting nurse or other home services: No Alcohol intake: never Patient Tobacco Use Status: Never used Tobacco Tobacco use type: Cigarette e-Cigarette/Vaping Use: Never Used Second Hand Smoke Exposure: No service: No Current occupational status: employed Cognitive needs: No Hearing needs: Yes Vision needs: Yes Review of Systems Const Denies fatigue, Denies fever(s), Denies night sweats, Denies poor appetite and Denies weight loss Eyes Details: glasses Reports requires corrective lenses ENT Denies Normal hearing present, Denies dental pain, Denies dysphagia, Reports hearing loss, Denies mouth pain, Denies odynophagia, Denies throat swelling, Denies tongue swelling and Reports other (Dentition adequate) Card Reports no additional complaints Resp Reports no additional complaints GI Details: Denies abdominal pain, Denies melena, Denies bloating, Denies hematochezia, Reports constipation, Denies GI cramping, Denies dysphagia, Denies excessive flatus, Denies early satiety, Reports heartburn, Denies diarrhea, Denies nausea, Denies odynophagia, Denies vomiting and Denies hematemesis Skin/Breast Denies pruritus, Denies lesions, Denies rash and Denies jaundice Neuro Denies Normal hearing present Endo Denies fatigue Aller/Immun Denies throat swelling and Denies tongue swelling Physical Exam Vital Signs: Last Vital Signs Pulse 65 09/17/24 09:47 BP 118/75 09/17/24 09:47 BMI result Body Mass Index 35.4 Const General: cooperative, no acute distress, well developed and well groomed Nutritional Appearance: well nourished and obese Orientation/consciousness: oriented to person, oriented to place and oriented to time Limitations: language barrier and other limitations (Total hearing loss-sign language) HEENT Head: Yes normocephalic and Yes atraumatic Eyes General: appearance normal, both eyes and all related structures Pupils: Equal, round and reactive pupils present Neck Neck: Yes normal visual inspection and Yes no lymphadenopathy Thyroid: Thyroid normal Resp Effort & Inspection: normal respiratory effort and able to speak in complete sentences Auscultation: clear to auscultation bilaterally Cardio Rate: regular rate Rhythm: regular rhythm Heart sounds: Normal, physiologic split S2 sound present Peripheral pulses: radial pulses present and posterior tibial pulses present GI Inspection: No distended, No Abdominal panniculus present and Yes obesity Palpation (GI): Soft to palpation, nontender, no guarding, not rigid and No hepatosplenomegaly present Percussion: Yes normal to percussion Auscultation: normal bowel sounds Rectal Exam - Male: Yes deferred Skin General skin exam: no rashes or lesions noted, turgor normal, skin not dry, no jaundice, No spider nevi and no striae Rashes: no rashes Nails: normal Neuro General: oriented to person, oriented to place and oriented to time Cranial nerves: Yes Equal, round and reactive pupils present and No Normal hearing present Extrem General: Yes normal to inspection, No clubbing, No cyanosis and No edema Psych Appearance: grossly normal and well kempt Mental Status: mental status grossly normal Speech and movement: Mute speech present Affect: normal affect Attitude: cooperative Thought process: Normal thought process present and not confabulating Thought content: Normal thought content present Insight: Fair insight present (Psych) Judgement: Fair judgement present (Psych) Assessment & Plan Assessment & Plan (1) GERD (gastroesophageal reflux disease): Code(s): K21.9 - Gastro-esophageal reflux disease without esophagitis Category: Medical Qualifiers: Esophagitis presence: without esophagitis Qualified Code(s): K21.9 - Gastro-esophageal reflux disease without esophagitis (2) Family history of polyps in the colon: Comment: Brother Code(s): Z83.71 - Family history of colonic polyps Category: Medical (3) Chronic idiopathic constipation: Code(s): K59.04 - Chronic idiopathic constipation Category: Medical Plan 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 He does not have any other new health conditions to report. Return office visit in 1 year since he has been quite stable. He will be due for a screening colonoscopy next year/2025. Medications: Refilled omeprazole 20 mg PO QAM 100 caps 2RF K21.9 - Gastro-esophageal reflux disease without esophagitis lubiprostone 24 mcg PO BID 60 caps 6RF On Hold hydrocortisone 2.5% (Proctosol HC) Hold Comment: Doctor's Order 1 appl DC BID 30 grams 6RF hemorrhoids K64.9 - Unspecified hemorrhoids Coding Level of Care Code Est Pt Level 3 (44178) Diagnoses Gastroesophageal reflux disease without esophagitis K21.9 Esophagitis presence: without esophagitis Family history of polyps in the colon Z83.71 Chronic idiopathic constipation K59.04
[2024-09-17 09:47] VITALS: BP 118/75; PULSE 65; BMI 35.4
--- OUTSIDE RECORDS SUMMARY | 2024-09-17 10:27 | XMS_ITS | Continuity of Care Document ---
Author Organization [facility] Address [address] [place] [address] Phone Care Team Providers Care Pants Maker Name Role Phone Quintin VYAS, RVT, SHADI, [...] Mins- [place] & [place] [facility], [address] [place] [address] Dr Alexander [address], [id number], [place] tel:[phone] CVR [facility] Venous insufficienc y (chronic) (peripheral) 4 Quintin VYAS RVT, SHADI Tee. [address] [place] [address], [id number], [place]. tel:[phone] Referring Provider: Lucia Davidsno MD, [address] [place] [address] [address] [facility], [place], [address]. tel:[phone] [facility], [address] [place] [address] Dr Alexander [address], [id number], [place] tel:[phone] CVR [facility] Encounter for follow-up examination after completed treatment for conditions other than malignant neoplasmVari cose veins of bilateral lower extremities with pain 4 Quintin VYAS RVT, SHADI Oliveira. [address] [place] [address], [place], [id number], [place]. tel:[phone] Referring Provider: Lucia Davidson MD, [address] [place] [address], [address]. tel:[phone] [facility], [address] [place] [address] Dr Catherine [address]Suite [place] Hoang [place], [id number], [place] tel:[phone] CVR [place] Encounter for follow-up examination after completed treatment for conditions other than malignant neoplasmPain in right leg Oct- 4 Quintin VYAS RVT, SHADI Oliveira. [address], Suite [facility], [place], [place], [id number], [place]. tel:[phone] Referring Provider: Lucia Davidson MD, [address] [place] [address], [address]. tel:[phone] [facility], [address] [place] [address] Dr [address]Suite [place] Hoang [place], [id number], [place] tel:[phone] CVR [place] Varicose veins of right lower extremity with other complication s Mar- 4 Quintin VYAS RVT, SHADI Oliveira. [address] [facility], Suite [facility], [place], [place], [id number], [place]. tel:[phone] Referring Provider: Lucia Davidson MD, [address] [place] [address], [address]. tel:[phone] [facility], [address] [place] [address] [address] [place]grid Hoang [place], [id number], [place] tel:[phone] CVR [place] Varicose veins of left lower extremity with pain Mar- 4 Quintin VYAS RVT, SHADI Oliveira. [address], Suite [facility], [place], [place], [id number], [place]. tel:[phone] Referring Provider: Lucia Davidson MD, [address] [place] [address], [address]. tel:[phone] [facility], [address] [place] [address] [address] [place]grid Hoang [place], [id number], [place] tel:[phone] CVR - [place] No Information Mar- 4 Quintin VAYS RVT, SHADI Oliveira. [address] [place] [address], [address], [place], [place], [id number], [place]. tel:[phone] Referring Provider: Lucia Davidson MD, [address] [facility], [address]. tel:[phone] [facility], [address] [place] [address] [address] [place]grid Hoang [place], [id number], [place] tel:[phone] CVR - [facility] Varicose veins of left lower extremity with other complication s Mar- 4 Quintin VYAS RVT, SHADI Oliveira. [address] [place] [address], [address], [place], [place], [id number], [place]. tel:[phone] Referring Provider: Lucia Davidson MD, [address] [place] [address] [place] [address] [place], [address]. tel:[phone] Office/Outpt E&M Established 15 Mins- [place] & [place] [facility], [address] [place] [address] Dr Alexander [address]Suite [place] Hoang [place], [id number], [place] tel:[phone] CVR - [facility] Chronic venous hypertension (idiopathic) without complication s of bilateral lower extremityEss ential (primary) hypertension Feb- 4 Quintin VYAS RVT, SHADI Oliveira. [address] [place] [address], [address], [place], [place], [id number], [place]. tel:[phone] Referring Provider: Lucia Davidson MD, [address] [facility], [address]. tel:[phone] [facility], [address] [place] [address] [address] [place]grid Hoang [place], [id number], [place] tel:[phone] CVR - [place] Varicose veins of bilateral lower extremities with pain 4 Quintin VYAS RVT, SHADI Oliveira. [address] [place] [address], Suite [facility], [place], [place], [id number], [place]. tel:[phone] Referring Provider: Lucia Davidson MD, [address] [place] [address] [place], [address]. tel:[phone] [facility], [address] [place] [address] Dr Alexander [address] [place]ang [place], [id number], [place] tel:[phone] CVR - [place] Encounter for follow-up examination after completed treatment for conditions other than malignant neVaricose veins of right lower extremity with pain 4 Quintin VYAS RVT, SHADI Oliveira. [address] [place] [address], [place] [address], [place], [place], [id number], [place]. tel:[phone] Referring Provider: Lucia Davidson MD, [address] [facility], [address]. tel:[phone] [facility], [address] [place] [address] [address] [place]grid Hoang [place], [id number], [place] tel:[phone] CVR [place] Encounter for follow-up examination after completed treatment for conditions other than malignant nePain in right leg Jan- 4 Quintin VYAS RVT, SHADI Oliveira. [address] [place] [address], Suite [facility], [place], [place], [id number], [place]. tel:[phone] Referring Provider: Lucia Davidson MD, [address] [place] [address] [address] [place] [address] [place], [address]. tel:[phone] [facility], [address] [place] [address] Dr Alexander [address]Suite [place], [id number], [place] tel:[phone] CVR - [place] Varicose veins of right lower extremity with other complication s 4 Larry NIRMALA Virgen. [address] [facility] [facility] [address], [address], [place], [place], [id number], [place]. tel:[phone] Referring Provider: Lucia Davidson MD, [address] [facility], [address]. tel:[phone] [facility], [address] [place] [address] [address]grid [place], [id number], [place] tel:[phone] CVR - [place] Varicose veins of right lower extremity with other complication s 4 Quintin VYAS RVT, SHADI Oliveira. [address] [place] [address], Suite [facility], [place], [place], [id number], [place]. tel:[phone] Referring Provider: Lucia Davidson MD, [address] [facility] [address] [place] [address] [place], [address]. tel:[phone] [facility], [address] [place] [address] [address]grid [place], [id number], [place] tel:[phone] CVR - [place] Varicose veins of right lower extremity with other complication s 4 Quintin VYAS RVT, SHADI Oliveira. [address] [place] [address], Suite [facility], [facility] [place], [id number], [place]. tel:[phone] Referring Provider: Lucia Davidson MD, [address] [facility] [address] [facility], [place], [address]. tel:[phone] [facility], [address] [place] [address] [address]Ingrid [place], [id number], [place] tel:[phone] CVR - [place] Encounter for follow-up examination after completed treatment for conditions other than malignant nePain in left lower leg 4 Quintin VYAS RVT, SHADI Oliveira. [address] [facility], [address], [facility] [place], [id number], [place]. tel:[phone] Referring Provider: Lucia Davidson MD, [address] [facility], [address]. tel:[phone] [facility], [address] [place] [address] [address]Suite [place] Ho[place], [id number], [place] tel:[phone] CVR - [place] No Information 4 Quintin VYAS RVT, SHADI Oliveira. [address] [place] [address], [id number], [place]. tel:[phone] [facility], [address] [place] [address] [address] [place] Hoang [place], [id number], [place] tel:[phone] CVR - [place] Encounter for follow-up examination after completed treatment for conditions other than malignant neChronic venous hypertension (idiopathic) with other complication s of left lower extremity 4 Quintin VYAS RVT, SHADI Oliveira. [address] [place] [address], [place], [place], [id number], [place]. tel:[phone] Referring Provider: Lucia Davidson MD, [address] [place] [address] [place], [address]. tel:[phone] [facility], [address] [place] [address] [address]SuIngrid [place]ha [place], [id number], [place] tel:[phone] CVR [place] Varicose veins of left lower extremity with other complication s 4 Quintin VYAS RVT, RPVI Robert. [address] [place] [address], [id number], [place]. tel:[phone] Referring Provider: Lucia Davidson MD, [address] [place] [address] [place], [address]. tel:[phone] [facility], [address] [place] [address] Dr Alexander 1000SuIngrid sinha [place], [id number], [place] tel:[phone] CVR - [place] Varicose veins of left lower extremity with other complication s 4 Quintin VYAS RVT, SHADI Oliveira. [address] [facility] [address], [place], [place], [id number], [place]. tel:[phone] Referring Provider: Lucia Davidson MD, [address] [place] [address] Dr [address] [facility], [address]. tel:[phone] Offic/outpt E&m Estab 5 Min Trial- Telemedicine [place] & [place] [facility], [address] [place] [address] Dr Alexander 1000SuIngrid sinha [place], [id number], [place] tel:[phone] CVR - [place] Venous insufficienc y (chronic) (peripheral) Pruritus, unspecifiedE ssential (primary) hypertension 4 Zhane Witt. [address] [place] [address], [place] [address], [place], [place], [id number], [place]. tel:[phone] Referring Provider: Lucia Davidson MD, [address] [place] [address] [place] [address] [place], [address]. tel:[phone] Office/Oupt E&M New Pt 60 Mins- [place] & [place] [facility], [address] [place] [address] Dr Alexander 1000SuIngrid sinha [place], [id number], [place] tel:[phone] CVR - [place] Varicose veins of bilateral lower extremities with other complication Mary Carmen in right lower legPain in left lower legPain in right legEssential (primary) hypertension Pruritus, unspecifiedP ain in left leg 4 Quintin VYAS RVT, SHADI Oliveira. [address] [facility], [address], [place], [place], [id number], [place]. tel:[phone] Referring Provider: Lucia Davidson MD, [address] [place] [address] [address] [facility], [address]. tel:[phone] [facility], [address] [place] [address] Dr Alexander 1000SuIngrid sinha [place], [id number], [place] tel:[phone] [place] Varicose veins of bilateral lower extremities with pain 4 Quintin VYAS, RVT, RPVI Tee. [address] [facility], [address], [facility] [place], [id number], [place]. tel:[phone] Referring Provider: Lucia Davidson MD, [address] [place] [address] [address] [facility], [place], [address]. tel:[phone] Family History Family Member Type Diagnosis Age At Onset No Information Payers Payer name Insurance type Covered alliance party ID Authoriza tion(s) [facility] AARP Medic are Complete CI [id number] Medical Assistance [facility] [id number] Social History Type Description Quantity Date Captured [...]
--- OUTSIDE RECORDS SUMMARY | 2024-09-17 10:27 | XMS_ITS | Clinical Summary ---
Author Organization [facility] Address [address] [place] [address] Care Team Providers Care Stepdown Nurse Name Role Phone Lucia Davidson MD Primary Care Provider [phone] Medical History Medical History Date Comments Back [...] season) 2024 05/08/2021, 08/06/2020, 07/16/2020 Influenza Vaccine (Season Ended) 2025 03/21/2021, 03/26/2019, 02/27/2018, Additional history exists HIB Vaccines [...] age to complete this topic Meningococcal B Vaccine Aged Out No l onger eligible based on patient's age to complete [...] age to complete this topic Care Teams Stepdown Nurse Relationship Specialty Start Date End Date Lucia Davidson MD [address] [place] [address] Dr Alexander [address] [facility] [place] [address] PCP - General Internal Medicine 08/08/21
--- OUTSIDE RECORDS SUMMARY | 2024-09-17 10:27 | XMS_ITS | Clinical Summary ---
Author Organization [facility] Address [address] [place] [address] Care Team Providers Care Svp Chief Marketing Officer Name Role Phone Pcp, No Primary Care Provider Unavailabl e Allergies Active Allergy Reactions Criticality Noted Date Comments Sulfur Itching Low 12/03/2023 All sulfa medications Medications lisinopril (PRINIVIL,ZeSTR IL) 5 MG tablet Take 1 tablet (5 [...] Assigned at Male 12/03/2023 3:15 PM EDT Legal Sex Male 6:54 PM EST Gender Identity Male 12/03/2023 3:15 PM EDT [...] 01/14/2020 Influenza Vaccine 01/03/2024 03/20/2012 COVID-19 Vaccine (2023-2 5 season) 2024 08/06/2020, 07/16/2020 Pneumococcal Vaccine: Pediatric (0-5 Years) and At-Risk Patients (6 to 49 Years) Aged Out No longer eligible b ased on patient's age to complete this topic Insurance [facility] MGD MEDICARE MEDICARE PART A & B Care Teams Svp Chief Marketing Officer Relationship Specialty Start Date End Date Pcp, No PCP - General General Medicine 12/03/23
--- OUTSIDE RECORDS SUMMARY | 2024-09-17 10:27 | XMS_ITS | Clinical Summary ---
Author Organization [employer] Address [address] [place] [address] [address] [place] [address] Care Team Providers Care Lamp Wirer Name Role Phone Unavailable Primary Care Provider [...]
--- OUTSIDE RECORDS SUMMARY | 2024-09-17 10:27 | XMS_ITS | Patient Health Record ---
[facility] Address [address] [place] [id number] Care Team Providers Care Balloon Seller Name Role Phone Lucia Davidson Primary Care Provider Andrey Lucas Unavailable [phone] Allergies Allergen (clinical drug ingredient) Drug/Non Drug [...] Not-Taki ng Ciclopirox 0.77 % 1 application Locomotive Engineer Diesel ally Twice a day for 30 days [...] W/U Status Risk Notes Problem Tinea unguium (649764338) Tinea unguium (B35.1) Active confirmed Plan Of Treatment Pending Test Test Name Order Date [id number] NAIL, 6 OR MORE 02/05/2020 [id number] Plate 03/31/2021 Insurance Providers Payer Name Payer Address Payer Phone Subscriber Number Group Number Insured Name Patient Relationship to Insured Coverage Start Date Coverage End Date Medicare National Govt Svcs Inc [address] [facility] [address] [id number] Abraham Amos Self - patient is the insured Medical (General) History Medical History History ICD Code Hypertension Reflux ( GERD) Surgical History Surgery Date(Month/Year)
--- OUTSIDE RECORDS SUMMARY | 2024-09-17 10:27 | XMS_ITS | Encounter Summary ---
Author Organization [employer] Address [address] [place] [address] 7 [place] [address] Care Team Providers Care Duplicating Machine Operator Name Role Phone Unavailable Primary Care Provider Unavailabl e Encounter Details Date Type Department Care Team (Latest Contact Info) Description 07/02/2020 Abstract [facility] CONVERSIONS Dental, Provider, DDS Social History Tobacco [...]
== END 2024-09-17 10:08 | disposition home or self-care (01) ==
PROVIDERS: PCP Internal Medicine; Visit Provider Nurse Practitioner
DX: K21.9 Gastro-esophageal reflux disease without esophagitis (principal); Z83.719 Family history of colon polyps, unspecified; K59.04 Chronic idiopathic constipation
CPT/HCPCS: 99213

== ENCOUNTER → 2024-09-17 09:28 | Outpatient (BNVA) | payer MEDICARE, MEDICAID, SELFPAY | PROVIDERS: PCP Internal Medicine; Visit Provider Nurse Practitioner | DX: K21.9 Gastro-esophageal reflux disease without esophagitis (principal); K59.04 Chronic idiopathic constipation; K64.9 Unspecified hemorrhoids; Z83.719 Family history of colon polyps, unspecified | CPT/HCPCS: 99212 ==

== ENCOUNTER 2024-09-29 09:50 | Outpatient (AMB) | payer MEDICARE, MEDICAID, SELFPAY ==
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
[2024-09-29 10:08] VITALS: BP 130/80; PULSE 74; TEMP 36.4; O2SAT 97; BMI 34.2
--- OUTSIDE RECORDS SUMMARY | 2024-09-29 11:12 | XMS_ITS | Patient Health Record ---
[facility] Address [address] [place] [id number] Care Team Providers Care Telecom Specialist Name Role Phone Lucia Davidson Primary Care Provider Andrey Lucas Unavailable [phone] Allergies Allergen (clinical drug ingredient) Drug/Non Drug [...] Not-Taki ng Ciclopirox 0.77 % 1 application [employer] Librarian ally Twice a day for 30 days [...] W/U Status Risk Notes Problem Tinea unguium ([id number]) Tinea unguium (B35.1) Active confirmed Plan Of Treatment Pending Test Test Name Order Date [id number] NAIL, 6 OR MORE 02/05/2020 [id number] Plate 03/31/2021 Insurance Providers Payer Name Payer Address Payer Phone Subscriber Number Group Number Insured Name Patient Relationship to Insured Coverage Start Date Coverage End Date Medicare National Govt Svcs Inc [address] [facility] [place] [address] [id number] Abraham Amos Self - patient is the insured Medical (General) History Medical History History ICD Code Hypertension Reflux ( GERD) Surgical History Surgery Date(Month/Year)
--- OUTSIDE RECORDS SUMMARY | 2024-09-29 11:12 | XMS_ITS | Clinical Summary ---
Author Organization [facility] Address [address] [place] [address] Care Team Providers Care Volumetric Weigher Name Role Phone Pcp, No Primary Care [...] 01/14/2020 Influenza Vaccine 01/03/2024 03/20/2012 COVID-19 Vaccine ( season) 02/03/202410/2020, 07/16/2020 Insurance [facility] MEDICARE MEDICARE PART A & B Care Teams Volumetric Weigher Relationship Specialty Start Date End Date Pcp, No PCP - General General Medicine 12/03/23
--- OUTSIDE RECORDS SUMMARY | 2024-09-29 11:12 | XMS_ITS | Clinical Summary ---
Author Organization [facility] Address [address] [place] [address] Care Team Providers Care Dance Entertainer Name Role Phone Lucia Davidson MD Primary Care Provider [phone] Medical History Medical History Date Comments Back [...] age to complete this topic Care Teams Dance Entertainer Relationship Specialty Start Date End Date Lucia Davidson MD [address] [place] [address] [address] [facility] [place] [address] PCP - General Internal Medicine 08/08/21
--- OUTSIDE RECORDS SUMMARY | 2024-09-29 11:12 | XMS_ITS | Clinical Summary ---
Author Organization [employer] Address [address] [place] [address] [address] [place] [address] Care Team Providers Care Child Care Director Name Role Phone Unavailable Primary Care Provider [...]
--- OUTSIDE RECORDS SUMMARY | 2024-09-29 11:12 | XMS_ITS | Encounter Summary ---
Author Organization [employer] Address [address] [place] [address] [address] [place] [address] Care Team Providers Care Research Neuropsychologist Name Role Phone Unavailable Primary Care Provider Unavailabl e Encounter Details Date Type Department Care Team (Latest Contact Info) Description 07/02/2020 Abstract [facility] CONVERSIONS Dental, Provider, DDS Social History Tobacco [...]
== END 2024-09-29 10:42 | disposition home or self-care (01) ==
LOC: HO.HMCH 09:51
PROVIDERS: PCP Internal Medicine
DX: R51.9 Headache, unspecified (principal); Z68.34 Body mass index [BMI] 34.0-34.9, adult; E66.9 Obesity, unspecified; R73.02 Impaired glucose tolerance (oral); I10 Essential (primary) hypertension; E78.00 Pure hypercholesterolemia, unspecified

== ENCOUNTER → 2024-09-29 09:50 | Outpatient (BNVA) | payer MEDICARE, MEDICAID, SELFPAY | PROVIDERS: PCP Internal Medicine | DX: R51.9 Headache, unspecified (principal); E66.9 Obesity, unspecified; R73.02 Impaired glucose tolerance (oral); I10 Essential (primary) hypertension; E78.00 Pure hypercholesterolemia, unspecified | CPT/HCPCS: 99212 ==

== ENCOUNTER 2024-11-21 12:40 | Outpatient (AMB) | payer MEDICARE, MEDICAID, SELFPAY ==
[2024-11-21 12:53] VITALS: BP 116/78; PULSE 75; O2SAT 96; BMI 33.8
--- NOTE | 2024-11-21 12:53 | A.OFFPC_ITS ---
Vital Signs 11/21/24 12:53 Height 5 ft 11 in Weight 242 lb 2 oz BMI 33.8 BP 116/78 Blood Pressure Location Lt brachial Position Sitting Pulse 75 Pulse Source Pulse Oximeter Pulse Oximetry (%) 96 Oxygen Delivery Method Room Air Intake Visit Reasons: LFT, obesity Logistics Technician Required: No Logistics Technician Name: Katina [id number] Information Interpreted: clinical only Accompanied by: Self / Same As Patient Allergies baclofen Allergy (Intermediate, Verified 11/21/24 12:54) ineffective cyclobenzaprine Allergy (Intermediate, Verified 11/21/24 12:54) Drowsy Sulfa (Sulfonamide Antibiotics) (SULFA(SULFONAMIDE ANTIBIOTICS)) Allergy (Mild, Verified 11/21/24 12:54) HIVES, rash and red bumps, itching Medication List - Last Reconciled 11/21/24 by Lucia Davidson MD [AUTO CPAP 5-20 cm H2O humidified air As directed] fupbbvqlwl-bovtwmmlnubis-wqsw 50-300-40 mg 1 cap PO Q4H PRN hydrocortisone 2.5% (Proctosol HC) 1 appl TN BID Held on 09/17/24. Instructions: Doctor's Order lisinopril 5 mg PO DAILY 90 days lubiprostone 24 mcg PO BID omeprazole 20 mg PO QAM propranolol 10 mg PO BID sumatriptan succinate take 1 tab at onset of headache; if no relief may repeat 1 tab after at least 2 hrs; max = 4 tabs/24 hr PO Tobacco use date assessed: 11/21/24 Dental Screening Dental Screen Date: 11/21/24 Did you have a dental visit in the last 12 months?: Yes Did you have a dental problem in the last 6 months where you did not have access to dental care?: No Was dental information given to patient?: Patient has dentist HPI LFT, obesity HPI Details Asha [id number] ASL WICK occipital area tylenol did not help, muscle relaxant did not help. , no rdiation , no vision effect. - seeing spots. this WICK started years PFSH Medical History (Updated 11/21/24 @ 13:29 by Lucia Davidson MD) Annual physical exam Adult general medical exam Upper respiratory tract infection Weak urinary stream Allergic reaction Tachycardia Dysuria Varicose veins of left lower extremity with inflammation Varicose veins of right lower extremity with inflammation Neck pain Daytime sleepiness FRITZ on CPAP GERD (gastroesophageal reflux disease) Weak urinary stream Exposure to COVID-19 virus Nasal congestion Thoracic arthritis BPH (benign prostatic hyperplasia) Musculoskeletal pain Osteoporosis screening Rash COVID-19 vaccine series completed BPH (benign prostatic hyperplasia) Thoracic spine pain Cough Back pain Nasal congestion Left epididymitis Deaf Migraine Vitamin D deficiency Hypertension Hypercholesterolemia Screening for colon cancer Chronic idiopathic constipation Surgical History Status post ablation of incompetent vein using laser Hx of colonoscopy Varicocele History of esophagogastroduodenoscopy (EGD) Hx of hernia repair Family History Father History of prostate cancer Skin cancer CVA (cerebral vascular accident) Mother HX: breast cancer Paternal Uncle Skin cancer CVA (cerebral vascular accident) Maternal Aunt HX: breast cancer Paternal Aunt CVA (cerebral vascular accident) Social History Household Members: Spouse, Family and Children Housing: House Are you a primary health careers instructor to a significant other at home: No Do you presently have visiting nurse or other home services: No Alcohol intake: never Patient Tobacco Use Status: Never used Tobacco Tobacco use type: Cigarette e-Cigarette/Vaping Use: Never Used Second Hand Smoke Exposure: No service: No Current occupational status: employed Cognitive needs: No Hearing needs: Yes Vision needs: Yes Questionnaire PHQ-9 Over the last 2 weeks, how often have you been bothered by any of the following problems? 1. Little interest or pleasure in doing things: not at all 2. Feeling down, depressed, or hopeless: not at all 3. Trouble falling or staying asleep, or sleeping too much: not at all 4. Feeling tired or having little energy: several days 5. Poor appetite or overeating: not at all 6. Feeling bad about yourself - or that you are a failure or have let yourself or your family down: not at all 7. Trouble concentrating on things, such as reading the newspaper or watching television: several days 8. Moving or speaking so slowly that other people could have noticed. Or the opposite - being so fidgety or restless that you have been moving around a lot more than usual: not at all 9. Thoughts that you would be better off or of hurting yourself in some way: not at all Total score: 2 Source: Developed by Drs. Tee Kurtz, Juan Carlos Maloney and colleagues, with an educational jan from [employer]. Thrive Questionnaire Date Thrive assessed: 11/21/24 I am a: Patient What is your living situation today?: I have a steady place to live Within the past 12 months, did the food you bought not last and you didn't have the money to get more?: Often true Within the past 12 months, did you worry whether your food would run out before you got money to buy more?: Often true Do you have trouble paying for medicines?: No Do you have trouble getting transportation to medical appointments?: No Do you have trouble paying your heating and electricity bill?: Yes Do you have trouble taking care of your child, family member or friend?: No Do you have trouble with day-to-day activities such as bathing, preparing meals, shopping, managing finances, etc.?: No Are you currently unemployed and looking for a job?: No Are you interested in more education?: No Please select the resources that you would like help with: Utilities Currently or been in a relationship where the following occur: I choose not to answer THRIVE Score: 3 AUDIT C Alcohol Use Questionnaire (AUDIT-C) 1. How often do you have a drink containing alcohol?: Never 3. How often do you have six or more drinks on one occasion?: Never Total Score: 0 CLARITA-7 AMB Questionnaire CLARITA-7 Date CLARITA - 7 assessed: 11/21/24 Feeling nervous, anxious, or on edge: 0 = Not at all Not being able to stop or control worryin = Not at all Worrying too much about different things: 0 = Not at all Trouble relaxin = Not at all Being so restless that it is hard to sit still: 0 = Not at all Becoming easily annoyed or irritable: 0 = Not at all Feeling afraid as if something awful might happen: 0 = Not at all Total CLARITA-7 score (0-4 normal; 5-9 mild; 10-14 moderate; 15-21 severe): 0 Source: Developed by Lisandra Hale. Delfino, Juan Carlos Peter and colleagues, with an educational jan from [employer]. Physical exam (Primary Care) Vital Signs: Last Vital Signs Pulse 75 11/21/24 12:53 BP 116/78 11/21/24 12:53 Pulse Ox 96 11/21/24 12:53 Oxygen Delivery Method Room Air 11/21/24 12:53 BMI result Body Mass Index 33.8 Tobacco/Smoking Status: Tobacco use Status Tobacco use date assessed 11/21/24 11/21/24 13:03 Patient Tobacco Use Status Never used Tobacco 11/21/24 13:03 Tobacco use type Cigarette 11/21/24 13:03 e-Cigarette/Vaping Use Never Used 11/21/24 13:03 PHQ-9: PHQ-9 Score PHQ-9: Total score 2 11/21/24 13:03 Thrive Assessment: Date of Thrive Assessment Date Thrive assessed 11/21/24 11/21/24 13:03 Currently or been in a relationship where the following occur: I choose not to answer Const General: alert; No acute distress Eyes Conjunctivae: conjunctivae normal Resp Auscultation: clear to auscultation bilaterally Cardio Rate: regular rate Rhythm: regular rhythm GI Inspection: Yes normal to inspection Extrem General: Yes normal to inspection and No edema Coding Level of Care Code Est Pt Level 4 (82330) Diagnoses Essential hypertension I10 Hypertension type: essential hypertension Impaired glucose tolerance R73.02 Obesity (BMI 30-39.9) E66.9 Gastroesophageal reflux disease without esophagitis K21.9 Esophagitis presence: without esophagitis Hepatic steatosis K76.0 Benign prostatic hyperplasia with urinary frequency N40.1; R35.0 Lower urinary tract symptom presence: symptoms present Lower urinary tract symptom detail: urinary frequency Persistent headaches R51.9 Migraine G43.909 Assessment & Plan Assessment & Plan (1) Hypertension: Code(s): I10 - Essential (primary) hypertension Category: Medical Qualifiers: Hypertension type: essential hypertension Qualified Code(s): I10 - Essential (primary) hypertension Plan: Continue with blood pressure medication. Decrease salt intake and exercise on lisinopril 5 mg once a day (2) Impaired glucose tolerance: Code(s): R73.02 - Impaired glucose tolerance (oral) Category: Medical Plan: Decrease the amount of carbohydrate intake, pasta, bread, rice and potatoes are all sugar and that is aside from all the sweet stuff, remember that fruits are good but they are Sweet also. (3) Obesity (BMI 30-39.9): Code(s): E66.9 - Obesity, unspecified Category: Medical Plan: Diet and exercise (4) GERD (gastroesophageal reflux disease): Code(s): K21.9 - Gastro-esophageal reflux disease without esophagitis Category: Medical Qualifiers: Esophagitis presence: without esophagitis Qualified Code(s): K21.9 - Gastro-esophageal reflux disease without esophagitis Plan: Avoid the foods that causes that usually spicy foods, tomato products, juices, coffee, soda and foods that your sensitive to. After eating do not lie down, allow 3-4 hours before in lie down. And keep the head of bed above 30 degrees to avoid the acid from going up. (5) Hepatic steatosis: Code(s): K76.0 - Fatty (change of) liver, not elsewhere classified Category: Medical Plan: Low-fat diet and exercise (6) BPH (benign prostatic hyperplasia): Comment: One year PSA, TURP Dr. Valles November 2022 Code(s): N40.0 - Benign prostatic hyperplasia without lower urinary tract symptoms Category: Medical Qualifiers: Lower urinary tract symptom presence: symptoms present Lower urinary tract symptom detail: urinary frequency Qualified Code(s): N40.1 - Benign prostatic hyperplasia with lower urinary tract symptoms; R35.0 - Frequency of micturition Plan: Continue to follow-up with urology (7) Persistent headaches: Code(s): R51.9 - Headache, unspecified Category: Medical Plan: Patient is advised to eat healthy, keep well hydrated, keep active and have adequate sleep. (8) Migraine: Code(s): G43.909 - Migraine, unspecified, not intractable, without status migrainosus Category: Medical Plan History of Present Illness The patient is a 66-year-old female presenting for a follow-up visit. She has a history of thyroid cancer and hypothyroidism, managed with Synthroid 125 mcg daily, and follows up with endocrinology. Her thyroid function tests in July showed a TSH of 0.91, indicating stable thyroid function. The patient has hypertension, managed with amlodipine 5 mg daily. She also has hypercholesterolemia, with an LDL of 71, managed with atorvastatin 10 mg daily. She has impaired glucose tolerance with a recent hemoglobin A1c of 6.1 and a blood sugar level of 114. The patient is advised to maintain diet and exercise to manage her glucose levels. The patient has a history of tubular adenoma of the colon, with the last colonoscopy in June 2018, and is due for colon testing. She is reminded about the importance of scheduling her next colonoscopy. She has peripheral vascular disease and osteoporosis, with the last bone density test in August 2024 showing osteopenia in the left total hip with a 15% change. The patient has asthma and is intolerant of inhaled glucocorticoids. Her insurance no longer covers Stiolto, and she has been prescribed Anoro and Combivent. Health Maintenance - Colonoscopy reminder for colon cancer screening - Bone density test in August 2024 showed osteopenia Social History Review of Systems - Respiratory: Reports intolerance to inhaled glucocorticoids - Musculoskeletal: Reports swelling in feet Physical Exam - Ears: No blockage, no earwax noted Results - Labs: Normal blood count, normal platelet count, normal electrolytes, normal renal function, blood sugar 114, hemoglobin A1c 6.1, LDL 71, TSH 0.91 - Bone Density: Osteopenia in left total hip with 15% change Plan The patient will continue her current medication regimen for hypertension, hypercholesterolemia, and hypothyroidism, with regular follow-ups with endocrinology. She is advised to maintain a healthy diet and exercise routine to manage her impaired glucose tolerance. A reminder was given for scheduling a colonoscopy due to her history of tubular adenoma. The patient is also advised to follow up with pulmonary and financial administration officer for her asthma management, with a change in medication to Anoro and Combivent due to insurance coverage issues. Patient was informed and verbally consented to the use of an ambient scribe for clinic note documentation during this visit. Discussion Notes During the visit, we discussed the importance of maintaining her current medication regimen for hypertension, hypercholesterolemia, and hypothyroidism. We also emphasized the need for a healthy diet and regular exercise to manage her impaired glucose tolerance. I reminded her to schedule a colonoscopy due to her history of tubular adenoma and advised her to follow up with pulmonary and financial administration officer for asthma management, noting the change in medication to Anoro and Combivent due to insurance coverage issues. Patient Instructions - Continue taking prescribed medications for hypertension, hypercholesterolemia, and hypothyroidism. - Maintain a healthy diet and regular exercise routine. - Schedule a colonoscopy as soon as possible. - Follow up with pulmonary and financial administration officer for asthma management. Orders: Orders Complete Blood Count Auto Diff 6 Months E78.00 - Pure hypercholesterolemia, unspecified Free T4 (Free Thyroxine) Today E78.00 - Pure hypercholesterolemia, unspecified Vitamin B12 and Folate Today E78.00 - Pure hypercholesterolemia, unspecified Prostate Specific Antigen Scr Today E78.00 - Pure hypercholesterolemia, unspecified Lipid Panel Today E78.00 - Pure hypercholesterolemia, unspecified Comprehensive Met. Panel 6 Months E78.00 - Pure hypercholesterolemia, unspecified Hemoglobin A1c 6 Months E78.00 - Pure hypercholesterolemia, unspecified Thyroid Stimulating Hormone Today E78.00 - Pure hypercholesterolemia, unspecified Medications: New tirzepatide (weight loss) 2.5 mg (0.5 mL) subcut QWEEK 2 mL 1RF E66.9 - Obesity, unspecified propranolol 10 mg PO BID 60 tabs 2RF G43.909 - Migraine, unspecified, not intractable, without status migrainosus Refilled sumatriptan succinate take 1 tab at onset of headache; if no relief may repeat 1 tab after at least 2 hrs; max = 4 tabs/24 hr PO 20 tabs 2RF G43.909 - Migraine, unspecified, not intractable, without status migrainosus
== END 2024-11-21 13:47 | disposition home or self-care (01) ==
LOC: HO.HMCH 12:41
PROVIDERS: PCP Internal Medicine; Visit Provider Internal Medicine
DX: I10 Essential (primary) hypertension (principal); R73.02 Impaired glucose tolerance (oral); E66.9 Obesity, unspecified; Z68.33 Body mass index [BMI] 33.0-33.9, adult; K21.9 Gastro-esophageal reflux disease without esophagitis; K76.0 Fatty (change of) liver, not elsewhere classified; N40.1 Benign prostatic hyperplasia with lower urinary tract symptoms; R35.0 Frequency of micturition; G43.909 Migraine, unspecified, not intractable, without status migrainosus

== ENCOUNTER → 2024-11-21 12:40 | Outpatient (BNVA) | payer MEDICARE, MEDICAID, SELFPAY | PROVIDERS: PCP Internal Medicine; Visit Provider Internal Medicine | DX: I10 Essential (primary) hypertension (principal); R73.02 Impaired glucose tolerance (oral); E66.9 Obesity, unspecified; K21.9 Gastro-esophageal reflux disease without esophagitis; K76.0 Fatty (change of) liver, not elsewhere classified; N40.1 Benign prostatic hyperplasia with lower urinary tract symptoms; R35.0 Frequency of micturition; G43.909 Migraine, unspecified, not intractable, without status migrainosus | CPT/HCPCS: 99212 ==

== ENCOUNTER 2025-01-13 11:56 | Outpatient (AMB) | payer MEDICARE, MEDICAID, SELFPAY ==
[2025-01-13 12:29] VITALS: BMI 32.8
--- NOTE | 2025-01-13 12:29 | A.OFFVIS_ITS ---
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 and is working on reducing portions sizes , working on reducing sweets/pastries Restarting walks 1 hr daily Has fiber supplement twice a day coffee, , 8 oz , twice/day water 16-32 oz /day HAving 3 meals/day following healthy plate method and not having second servingsr OMK-Mbrejrw-My.Jeor Equation Height: 5 ft 11 in Weight: 235 lb Resting Metabolic Rate: 1926.40 Calculated Activity Level: Mild Activity Calories Needed to Maintain Weight: 2648.80 [facility] Medical History (Updated 11/21/24 @ 13:29 by Lucia Davidson MD) Annual physical exam Adult general medical exam Upper respiratory tract infection Weak urinary stream Allergic reaction Tachycardia Dysuria Varicose veins of left lower extremity with inflammation Varicose veins of right lower extremity with inflammation Neck pain Daytime sleepiness FRITZ on CPAP GERD (gastroesophageal reflux disease) Weak urinary stream Exposure to COVID-19 virus Nasal congestion Thoracic arthritis BPH (benign prostatic hyperplasia) Musculoskeletal pain Osteoporosis screening Rash COVID-19 vaccine series completed BPH (benign prostatic hyperplasia) Thoracic spine pain Cough Back pain Nasal congestion Left epididymitis Deaf Migraine Vitamin D deficiency Hypertension Hypercholesterolemia Screening for colon cancer Chronic idiopathic constipation Surgical History Status post ablation of incompetent vein using laser Hx of colonoscopy Varicocele History of esophagogastroduodenoscopy (EGD) Hx of hernia repair Family History Father History of prostate cancer Skin cancer CVA (cerebral vascular accident) Mother HX: breast cancer Paternal Uncle Skin cancer CVA (cerebral vascular accident) Maternal Aunt HX: breast cancer Paternal Aunt CVA (cerebral vascular accident) Social History Household Members: Spouse, Family and Children Housing: House Are you a primary district manager primary care sales to a significant other at home: No Do you presently have visiting nurse or other home services: No Alcohol intake: never Patient Tobacco Use Status: Never used Tobacco Tobacco use type: Cigarette e-Cigarette/Vaping Use: Never Used Second Hand Smoke Exposure: No service: No Current occupational status: employed Cognitive needs: No Hearing needs: Yes Vision needs: Yes Assessment & Plan Assessment & Plan (1) Impaired glucose tolerance: Code(s): R73.02 - Impaired glucose tolerance (oral) Category: Medical Plan: Diet modification related to IFG, hypercholesterolemia, obesity, HTN Review reduction sat'd fat, choosing fiber rich foods and increasing physical activity ? Used wt : 116 kg(10/2022), 108 kg (02/2023). 08/25 120 kg, (02/25) 114 kg, (08/26) 117 kg ,( 01/26) 106 kg Est kcal as per MSJ: 3000- 500 =2500 (40% carb, 30% fat/prot) Est fluid needs: 2900 ml/d (25 ml/kg bw) Rec fiber: increase to 8-10 g per day and gradually increase to 35 g as tolerated Rec Na: < 2000 mg /d Educate patient on: (R= Reviewed, V = verbalizes understanding N/R= Needs review N/A= not applicable) * Food sources of carbohydrates and serving adequate serving sizes : R , V * Difference between complex carbohydrates and simple carbohydrates, role of fiber: R, V * Differences between fats (MUFA/PUFA/saturated fats, trans fats) and food sources of various fats: R , V * Food sources of sodium and salt and healthy modifications for heart health and kidney health: R * How to interpret food labels: R , V * Healthy Plate method concept: R , V * Physical activity: benefits and precaution: R (2) Obesity (BMI 30-39.9): Code(s): E66.9 - Obesity, unspecified Category: Medical Plan: Diet modification related to OBesity, IFG, hypercholesterolemia, HTN Review reduction of total fats and portion sizes to promote weight loss ? Used wt : 116 kg(10/2022), 108 kg (02/2023), 118 kg (08/26), most recent 01/26 at 106 kg Est kcal as per MSJ: 9963-2542 (40% carb, 30% fat/prot) Est fluid needs: 2900 ml/d (25 ml/kg bw) Rec fiber: increase to 8-10 g per day and gradually increase to 35 g as tolerated Rec Na: < 2000 mg /d Educate patient on: (R= Reviewed, V = verbalizes understanding N/R= Needs review N/A= not applicable) * Food sources of carbohydrates and serving adequate serving sizes : R , V * Difference between complex carbohydrates and simple carbohydrates, role of fiber: R, V * Differences between fats (MUFA/PUFA/saturated fats, trans fats) and food sources of various fats: R , V * Food sources of sodium and salt and healthy modifications for heart health and kidney health: R * How to interpret food labels, total calories /calories from fat R , V * Healthy Plate method concept: R , V * Physical activity: benefits and precaution: R Patient Instructions: Continue working on following healthy plate method Reduce calories by 500 from fats/starches work on less than 2500 calories per day Coding Level of Care Code Nutr Indiv Subseq (75194) Diagnoses Impaired glucose tolerance R73.02 Obesity (BMI 30-39.9) E66.9 Time Spent (min) 30
--- OUTSIDE RECORDS SUMMARY | 2025-01-13 12:51 | XMS_ITS | Clinical Summary ---
Author Organization Formerly [facility] Address [address] [place] [address] Care Team Providers Care Scientific Research Manager Name Role Phone Pcp, No Primary Care [...] 62 12/12/2023 11:00 AM EDT Temperature 36.6 C (97.9 F) 12/12/2023 11:00 AM EDT Respiratory Rate 16 12/12/2023 11:00 AM EDT [...] Zoster (Shingles) Vaccine (1 of 2) 01/14/2020 COVID-19 Vaccine ( season) 02/03/202410/2020, 07/16/2020 Influenza Vaccine 01/02/2025 03/20/2012 Insurance [facility] MEDICARE MEDICARE PART A & B Care Teams Scientific Research Manager Relationship Specialty Start Date End Date Pcp, No PCP - General General Medicine 12/03/23
--- OUTSIDE RECORDS SUMMARY | 2025-01-13 12:51 | XMS_ITS | Clinical Summary ---
Author Organization [employer] Address [address] [place] [address] [address] [place] [address] Care Team Providers Care Air Pollution Compliance Inspector Name Role Phone Unavailable Primary Care Provider [...] FOBT 1970 Lipid Panel 1970 Sigmoidoscopy 1970 Disability Screening 1970 Alcohol/Substance Use Screening 1982 Tobacco Screening 1982 DTaP/Tdap/Td Vaccines (1 - Tdap) 1989 Hepatitis B Vaccines (1 of 3 - 19+ 3-dose series) 1989 Pneumococcal Vaccine: 50+ Ye ars (1 of 1 - PCV) 01/14/2020 Zoster Vaccines (1 of 2) 01/14/2020 COVID-19 Vaccine ( - 2023-2 5 season) 2024 Influenza Vaccine (#1) 2025 RSV Patients and Pa tients Aged 60 [...]
--- OUTSIDE RECORDS SUMMARY | 2025-01-13 12:51 | XMS_ITS ---
Author Name [facility] Organization Unknown Results Test Name/Text Value Interpretation Date Range Source GFR/BSA.pred SerPlBld [id number]-PlQHim >90.0 Normal 12/12/2023 59 - [facility] Calcium SerPl-mCnc 9.0 mg/dL Normal 12/12/2023 8.7 - 10.5 [facility] BUN SerPl-mCnc 14.0 mg/dL Normal 12/12/2023 8 - [address] CO2 SerPl-sCnc 22.0 mmol/L Normal 12/12/2023 22 - 33 HH CCT Glucose SerPl-mCnc 66.0 mg/dL Normal 12/12/2023 65 - 99 [facility] BUN/Creat SerPl 16.0 Ratio Normal 12/12/2023 10 - 25 HH CCT Creat SerPl-mCnc 0.9 mg/dL Normal 12/12/2023 0.5 - 1.3 HH CCT Potassium SerPl-sCnc 4.3 mmol/L Normal 12/12/2023 3.4 - 5 .3 [facility] Chloride SerPl-sCnc 103.0 mmol/L Normal 12/12/2023 98 - 1 07 [facility] Anion Gap Bld-sCnc 14.0 Normal 12/12/2023 7 - 17 [facility] Sodium SerPl-sCnc 139.0 mmol/L Normal 12/12/2023 136 - 14 5 [facility] Neutrophils/leuk NFr Bld Auto 52.8 % Normal 12/12/2023 [facility] Monocytes/leuk NFr Bld Auto 9.8 % Normal 12/12/2023 [facility] Hgb Bld-mCnc 14.1 g/dL Normal 12/12/2023 13 - 17.7 [facility] Basophils num Bld Auto 0.04 Thou/uL Normal 12/12/2023 0 - 0.2 [facility] Monocytes num Bld Auto 0.68 Thou/uL Normal 12/12/2023 0.2 - 1.5 [facility] RDW RBC Auto-Rto 12.0 % Normal 12/12/2023 11.5 - 14.5 [facility] Hct VFr Bld Auto 42.7 % Normal 12/12/2023 39 - 54 HH CCT WBC num Bld Auto 6.9 Thou/uL Normal 12/12/2023 4 - 11 [facility] Neutrophils num Bld Auto 3.66 Thou/uL Normal 12/12/2023 2 - 7.5 [facility] MCV RBC Auto 91.0 fL Normal 12/12/2023 80 - 100 [facility] MCH RBC Qn Auto 30.1 pg Normal 12/12/2023 27 - [address] Lymphocytes num Bld Auto 2.43 Thou/uL Normal 12/12/2023 1 .5 - 4.5 H[facility]CT MCHC RBC Auto-mCnc 33.0 g/dL Normal 12/12/2023 30 - 36 [facility] Eosinophil num Bld Auto 0.1 Thou/uL Normal 12/12/2023 0 - 0.7 [facility] Eosinophil/leuk NFr Bld Auto 1.4 % Normal 12/12/2023 [facility] Basophils/leuk NFr Bld Auto 0.6 % Normal 12/12/2023 [facility] PMV Bld Auto 10.1 fL Normal 12/12/2023 7.5 - 12.5 [facility] RBC num Bld Auto 4.68 Mil/uL Normal 12/12/2023 4.5 - 6.2 [facility] Lymphocytes/leuk NFr Bld Auto 35.1 % Normal 12/12/2023 [facility] Platelet num Bld Auto 308.0 Thou/uL Normal 12/12/2023 150 - 450 [facility] Imm Granulocytes/leuk NFr Bld Auto 0.3 % Normal 12/12/2023 [facility] Imm Granulocytes num Bld Auto 0.02 Thou/uL Normal 12/12/2023 0 - 0.1 [facility] History of Medication Use Medication Directions Dispensed Refills Start Date End Date Stat lisinopril (PRINIVIL,ZeSTRIL) 5 MG tablet Take 1 tablet (5 mg total) by mouth every morning. active lubiprostone (AMITIZA) 24 MCG capsule Take 1 capsule (24 mcg total) by mouth 2 (two) times a day with meals. active Allergies Allergen Reaction Severity Comment Documented Date Source Statu s SULFUR ITCHING All sulfa medications 12/03/2023 [facility] active Problems Problem Status Onset Date Problem Type Date of Resoluti on Source FRITZ (obstructive sleep apnea) active 2023-12-12 ProblemAct CCT Hypertension active 2023-12-12 ProblemAct [facility] Obesity (BMI 30-39.9) active 2023-12-12 ProblemAct CCT GERD (gastroesophageal reflux disease) active 2023-12-12 ProblemAct [facility] Encounters Encounter Type Encounter Reason Primary Diagnosis Location Date Ambulatory MODIFY Other acute sinusitis [facility] 01/02/2024 Ambulatory Encounter for other preprocedural examination [facility] Ambulatory Encounter for other preprocedural examination Encounter for other preprocedural examination [facility]/12[facility]2023 Care Team Organization Name Specialty Phone Email Start Date End Da te [facility] PCP Healthcare Sales Representative 12/12/2023 08/20/2024 [facility] 12[facility]04[facility]2023 [facility] NO PCP Primary Care 12/03/2023
--- OUTSIDE RECORDS SUMMARY | 2025-01-13 12:52 | XMS_ITS | Clinical Summary ---
Author Organization [facility] Address [address] [place] [address] Care Team Providers Care Director Of Retail Analytics Name Role Phone Lucia Davidson MD Primary Care Provider [phone] Medical History Medical History Date Comments Back [...] of 2) 01/14/2020 COVID-19 Vaccine ( season) 2024 05/08/2021, 08/06/2020, 07/16/2020 Depression Screening 06/04/2024 Influenza Vaccine (#1) 2025 , 03/26/2019, 02/27/2018, Additional history exists HIB [...] age to complete this topic Care Teams Director Of Retail Analytics Relationship Specialty Start Date End Date Lucia Davidson MD [address] [place] [address] Dr [address] [facility] [place] [address] PCP - General Internal Medicine 08/08/21
--- OUTSIDE RECORDS SUMMARY | 2025-01-13 12:52 | XMS_ITS | Patient Health Record ---
Author Organization [facility] Address [address] [place] [address] Care Team Providers Care Postpartum Rn Name Role Phone Lucia Davidsno Primary Care Provider Andrey Lucas Unavailable [phone] Allergies Allergen (clinical drug ingredient) Drug/Non Drug Allergy documented on EMR Reaction Allergy Type Onset Date Status sulfa itching and bubbles Drug Allergy Active Reason For Referral No Information Medications Medication SIG (Take, Route, Frequency, Duration) Notes Start Date End Date Status Lisinopril 10 MG Oral; Duration: 30 Active Ciclopirox Olamine 0.77 % 1 application to affected area Externally Twice a day; Duration: 30 days Not-Taking Ciclopirox 0.77 % 1 application Tool Setter ally Twice a day; Duration: 30 days 02/06/2020 Active Omeprazole 20 MG [...] W/U Status Risk Notes Problem Tinea unguium (485568395) Tinea unguium (B35.1) Active confirmed Plan Of Treatment Pending Test Test Name Order Date [id number] NAIL, 6 OR MORE 02/05/2020 [id number] Plate 03/31/2021 Insurance Providers Payer Name Payer Address Payer Phone Subscriber Number Group Number Insured Name Patient Relationship to Insured Coverage Start Date Coverage End Date Medicare National Govt Svcs Inc [address] [place] [address] [id number] Abraham Amos Self - patient is the insured Medical (General) History Medical History History ICD Code Hypertension Reflux ( GERD) Surgical History Surgery Date(Month/Year)
[2025-01-14 12:49] VITALS: BMI 32.8
== END 2025-01-13 13:05 | disposition home or self-care (01) ==
LOC: HO.ENCR 11:57
PROVIDERS: PCP Internal Medicine; Visit Provider Dietitian, Registered
DX: R73.02 Impaired glucose tolerance (oral) (principal); E66.9 Obesity, unspecified

== ENCOUNTER → 2025-01-13 11:56 | Outpatient (BNVA) | payer MEDICARE, MEDICAID, SELFPAY | PROVIDERS: PCP Internal Medicine; Visit Provider Dietitian, Registered | DX: R73.02 Impaired glucose tolerance (oral) (principal); E66.9 Obesity, unspecified; Z71.3 Dietary counseling and surveillance | CPT/HCPCS: 97803 ==

== ENCOUNTER 2025-03-23 09:30 | Outpatient (AMB) | payer MEDICARE, MEDICAID, SELFPAY ==
[2025-03-23 09:35] VITALS: BP 110/60; PULSE 75; O2SAT 97; BMI 33.1
--- NOTE | 2025-03-23 09:35 | MHC.OFFVIS ---
Vital Signs 03/23/25 09:35 Height 5 ft 11 in Weight 237 lb BMI 33.1 BP 110/60 Blood Pressure Location Rt brachial Position Sitting Pulse 75 Pulse Source Pulse Oximeter Pulse Oximetry (%) 97 Oxygen Delivery Method Room Air Intake Visit Reasons: 1 yr follow up Intake Note: Patient presents for 1 year follow up. Freelance Web Designer Required: Yes Freelance Web Designer Services: Freelance Web Designer Present Freelance Web Designer Name: account support rep. Accompanied by: Self / Same As Patient Allergies baclofen Allergy (Intermediate, Verified 03/23/25 09:42) ineffective cyclobenzaprine Allergy (Intermediate, Verified 03/23/25 09:42) Drowsy Sulfa (Sulfonamide Antibiotics) (SULFA(SULFONAMIDE ANTIBIOTICS)) Allergy (Mild, Verified 03/23/25 09:42) HIVES, rash and red bumps, itching HPI Comments Details: 54-yr-old male presents for follow-up visit of sleep apnea. philanthropy officer via tablet used throughout the visit. Pt denies any significant interval medical history changes. Pt reports he is no longer having difficulty sleeping. However, despite sleeping better, and sleeping at least 7-8 hours a night, at times he experiences very low daytime energy. Review of sleep hygiene, he denies late be caffeine intake, denies alcohol intake. He does occasionally take CBD but this is in the earlier evening. He reports his PAP machine is working well, however it is recently began displaying an alert. Fortunately, he does not recall what it says. He does use the Resmed Eh. He cleans his machine routinely and uses distilled water. He does wonder how long a CPAP machine we will last [facility] - [address], [facility] Email: [email or web address] Compliance Report Usage 12/23/2024 - 03/22/2025 Overall usage: 99% Usage days >= 4 hours: 99% Average usage (days used): 7 hours 6 minutes AirSense 10 AutoSet Serial number [id number] AutoSet Min Pressure 5 -20 cmH2O w/ EPR 3 Pressure: Maximum: 10.1 cmH2O Leaks: Median: 0 L/min Maximum: 16.8 L/min Residual events per hour: AHI: 0.8 per hour [facility] Medical History (Updated 11/21/24 @ 13:29 by Lucia Davidson MD) Annual physical exam Adult general medical exam Upper respiratory tract infection Weak urinary stream Allergic reaction Tachycardia Dysuria Varicose veins of left lower extremity with inflammation Varicose veins of right lower extremity with inflammation Neck pain Daytime sleepiness FRITZ on CPAP GERD (gastroesophageal reflux disease) Weak urinary stream Exposure to COVID-19 virus Nasal congestion Thoracic arthritis BPH (benign prostatic hyperplasia) Musculoskeletal pain Osteoporosis screening Rash COVID-19 vaccine series completed BPH (benign prostatic hyperplasia) Thoracic spine pain Cough Back pain Nasal congestion Left epididymitis Deaf Migraine Vitamin D deficiency Hypertension Hypercholesterolemia Screening for colon cancer Chronic idiopathic constipation Surgical History Status post ablation of incompetent vein using laser Hx of colonoscopy Varicocele History of esophagogastroduodenoscopy (EGD) Hx of hernia repair Family History Father History of prostate cancer Skin cancer CVA (cerebral vascular accident) Mother HX: breast cancer Paternal Uncle Skin cancer CVA (cerebral vascular accident) Maternal Aunt HX: breast cancer Paternal Aunt CVA (cerebral vascular accident) Social History Household Members: Spouse, Family and Children Housing: House Are you a primary rn progressive care to a significant other at home: No Do you presently have visiting nurse or other home services: No Alcohol intake: never Patient Tobacco Use Status: Never used Tobacco Tobacco use type: Cigarette e-Cigarette/Vaping Use: Never Used Second Hand Smoke Exposure: No service: No Current occupational status: employed Cognitive needs: No Hearing needs: Yes Vision needs: Yes Physical Exam Vital Signs: Last Vital Signs Pulse 75 03/23/25 09:35 BP 110/60 03/23/25 09:35 Pulse Ox 97 03/23/25 09:35 Oxygen Delivery Method Room Air 03/23/25 09:35 BMI result Body Mass Index 33.1 Const General: no acute distress Orientation/consciousness: patient oriented x3 HEENT Other: Mallampati stage Resp Effort & Inspection: normal respiratory effort and able to speak in complete sentences Neuro Other: Deafness General: patient oriented x3 and moves all extremities Cognition (Neuro): normal cognition Gait exam (Neuro): Normal gait present Motor exam (neuro): 5/5 motor strength present throughout Psych Mental Status: mental status grossly normal Speech and movement: Clear speech present Attitude: cooperative Assessment & Plan Assessment & Plan (1) Obstructive sleep apnea (adult) (pediatric): Comment: 12/08/21, In-lab PSG: mild degree of obstructive sleep apnea, with total AHI 9 and oxygen mica was 85% Code(s): G47.33 - Obstructive sleep apnea (adult) (pediatric) Category: Medical Plan Continue APAP 5-20 cmH2O w/ EPR 3 nightly > 4 hours, as pt continues to have good clinical effect from use. Previously explained that he can change the PAP machine see medication vacation from auto to manual. Clean CPAP machine and supplies routinely. Change CPAP supplies routinely. Pt to contact us or respiratory company with any questions or concerns. We will reach out to [facility] company to ask that patient's machine warning message be assessed. For fatigue: Check fasting labs as ordered by PCP Check vitamin-D level Will follow-up upon review of above and patient to follow-up in clinic in 12 months or sooner prn. Orders: Orders Vitamin D 25-OH (D2 and D3) Today E55.9 - Vitamin D deficiency, unspecified Coding Level of Care Code Est Pt Level 3 (60845) Diagnoses Obstructive sleep apnea (adult) (pediatric) G47.33
== END 2025-03-23 10:47 | disposition home or self-care (01) ==
LOC: HO.HSMS 09:31
PROVIDERS: PCP Internal Medicine; Visit Provider Nurse Practitioner Family
DX: G47.33 Obstructive sleep apnea (adult) (pediatric) (principal)
CPT/HCPCS: 99213

== ENCOUNTER → 2025-03-23 09:30 | Outpatient (BNVA) | payer MEDICARE, MEDICAID, SELFPAY | PROVIDERS: PCP Internal Medicine; Visit Provider Nurse Practitioner Family | DX: G47.33 Obstructive sleep apnea (adult) (pediatric) (principal) | CPT/HCPCS: 99212 ==

== ENCOUNTER 2025-03-24 08:17 | Outpatient (REF) | payer MEDICARE, MEDICAID, SELFPAY ==
--- OUTSIDE RECORDS SUMMARY | 2025-03-24 08:26 | XMS_ITS | Encounter Summary ---
Author Organization [employer] Address [address] [facility] 7 [place] [address] Care Team Providers Care Dish Carrier Name Role Phone Unavailable Primary Care Provider Unavailabl e Encounter Details Date Type Department Care Team (Latest Contact Info) Description 07/02/[address] [facility] CONVERSIONS Dental, Provider, DDS Social [...]
--- OUTSIDE RECORDS SUMMARY | 2025-03-24 08:26 | XMS_ITS | Clinical Summary ---
Author Organization [facility] Address [address] [place] [address] Care Team Providers Care Piped Pocket Machine Operator Name Role Phone Pcp, No Primary Care [...] 50+ (1 of 1 - PCV) 01/14/2020 RSV Vaccine 50 years and old er and Patients (1 - Risk 50-74 years 1-dose series) 01/14/2020 Zoster (Shingles) Vaccine (1 of 2) 01/14/2020 Influenza Vaccine 01/02/2025 03/20/2012 COVID-19 Vaccine (3 - season) 02/02/202510/2020, 07/16/2020 Insurance [facility]GD MEDICARE MEDICARE PART A & B Care Teams Piped Pocket Machine Operator Relationship Specialty Start Date End Date Pcp, No PCP - General General Medicine 12/03/23
--- OUTSIDE RECORDS SUMMARY | 2025-03-24 08:26 | XMS_ITS | Clinical Summary ---
Author Organization [employer] Address [address] [place] [address] 7t [place] [address] Care Team Providers Care Autism Teacher Name Role Phone Unavailable Primary Care Provider [...] COVID-19 Vaccine ( - 2023-2 5 season) 2025 Influenza Vaccine (#1) 2025 RSV Patients and [...]
--- OUTSIDE RECORDS SUMMARY | 2025-03-24 08:27 | XMS_ITS | Clinical Summary ---
Author Organization [facility] Address [address] [place] [address] Care Team Providers Care Senior Energy Trader Name Role Phone Lucia Davidson MD Primary Care Provider [phone] Medical History Medical History Date Comments Back [...] 01/14/2020 Zoster Vaccines (1 of 2) 01/14/2020 Depression Screening 06/04/2024 COVID-19 Vaccine (2024- season) 2025 05/08/2021, 08/06/2020, 07/16/2020 Influenza Vaccine (#1) 2025 , 03/26/2019, 02/27/2018, Additional history exists RSV Immunization Adult Patients (1 - 1-dose 75+ series) 2045 HIB [...] age to complete this topic Care Teams Senior Energy Trader Relationship Specialty Start Date End Date Lucia Davidson MD [address] [place] [address] [address] [facility] [place] [address] PCP - General Internal Medicine 08/08/21
--- OUTSIDE RECORDS SUMMARY | 2025-03-24 08:27 | XMS_ITS | Patient Health Record ---
Author Organization [facility] Address [address] [place] [address] Care Team Providers Care Boat Hoist Operator Name Role Phone Lucia Davidson Primary Care Provider Andrey Lucas Unavailable [phone] Allergies Allergen (clinical drug ingredient) Drug/Non Drug [...] days Not-Taking Ciclopirox 0.77 % 1 application Respiratory Care Assistant ally Twice a day; Duration: 30 days [...] W/U Status Risk Notes Problem Tinea unguium ([id number]) Tinea unguium (B35.1) Active confirmed Plan Of Treatment Pending Test Test Name Order Date [id number] NAIL, 6 OR MORE 02/05/2020 [id number] Plate 03/31/2021 Insurance Providers Payer Name Payer Address Payer Phone Subscriber Number Group Number Insured Name Patient Relationship to Insured Coverage Start Date Coverage End Date Medicare National Govt Svcs Inc [address] [facility] [address] [id number] Abraham Amos Self - patient is the insured Medical (General) History Medical History History ICD Code Hypertension Reflux ( GERD) Surgical History Surgery Date(Month/Year)
[2025-03-24 14:12] LABS: Alanine Aminotransferase 29 U/L (0-40); Albumin Level 4.3 g/dL (3.5-5.0); Alkaline Phosphatase 60 U/L (39-117); Anion Gap 10 (12-20); Aspartate Amino Transferase 20 U/L (5-37); Blood Urea Nitrogen 13 mg/dL (9-16); Calcium 9.3 mg/dL (8.4-10.2); Carbon Dioxide 30 mmol/L (22-29); Chloride 107 mmol/L (96-108); Cholesterol 195 mg/dL (<200); Estimated Glomerular Filt Rate > 60; HDL Cholesterol 43 mg/dL (>40); Potassium 4.7 mmol/L (3.3-5.1); Sodium 142 mmol/L (135-145); Total Protein 7.1 g/dL (6.5-8.0); Triglycerides 66 mg/dL (<150)
[2025-03-24 14:45] LABS: Free T4 (Free Thyroxine) 1.11 ng/dL (0.71-1.85); Thyroid Stimulating Hormone 0.73 uIU/mL (0.32-4.0)
[2025-03-24 14:48] LABS: Folate 7.6 ng/mL (> or = 4.0); Vitamin B12 533 pg/mL (200-900)
[2025-03-25 03:33] LABS: HBS Num1 15.92 mIU/mL (0-7.99); HBc Num1 0.07 S/CO (0.00-0.79); HBsAGNum1 0.50 S/CO (0.00-0.99); Hepatitis B Surface Antigen Negative (Negative); ~HepC Num1 0.16 S/CO (0.00-0.79); ~Hepatitis B Surface Antibody REACTIVE (Nonreactive); ~Hepatitis C Antibody Nonreactive (Nonreactive)
[2025-03-30 16:19] LABS: Vitamin D 25-OH, D2 <4 ng/mL; Vitamin D 25-OH, D3 25 ng/mL; Vitamin D 25-OH, Total 25 ng/mL (30-100)
== END 2025-03-24 08:18 | disposition home or self-care (01) ==
LOC: HO.HKASLDS 08:17
PROVIDERS: Nurse Practitioner Family; PCP Internal Medicine; Visit Provider Internal Medicine
DX: Z12.5 Encounter for screening for malignant neoplasm of prostate (principal); E55.9 Vitamin D deficiency, unspecified; R79.89 Other specified abnormal findings of blood chemistry; E78.00 Pure hypercholesterolemia, unspecified
CPT/HCPCS: 36415; 80053; 80061; 82306; 82607; 82746; 84153; 84439; 84443; 86704; 86706; 86803; 87340

== ENCOUNTER 2025-03-25 09:27 | Outpatient (AMB) | payer MEDICARE, MEDICAID, SELFPAY ==
--- NOTE | 2025-03-25 09:31 | AM.OFFVISNUR ---
Intake Visit Reasons: Flu shot Allergies baclofen Allergy (Intermediate, Verified 03/23/25 09:42) ineffective cyclobenzaprine Allergy (Intermediate, Verified 03/23/25 09:42) Drowsy Sulfa (Sulfonamide Antibiotics) (SULFA(SULFONAMIDE ANTIBIOTICS)) Allergy (Mild, Verified 03/23/25 09:42) HIVES, rash and red bumps, itching Office Procedures Flu Questionnaire Does the patient have a severe egg allergy?: No Does the patient have severe life threatening allergies?: No Does the patient have a fever or illness today?: No Has the patient ever had Guillain-Strasburg Syndrome?: No Has the patient ever had any past reaction to a flu shot?: No Immunizations Fluarix [id number] (PF) 45 mcg (15 mcg x 3)/0.5 mL IM syringe Performing Provider: Lucia Davidson MD [facility] Administered by: Deyanira Khan RN on 03/25/25 09:31 Dose Route Admin Location Dispensed Lot Number Expiration Date [facility] Platen Drier Operator 0.5 mL IM Left Deltoid 0.5 mL [id number] 12/01/25 [id number] Grid MobileINE VIS Given Date VIS Provided VIS Publication Date 03/25/25 Single Vaccine 24 Eligibility Eligibility Date Funding Source Not [place] Eligible 03/25/25 Private Assessment & Plan Assessment & Plan Orders: Orders Influenza [id number] Immunization Today Z23 - Encounter for immunization Coding
--- OUTSIDE RECORDS SUMMARY | 2025-03-25 10:47 | XMS_ITS | Clinical Summary ---
Author Organization [facility] Address [address] [place] [address] Care Team Providers Care Jewel Staker Name Role Phone Pcp, No Primary Care [...] Vaccine (3 - season) 02/02/202510/2020, 07/16/2020 Insurance [facility] MGD MEDICARE MEDICARE PART A & B Care Teams Jewel Staker Relationship Specialty Start Date End Date Pcp, No PCP - General General Medicine 12/03/23
--- OUTSIDE RECORDS SUMMARY | 2025-03-25 10:47 | XMS_ITS | Encounter Summary ---
Author Organization [employer] Address [address] [facility] 7 [place] [address] Care Team Providers Care Religion Department Chair Name Role Phone Unavailable Primary Care Provider Unavailabl e Encounter Details Date Type Department Care Team (Latest Contact Info) Description 07/02/2020 Abstract [facility] CONVERSIONS Dental, Provider, DDS Social History Tobacco [...]
--- OUTSIDE RECORDS SUMMARY | 2025-03-25 10:47 | XMS_ITS | Clinical Summary ---
Author Organization [employer] Address [address] [place] [address] 7t [place] [address] Care Team Providers Care Prepress Operator Name Role Phone Unavailable Primary Care [...]
--- OUTSIDE RECORDS SUMMARY | 2025-03-25 10:47 | XMS_ITS | Clinical Summary ---
Author Organization [facility] Address [address] [place] [address] Care Team Providers Care Candle Wrapper Name Role Phone Lucia Davidson MD Primary Care Provider [phone] Medical History Medical History Date Comments Back [...] age to complete this topic Care Teams Candle Wrapper Relationship Specialty Start Date End Date Lucia Davidson MD [address] [place] [address] Dr [address] [facility] [place] [address] PCP - General Internal Medicine 08/08/21
--- OUTSIDE RECORDS SUMMARY | 2025-03-25 10:47 | XMS_ITS | Patient Health Record ---
Author Organization [facility] Address [address] [place] [address] Care Team Providers Care Door Repairer Bus Name Role Phone Lucia Davidson Primary Care Provider Andrey Lucas Unavailable [phone] Allergies Allergen (clinical drug ingredient) Drug/Non Drug [...] days Not-Taking Ciclopirox 0.77 % 1 application Mill Supervisor ally Twice a day; Duration: 30 days [...] W/U Status Risk Notes Problem Tinea unguium (981741455) Tinea unguium (B35.1) Active confirmed Plan Of Treatment Pending Test Test Name Order Date [id number] NAIL, 6 OR MORE 02/05/2020 [id number] Plate 03/31/2021 Insurance Providers Payer Name Payer Address Payer Phone Subscriber Number Group Number Insured Name Patient Relationship to Insured Coverage Start Date Coverage End Date Medicare National Govt Svcs Inc [address] [facility] [place] [address] [id number] Abraham Amos Self - patient is the insured Medical (General) History Medical History History ICD Code Hypertension Reflux ( GERD) Surgical History Surgery Date(Month/Year)
== END 2025-03-25 09:41 | disposition home or self-care (01) ==
LOC: HO.HMCH 09:28
PROVIDERS: PCP Internal Medicine
DX: Z23 Encounter for immunization (principal)

== ENCOUNTER → 2025-03-25 09:27 | Outpatient (BNVA) | payer MEDICARE, MEDICAID, SELFPAY | PROVIDERS: PCP Internal Medicine | DX: Z23 Encounter for immunization (principal) | CPT/HCPCS: 90471; 90656 ==

== ENCOUNTER 2025-05-23 07:09 | Outpatient (REF) | payer MEDICARE, MEDICAID, SELFPAY ==
--- OUTSIDE RECORDS SUMMARY | 2025-05-23 07:13 | XMS_ITS | Encounter Summary ---
Author Organization [employer] Address [address] [facility] 7 [place] [address] Care Team Providers Care Repair Coil Winder Name Role Phone Unavailable Primary Care Provider Unavailabl e Encounter Details Date Type Department Care Team (Latest Contact Info) Description 07/02/2020 Abstract [facility] CONVERSIONS Dental, Provider, DDS Social History [...]
--- OUTSIDE RECORDS SUMMARY | 2025-05-23 07:13 | XMS_ITS | Clinical Summary ---
Author Organization [employer] Address [address] [place] [address] 7t [place] [address] Care Team Providers Care Waterproofing Supervisor Name Role Phone Unavailable Primary Care Provider [...] of 2) 01/14/2020 COVID-19 Vaccine ( - 2024-2 6 season) 2025 Influenza Vaccine (#1) 2025 RSV [...]
--- OUTSIDE RECORDS SUMMARY | 2025-05-23 07:14 | XMS_ITS | Clinical Summary ---
Author Organization [facility] Address [address] [place] [address] Care Team Providers Care Home Maker Name Role Phone Pcp, No Primary Care [...] Vaccine (3 - season) 02/02/202510/2020, 07/16/[address] [facility] MGD MEDICARE MEDICARE PART A & B Care Teams Home Maker Relationship Specialty Start Date End Date Pcp, No PCP - General General Medicine 12/03/23
--- OUTSIDE RECORDS SUMMARY | 2025-05-23 07:14 | XMS_ITS | Clinical Summary ---
[facility] Organization [facility] Address [address] [place] [address] Care Team Providers Care Sales Financial Analyst Name Role Phone Lucia Davidson MD Primary Care Provider [phone] Medical History Medical History Date Comments Back [...] on file Sexual Orientation Not on file Last Filed Vital Signs Vital Sign Reading [...] 2) 01/14/2020 Depression Screening 06/04/2024 COVID-19 Vaccine (4 - 2024- season) 2025 05/08/2021, 08/06/2020, 07/16/2020 Influenza Vaccine [...] age to complete this topic Care Teams Sales Financial Analyst Relationship Specialty Start Date End Date Lucia Davidson MD [address] [place] [address] [address] [facility] [place] [address] PCP - General Internal Medicine 08/08/21
--- OUTSIDE RECORDS SUMMARY | 2025-05-23 07:14 | XMS_ITS | Patient Health Record ---
Author Organization [facility] Address [address] [place] [address] Care Team Providers Care Mate First Name Role Phone Lucia Davidson Primary Care Provider Andrey Lucas Unavailable [phone] Allergies Allergen (clinical drug ingredient) Drug/Non Drug [...] days Not-Taking Ciclopirox 0.77 % [address] Operator Hot Mix ally Twice a day; Duration: 30 days [...] W/U Status Risk Notes Problem Tinea unguium (823651166) Tinea unguium (B35.1) Active confirmed Plan Of Treatment Pending Test Test Name Order Date [id number] NAIL, 6 OR MORE 02/05/2020 [id number] Plate 03/31/2021 Insurance Providers Payer Name Payer Address Payer Phone Subscriber Number Group Number Insured Name Patient Relationship to Insured Coverage Start Date Coverage End Date Medicare National Govt Svcs Inc [address] [place] [address] [id number] Abraham Amos Self - patient is the insured Medical (General) History Medical History History ICD Code Hypertension Reflux ( GERD) Surgical History Surgery Date(Month/Year)
[2025-05-23 07:21] LABS: MANUAL DIFF FLAG NO
[2025-05-23 08:04] LABS: Hematocrit 44.7 % (42.0-52.0); Hemoglobin 14.9 g/dl (14.0-18.0); Imm Gran Abs Auto 0.02 X10*3/uL (0.00-0.03); Imm Gran Pct Auto 0.3 % (0.0-0.4); Lymphocytes Absolute Auto 2.3 X10*3/uL (1.2-4.9); Mean Corpuscular HGB Conc 33.3 g/dl (31.0-36.0); Mean Corpuscular Hemoglobin 29.4 pg (27.0-33.0); Mean Corpuscular Volume 88.2 fL (80.0-98.0); NRBC Abs Auto 0.000 X10*3/uL (0.0-0.012); NRBC Pct Auto 0.0 /100WBC (0.0-0.2); Platelet Count 296 X10*3/uL (160-400); Red Blood Count 5.07 X10*6/uL (4.60-5.80); White Blood Count 6.1 X10*3/uL (4.8-10.8)
[2025-05-23 08:33] LABS: Alanine Aminotransferase 25 U/L (0-40); Albumin Level 4.4 g/dL (3.5-5.0); Alkaline Phosphatase 60 U/L (39-117); Anion Gap 13 (12-20); Aspartate Amino Transferase 23 U/L (5-37); Blood Urea Nitrogen 17 mg/dL (9-16); Calcium 9.5 mg/dL (8.4-10.2); Carbon Dioxide 26 mmol/L (22-29); Chloride 108 mmol/L (96-108); Estimated Glomerular Filt Rate > 60; Potassium 4.4 mmol/L (3.3-5.1); Sodium 143 mmol/L (135-145); Total Protein 7.1 g/dL (6.5-8.0)
[2025-05-23 08:53] LABS: Hemoglobin A1C 95.6898 umol/L
== END 2025-05-23 07:10 | disposition home or self-care (01) ==
LOC: HO.LAB 07:09
PROVIDERS: PCP Internal Medicine; Visit Provider Internal Medicine
DX: E78.00 Pure hypercholesterolemia, unspecified (principal); Z13.1 Encounter for screening for diabetes mellitus
CPT/HCPCS: 36415; 80053; 83036; 85025

== ENCOUNTER 2025-06-01 11:51 | Outpatient (AMB) | payer MEDICARE, MEDICAID, SELFPAY ==
[2025-06-01 11:56] VITALS: BP 132/62; PULSE 68; O2SAT 98; BMI 33.7
--- NOTE | 2025-06-01 11:56 | A.OFFPC_ITS ---
Vital Signs 06/01/25 11:56 Height 5 ft 11 in Weight 242 lb BMI 33.7 BP 132/62 Blood Pressure Location Lt brachial Position Sitting Pulse 68 Pulse Source Pulse Oximeter Pulse Oximetry (%) 98 Oxygen Delivery Method Room Air Intake Visit Reasons: Annual Exam - see comments Wildlife Control Operator Required: Yes Wildlife Control Operator Language: Philosophy Faculty Name: Manuel [id number] Allergies baclofen Allergy (Intermediate, Verified 06/01/25 11:57) ineffective cyclobenzaprine Allergy (Intermediate, Verified 06/01/25 11:57) Drowsy Sulfa (Sulfonamide Antibiotics) (SULFA(SULFONAMIDE ANTIBIOTICS)) Allergy (Mild, Verified 06/01/25 11:57) HIVES, rash and red bumps, itching Medication List - Last Reconciled 06/01/25 by Lucia Davidson MD [AUTO CPAP 5-20 cm H2O humidified air As directed] sbrmpatskv-zsusjdwliyjuw-blbo 50-300-40 mg 1 cap PO Q4H PRN fluticasone propionate 50 mcg/actuation (Flonase Allergy Relief) 2 sprays intranasal DAILY hydrocortisone 2.5% (Proctosol HC) 1 appl AK BID Held on 09/17/24. Instructions: Doctor's Order lisinopril 5 mg PO DAILY 90 days lubiprostone 24 mcg PO BID omeprazole 20 mg PO QAM propranolol 10 mg PO BID sumatriptan succinate take 1 tab at onset of headache; if no relief may repeat 1 tab after at least 2 hrs; max = 4 tabs/24 hr PO tirzepatide (weight loss) 2.5 mg (0.5 mL) subcut QWEEK Tobacco use date assessed: 11/21/24 Dental Screening Dental Screen Date: 11/21/24 HPI Annual Exam - see comments HPI Details Interpret Maunel [id number] HPI Comments History of Present Illness Details History of Present Illness The patient is a 55-year-old male presenting for an annual physical exam with a history of obesity, hypertension, hypercholesterolemia, benign prostatic hyperplasia (BPH), gastroesophageal reflux disease (GERD), obstructive sleep apnea, migraines, hepatic steatosis, and deafness. His medical history includes a bladder neck contracture, for which he follows up with urology, last seen in 2021. His last colonoscopy was in 2020. For his obstructive sleep apnea, he follows up with neurology, last seen in March, and benefits from using his CPAP for over 4 hours a night. His hypertension is managed with lisinopril 5 mg daily and propranolol 10 mg twice daily. His GERD is managed with omeprazole 20 mg daily. For migraines, he uses sumatriptan, which is effective, and also takes propranolol for prevention; he has a prescription for twslfndrsc-zcwhqcmubibff-owlgypfb but was counseled on its addictive properties. Lab work from May showed a hemoglobin A1c of 5.6% and a blood sugar of 97 mg/dL. Cholesterol testing in March showed an LDL of 139 mg/dL. He was also fo und to have low vitamin D and hepatic steatosis on an abdominal ultrasound. He also follows up with nutrition services. His family history is significant for strokes in his father, uncle, and aunt. H is father also had prostate cancer and skin cancer, and his mother and aunt had breast cancer. The patient denies any use of alcohol or cigarettes and reports occasional use of CBD gummies. Health Maintenance - Last colonoscopy was performed in 2020 . - Last eye examination was in April. - Immunizations are up to date, includin g tetanus, flu, and the two-part shingles vaccine. - He has protective antibodies for hepat itis B. - Lab screening in May revealed a h emoglobin A1c of 5.6%. - Lab screening in March revealed an L DL of 139 mg/dL and a normal prostate- specific antigen level. - He has been counseled on diet and exer cise. - He adheres to CPAP therapy for obstruc tive sleep apnea. Social History - Alcohol Use: The patient denies drinki ng alcohol. - Tobacco Use: The patient denies ever s moking cigarettes. - Substance Use: He denies recreational drug use but occasionally uses CBD gummies. - Nutrition: The patient follows up with a nutrition service and reports eating healthy. - Exercise: He has been encouraged to re main active. - Housing: He lives in a [place] [facility] [place]. Results - Labs (May): - CBC: Normal with no anemia; eosinophil s were slightly elevated. - CMP: Normal electrolytes, renal functi on, and liver enzymes. - Blood sugar: 97 mg/dL. - Hemoglobin A1c: 5.6%. - Labs (March): - Lipid panel: LDL 139 mg/dL. - Other Labs: - Vitamin D: Mildly low. - Thyroid and folic acid: Normal. - Hepatitis B serology: Positive for ant ibody. - Imaging: - Abdominal ultrasound: Showed hepatic s teatosis. [facility] Medical History (Updated 06/01/25 @ 12:30 by Lucia Davidson MD) Annual physical exam LFT elevation Adult general medical exam Upper respiratory tract infection Weak urinary stream Allergic reaction Tachycardia Dysuria Varicose veins of left lower extremity with inflammation Varicose veins of right lower extremity with inflammation Neck pain Daytime sleepiness FRITZ on CPAP GERD (gastroesophageal reflux disease) Weak urinary stream Exposure to COVID-19 virus Nasal congestion Thoracic arthritis BPH (benign prostatic hyperplasia) Musculoskeletal pain Osteoporosis screening Rash COVID-19 vaccine series completed BPH (benign prostatic hyperplasia) Thoracic spine pain Cough Back pain Nasal congestion Left epididymitis Deaf Migraine Vitamin D deficiency Hypertension Hypercholesterolemia Screening for colon cancer Chronic idiopathic constipation Surgical History Status post ablation of incompetent vein using laser Hx of colonoscopy Varicocele History of esophagogastroduodenoscopy (EGD) Hx of hernia repair Family History Father History of prostate cancer Skin cancer CVA (cerebral vascular accident) Mother HX: breast cancer Paternal Uncle Skin cancer CVA (cerebral vascular accident) Maternal Aunt HX: breast cancer Paternal Aunt CVA (cerebral vascular accident) Social History Household Members: Spouse, Family and Children Housing: House Are you a primary careers counsellor to a significant other at home: No Do you presently have visiting nurse or other home services: No Alcohol intake: never Patient Tobacco Use Status: Never used Tobacco Tobacco use type: Cigarette e-Cigarette/Vaping Use: Never Used Second Hand Smoke Exposure: No service: No Current occupational status: employed Cognitive needs: No Hearing needs: Yes Vision needs: Yes Questionnaire PHQ-9 Over the last 2 weeks, how often have you been bothered by any of the following problems? 1. Little interest or pleasure in doing things: not at all 2. Feeling down, depressed, or hopeless: not at all 3. Trouble falling or staying asleep, or sleeping too much: not at all 4. Feeling tired or having little energy: several days 5. Poor appetite or overeating: not at all 6. Feeling bad about yourself - or that you are a failure or have let yourself or your family down: not at all 7. Trouble concentrating on things, such as reading the newspaper or watching television: several days 8. Moving or speaking so slowly that other people could have noticed. Or the opposite - being so fidgety or restless that you have been moving around a lot more than usual: not at all 9. Thoughts that you would be better off or of hurting yourself in some way: not at all Total score: 2 Depression Screening Interpretation: Positive Depression Screening Done: Yes Source: Developed by Drs. Tee uKrtz, Lisandra Saleh, Juan Carlos Peter and colleagues, with an educational jan from [employer]. Thrive Questionnaire Date Thrive assessed: 11/14/24 I am a: Patient What is your living situation today?: I have a steady place to live Within the past 12 months, did the food you bought not last and you didn't have the money to get more?: Often true Within the past 12 months, did you worry whether your food would run out before you got money to buy more?: Often true Do you have trouble paying for medicines?: No Do you have trouble getting transportation to medical appointments?: No Do you have trouble paying your heating and electricity bill?: Yes Do you have trouble taking care of your child, family member or friend?: No Do you have trouble with day-to-day activities such as bathing, preparing meals, shopping, managing finances, etc.?: No Are you currently unemployed and looking for a job?: No Are you interested in more education?: No Currently or been in a relationship where the following occur: I choose not to answer THRIVE Score: 3 AUDIT C Alcohol Use Questionnaire (AUDIT-C) 1. How often do you have a drink containing alcohol?: Never 3. How often do you have six or more drinks on one occasion?: Never Total Score: 0 CLARITA-7 AMB Questionnaire CLARITA-7 Date CLARITA - 7 assessed: 11/21/24 Source: Developed by Drs. Tee Kurtz, Lisandra Saleh, Juan Carlos Peter and colleagues, with an educational jan from [employer]. Review of Systems Narrative Review of Systems - Constitutional: Denies fever. - HEENT: Reports seasonal allergies with some itching, but denies throat itchiness. - Denies dysphagia. - Reports deafness. - Cardiovascular: Denies chest pain, even with exertion. - Respiratory: Denies waking up short of breath. - Gastrointestinal: Denies nausea and vomiting. - He reports his heartburn is well-controlled with omeprazole. - Genitourinary: Reports nocturia twice per night, which is his baseline. - Neurological: Reports a history of migraines. - Denies syncope or dizziness. Const Denies poor appetite and Denies weakness Eyes Denies no additional complaints ENT Reports Normal hearing present, Denies dizziness, Denies nasal congestion, Denies tinnitus and Denies sore throat Card Denies chest pain, Denies syncope, Denies rapid heart rate and Denies dyspnea Resp Denies cough and Denies dyspnea GI Denies change in stool character, Reports constipation, Denies diarrhea, Denies nausea and Denies vomiting Denies dysuria and Denies urinary frequency Neuro Reports Normal hearing present, Denies confusion, Denies dizziness, Denies syncope and Denies weakness Psych Denies confusion Physical exam (Primary Care) Vital Signs: Last Vital Signs Pulse 68 06/01/25 11:56 BP 132/62 06/01/25 11:56 Pulse Ox 98 06/01/25 11:56 Oxygen Delivery Method Room Air 06/01/25 11:56 BMI result Body Mass Index 33.7 Tobacco/Smoking Status: Tobacco use Status Tobacco use date assessed 11/21/24 06/01/25 11:58 Patient Tobacco Use Status Never used Tobacco 06/01/25 11:58 Tobacco use type Cigarette 06/01/25 11:58 e-Cigarette/Vaping Use Never Used 06/01/25 11:58 PHQ-9: PHQ-9 Score PHQ-9: Total score 2 06/01/25 12:31 Depression Screening Interpretation: Positive Thrive Assessment: Date of Thrive Assessment Date Thrive assessed 11/14/24 06/01/25 11:58 Currently or been in a relationship where the following occur: I choose not to answer Narrative Physical Exam General: Cooperative, healthy appearing, comfortable, no acute distress and well developed Orientation: Patient oriented x3 Limitations: No limitations Head: Normal to inspection Ears: Hearing grossly normal bilaterally Nose: Normal external nose present Face and sinus: Normal facial exam Eyes: Appearance normal, both eyes and all related structures Neck: Normal visual inspection and Yes full ROM Respiratory: Normal respiratory effort and able to speak in complete sentences. Clear to auscultation bilaterally Cardiovascular: Regular rate and rhythm. Normal S1 and S2 GI: Normal to inspection. Soft to palpation and nontender. Prostate mildly enlarged on palpation Skin: No rashes or lesions noted. Blackened toenail, possibly due to trauma or fungal infection Neuro: Patient oriented x3 Extremities: Normal to inspection Const General: alert and awake; No confusion Orientation/consciousness: No confusion HENMT Head: Yes normocephalic Ears: external ears normal and TM's normal bilaterally Face and sinus: Yes normal facial exam Mouth: moist mucous membranes Throat: Yes tonsils normal Eyes Conjunctivae: conjunctivae normal Pupils: Equal, round and reactive pupils present and Pupil accommodation reflex normal Direct Ophthalmoscopy: normal light reflex Neck Neck: No lymphadenopathy Thyroid: Thyroid normal Chest Chest palpation & inspection: normal inspection of the chest Resp Effort & Inspection: normal respiratory effort and no audible wheezes Auscultation: clear to auscultation bilaterally, no crackles, no wheezes and lung sounds not diminished Cardio Rate: regular rate Rhythm: regular rhythm Peripheral pulses: radial pulses present and dorsalis pedis present GI Other: guaiac negative prostate mild enlarge Palpation (GI): no masses Auscultation: normal bowel sounds and normoactive bowel sounds Rectal Exam - Male: Yes deferred Other: toe nail discolored R Skin General skin exam: no rashes or lesions noted Rashes: no rashes Neuro General: deep tendon reflexes 2+ bilaterally and No confusion Cranial nerves: Yes Equal, round and reactive pupils present, Yes Midline tongue present, Yes Normal hearing present and Yes Ability to bilaterally elevate shoulders present Cognition (Neuro): normal cognition Gait exam (Neuro): Normal gait present Motor exam (neuro): 5/5 motor strength present throughout Deep tendon reflexes (DTR's): Right brachioradialis reflex intensity grade: 2+, Left brachioradialis reflex intensity grade: 2+, Right patellar reflex intensity grade: 2+ and Left patellar reflex intensity grade: 2+ Extrem General: No edema Coding Level of Care Code Est Pt Prev Care 40-64y(79308) Diagnoses Annual physical exam Z00.00 Obstructive sleep apnea (adult) (pediatric) G47.33 Migraine G43.909 Benign prostatic hyperplasia with urinary frequency N40.1; R35.0 Lower urinary tract symptom detail: urinary frequency Lower urinary tract symptom presence: symptoms present Gastroesophageal reflux disease without esophagitis K21.9 Esophagitis presence: without esophagitis Hepatic steatosis K76.0 Obesity (BMI 30-39.9) E66.9 Impaired glucose tolerance R73.02 Hypercholesterolemia E78.00 Essential hypertension I10 Hypertension type: essential hypertension Onychomycosis B35.1 Assessment & Plan Assessment & Plan (1) Annual physical exam: Code(s): Z00.00 - Encounter for general adult medical examination without abnormal findings Category: Medical Plan: Patient is advised to eat healthy, keep well hydrated, keep active and have adequate sleep. (2) Obstructive sleep apnea (adult) (pediatric): Comment: 12/08/21, In-lab PSG: mild degree of obstructive sleep apnea, with total AHI 9 and oxygen mica was 85% Code(s): G47.33 - Obstructive sleep apnea (adult) (pediatric) Category: Medical Plan: Continue to use the CPAP more than 4 hours a night and benefits from this. (3) Migraine: Code(s): G43.909 - Migraine, unspecified, not intractable, without status migrainosus Category: Medical Plan: Patient is advised to eat healthy, keep well hydrated, keep active and have adequate sleep. (4) BPH (benign prostatic hyperplasia): Comment: One year PSA, TURP Dr. Valles November 2022 Code(s): N40.0 - Benign prostatic hyperplasia without lower urinary tract symptoms Category: Medical Qualifiers: Lower urinary tract symptom detail: urinary frequency Lower urinary tract symptom presence: symptoms present Qualified Code(s): N40.1 - Benign prostatic hyperplasia with lower urinary tract symptoms; R35.0 - Frequency of micturition Plan: Continue to follow-up with urology (5) GERD (gastroesophageal reflux disease): Code(s): K21.9 - Gastro-esophageal reflux disease without esophagitis Category: Medical Qualifiers: Esophagitis presence: without esophagitis Qualified Code(s): K21.9 - Gastro-esophageal reflux disease without esophagitis Plan: Avoid the foods that causes that usually spicy foods, tomato products, juices, coffee, soda and foods that your sensitive to. After eating do not lie down, allow 3-4 hours before in lie down. And keep the head of bed above 30 degrees to avoid the acid from going up. (6) Hepatic steatosis: Code(s): K76.0 - Fatty (change of) liver, not elsewhere classified Category: Medical Plan: Low-fat diet and exercise (7) Obesity (BMI 30-39.9): Code(s): E66.9 - Obesity, unspecified Category: Medical Plan: Diet and exercise. Patient was prescribed tirzepatide (8) Impaired glucose tolerance: Code(s): R73.02 - Impaired glucose tolerance (oral) Category: Medical Plan: Decrease the amount of carbohydrate intake, pasta, bread, rice and potatoes are all sugar and that is aside from all the sweet stuff, remember that fruits are good but they are Sweet also. (9) Hypercholesterolemia: Code(s): E78.00 - Pure hypercholesterolemia, unspecified Category: Medical Plan: Avoid fried foods, chicken skin, eggs, butter margarine, pastries and meat. Be it pork or beef they have a lot of cholesterol LDL goal of less than 130 and triglyceride of less than 150 (10) Hypertension: Code(s): I10 - Essential (primary) hypertension Category: Medical Qualifiers: Hypertension type: essential hypertension Qualified Code(s): I10 - Essential (primary) hypertension Plan: Continue with blood pressure medication. Decrease salt intake and exercise on lisinopril 5 mg once a day propranolol 10 mg twice a day (11) Onychomycosis: Code(s): B35.1 - Tinea unguium Category: Medical Plan Plan Patient was informed and verbally consented to the use of an ambient scribe for clinic note documentation during this visit. 1. Annual Physical Examination The patient presents for a wellness visit. His immunizations are up to date. A request for fasting blood work, including cholesterol and sugar monitoring, will be placed for three months from now. He was advised to continue a healthy diet and stay active. 2. Obesity The patient is obese and follows with a nutrition service. A prescription for tirzepatide was previously sent for weight loss but was denied by his insurance. The plan includes continuing a low-fat diet and exercise. 3. Essential Hypertension The patient's blood pressure is well controlled. He will continue lisinopril 5 mg once a day and propranolol 10 mg twice a day. Refills for his blood pressure medication will be sent to [facility]. 4. Hypercholesterolemia The patient's last LDL was 139 mg/dL. The goal is an LDL of less than 130 mg/dL and triglycerides of less than 150 mg/dL. He will continue with diet and exercise, and labs will be rechecked in 3 months. 5. Prediabetes The patient's hemoglobin A1c was 5.6% in May. The plan includes diet and exercise, with monitoring of his blood sugar in 3 months. 6. Benign Prostatic Hyperplasia The rectal exam revealed a mildly enlarged prostate. As his urinary symptoms are stable and not bothersome, no medication will be started at this time. He will continue to follow up with urology and his prostate-specific antigen will be monitored via blood work. 7. Obstructive Sleep Apnea The patient benefits from his CPAP machine, using it for more than 4 hours a night. He will continue with current therapy. 8. Gastroesophageal Reflux Disease His symptoms are well-controlled on omeprazole 20 mg daily. A low-fat diet is recommended. A refill for omeprazole will be sent to [facility]. 9. Migraine He is on propranolol 10 mg twice daily for migraine prevention. He also uses sumatriptan for acute attacks, which he finds helpful. He was counseled on the addictive potential of his butalbital-containing medication. 10. Vitamin D Deficiency The patient has a mildly low vitamin D level. He was advised to discontinue the high-dose 50,000 unit weekly prescription and switch to a daily dose of 1,000 to 2,000 units. A new prescription for vitamin D will be sent to [facility]. 11. Onychomycosis The patient has a black toenail, which could be due to trauma or a fungal infection. A referral will be made for him to see a supervisor doping for further evaluation. Discussion Notes I conducted a comprehensive physical exam and reviewed the patient's medical history. I discussed the physical exam findings, including the mildly enlarged prostate, and explained that since he is not having significant symptoms, we will monitor it rather than starting medication at this time. We reviewed his recent lab work, noting the prediabetic range on his A1c and his mildly elevated LDL cholesterol. I explained the plan to recheck fasting labs in 3 months. I advised him to discontinue the high-dose weekly vitamin D and switch to a lowe r, daily dose of 1,000-2,000 IU, explaining the rationale for this change. We discussed the black toenail, and he agreed to a referral to a supervisor doping for evaluation. We confirmed which medications needed refills and sent them to his preferred pharmacies. I confirmed his vaccine status is up to date and provided counseling on continued diet, exercise, and hydration. Patient Instructions - Continue taking your blood pressure medications (lisinopril and propranolol) as prescribed. - Stop taking the high-dose (50,000 units) weekly vitamin D. - Instead, start taking 1,000-2,000 units of vitamin D every day. - Continue using your CPAP machine for sleep apnea every night. - Continue your medications for heartburn (omeprazole) and for your bowels (Linzess). - We have sent refills for these medications to [facility]. - We are sending a referral for you to see a foot doctor (supervisor doping) to check your black toenail. - You will need to get blood work done in 3 months. - Please do not eat or drink anything (except water) for 8-12 hours before this test. - Continue to focus on a healthy diet, drink plenty of water, and stay active. - If you notice you are urinating more often, are having trouble starting your stream, or feel like you can't empty your bladder, please contact the office. Orders: Orders Complete Blood Count Auto Diff 3 Months R73.02 - Impaired glucose tolerance (oral) Thyroid Stimulating Hormone 3 Months R73.02 - Impaired glucose tolerance (oral) Vitamin B12 and Folate 3 Months R73.02 - Impaired glucose tolerance (oral) Comprehensive Met. Panel 3 Months R73.02 - Impaired glucose tolerance (oral) Lipid Panel 3 Months E78.00 - Pure hypercholesterolemia, unspecified, R73.02 - Impaired glucose tolerance (oral) Free T4 (Free Thyroxine) 3 Months R73.02 - Impaired glucose tolerance (oral) Hemoglobin A1c 3 Months R73.02 - Impaired glucose tolerance (oral) Referrals Podiatry Referral B35.1 - Tinea unguium Medications: New cholecalciferol (vitamin D3) 50 mcg PO DAILY 90 caps 3RF 90 days E55.9 - Vitamin D deficiency, unspecified, R73.02 - Impaired glucose tolerance (oral) Refilled lisinopril 5 mg PO DAILY 90 tabs 2RF 90 days R73.02 - Impaired glucose tolerance (oral) lubiprostone 24 mcg PO BID 180 caps 1RF R73.02 - Impaired glucose tolerance (oral) omeprazole 20 mg PO QAM 100 caps 2RF K21.9 - Gastro-esophageal reflux disease without esophagitis Discontinued tirzepatide (weight loss) Discontinued Reason: Insurance Denied 2.5 mg (0.5 mL) subcut QWEEK 2 mL 1RF E66.9 - Obesity, unspecified
--- OUTSIDE RECORDS SUMMARY | 2025-06-01 13:58 | XMS_ITS | Clinical Summary ---
Author Organization [facility] Address [address] [place] [address] Care Team Providers Care Dehydrator Operator Name Role Phone Lucia Davidson MD Primary Care Provider [phone] Medical History Medical History Date Comments Back [...] age to complete this topic Care Teams Dehydrator Operator Relationship Specialty Start Date End Date Lucia Davidson MD [address] [place] [address] [address] [facility] [place] [address] PCP - General Internal Medicine 08/08/21
--- OUTSIDE RECORDS SUMMARY | 2025-06-01 13:58 | XMS_ITS | Clinical Summary ---
Author Organization [employer] Address [address] [place] [address] [address] [place] [address] Care Team Providers Care Cutter And Edge Trimmer Name Role Phone Unavailable Primary Care Provider [...]
--- OUTSIDE RECORDS SUMMARY | 2025-06-01 13:58 | XMS_ITS | Patient Health Record ---
[facility] Address [address] [place] [id number] Care Team Providers Care Scarfer Name Role Phone Lucia Davidson Primary Care Provider Andrey Lucas Unavailable [phone] Allergies Allergen (clinical drug ingredient) Drug/Non Drug [...] days Not-Taking Ciclopirox 0.77 % 1 application [employer] ally Twice a day; Duration: 30 days [...] W/U Status Risk Notes Problem Tinea unguium (692988270) Tinea unguium (B35.1) Active confirmed Plan Of Treatment Pending Test Test Name Order Date [id number] NAIL, 6 OR MORE 02/05/2020 [id number] Plate 03/31/2021 Insurance Providers Payer Name Payer Address Payer Phone Subscriber Number Group Number Insured Name Patient Relationship to Insured Coverage Start Date Coverage End Date [employer] [address] [place] [address] [id number] Abraham Amos Self - patient is the insured Medical (General) History Medical History History ICD Code Hypertension Reflux ( GERD) Surgical History Surgery Date(Month/Year)
--- OUTSIDE RECORDS SUMMARY | 2025-06-01 13:58 | XMS_ITS | Clinical Summary ---
Author Organization [facility] Address [address] [place] [address] Care Team Providers Care Surgery Scheduler Name Role Phone Pcp, No Primary Care [...] Vaccine (3 - season) 02/02/202510/2020, 07/16/2020 Insurance [facility] MEDICARE MEDICARE PART A & B Care Teams Surgery Scheduler Relationship Specialty Start Date End Date Pcp, No PCP - General General Medicine 12/03/23
--- OUTSIDE RECORDS SUMMARY | 2025-06-01 13:58 | XMS_ITS | Encounter Summary ---
Author Organization [employer] Address [address] [facility] 7 [place] [address] Care Team Providers Care Rating Officer Name Role Phone Unavailable Primary Care Provider Unavailabl e Encounter Details Date Type Department Care Team (Latest Contact Info) Description 07/02/2020 Abstract [facility] CONVERSIONS Dental, Provider, DDS Social [...]
== END 2025-06-01 13:02 | disposition home or self-care (01) ==
LOC: HO.HMCH 11:52
PROVIDERS: PCP Internal Medicine; Visit Provider Internal Medicine
DX: Z00.00 Encounter for general adult medical examination without abnormal findings (principal); G47.33 Obstructive sleep apnea (adult) (pediatric); G43.909 Migraine, unspecified, not intractable, without status migrainosus; N40.1 Benign prostatic hyperplasia with lower urinary tract symptoms; R35.0 Frequency of micturition; K21.9 Gastro-esophageal reflux disease without esophagitis; K76.0 Fatty (change of) liver, not elsewhere classified; E66.9 Obesity, unspecified; R73.02 Impaired glucose tolerance (oral); E78.00 Pure hypercholesterolemia, unspecified; I10 Essential (primary) hypertension; B35.1 Tinea unguium

== ENCOUNTER → 2025-06-01 11:51 | Outpatient (BNVA) | payer MEDICARE, MEDICAID, SELFPAY | PROVIDERS: PCP Internal Medicine; Visit Provider Internal Medicine | DX: Z00.01 Encounter for general adult medical examination with abnormal findings (principal); E66.9 Obesity, unspecified; I10 Essential (primary) hypertension; E78.00 Pure hypercholesterolemia, unspecified; R73.02 Impaired glucose tolerance (oral); N40.1 Benign prostatic hyperplasia with lower urinary tract symptoms; R35.0 Frequency of micturition; G47.33 Obstructive sleep apnea (adult) (pediatric); K21.9 Gastro-esophageal reflux disease without esophagitis; G43.909 Migraine, unspecified, not intractable, without status migrainosus; Z99.89 Dependence on other enabling machines and devices; E55.9 Vitamin D deficiency, unspecified; B35.1 Tinea unguium; K76.0 Fatty (change of) liver, not elsewhere classified; Z13.31 Encounter for screening for depression | CPT/HCPCS: 96127; 99396 ==